=== PATIENT | male | born 1980 | race Two or more races ===

== ENCOUNTER 2023-06-21 12:00 | Outpatient (AMB) | payer OTHER, SELFPAY ==
--- NOTE | 2023-06-21 12:14 | A.OFFVIS_ITS ---
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 He has a past medical history of allergic rhinitis, anxiety, elevated hemoglobin A1c, GERD, nonalcoholic fatty liver disease, obesity, obstructive sleep apnea, and prediabetes. He presents to the office today as a new patient for nephrolithiasis. In discussion with the patient today he reports to be doing and feeling well. He discusses having a longstanding history of nephrolithiasis in the past for approximately 10-15 years. He reports having had previous surgical intervention for kidney stones. He reports following up with Dr. Kaplan in the past. He reports having had recent imaging at [facility] for right-sided flank pain he had been experiencing with lower urinary tract symptoms. Ultrasound report obtained. Bilateral kidneys with no hydro, lesions, and or stones noted. The bladder is normal. No stones, masses, or wall thickening noted on radiology report. Patient reports pain has since subsided and lower urinary tract symptoms as well. In office urinalysis results reviewed with the patient today. 3+ glucose. Discussed at length importance of healthy eating habits and increase daily activity for improvement in diabetes as well as for overall health and well-being. Discussed obtaining most recent imaging from [facility] as records are not provided at today's visit. He otherwise denies urinary urgency, urinary frequency, incontinence, nocturia, hematuria, dysuria, foul smelling urine, changes to urinary stream, flank pain, fever, and or chills. He is happy with his current voiding parameters. Patient otherwise offers no other issues or concerns at this time. [facility] Medical History (Updated 06/21/23 @ 15:32 by OBIE Giraldo) Allergic rhinitis Anxiety Elevated hemoglobin A1c GERD (gastroesophageal reflux disease) Non-alcoholic fatty liver disease Obesity Obstructive sleep apnea Pre-diabetes Review of Systems Const Reports as per HPI Eyes Reports no additional complaints ENT Reports no additional complaints Card Reports no additional complaints Resp Reports as per [facility] GI Reports as per [facility] Reports as per [facility] Musc Reports no additional complaints Neuro Reports no additional complaints Psych Reports as per [facility] Endo Reports as per [facility] Tye/Lymph Reports no additional complaints Aller/Immun Reports as per [facility] Physical Exam Const General: cooperative, healthy appearing, comfortable, no acute distress, well developed, alert and awake Nutritional Appearance: overweight Orientation/consciousness: patient oriented x3 Limitations: no limitations HEENT Head: Yes normal to inspection, Yes normocephalic and Yes atraumatic Ears: hearing grossly normal bilaterally Eyes General: appearance normal, both eyes and all related structures Neck Neck: Yes normal visual inspection and Yes trachea midline Chest Chest palpation & inspection: normal inspection of the chest Resp Effort & Inspection: normal respiratory effort and able to speak in complete sentences Cardio Rate: regular rate GI Inspection: Yes normal to inspection General: Yes no CVA tenderness Back/Spine/Pelvis Back: no CVA tenderness Skin General skin exam: no rashes or lesions noted Neuro General: patient oriented x3 Extrem General: Yes normal to inspection Psych Appearance: grossly normal and well kempt Mental Status: mental status grossly normal Speech and movement: Normal speech and movement present and Clear speech present Affect: normal affect Attitude: cooperative Thought process: Normal thought process present Thought content: Normal thought content present Insight: Fair insight present (Psych) Judgement: Fair judgement present (Psych) Results AMB Urinalysis, Automated UA Leukoctes 0 Dary/uL Last Edit by [employer] on 06/21/23 12:41 UA Nitrite Last Edit by [employer] on 06/21/23 12:41 UA Urobilinogen 0.2 mg/dL Last Edit by [employer] on 06/21/23 12:41 UA Protein 15 mg/dL Last Edit by [employer] on 06/21/23 12:41 UA pH 6.0 Last Edit by [employer] on 06/21/23 12:41 UA Blood 0 Monroe/uL Last Edit by [employer] on 06/21/23 12:41 UA Specific [place] 1.025 Last Edit by [employer] on 06/21/23 12:41 UA Ketone Last Edit by [employer] on 06/21/23 12:41 UA Bilirubin 0 mg/dL Last Edit by Lorena Paulino on 06/21/23 12:41 UA Glucose 1000 mg/dL Last Edit by Lorena Paulino on 06/21/23 12:41 Results Reviewed Results Reviewed: Laboratory Last Values Urine pH (Auto) 6.0 06/21/23 12:20 Specific [place] (Auto) 1.025 06/21/23 12:20 Urine Protein (Auto) 15 mg/dL 06/21/23 12:20 Glucose (UA)(Auto) 1000 mg/dL 06/21/23 12:20 Urine Blood (Auto) 0 Monroe/uL 06/21/23 12:20 Urine Bilirubin (Auto) 0 mg/dL 06/21/23 12:20 Urine Urobilinogen (Auto) 0.2 mg/dL 06/21/23 12:20 Leukocyte Esterase (Auto) 0 Dary/uL 06/21/23 12:20 Assessment & Plan Assessment & Plan (1) Nephrolithiasis: Code(s): N20.0 - Calculus of kidney (2) Lower urinary tract symptoms: Code(s): R39.9 - Unspecified symptoms and signs involving the genitourinary system (3) Flank pain: Code(s): R10.9 - Unspecified abdominal pain Plan In office urinalysis results reviewed with the patient today; as noted above. Retroperitoneal ultrasound results obtained and reviewed with the patient; as noted above. Discussed at length importance of managing diabetes for improvement in overall health and well-being. Discussed at length importance of weight loss with increase in activity and healthy eating habits for improvement in overall health and well-being. Discussed at length importance of drinking plenty of water daily Discussed and educated on potential causes for nephrolithiasis as well as further interventions pending ultrasound results. Patient otherwise denies any urinary issues or concerns at this time. Patient reports lower urinary tract symptoms and flank pain patient had been experiencing has since subsided Renal ultrasound in 1 year. Follow-up in 1 year with imaging to be completed prior; or sooner with any i ssues, concerns, and or questions. Orders: Orders AMB Urinalysis Automated 06/21/23 Z13.9 - Encounter for screening, unspecified US renal BI 364 Days N20.0 - Calculus of kidney Medications: New pyridoxine (vitamin B6) 100 mg PO DAILY 90 tabs 1RF 90 days N13.2 - Hydronephrosis with renal and ureteral calculous obstruction Patient Instructions: The patient had an opportunity to ask questions regarding the treatment plan. All questions were answered. Physical exam, labs, and imaging were discussed and reviewed in detail. As well as risks, benefits, and discussion of treatment choices. No major barriers to understanding were identified. The patient expressed understanding and agreement with the above treatment plan. The patient was made aware they should contact our office by phone for worsening of their current condition, the appearance of new symptoms, or with any questions or concerns. Compliance is encouraged with any medications and follow up testing that is ordered. It is a privilege to be allowed the opportunity to participate in? your urological care.? Again, if you have any questions or concerns If you have any questions or concerns please do not hesitate to contact me. The office is [phone]. This note is constructed using voice recognition software. While every effort has been made to ensure accuracy automotive mechanic errors may have been included. Yours sincerely, OBIE Giraldo Coding Level of Care Code New Pt Level 3 (66334) Diagnoses Nephrolithiasis N20.0 Lower urinary tract symptoms R39.9 Flank pain R10.9
== END 2023-06-21 13:30 | disposition home or self-care (01) ==
PROVIDERS: Visit Provider Nurse Practitioner Family
DX: N20.0 Calculus of kidney (principal); R39.9 Unspecified symptoms and signs involving the genitourinary system; R10.9 Unspecified abdominal pain
CPT/HCPCS: 99203

== ENCOUNTER → 2023-06-21 12:00 | Outpatient (BNVA) | payer OTHER, SELFPAY | PROVIDERS: Visit Provider Nurse Practitioner Family | DX: N20.0 Calculus of kidney (principal); R39.9 Unspecified symptoms and signs involving the genitourinary system | CPT/HCPCS: 81003; 99202 ==

== ENCOUNTER 2024-06-13 14:59 | Outpatient (REF) | payer OTHER, SELFPAY ==
--- NOTE | ~2024-06-13 | US_ITS ---
EXAMINATION: US RETROPERITONEAL COMPLETE (RENAL) CLINICAL INFORMATION: Calculus of kidney. COMPARISON: Renal ultrasound 09/03/2019. TECHNIQUE: Real-time imaging of the kidneys . FINDINGS: RIGHT KIDNEY: 12.0 x 5.2 x 5.7 cm (SAG x AP x TRV). The kidney is normal in size, contour, and echogenicity. Renal cortical thickness is normal. No calculi or focal parenchymal lesions. No hydronephrosis. LEFT KIDNEY: 12.0 x 5.4 x 5.8 cm (SAG x AP x TRV). The kidney is normal in size, contour, and echogenicity. Renal cortical thickness is normal. No calculi or focal parenchymal lesions. No hydronephrosis. US/US renal BI IMPRESSION: Normal exam. There are no renal calculi nor were any renal calculi present on the prior 09/03/2019 study. Electronically signed by: Darrel Carroll MD 06/26/2024 12:36 AM EDT
== END 2024-06-13 15:00 | disposition home or self-care (01) ==
LOC: HO.US 14:59
PROVIDERS: PCP Internal Medicine; Visit Provider Nurse Practitioner Family
DX: N20.0 Calculus of kidney (principal)
CPT/HCPCS: 76775

== ENCOUNTER 2024-06-20 12:00 | Outpatient (AMB) | payer OTHER, SELFPAY ==
--- NOTE | 2024-06-20 11:57 | A.OFFVIS_ITS ---
Intake Visit Reasons: 1y/US(pending 06/11) Intake Note: Patient presents for follow up visit on: kidney stones and ultrasound results Imaging Completed: 06/13/24 Urology Medications: none Blood Thinner: none Environmental Analyst Required: No Accompanied by: Self / Same As Patient Allergies No Known Allergies [No Known Allergies*] Allergy (Unverified 06/20/24 12:12) Medication List - Last Reconciled 06/20/24 by OBIE Giraldo pyridoxine (vitamin B6) 100 mg PO DAILY 90 days HPI Comments Details: Mark is a 43-year-old male patient. He has a past medical history of allergic rhinitis, anxiety, elevated hemoglobin A1c, GERD, nonalcoholic fatty liver disease, obesity, obstructive sleep apnea, and prediabetes. He presents to the office today for follow-up of his nephrolithiasis. In discussion with the patient today he reports noting over the last 4 days to be having ongoing right- sided flank pain that radiates to his lower abdomen area. He discusses feeling the same symptoms previously when passing a kidney stone. Recent renal imaging results reviewed with the patient today. Bilateral kidneys with no calculi, lesions, and or hydronephrosis. In office urinalysis results reviewed with the patient today negative leukocytes, negative nitrates, negative for microscopic hematuria, and 3+ glucose. Discussed, educated and stressed the importance of managing diabetes for overall health and well-being. No CVA tenderness noted bilaterally. Discussed obtaining CT KUB for further assessment evaluation. He otherwise denies urinary urgency, urinary frequency, incontinence, nocturia, hematuria, dysuria, foul smelling urine, changes to urinary stream, fever, and or chills. He is happy with his current voiding parameters. Patient otherwise offers no other issues or concerns at this time. [facility] Medical History Elevated hemoglobin A1c Pre-diabetes Allergic rhinitis Non-alcoholic fatty liver disease Obesity Obstructive sleep apnea Anxiety GERD (gastroesophageal reflux disease) Review of Systems Const Reports as per HPI Eyes Reports no additional complaints ENT Reports no additional complaints Card Reports no additional complaints Resp Reports as per HPI GI Reports as per HPI Reports as per HPI Musc Reports no additional complaints Neuro Reports no additional complaints Psych Reports as per HPI Endo Reports as per HPI Tye/Lymph Reports no additional complaints Aller/Immun Reports as per HPI Physical Exam Const General: cooperative, healthy appearing, comfortable, no acute distress, well developed, alert and awake Nutritional Appearance: overweight Orientation/consciousness: patient oriented x3 Limitations: no limitations HEENT Head: Yes normal to inspection, Yes normocephalic and Yes atraumatic Ears: hearing grossly normal bilaterally Eyes General: appearance normal, both eyes and all related structures Neck Neck: Yes normal visual inspection and Yes trachea midline Chest Chest palpation & inspection: normal inspection of the chest Resp Effort & Inspection: normal respiratory effort and able to speak in complete sentences Cardio Rate: regular rate GI Inspection: Yes normal to inspection General: Yes no CVA tenderness Back/Spine/Pelvis Back: no CVA tenderness Skin General skin exam: no rashes or lesions noted Neuro General: patient oriented x3 Extrem General: Yes normal to inspection Psych Appearance: grossly normal and well kempt Mental Status: mental status grossly normal Speech and movement: Normal speech and movement present and Clear speech present Affect: normal affect Attitude: cooperative Thought process: Normal thought process present Thought content: Normal thought content present Insight: Fair insight present (Psych) Judgement: Fair judgement present (Psych) Results AMB Urinalysis, Automated UA Leukoctes 0 Dary/uL Last Edit by [employer] on 06/20/24 12:14 UA Nitrite Last Edit by [employer] on 06/20/24 12:14 UA Urobilinogen 0.2 mg/dL Last Edit by [employer] on 06/20/24 12:14 UA Protein 0 mg/dL Last Edit by [employer] on 06/20/24 12:14 UA pH 6.0 Last Edit by [employer] on 06/20/24 12:14 UA Blood 0 Monroe/uL Last Edit by [employer] on 06/20/24 12:14 UA Specific [place] 1.015 Last Edit by [employer] on 06/20/24 12:14 UA Ketone Positive Last Edit by [employer] on 06/20/24 12:14 UA Bilirubin 0 mg/dL Last Edit by [employer] on 06/20/24 12:14 UA Glucose 1000 mg/dL Last Edit by [employer] on 06/20/24 12:14 Assessment & Plan Assessment & Plan (1) Nephrolithiasis: Code(s): N20.0 - Calculus of kidney Category: Medical (2) Lower urinary tract symptoms: Code(s): R39.9 - Unspecified symptoms and signs involving the genitourinary system Category: Medical (3) Flank pain: Code(s): R10.9 - Unspecified abdominal pain Category: Medical Plan In office urinalysis results reviewed with the patient today; as noted above. Discussed glucosuria and management of diabetes for improvement in lower urinary tract symptoms as well as overall health and well-being. Start Flomax as discussed and prescribed. Will obtain CT KUB for further assessment evaluation. Continue vitamin B6 as discussed and prescribed. Discussed seeking emergency room care for worsening symptoms. Discussed, educated, and stressed the importance of adequate hydration in relation to nephrolithiasis. Follow-up in 1-2 weeks with imaging to be completed prior; or sooner with any issues, concerns, and or questions. Orders: Orders CT kidney stone Today N20.0 - Calculus of kidney, R10.9 - Unspecified abdominal pain, R39.9 - Unspecified symptoms and signs involving the genitourinary system AMB Urinalysis Automated Today Z13.9 - Encounter for screening, unspecified Medications: New tamsulosin (Flomax) 0.4 mg PO BEDTIME 14 days 14 caps 0RF N13.2 - Hydronephrosis with renal and ureteral calculous obstruction Patient Instructions: The patient had an opportunity to ask questions regarding the treatment plan. All questions were answered. Physical exam, labs, and imaging were discussed and reviewed in detail. As well as risks, benefits, and discussion of treatment choices. No major barriers to understanding were identified. The patient expressed understanding and agreement with the above treatment plan. The patient was made aware they should contact our office by phone for worsening of their current condition, the appearance of new symptoms, or with any qu estions or concerns. Compliance is encouraged with any medications and follow up testing that is ordered. It is a privilege to be allowed the opportunity to participate in? your urological care.? Again, if you have any questions or concerns If you have any questions or concerns please do not hesitate to contact me. The office is [phone]. This note is constructed using voice recognition software. While every effort has been made to ensure accuracy mold presser errors may have been included. Yours sincerely, MICHEAL Giraldo Coding Level of Care Code Est Pt Level 4 (86124) Diagnoses Nephrolithiasis N20.0 Lower urinary tract symptoms R39.9 Flank pain R10.9
== END 2024-06-20 12:24 | disposition home or self-care (01) ==
PROVIDERS: Visit Provider Nurse Practitioner Family
DX: N20.0 Calculus of kidney (principal); R39.9 Unspecified symptoms and signs involving the genitourinary system; R10.9 Unspecified abdominal pain; Z13.9 Encounter for screening, unspecified
CPT/HCPCS: 99214

== ENCOUNTER → 2024-06-20 12:00 | Outpatient (BNVA) | payer OTHER, SELFPAY | PROVIDERS: Visit Provider Nurse Practitioner Family | DX: N13.2 Hydronephrosis with renal and ureteral calculous obstruction (principal); R39.9 Unspecified symptoms and signs involving the genitourinary system; R10.9 Unspecified abdominal pain | CPT/HCPCS: 81003; 99212 ==

== ENCOUNTER 2024-07-04 15:06 | Outpatient (REF) | payer OTHER, SELFPAY ==
--- NOTE | ~2024-07-04 | CT_ITS ---
EXAMINATION: CT ABDOMEN AND PELVIS WITHOUT CONTRAST CLINICAL INFORMATION: abdominal pain and kidney stone COMPARISON: Renal ultrasound 06/13/2024, CT abdomen and pelvis 08/11/2017 TECHNIQUE: Multidetector volumetric imaging was performed from the superior aspect of the liver through the pubic symphysis. Sagittal and coronal reformatted images were obtained on the technologist's workstation. This CT examination was performed using dose optimization techniques as appropriate, variously including the following: *Automated exposure control *Adjustment of mA and/or kV according to patient size (this includes techniques or standardized protocols for targeted exams where dose is matched to indication/reason for exam; i.e. extremities or head) *Use of iterative reconstruction technique DLP: 805 mGy-cm FINDINGS: LUNG BASES: The visualized lung bases are unremarkable. LIVER, GALLBLADDER, AND BILIARY TREE: The liver is enlarged at 19 cm in length with decreased attenuation consistent with hepatic steatosis. No focal hepatic lesion or biliary ductal dilatation is present. The gallbladder is unremarkable with no evidence of radiopaque gallstones, gallbladder wall thickening, or obvious pericholecystic inflammatory changes. PANCREAS: Unremarkable. SPLEEN: Spleen is enlarged at 13.4 cm. ADRENAL GLANDS: Unremarkable. KIDNEYS AND URETERS: The kidneys are normal in size, shape, and attenuation. No hydronephrosis, hydroureter, or calculi seen. No perinephric stranding. BLADDER: Empty but unremarkable GASTROINTESTINAL TRACT: The small and large bowel are unremarkable. The appendix is unremarkable. ABDOMINAL WALL: No significant hernia is appreciated. LYMPH NODES: Normal. VASCULAR: Unremarkable. PELVIC VISCERA: The prostate and seminal vesicles are unremarkable. OSSEOUS STRUCTURES: Unremarkable. CT/CT kidney stone IMPRESSION: 1. Enlarged fatty liver with mild splenomegaly. 2. No renal calculi are seen. 3. A cause for the patient's abdominal pain has not been found. Fleischner guidelines were followed. Electronically signed by: Darrel Carroll MD 07/04/2024 06:47 PM EDT
== END 2024-07-04 15:07 | disposition home or self-care (01) ==
LOC: HO.CT 15:06
PROVIDERS: PCP Internal Medicine; Visit Provider Nurse Practitioner Family
DX: R10.9 Unspecified abdominal pain (principal); R39.9 Unspecified symptoms and signs involving the genitourinary system; N20.0 Calculus of kidney
CPT/HCPCS: 74176

== ENCOUNTER 2024-07-23 13:44 | Outpatient (AMB) | payer OTHER, SELFPAY ==
--- NOTE | 2024-07-23 13:59 | A.OFFVIS_ITS ---
Intake Visit Reasons: 1m/CT KUB(set) Intake Note: Patient presents for follow up visit on: kidney stones and CT Scan Results Imaging Completed: 07/04/24 Urology Medications: none Blood Thinner: none Shrink Pit Supervisor Required: No Accompanied by: Self / Same As Patient Allergies No Known Allergies [No Known Allergies*] Allergy (Unverified 07/23/24 15:30) Medication List - Last Reconciled 07/23/24 by OBIE Giraldo clotrimazole-betamethasone 1-0.05 % 1 appl topical BID 4 weeks HPI Comments Details: Mark is a 43-year-old male patient. He has a past medical history of allergic rhinitis, anxiety, elevated hemoglobin A1c, GERD, nonalcoholic fatty liver disease, obesity, obstructive sleep apnea, and prediabetes. He presents to the office today for follow-up of his nephrolithiasis. Of note, patient was seen a proximally 1 month ago at which time a CT KUB was ordered for further assessment evaluation as patient was reporting flank pain despite recent renal ultrasound imaging noting bilateral kidneys with no calculi, lesions, and or hydronephrosis. These results reviewed with the patient today. The kidneys are normal in size, shape, and attenuation. No hydronephrosis, hydroureter, or calculi seen. No perinephric stranding. The bladder is empty but unremarkable. He reports flank pain he had been experiencing has since subsided. He does however note issues with retracting the penile foreskin. In assessment of the patient today the penis is uncircumcised and phimosis is noted. The meatus is visible however it is difficult to retract the penile foreskin. Otherwise no open areas, lesions, and or drainage noted to the area. We discussed at length further treatment options for phimosis. We discussed obtaining A1c for further assessment evaluation for possible near future circumcision. He denies urinary urgency, urinary frequency, incontinence, nocturia, hematuria, dysuria, foul smelling urine, changes to urinary stream, fever, and or chills. He is happy with his current voiding parameters. Patient otherwise offers no other issues or concerns at this time. [facility] Medical History Elevated hemoglobin A1c Pre-diabetes Allergic rhinitis Non-alcoholic fatty liver disease Obesity Obstructive sleep apnea Anxiety GERD (gastroesophageal reflux disease) Review of Systems Const Reports as per [facility] Eyes Reports no additional complaints ENT Reports no additional complaints Card Reports no additional complaints Resp Reports as per HPI GI Reports as per HPI Reports as per HPI Musc Reports no additional complaints Neuro Reports no additional complaints Psych Reports as per HPI Endo Reports as per HPI Tye/Lymph Reports no additional complaints Aller/Immun Reports as per HPI Physical Exam Const General: cooperative, healthy appearing, comfortable, no acute distress, well developed, alert and awake Nutritional Appearance: overweight Orientation/consciousness: patient oriented x3 Limitations: no limitations HEENT Head: Yes normal to inspection, Yes normocephalic and Yes atraumatic Ears: hearing grossly normal bilaterally Eyes General: appearance normal, both eyes and all related structures Neck Neck: Yes normal visual inspection and Yes trachea midline Chest Chest palpation & inspection: normal inspection of the chest Resp Effort & Inspection: normal respiratory effort and able to speak in complete sentences Cardio Rate: regular rate GI Inspection: Yes normal to inspection General: Yes no CVA tenderness Back/Spine/Pelvis Back: no CVA tenderness Skin General skin exam: no rashes or lesions noted Neuro General: patient oriented x3 Extrem General: Yes normal to inspection Psych Appearance: grossly normal and well kempt Mental Status: mental status grossly normal Speech and movement: Normal speech and movement present and Clear speech present Affect: normal affect Attitude: cooperative Thought process: Normal thought process present Thought content: Normal thought content present Insight: Fair insight present (Psych) Judgement: Fair judgement present (Psych) Results AMB Urinalysis, Automated UA Leukoctes 0 Dary/uL Last Edit by Lorena Paulino on 07/23/24 14:33 UA Nitrite Last Edit by Lorena Paulino on 07/23/24 14:33 UA Urobilinogen 0.2 mg/dL Last Edit by Lorena Paulino on 07/23/24 14:33 UA Protein 0 mg/dL Last Edit by Lorena Paulino on 07/23/24 14:33 UA pH 5.5 Last Edit by Lorena Paulino on 07/23/24 14:33 UA Blood 0 Monroe/uL Last Edit by Lorena Paulino on 07/23/24 14:33 UA Specific [place] 1.010 Last Edit by Lorena Paulino on 07/23/24 14:33 UA Ketone Negative Last Edit by Lorena Paulino on 07/23/24 14:33 UA Bilirubin 0 mg/dL Last Edit by Lorena Paulino on 07/23/24 14:33 UA Glucose 1000 mg/dL Last Edit by Lorena Paulino on 07/23/24 14:33 Results Reviewed Results Reviewed: Laboratory Last Values Urine pH (Auto) 5.5 07/23/24 14:31 Specific [place] (Auto) 1.010 07/23/24 14:31 Urine Protein (Auto) 0 mg/dL 07/23/24 14:31 Glucose (UA)(Auto) 1000 mg/dL 07/23/24 14:31 Urine Ketones (Auto) Negative 07/23/24 14:31 Urine Blood (Auto) 0 [place]/uL 07/23/24 14:31 Urine Bilirubin (Auto) 0 mg/dL 07/23/24 14:31 Urine Urobilinogen (Auto) 0.2 mg/dL 07/23/24 14:31 Leukocyte Esterase (Auto) 0 Dary/uL 07/23/24 14:31 Date of Service: 07/04/24 EXAMINATION: CT ABDOMEN AND PELVIS WITHOUT CONTRAST FINDINGS: LUNG BASES: The visualized lung bases are unremarkable. LIVER, GALLBLADDER, AND BILIARY TREE: The liver is enlarged at 19 cm in length with decreased attenuation consistent with hepatic steatosis. No focal hepatic lesion or biliary ductal dilatation is present. The gallbladder is unremarkable with no evidence of radiopaque gallstones, gallbladder wall thickening, or obvious pericholecystic inflammatory changes. PANCREAS: Unremarkable. SPLEEN: Spleen is enlarged at 13.4 cm. ADRENAL GLANDS: Unremarkable. KIDNEYS AND URETERS: The kidneys are normal in size, shape, and attenuation. No hydronephrosis, hydroureter, or calculi seen. No perinephric stranding. BLADDER: Empty but unremarkable GASTROINTESTINAL TRACT: The small and large bowel are unremarkable. The appendix is unremarkable. ABDOMINAL WALL: No significant hernia is appreciated. LYMPH NODES: Normal. VASCULAR: Unremarkable. PELVIC VISCERA: The prostate and seminal vesicles are unremarkable. OSSEOUS STRUCTURES: Unremarkable. IMPRESSION: 1. Enlarged fatty liver with mild splenomegaly. 2. No renal calculi are seen. 3. A cause for the patient's abdominal pain has not been found. Assessment & Plan Assessment & Plan (1) Phimosis: Code(s): N47.1 - Phimosis Category: Medical (2) Nephrolithiasis: Code(s): N20.0 - Calculus of kidney Category: Medical Plan In office urinalysis results reviewed with the patient today; as noted above. Recent CT results reviewed with the patient today; as noted above. Discussed at length potential causes of phimosis as well as further treatment options. Start clotrimazole-betamethasone 1-0.05 % as discussed and prescribed. Discussed obtaining A1c for potential near future circumcision. Patient currently denies any bothersome urinary issues. He reports be happy with current voiding parameters. Discussed and stressed the importance of managing diabetes for overall health and well-being. Follow-up in 3 months with A1c; or sooner with any issues, concerns, and or questions. Orders: Orders Hemoglobin A1c 3 Months E11.9 - Type 2 diabetes mellitus without complications, N47.1 - Phimosis AMB Urinalysis Automated Today Z13.9 - Encounter for screening, unspecified Medications: New clotrimazole-betamethasone 1-0.05 % Apply thin coat 2 times per day 1 appl topical BID 45 grams 0RF 4 weeks N48.1 - Balanitis Patient Instructions: The patient had an opportunity to ask questions regarding the treatment plan. All questions were answered. Physical exam, labs, and imaging were discussed and reviewed in detail. As well as risks, benefits, and discussion of treatment choices. No major barriers to understanding were identified. The patient expressed understanding and agreement with the above treatment plan. The patient was made aware they should contact our office by phone for worsening of their current condition, the appearance of new symptoms, or with any questions or concerns. Compliance is encouraged with any medications and follow up testing that is ordered. It is a privilege to be allowed the opportunity to participate in? your urological care.? Again, if you have any questions or concerns If you have any questions or concerns please do not hesitate to contact me. The office is [phone]. This note is constructed using voice recognition software. While every effort has been made to ensure accuracy neurosurgery spine physician errors may have been included. Yours sincerely, NATALIA Giraldo-JOSE JUAN Coding Level of Care Code Est Pt Level 4 (29374) Diagnoses Phimosis N47.1 Nephrolithiasis N20.0
== END 2024-07-23 14:18 | disposition home or self-care (01) ==
PROVIDERS: PCP Internal Medicine; Visit Provider Nurse Practitioner Family
DX: N47.1 Phimosis (principal); N20.0 Calculus of kidney; Z13.9 Encounter for screening, unspecified
CPT/HCPCS: 99214

== ENCOUNTER → 2024-07-23 13:44 | Outpatient (BNVA) | payer OTHER, SELFPAY | PROVIDERS: PCP Internal Medicine; Visit Provider Nurse Practitioner Family | DX: N47.1 Phimosis (principal); N20.0 Calculus of kidney | CPT/HCPCS: 81003; 99212 ==

== ENCOUNTER 2024-08-21 21:23 | Emergency (ER) | payer OTHER, SELFPAY ==
--- NOTE | ~2024-08-21 | CT_ITS ---
EXAMINATION: CT ABDOMEN AND PELVIS WITH CONTRAST CLINICAL INFORMATION: Right lower quadrant abdominal pain. COMPARISON: CT abdomen and pelvis from 07/04/2024. TECHNIQUE: Multidetector volumetric imaging was performed through the abdomen and pelvis after the administration of 100 mL of Omnipaque 350 intravenous contrast. Sagittal and coronal reformatted images were obtained on the technologist's workstation. This CT examination was performed using dose optimization techniques as appropriate, variously including the following: *Automated exposure control. *Adjustment of mA and/or kV according to patient size (this includes techniques or standardized protocols for targeted exams where dose is matched to indication/reason for exam; i.e. extremities or head). *Use of iterative reconstruction technique. DLP: 897 mGy-cm. FINDINGS: Lower Chest: No diffuse or focal parenchymal abnormalities in the visualized lung bases. No demonstrated abnormalities of the visualized cardiac structures. Liver, Biliary Ducts, and Gallbladder: The liver is normal in size. Diffuse hepatic hypoattenuation (42 Hounsfield units). No demonstrated focal hepatic lesions or biliary ductal dilatation. The gallbladder is physiologically distended without radiopaque gallstones, pericholecystic fluid, or significant gallbladder wall thickening. Pancreas: The pancreas is normal in appearance. Adrenal Glands: The adrenal glands are normal in appearance. Spleen: The spleen is normal in appearance. Kidneys and Ureters: The kidneys demonstrate symmetric nephrograms without evidence of nephrolithiasis or hydronephrosis. No ureterolithiasis or hydroureter. Urinary Bladder: The urinary bladder is partially distended without focal wall thickening. No bladder calculi are demonstrated. Gastrointestinal System: The stomach is decompressed and therefore not well evaluated on this exam. The small bowel is of normal caliber without regions of abnormal wall enhancement. The colon is normal in appearance without focal wall thickening or pericolonic inflammatory change. Normal appendix. Genitourinary: The prostate gland and seminal vesicles are normal in appearance. Intra-abdominal and Retroperitoneal Spaces: No intra-abdominal free fluid collections or gas. No mesenteric, retroperitoneal, or inguinal lymphadenopathy. Vasculature: The abdominal aorta is of normal contour and caliber. Musculoskeletal: Mild multilevel degenerative changes of the spine. No lytic or sclerotic osseous lesions demonstrated. No soft tissue masses demonstrated. Small fat-containing left-sided inguinal hernia. CT/CT abdomen pelvis w IV con IMPRESSION: 1. No demonstrated acute CT abnormalities to explain the patient's symptoms. 2. Hepatic steatosis. Electronically signed by: Jean Carlos Luong DO 08/22/2024 12:57 AM EDT
--- NOTE | ~2024-08-21 | XR_ITS ---
EXAMINATION: XR CHEST CLINICAL INFORMATION: Chest pain. Shortness of breath. COMPARISON: Chest radiograph 01/09/2020. TECHNIQUE: Frontal view of the chest was obtained. FINDINGS: Normal appearance of the cardiomediastinal structures. No effusions or pneumothoraces. No focal pulmonary consolidation. Normal pattern of pulmonary vasculature. No skeletal abnormalities identified. XR/XR chest 1V IMPRESSION: Normal chest. Lungs clear. Electronically signed by: Neftali Spicer MD 08/22/2024 12:40 AM EDT
--- NOTE | 2024-08-21 21:25 | ECG_ITS ---
Test Reason : CP Blood Pressure : / mmHG Vent. Rate : 087 BPM Atrial Rate : 087 BPM P-R Int : 138 ms QRS Dur : 080 ms QT Int : 346 ms P-R-T Axes : 048 014 015 degrees QTc Int : 416 ms Normal sinus rhythm Cannot rule out Anterior infarct , age undetermined Abnormal ECG No previous ECGs available Referred By: Generic ED Physician Electronically Signed By:JEANNIE COBB
[2024-08-21 21:31] VITALS: BP 144/88; PULSE 92; RESP 18; TEMP 36.4; O2SAT 97; BMI 40.3
[2024-08-21 21:41] LABS: MANUAL DIFF FLAG NO
[2024-08-21 21:54] LABS: Basophils Percent Auto 0.3 % (0-2); Eosinophils Percent Auto 0.4 % (0-4); Hematocrit 44.1 % (42.0-52.0); Hemoglobin 15.6 g/dl (14.0-18.0); Imm Gran Abs Auto 0.02 X10*3/uL (0.00-0.03); Imm Gran Pct Auto 0.3 % (0.0-0.4); Lymphocytes Absolute Auto 3.1 X10*3/uL (1.2-4.9); Lymphocytes Percent Auto 45.8 % (20-40); Mean Corpuscular HGB Conc 35.4 g/dl (31.0-36.0); Mean Corpuscular Hemoglobin 30.2 pg (27.0-33.0); Mean Corpuscular Volume 85.5 fL (80.0-98.0); Mean Platelet Volume 9.7 fL (9.4-12.4); Monocytes Absolute Auto 0.8 X10*3/uL (0.1-1.2); Monocytes Percent Auto 10.9 % (2-11); Neutrophils Absolute Auto 2.9 x10*3/uL (2.0-8.3); Neutrophils Percent Auto 42.3 % (45-73); Platelet Count 205 X10*3/uL (160-400); Red Blood Count 5.16 X10*6/uL (4.60-5.80); Red Cell Distribution Width 12.6 % (11.0-16.0); White Blood Count 6.9 X10*3/uL (4.8-10.8)
[2024-08-21 21:58] VITALS: BP 120/81; PULSE 83; RESP 19; TEMP 36.9; O2SAT 98
[2024-08-21 22:05] LABS: Anion Gap 16 (12-20); Blood Urea Nitrogen 19 mg/dL (9-16); Calcium 9.9 mg/dL (8.4-10.2); Carbon Dioxide 26 mmol/L (22-29); Chloride 96 mmol/L (96-108); Creatinine Clr Calc Pharmacy 99.4; Estimated Glomerular Filt Rate > 60; Glucose Random 482 mg/dL (60-115); Potassium 4.2 mmol/L (3.3-5.1); Sodium 134 mmol/L (135-145)
--- NOTE | 2024-08-21 22:06 | PC.NURSE ---
pt c/o L chest pain, R flank pain, and back of neck pain. all 07/03. pt feels like he can't catch his breath
[2024-08-21 22:10] LABS: Troponin-I High Sensitivity < 2.7 ng/L (<3.5-35.0)
[2024-08-21] MEDS: 0.9 % Sodium Chloride 1,000 ML 999 ML IVCONT (22:52)
[2024-08-21] MEDS: Insulin Regular, Human 100 UNIT/ML 10 ML VIAL IVPUSH (22:55)
--- NOTE | 2024-08-21 22:59 | ED.CHESTPAIN ---
HPI - Chest Pain General Chief Complaint: Chest Pain Stated Complaint: chest pain Time Seen by Provider: 08/21/24 22:31 Source: patient Mode of arrival: ambulatory Limitations: no limitations History of Present Illness ED Provider: Dr. Celine Barcenas HPI narrative: Initially, Patient came to the emergency room complaining of left-sided chest pain radiating towards the back for the last 3 days, continues. Patient complaining of shortness of breath. Also, patient reports he has been having high blood pressure at home. Then, patient complaining of right lower quadrant pain Related Data Previous Rx's ?Medication ?Instructions ?Recorded clotrimazole-betamethasone 1 1 appl topical BID 4 weeks #45 07/23/24 %-0.05 % topical cream grams metformin 500 mg tablet 500 mg PO BID #60 tabs 08/22/24 Allergies Allergy/AdvReac Type Severity Reaction Status Date / Time No Known Allergies Allergy Verified 08/21/24 21:33 [No Known Allergies*] Review of Systems Review of Systems: Constitutional : No Weight loss, No Fever, No Chills, No Night Sweats, No Fatigue, No Malaise ENT/Mouth : No Hearing loss, No Ear Pain, No Nasal Congestion, No Sinus Pain, No Hoarseness, No sore throat, No Rhinorrhea, No Swallowing Difficulty Eyes: No Eye Pain, No Swelling, No Redness, No Foreign Body, No Discharge, No Vision Changes Cardiovascular : Complaining of 3 days of left-sided Chest Pain, No SOB, No Dyspnea on Exertion, No Orthopnea, No Edema, No Palpitations Respiratory : No Cough, No Sputum, No Wheezing, No Smoke Exposure, No Dyspnea Gastrointestinal : No Nausea, No Vomiting, No Diarrhea, No Constipation, complaining of right lower quadrant pain Genitourinary : no irregular bleeding, No Dysuria, No Urinary Frequency, No Hematuria, No Urinary Incontinence, No Urgency, No Flank Pain, No Urinary Flow Changes, No Hesitancy Musculoskeletal : No joint pain, No Myalgias, No Joint Swelling Skin : No Skin Lesions, No rash Neuro : No Weakness, No Numbness, No Paresthesias, No Loss of Consciousness, No Dizziness, No Headache Psych : No Anxiety/Panic, No Depression, No SI/HI/AH/VH, No Social Issues, Heme/Lymph: No Bruising, No Bleeding,No Lymphadenopathy Endocrine : No Polyuria, No Polydipsia, No Temperature Intolerance [facility] Past Medical History Medical History Elevated hemoglobin A1c Pre-diabetes Allergic rhinitis Non-alcoholic fatty liver disease Obesity Obstructive sleep apnea Anxiety GERD (gastroesophageal reflux disease) Social History Social History Smoked in Last 30 Days: No Use of substances other than those prescribed or required for medical reasons: No Advance Directives: No Advance Directives Information Provided: No Do you have a plan to hurt others: No Plan Physical Exam Vital Signs: Vital Signs: Last Vital Signs Temp 97.6 F 08/21/24 23:27 Pulse 85 08/21/24 23:27 Resp 14 08/21/24 23:27 BP 115/73 08/21/24 23:27 Pulse Ox 93 08/21/24 23:27 O2 Del Method Room Air 08/21/24 23:27 BMI result Body Mass Index 40.3 Const: Other: Appearance: Alert. Oriented X3. No acute distress. Eyes: Pupils equal, round and reactive to light. ENT: Pharynx normal. Neck: Normal inspection. Neck supple. No lymph nodes noted. No crepitus CVS: Normal heart rate and rhythm. Pulses normal. Normal S1 and S2 Respiratory: No respiratory distress. Breath sounds normal. No Wheezing. No rales Abdomen: Soft , complaining of right lower quadrant pain, No rigidity. No distention. Skin: Skin warm and dry. Normal skin color. Normal skin turgor. Extremities: No lower extremity edema. No Lacerations. No Rash Neuro: Oriented X 3. No motor deficit. No sensory deficit. Moving all extremities. No slurred speech. CN 2 through 12 grossly intact Psych: calm, cooperative, normal affect Medications Administered Discontinued Medications Generic Name Dose Route Start Last Admin Trade Name Freq PRN Reason Stop Dose Admin Sodium Chloride 1,000 mls @ 999 mls/hr 08/21/24 22:42 08/22/24 00:46 Ns IVCONT 08/21/24 23:42 Infused .Q1H1M ONE Infusion Insulin Human Regular 5 unit 08/21/24 22:42 08/21/24 22:55 Insulin Regular, Human 100 Unit/Ml 10 Ml Vial IVPUSH 08/21/24 22:43 5 unit ONCE ONE Administration Iohexol 100 ml 08/21/24 23:13 08/21/24 23:13 Iohexol 350 Mg/Ml 100 Ml Infus..Btl IV 08/21/24 23:14 100 ml ONCE ONE Administration Medical Decision Making Medical Decision Making [facility] Narrative: My interpretation of labs, normal hematology, normal chemistry, normal LFTs, normal troponin. Patient's glucose 482. Patient states that he has never been told that he has diabetic. However, in his medical history it says that he has been diagnosed with ?elevated A1c -patient received normal saline, 5 units of insulin, patient's glucose improved to 228. -urinalysis negative for UTI -CT scan of the abdomen my interpretation, no obvious abnormality. -cxr shows no acute abnormality. Differential Diagnosis Differential Diagnoses: The differential diagnosis associated with the presentation includes (ACS, costochondritis, pneumonia, musculoskeletal pain, new onset diabetes, UTI) Admission/Observation Consideration of admission/observation: Escalation of care including admission/observation considered (Given patient's multiple complaints, observation was considered) Lab Data [facility] Lab Attestation statement: I reviewed the patient's lab results. 08/21/24 21:36 08/21/24 21:36 Labs: Lab Results 08/21/24 08/21/24 08/22/24 Range/Units 21:36 23:16 00:01 WBC 6.9 (4.8-10.8) X10*3/uL RBC 5.16 (4.60-5.80) X10*6/uL Hgb 15.6 (14.0-18.0) g/dl Hct 44.1 (42.0-52.0) % MCV 85.5 (80.0-98.0) fL MCH 30.2 (27.0-33.0) pg MCHC 35.4 (31.0-36.0) g/dl RDW 12.6 (11.0-16.0) % Plt Count 205 (160-400) X10*3/uL MPV 9.7 (9.4-12.4) fL Immature Gran % (Auto) 0.3 (0.0-0.4) % Neut % (Auto) 42.3 L (45-73) % Lymph % (Auto) 45.8 H (20-40) % [place] % (Auto) 10.9 (2-11) % Eos % (Auto) 0.4 (0-4) % Baso % (Auto) 0.3 (0-2) % Lymph # (Auto) 3.1 (1.2-4.9) X10*3/uL [place] # (Auto) 0.8 (0.1-1.2) X10*3/uL Eos # (Auto) 0.0 (0.0-0.4) X10*3/uL Baso # (Auto) 0.0 (0.0-0.2) X10*3/uL Abs Immat Gran (auto) 0.02 (0.00-0.03) X10*3/uL Absolute Neuts (auto) 2.9 (2.0-8.3) x10*3/uL Absolute Nucleated RBC 0.000 (0.0-0.012) X10*3/uL Nucleated RBC % (auto) 0.0 (0.0-0.2) /100WBC Sodium 134 L (135-145) mmol/L Potassium 4.2 (3.3-5.1) mmol/L Chloride 96 (96-108) mmol/L Carbon Dioxide 26 (22-29) mmol/L Anion Gap 16 (12-20) BUN 19 H (9-16) mg/dL Creatinine 1.22 (0.5-1.4) mg/dL Estim Creat Clear Calc 99.4 Estimated GFR > 60 POC Glucose 228 H (60-115) mg/dL Random Glucose 482 H* (60-115) mg/dL Calcium 9.9 (8.4-10.2) mg/dL Total Bilirubin 0.4 (0.0-1.0) mg/dL Direct Bilirubin 0.1 (0.0-0.5) mg/dL AST 30 (5-37) U/L ALT 73 H (0-40) U/L Alkaline Phosphatase 73 (39-117) U/L Troponin I High Sens < 2.7 (<3.5-35.0) ng/L Total Protein 6.8 (6.5-8.0) g/dL Albumin 4.2 (3.5-5.0) g/dL Urine Color Yellow Urine Appearance Clear Urine pH 5.5 (5.0-9.0) Ur Specific [place] >= 1.030 H (1.005-1.025) Urine Protein Negative (Neg-Trace) mg/dL Urine Glucose (UA) >=1000 H (Negative) mg/dL Urine Ketones Trace (Negative) mg/dL Urine Blood Negative (Negative) Urine Nitrite Negative (Negative) Ur Leukocyte Esterase Negative (Negative) Urine RBC 0-2 (0-2) /HPF Urine WBC 0-5 (0-5) /HPF Ur Squamous Epith Cells 0-2 (0-2) /HPF Urine Bacteria None Seen (None Seen) Hyaline Casts 0-2 (0-2) /LPF Independent Interpretation I performed an independent interpretation of an: Plain X-Ray and CT Scan Radiology Impression Discussion of test interpretation with radiology: I have reviewed the radiologist's reading. Radiologist Impression: FINDINGS: Lower Chest: No diffuse or focal parenchymal abnormalities in the visualized lung bases. No demonstrated abnormalities of the visualized cardiac structures. Liver, Biliary Ducts, and Gallbladder: The liver is normal in size. Diffuse hepatic hypoattenuation (42 Hounsfield units). No demonstrated focal hepatic lesions or biliary ductal dilatation. The gallbladder is physiologically distended without radiopaque gallstones, pericholecystic fluid, or significant gallbladder wall thickening. Pancreas: The pancreas is normal in appearance. Adrenal Glands: The adrenal glands are normal in appearance. Spleen: The spleen is normal in appearance. Kidneys and Ureters: The kidneys demonstrate symmetric nephrograms without evidence of nephrolithiasis or hydronephrosis. No ureterolithiasis or hydroureter. Urinary Bladder: The urinary bladder is partially distended without focal wall thickening. No bladder calculi are demonstrated. Gastrointestinal System: The stomach is decompressed and therefore not well evaluated on this exam. The small bowel is of normal caliber without regions of abnormal wall enhancement. The colon is normal in appearance without focal wall thickening or pericolonic inflammatory change. Normal appendix. Genitourinary: The prostate gland and seminal vesicles are normal in appearance. Intra-abdominal and Retroperitoneal Spaces: No intra-abdominal free fluid collections or gas. No mesenteric, retroperitoneal, or inguinal lymphadenopathy. Vasculature: The abdominal aorta is of normal contour and caliber. Musculoskeletal: Mild multilevel degenerative changes of the spine. No lytic or sclerotic osseous lesions demonstrated. No soft tissue masses demonstrated. Small fat-containing left-sided inguinal hernia. CT/CT abdomen pelvis w IV con IMPRESSION: 1. No demonstrated acute CT abnormalities to explain the patient's symptoms. 2. Hepatic steatosis. Normal appearance of the cardiomediastinal structures. No effusions or pneumothoraces. No focal pulmonary consolidation. Normal pattern of pulmonary vasculature. No skeletal abnormalities identified. XR/XR chest 1V IMPRESSION: Normal chest. Lungs clear. Critical Care Time Critical Care Time Critical Care Time: Yes Total Critical Care Time: 60 Attestation: I have personally provided critical care time. Time includes review of lab data, radiology results, discussion with consultants, and monitoring for potential decompensation. Intervention performed as documented. Discharge Plan Discharge Clinical Impression: Type 2 diabetes mellitus, Atypical chest pain, Abdominal pain Patient Disposition: Still a Patient Instructions: Chest Pain (ED), Type 2 Diabetes in Adults: New Diagnosis (DC), Abdominal Pain (ED) Additional Instructions: Please follow-up with your primary care physician tomorrow. If you have any worsening or new symptoms, please return to the emergency room or call 911 Prescriptions: New metformin 500 mg tablet 500 mg PO BID Qty: 60 0RF No Action clotrimazole-betamethasone 1-0.05 % cream 1 appl topical BID 28 Days Qty: 45 0RF Rx Instructions: Apply thin coat 2 times per day Print Language: Hungarian
--- NOTE | 2024-08-21 22:59 | PC.NURSE ---
pt ambulated to the bathroom with an even and steady gait. provided UA. pt in CT at this time. 20g IV LAC.
[2024-08-21] MEDS: iohexoL 350 MG/ML 100 ML INFUS..BTL IV (23:13)
[2024-08-21 23:23] LABS: Appearance Urine Clear; Color Urine Yellow; Glucose Urine UA >=1000 mg/dL (Negative); Leukocyte Esterase Urine Negative (Negative); Nitrite Urine Negative (Negative); PH 5.5 (5.0-9.0); Specific Gravity - Urine >= 1.030 (1.005-1.025); UMIC TRIGGER UACC YES; Urine Blood Negative (Negative); Urine Ketones Trace mg/dL (Negative); Urine Protein Negative (Neg-Trace)
[2024-08-21 23:25] LABS: Bacteria Urine None Seen (None Seen); Hyaline Casts Urine 0-2 /LPF (0-2); RBC Urine 0-2 /HPF (0-2); Squamous Epithelial Cell Urine 0-2 /HPF (0-2); WBC Urine 0-5 /HPF (0-5)
[2024-08-21 23:25] LABS: Alanine Aminotransferase 73 U/L (0-40); Albumin Level 4.2 g/dL (3.5-5.0); Alkaline Phosphatase 73 U/L (39-117); Aspartate Amino Transferase 30 U/L (5-37); Bilirubin Direct 0.1 mg/dL (0.0-0.5); Bilirubin Total 0.4 mg/dL (0.0-1.0); Total Protein 6.8 g/dL (6.5-8.0)
[2024-08-21 23:27] VITALS: BP 115/73; PULSE 85; RESP 14; TEMP 36.4; O2SAT 93
[2024-08-22 00:08] LABS: Glucose, Whole Blood 228 mg/dL (60-115)
[2024-08-22 01:29] VITALS: BP 130/81; PULSE 80; RESP 18; TEMP 36.4; O2SAT 98
[2024-08-22 01:32] VITALS: BP 130/81; PULSE 80; RESP 18; TEMP 36.4; O2SAT 98
--- NOTE | 2024-08-22 01:33 | PC.NURSE ---
Took over care from Shelly at 23:00, pt a&o, no sob or chest pain, reviewed discharge instruction with pt. pt verbalized understanding, education of new medication and diabetes . Pt discharge with no sign of distress.
== END 2024-08-22 01:32 | disposition home or self-care (01) ==
PROVIDERS: Emergency Provider Emergency Medicine
DX: R07.89 Other chest pain (principal); M54.50 Low back pain, unspecified; E11.9 Type 2 diabetes mellitus without complications; R10.2 Pelvic and perineal pain; Z79.84 Long term (current) use of oral hypoglycemic drugs; Z79.899 Other long term (current) drug therapy
CPT/HCPCS: 36415; 71045; 74177; 80048; 80076; 81001; 82947; 84484; 85025; 93005; 96361; 96374; 99284; 99285; Q9967

== ENCOUNTER → 2024-08-21 21:25 | Outpatient (BNV) | payer OTHER, SELFPAY | PROVIDERS: Emergency Provider Emergency Medicine; Visit Provider Internal Medicine | DX: R94.31 Abnormal electrocardiogram [ECG] [EKG] (principal) | CPT/HCPCS: 93010 ==

== ENCOUNTER 2024-11-13 16:47 | Outpatient (AMB) | payer OTHER, SELFPAY ==
--- NOTE | 2024-11-13 16:47 | A.OFFVIS_ITS ---
Intake Visit Reasons: 3M CT(Needs A1C) Intake Note: Patient presents for follow up visit on: kidney stones, ct scan results, phimosis, and HGB A1C HGB A1C: >15.0 Imaging Completed: 08/21/24 Urology Medications: none Blood Thinner: none Physician Surgeon Required: No Accompanied by: Self / Same As Patient Allergies No Known Allergies [No Known Allergies*] Allergy (Verified 11/13/24 16:53) Medication List - Last Reconciled 11/13/24 by OBIE Giraldo clotrimazole-betamethasone 1-0.05 % 1 appl topical BID 4 weeks metformin 1,000 mg PO BID [facility] Medical History Elevated hemoglobin A1c Pre-diabetes Allergic rhinitis Non-alcoholic fatty liver disease Obesity Obstructive sleep apnea Anxiety GERD (gastroesophageal reflux disease) Telehealth Telehealth Telehealth Platform: [facility] Location of provider rendering services: practice address Location of patient: address on file Patient Identification confirmed using: Name, : Yes Telehealth method: video Patient verbally consented to treatment: Yes Patient verbally consented to billing insurance company: Yes Patient informed of any privacy concerns related to visit: Yes Assessment & Plan Assessment & Plan Orders: Orders Hemoglobin A1c 3 Months E11.9 - Type 2 diabetes mellitus without complications Medications: Refilled clotrimazole-betamethasone 1-0.05 % Apply thin coat 2 times per day 1 appl topical BID 45 grams 1RF 4 weeks N48.1 - Balanitis Coding
--- NOTE | 2024-11-13 16:52 | A.OFFVIS_ITS ---
Intake Visit Reasons: 3M CT(Needs A1C) Allergies No Known Allergies [No Known Allergies*] Allergy (Verified 11/13/24 16:53) Medication List - Last Reconciled 11/13/24 by OBIE Giraldo clotrimazole-betamethasone 1-0.05 % 1 appl topical BID 4 weeks metformin 1,000 mg PO BID HPI Comments Details: Mark is a 44-year-old male patient. He has a past medical history of allergic rhinitis, anxiety, elevated hemoglobin A1c, GERD, nonalcoholic fatty liver disease, obesity, obstructive sleep apnea, and diabetes. He is being followed up on today via telehealth for his phimosis as well as longstanding history of nephrolithiasis. Of note, patient was seen approximately 3 months ago at which time he was given topical steroid and recommendations were made for control of his diabetes for potential surgical intervention of his phimosis. In discussion with the patient today he reports having been hospitalized at [facility] and was recently discharged 11/11 from [facility] for recent surgery to his left shoulder. He discusses during his hospitalization his metformin was increased and he was started on insulin. In review of patient's chart it appears a1c 10/[address] 08/16 noting bilateral kidneys with no calculi, lesions, and or hydronephrosis. These results reviewed with the patient today. The kidneys are normal in size, shape, and attenuation. No hydronephrosis, hydroureter, or calculi seen. No perinephric stranding. The bladder is empty but unremarkable. We discussed at length further treatment options for phimosis. We discussed obtaining A1c for further assessment evaluation for possible near future circumcision. He denies urinary urgency, urinary frequency, incontinence, nocturia, hematuria, dysuria, foul smelling urine, changes to urinary stream, fever, and or chills. He is happy with his current voiding parameters. Patient otherwise offers no other issues or concerns at this time. [facility] Medical History Elevated hemoglobin A1c Pre-diabetes Allergic rhinitis Non-alcoholic fatty liver disease Obesity Obstructive sleep apnea Anxiety GERD (gastroesophageal reflux disease) Review of Systems Const Reports as per HPI Eyes Reports no additional complaints ENT Reports no additional complaints Card Reports no additional complaints Resp Reports as per HPI GI Reports as per HPI Reports as per HPI Musc Reports no additional complaints Neuro Reports no additional complaints Psych Reports as per HPI Endo Reports as per HPI Tye/Lymph Reports no additional complaints Aller/Immun Reports as per HPI Physical Exam Const General: cooperative Resp Effort & Inspection: able to speak in complete sentences Psych Attitude: cooperative Thought process: Normal thought process present Thought content: Normal thought content present Insight: Fair insight present (Psych) Judgement: Fair judgement present (Psych) Assessment & Plan Assessment & Plan (1) Phimosis: Code(s): N47.1 - Phimosis Category: Medical (2) Nephrolithiasis: Code(s): N20.0 - Calculus of kidney Category: Medical Plan Recent A1c results reviewed with the patient today; as noted above Discussed at length potential causes of phimosis as well as further treatment options. Continue clotrimazole-betamethasone 1-0.05 % as discussed and prescribed. Discussed obtaining A1c for potential near future circumcision; will reassess in 3 months Patient currently denies any bothersome urinary issues. He reports be happy with current voiding parameters. Discussed and stressed the importance of managing diabetes for overall health and well-being. Follow-up in 3 months with A1c; or sooner with any issues, concerns, and or questions. Orders: Orders Hemoglobin A1c 3 Months E11.9 - Type 2 diabetes mellitus without complications Medications: Refilled clotrimazole-betamethasone 1-0.05 % Apply thin coat 2 times per day 1 appl topical BID 4 weeks 45 grams 1RF N48.1 - Balanitis Patient Instructions: The patient had an opportunity to ask questions regarding the treatment plan. All questions were answered. Physical exam, labs, and imaging were discussed and reviewed in detail. As well as risks, benefits, and discussion of treatment choices. No major barriers to understanding were identified. The patient expressed understanding and agreement with the above treatment plan. The patient was made aware they should contact our office by phone for worsening of their current condition, the appearance of new symptoms, or with any questions or concerns. Compliance is encouraged with any medications and follow up testing that is ordered. It is a privilege to be allowed the opportunity to participate in? your urological care.? Again, if you have any questions or concerns If you have any questions or concerns please do not hesitate to contact me. The office is [phone]. This note is constructed using voice recognition software. While every effort has been made to ensure accuracy um specialist errors may have been included. Yours sincerely, NATALIA Giraldo-BC Coding Level of Care Code Tele Est Pt Level 3 (09713) Diagnoses Phimosis N47.1 Nephrolithiasis N20.0
--- OUTSIDE RECORDS SUMMARY | 2024-11-13 18:00 | XMS_ITS | Continuity of Care Document ---
Author Organization [place] - [facility], [facility] Address [address] [place] [address] Care Team Providers Care Rigging Up Man Name Role Phone AMIRA DOMINGUEZ Primary Care Provider Assessment Encounter Date Assessment Date Assessment LastModified by Organization Details LastModified Time 11/08/2024 11/08/2024 44-year-old male presents for review of allergy testing. Allergy testing demonstrated mild reactions to mold. Patient would likely not benefit from immunotherapy but could be considered in the future. We discussed referral to neurology for further management of chronic headaches, which patient would like to proceed with. Referral was placed. We discussed that chronic headaches may also be due to untreated sleep apnea. Patient does snore but has no concerns about apnea and is not interested in sleep study at this time. Given that symptoms have worsened in the past three weeks and he is now having discolored nasal drainage, we discussed concern for acute sinusitis. Recommended course of Augmentin for 10 days. If symptoms persist, we may consider CT sinus. We did discuss that his MRI back in June was without sinus disease, but we discussed the limitations of MRIs and visualization of all the sinuses. Patient will call back if no improvement and if he is interested in proceeding with CT sinus. [email or web address] Not available 11/08/2024 14:13:44 Plan of Treatment Reminders Order Date Submit Date Provider Last Modified By Organization Details Last Modified Time Details Appointments None recorded. Lab None recorded. Referral neurologist referral 2024 025 [email or web address] 14 [facility], [address] [place], [address], 15:31:14 Procedures None recorded. Surgeries None recorded. Imaging None recorded. Medication Orders amoxicillin 875 mg-potassiu m clavulanate 125 mg tablet 2024 025 [facility] #[id number], [address] [place], [address], 13:11:43 Patient TargetsNo targets recorded. Patient InstructionsNo instructions recorded. Reason for Referral Neurologist Referral for Amina lee Referring Physician: rBian Motta, Otolaryngology, Encounter Date: 11/08/2024 Problems Name Problem SNOMED Code Status Onset Date Resolution Date Notes Provider Name and Address Organization Details Recorded Time Acute pharyngit is 101668276 Active 2022 Acute pharyngit is, unspecifi ed; Note: Date Diagnosed : 05/26/2023 4:00 PM (J02.9) Not Available [facility] 03:00:15 Headache 17310307 Active 2023 Headache, unspecifi ed; Note: Date Diagnosed : 10/28/2023 10:18 AM (R51.9) Not Available [facility] 4 03:00:14 Sensorine ural hearing loss 40791484 Active 2020 Sensorine ural hearing loss, unilatera l, left ear, with unrestric cruz hearing on the contralat eral side; Note: Date Diagnosed : 05/26/2021 12:06 PM (H90.42) Not Available [facility] 4 03:00:13 Furuncle 033526999 Active 2022 Furuncle, unspecifi ed; Note: Date Diagnosed : 01/13/2023 9:42 AM (L02.92) Not Available [facility] 4 03:00:14 Hemoptysi s 35013830 Active 2022 Hemoptysi s; Note: Date Diagnosed : 05/26/2023 4:00 PM (R04.2) Not Available [facility] 4 03:00:12 Otalgia of left ear 6177167715 Active 2019 Otalgia, left ear; Note: Date Diagnosed : 07/04/2020 2:28 PM (H92.02) Not Available [facility] 4 03:00:12 Cough 76090685 Active 2023 Cough; Note: Date Diagnosed : 07/04/2020 2:33 PM (R05) ; Start Date : 0 Cough, unspecifi ed; Note: Date Diagnosed : 10/28/2023 10:18 AM (R05.9) Not Available [facility] 4 03:00:12 Gastroeso phageal reflux disease without esophagit is 607324872 Active 2019 Gastro-es ophageal reflux disease without esophagit is; Note: Date Diagnosed : 07/04/2020 2:33 PM (K21.9) Not Available [facility] 4 03:00:15 Acute sialoaden itis 414916713 Active 2021 Acute sialoaden itis; Note: Date Diagnosed : 07/16/2022 2:45 PM (K11.21) Not Available [facility] 4 03:00:14 Gastroeso phageal reflux disease 453754246 Active 2014 Laryngeal reflux; Note: Date Diagnosed : 11/29/2014 3:05 PM (530.81) Not Available [facility] 4 03:00:14 Otitis externa of left ear 37731861984 16319 Active 2023 YULIA HARMON MD [address] [place] [address],[place] [address] [place], [address] , [place] - [facility] 4 14:00:19 Otorrhea 48469543 Active 2023 BRIAN MOTTA PA-C [address] [place] [address],[place] [address], [address] , [place] - [facility] 4 14:08:28 Otitis externa 6542190 Active 2023 BRIAN MOTTA PA-C [address] [place] [address],[place] [address], [address] , [place] - [facility] 4 14:13:28 Otitis externa 9660179 Active 2023 PARMINDER FELIZ PA-C [address] [facility],[address], [place], [address] , [place] - [facility] 4 15:58:44 Candidal otitis externa 04544270 Active 2023 PARMINDER FELIZ PA-C [address] [facility] [address], [place], [address] , [place] - [facility] 4 13:30:30 Posterior rhinorrhe a 33705362 Active 2023 BRIAN MOTTA PA-C [address] [facility],[place] [address], [place], [place], [address] , [place] - [facility] 4 14:41:39 Seasonal allergic rhinitis 973653197 Active 2023 BRIAN MOTTA PA-C [address] [facility],[address] [facility], [place], [place], [address] , [place] - [facility] 4 14:41:44 Allergic rhinitis 33489893 Active 2023 RICARDA GRADY, [facility] [address] [facility] [address],[address] [facility], [place], [place], [address] , [facility] - [facility] 4 14:59:31 Allergic rhinitis 80918514 Active 2023 RICARDA GRADY [facility], [facility] [address] [facility] [address],[place] [address], [place], [address] , [facility] - [facility] 4 15:04:35 Acute sinusitis 19128433 Active 2024 BRIAN MOTTA PA-C [address] [facility],[place] [address], [place], [address] , [facility] - [facility] 5 13:08:04 Problem Notes None recorded. Procedures Surgical History Date Name Laterality Status Provider Name and Address Organization Details Recorded Time 5 Telehealth completed BRIAN MOTTA PA-C [address] [facility] [address], [place], [address], [facility] - [facility] 11/08/2024 13:05:12 Allergy Testing-Full completed RICARDA TOMLIN, RMA [address] [facility] [address], [place], [address], [facility] - [facility] 08/16/2024 15:36:59 Imaging Results None recorded. Procedure Notes None recorded. Medical Equipment None Reported. Allergies No known drug allergies Medications Name Sig Start Date Stop Date Status Note LastModified by Organization Details LastModified Time metformin 500 mg tablet TAKE 1 TABLET BY MOUTH TWICE A DAY active Not Available Not Available No t Available neomycin- polymyxin -hydrocor t 3.5 mg/mL-10, 000 unit/mL-1 % ear solution PLACE 2 DROPS IN AFFECTED EAR 3 TIMES PER DAY FOR 10 DAYS 04/23 completed Not Available Not Available Not Available clindamyc in HCl 300 mg capsule TAKE 1 CAPSULE BY MOUTH THREE TIMES A DAY FOR 10 DAYS 04/23 completed Not Available Not Available Not Available azithromy lorena 250 mg tablet TAKE 2 TABLETS BY MOUTH TODAY, THEN TAKE 1 TABLET DAILY FOR 4 DAYS DIRECTED 04/23 completed Not Available Not Available Not Available clarithro mycin 500 mg tablet TAKE 1 TABLET BY MOUTH TWICE A DAY FOR 14 DAYS 08/16 completed Not Available Not Available Not Available sucralfat e 1 gram tablet 07/04 completed Medicati on ID: [id number] Du ration Value: 30 Reason: () Brand Name: sucralfa te Send Method: E-Prescr ibed Sub s Allowed: subs OK Speci al Instruct ion: TAKE 1 TABLET 4 TIMES DAILY, BEFORE MEALS AND AT BEDTIME. Medicat ionGener icName: sucralfa te Not Available Not Available Not Available metronida zole 500 mg tablet TAKE 1 TABLET BY MOUTH TWICE A DAY FOR 14 DAYS 08/16 completed Not Available Not Available Not Available minoxidil 2.5 mg tablet TAKE 2 TABLETS BY MOUTH EVERY DAY AT BEDTIME 04/23 completed Not Available Not Available Not Available tramadol 50 mg tablet 07/04 completed Medicati on ID: [id number] Du ration Value: 14 Reason: () Brand Name: tramadol Send Method: E-Prescr ibed Sub s Allowed: subs OK Speci al Instruct ion: TAKE 1 TABLET BY MOUTH 3 TIMES A DAY Medi cationGe nericNam e: tramadol Not Available Not Available Not Available amoxicill in 500 mg tablet TAKE 2 TABLETS BY MOUTH TWICE DAILY FOR 2 WEEKS. 08/16 completed Not Available Not Available Not Available ofloxacin 0.3 % ear drops INSTILL 5 DROPS INTO AFFECTED EAR(S) BY OTIC ROUTE TWICE DAILY X 7 DAYS active Not Available Not Available No t Available pravastat in 10 mg tablet 07/04 completed Medicati on ID: [id number] Du ration Value: 30 Reason: () Brand Name: pravasta tin Send Method: E-Prescr ibed Sub s Allowed: subs OK Speci al Instruct ion: TAKE 1 TABLET DAILY. M alexus De Guzmaneneric Name: pravasta tin Not Available Not Available Not Available tamsulosi n 0.4 mg capsule TAKE 1 CAPSULE BY MOUTH EVERY DAY AT BEDTIME FOR 14 DAYS 08/16 completed Not Available Not Available Not Available pantopraz ole 40 mg tablet,de layed release 07/04 completed Medicati on ID: [id number] Du ration Value: 30 Reason: () Brand Name: pantopra zole Sen d Method: E-Prescr ibed Sub s Allowed: subs OK Speci al Instruct ion: TAKE 1 TABLET BY MOUTH DAILY Me dication GenericN zach: pantopra zole Not Available Not Available Not Available hyoscyami ne sulfate 0.125 mg tablet 07/04 completed Medicati on ID: [id number] Du ration Value: 30 Reason: () Brand Name: hyoscyam ine sulfate Send Method: E-Prescr ibed Sub s Allowed: subs OK Speci al Instruct ion: TAKE 1 TABLET BY MOUTH TWICE A DAY Medi cationGe nericNam e: hyoscyam ine sulfate Not Available Not Available Not Available metformin 1,000 mg tablet TAKE 1 TABLET BY MOUTH TWICE A DAY active Not Available Not Available No t Available clotrimaz ole-betam ethasone 1 %-0.05 % topical cream APPLY A THIN COAT TWICE A DAY FOR 4 WEEKS 08/16 completed Not Available Not Available Not Available clotrimaz ole 1 % topical solution APPLY 4 DROPS TO AFFECTED EAR TWICE DAILY FOR 14 DAYS 08/16 completed Not Available Not Available Not Available pyridoxin e (vitamin B6) 100 mg tablet 04/23 completed Medicati on ID: [id number] B rand Name: pyridoxi ne (vitamin B6) Send Method: E-Prescr ibed Sub s Allowed: subs OK Speci al Instruct ion: TAKE 1 TABLET BY MOUTH EVERY DAY Medi cationGe nericNam e: pyridoxi ne (vitamin B6) [facility] cation ID: [id number] B rand Name: pyridoxi ne (vitamin B6) Send Method: E-Prescr ibed Sub s Allowed: subs OK Speci al Instruct ion: TAKE 1 TABLET BY MOUTH EVERY DAY Medi cationGe nericNam e: pyridoxi ne (vitamin B6) Not Available Not Available Not Available levofloxa lorena 750 mg tablet TAKE 1 TABLET BY MOUTH EVERY 24 HOURS,X6 DAYS 04/23 completed Not Available Not Available Not Available fluticaso ne propionat e 50 mcg/actua tion nasal spray,marilin pension SPRAY 1 SPRAYS INTO BOTH NOSTRILS 2 TIMES A DAY FOR 30 DAYS NEEDED FOR NASAL CONGESTI ON active Not Available Not Available No t Available amoxicill in 875 mg-potass ium clavulana te 125 mg tablet Take 1 tablet twice a day by oral route for 10 days. 2024 active Not Available Not Available Not Avai lable tobramyci n 0.3 %-dexamet hasone 0.1 % eye drops,marilin pension Apply 4 drops to the left ear BID x 14 days 08/16 completed Not Available Not Available Not Available dutasteri de 0.5 mg capsule TAKE 1 CAPSULE BY MOUTH EVERY DAY AT BEDTIME FOR 90 DAYS 04/23 completed Not Available Not Available Not Available Ciprodex 0.3 %-0.1 % ear drops,marilin pension Instill 4 drops into left ear twice a day x 14 days 08/16 completed Not Available Not Available Not Available Symbicort 160 mcg-4.5 mcg/actua tion HFA aerosol inhaler 10/28 completed Medicati on ID: [id number] B rand Name: Symbicor t Send Method: E-Prescr ibed Sub s Allowed: subs OK Speci al Instruct ion: INHALE 2 PUFFS EVERY 12 HOURS. USE WITH SPACER, RINSE MOUTH AND THROAT AFTER USE Medi cationGe nericNam e: Symbicor t Not Available Not Available Not Available albuterol sulfate 90 mcg/actua tion breath activated powder inhaler 10/28 completed Medicati on ID: [id number] B rand Name: ProAir HFA Send Method: E-Prescr ibed Sub s Allowed: subs OK Speci al Instruct ion: INHALE 2 PUFFS BY MOUTH EVERY 6 HORUS NEEDED FOR WHEEZING OR SHORTNES S OF BREATH M edicatio nGeneric Name: ProAir HFA Medi cation ID: [id number] B rand Name: ProAir HFA Send Method: E-Prescr ibed Sub s Allowed: subs OK Speci al Instruct ion: INHALE 2 PUFFS BY MOUTH EVERY 6 HORUS NEEDED FOR WHEEZING OR SHORTNES S OF BREATH M edicatio nGeneric Name: ProAir HFA Not Available Not Available Not Available albuterol sulf 90 mcg/actua tion breath activated powder inhaler,s ensor 10/28 completed Medicati on ID: [id number] B rand Name: ProAir HFA Send Method: E-Prescr ibed Sub s Allowed: subs OK Speci al Instruct ion: INHALE 2 PUFFS BY MOUTH EVERY 6 HORUS NEEDED FOR WHEEZING OR SHORTNES S OF BREATH M edicatio nGeneric Name: ProAir HFA Not Available Not Available Not Available Vitals None Recorded Social History None recorded. Functional Status None recorded. Mental Status None recorded. Family History Nothing Reported. Medical History Condition Response Allergies/Hayfever Y Anxiety Y Sleep Disorder Y GERD/Reflux Y Stroke Y Hypertension Y Depression Y Asthma Y Past Encounters Encounter ID Performer Location Encounter Start Date Encounter Closed Date Diagnosis/Indication Diagnosis SNOMED-CT Code Diagnosis ICD10 Code Diagnosis Note [id number] LOUIS IZQUIERDO MD [facility] [address] [address] 11/08/2024 13:10:00 11/08/2024 15:31:14 Headache [id number] R51.9 Acute sinusitis 91112776 J01.80 Health Concerns Section Related Observation LastModified by Organization Detai ls LastModified Time None Recorded Concern Status LastModified by Organization Details LastModified Time None Recorded Payers Encounter Date Sequence Insurance Name Policy Number Policy Limon Covered Member ID Limon Member ID Guarantor Name 11/08/2024 1 [facility]MEDICA[facility] H[facility]) [id number] Mark Yen [id number] Mark Yen Notes Date Note Type Note Provider Name and Address Organization Details Recorded Time 11/08/2024 text/html 44-year-old male presents for review of allergy testing. He continues to have chronic headaches, nasal congestion, and postnasal drip which has worsened in the past 3 weeks. Reports bloody mucus and thick yellow nasal drainage. Tried nasal steroid sprays without improvement. Previously MRI brain in June was without evidence of infarct, mass effect, or abnormal enhancement. Sinuses were clear on MRI. He reports headaches are improved with ibuprofen or Tylenol. He recently had back and shoulder surgery earlier this week. LOUIS CLAYTON MD [address] [place] [address], [place], [address], [facility] - [facility] 11/08/2024 15:30:48
--- OUTSIDE RECORDS SUMMARY | 2024-11-13 18:00 | XMS_ITS | Data Portability ---
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 Left EAC with edema and mild purulent debris. Left TM is generally thickened. Culture of the left ear was obtained today and medical therapy will be adjusted pending the results. Recommended Ciprodex BID to the left ear and dry ear precautions. Follow up in 3-4 months for reevaluation, or sooner with worsening symptoms. [email or web address] Not available 05/11/2024 14:13:01 05/28/2024 05/28/2024 Due to persistent otorrhea, the ear canal was swabbed again and sample will be submitted for fungal and bacterial cultures. Patient to be called with results and medication. Patient requests brain imaging for his headaches, which I find reasonable. Suspect they may be related to sleep apnea or migraine, however. Will re-address on receipt of imaging results. [email or web address] Not available 05/29/2024 10:42:45 08/03/2024 08/03/2024 43-year-old male presents for follow-up of otitis externa. The infection has resolved. Bilateral tympanic membranes are intact with well aerated middle ear spaces. Follow-up if symptoms persist or worsen. Patient with chronic headaches, nasal congestion, and postnasal drip. MRI brain with and without contrast 06/30/2024 was without evidence of acute/subacute infarction, mass effect, or abnormal enhancement. Sinuses are clear. We discussed referral to neurology for further management of headaches. Patient declined referral to neurology and would rather follow-up with his primary care provider at this time for further discussion of chronic headaches. He is not interested in PSG at this time. We discussed allergy testing for further evaluation, which he would like to proceed with. Also discussed trial of sinus irrigations such as Netipot or NeilMed. He will follow-up to discuss allergy test results. May consider CT sinus and FOL for persistent or worsening symptoms. If workup is negative, may consider trial of Atrovent nasal spray. [email or web address] Not available 08/03/2024 14:42:45 11/08/2024 11/08/2024 44-year-old male presents for review [...] is interested in proceeding with CT sinus. [email or web address] Not available 11/08/2024 14:13:44 Plan of Treatment Reminders Order Date Submit Date Provider Last Modified By Organization Details Last Modified Time Details Appointments None recorded. Lab fungus, culture, unspecified specimen 2023 024 [email or web address] [facility], [address], [address], [place], [address], 14:46:18 culture, bacterial 2023 024 [email or web address] [facility], [address], [address], [place], [address], 4 14:46:18 Referral neurologist referral 2024 025 [email or web address] 14 [facility], [address] [place], [address], 5 15:31:14 Procedures allergy testing, skin prick (PROC) 2023 [email or web address] Not available 14:50:45 intradermal allergy skin testing (PROC) 2023 024 [email or web address] Not available 14:50:53 pulmonary function test procedure (PROC) 2023 [email or web address] Not available 14:51:00 pulse oximetry (PROC) 2023 [email or web address] Not available 14:51:07 Surgeries None recorded. Imaging MRI, brain, w/wo contrast 2023 024 [facility] ([facility]), [address] [place], [address], 4 11:11:10 Medication Orders Ciprodex 0.3 %-0.1 % ear drops,suspe nsion 2023 024 [facility], [address] [place], [address], 4 14:56:01 amoxicillin 875 mg-potassiu m clavulanate 125 mg tablet 2024 025 [facility], [address] [place], [address], 5 13:11:43 Patient TargetsNo targets recorded. Patient Instructions Encounter Date Encounter Id Patient Instructions Last Modified By Organization Details Last Modified Time 08/16/2024 [id number] Nursing Documentation for Allergy Testing: Ordering Provider {{Dr. Murali Ochoa* Dr. Anthony Clayton}} Weight:lbs:265??kg : ?? PFT {{Yes* no}} With Bronchodilator {{Yes no*}} approval needed to proceed with allergy testing? {{Yes No*}} {{Dr. Murali Clayton}} ok'd testing {{Yes No Pulmonary Clearance PCP Clearance RAST}}Hi story of Asthma:{{Yes No*}} Asthma Meds: ??Last used:?? Asthma exacerbated by: ?? Chance that : {{Yes No Not Sure N/A*}} Fear of needles: {{Yes No*}} Regular medications reviewed in Computer: {{Yes* No}} Medication allergies: {{Reviewed NKDA*}} Antihistamine use: {{Yes* No}} Medications used:claritin ?? Food Allergies:no ?? Any foods make your mouth feeling itchy: {{Yes No*}} If yes: ?? History of severe reaction where had to go to ER? {{Yes No*}} If yes details: ?? Type of heat in home: {{Baseboard Forced Air* Radiator othe r}} Pets: {{Yes No*}} If yes: ?? Smoker: {{Yes Current Never* For prudencio}} If former smoker-how much ?? / day for how long ?? When quit ?? years ago Smoking now-how much ?? /day for how long ?? Occupation/Social History: ?? Symptoms having: {{Congestion* Post Nasal Drip Headache Runn y Nose Cough Other}} If other: ?? Frequency {{Seasonally Year Round*}} Spirometry Contraindications: Heart attack in the last 3 months: {{Yes No*}} Major surgery in last 3 months: {{Yes No*}} Detached retina(serious eye issues) in last 2 months: {{Yes No*}} Hospitilization in last month: {{Yes No*}} Proceed with PFT {{Yes* No}} approval needed: {{Yes No*}} Nursing Notes: Pt tolerated test well {{Yes* No}} Benadryl cream to test sites {{Yes No*}} Patient became syncopal-placed in supine position {{Yes No*}} Large reactions to MQT, reschedule IDT for a different date {{Yes No*}} Other: ?? Written by: {{JERRI Mireles, RMA* Junie Wrigth}} [email or web address] Not available 08/16/2024 15:37:07 Reason for Referral Neurologist Referral for Amina lee Referring Physician: Brian Woodard, Otolaryngology, Encounter Date: 11/08/2024 Results Created Date Observation Date Name Description Value Unit Range Abnormal Flag Note LastModifiedBy Organization Detail LastModifiedTime 05/11/2005/14/2024 ANAER OBIC AND AEROB IC CULTU RE aerobic culture Final report Not Available [facility] ([facility]) [address] [place], [address], 06/11/2024 14:10:37 05/11/20 24 05/14/2024 ANAER OBIC AND AEROB IC CULTU RE result 1 COMMEN T No growt h in 36 - 48 hours . Not Available [facility] ([facility]) [address] [place], [address], 06/11/2024 14:10:37 05/11/20 24 05/15/2024 ANAER OBIC AND AEROB IC CULTU RE anaerobic culture Final report Not Available [facility] ([facility]) [address] [place], [address], 06/11/2024 14:10:37 05/11/20 24 05/15/2024 ANAER OBIC AND AEROB IC CULTU RE result 1 COMMEN T No anaer obic growt h in 72 hours . Not Available [facility] ([facility]) [address] [place], [address], 06/11/2024 14:10:37 05/11/20 24 05/14/2024 FUNGU S CULTU RE WITH STAIN fungus stain Final report Not Available [facility] ([facility]) [address] [place], [address], 06/11/2024 14:10:37 05/11/20 24 05/14/2024 FUNGU S CULTU RE WITH STAIN result 1 COMMEN T HARVEY/C alcof luor prepa ratio n: no fungu s obser zaria. Not Available [facility] ([facility]) [address] [facility], [place], [address], 06/11/2024 14:10:37 05/11/20 24 06/11/2024 FUNGU S CULTU RE WITH STAIN fungus (mycology) culture Final report Not Available [facility] ([facility]) [address] [facility], [place], [address], 06/11/2024 14:10:37 05/11/20 24 06/11/2024 FUNGU S CULTU RE WITH STAIN result 1 COMMEN T No yeast or mold isola cruz after 4 weeks . Not Available [facility] ([facility]) [address] [facility], [place], [address], 06/11/2024 14:10:37 05/28/20 24 05/31/2024 AEROB IC BACTE RIAL CULTU RE aerobic bacterial culture Final report abnormal Not Available [facility] ([facility]) [address] [facility], [place], [address], 06/19/2024 11:21:30 05/28/20 24 05/31/2024 AEROB IC BACTE RIAL CULTU RE result 1 Candid a albica ns abnormal Heavy growt h Not Available [facility] ([facility]) [address] [place], [address], 06/19/2024 11:21:30 05/28/20 24 06/19/2024 FUNGU S (MYCO LOGY) CULTU RE fungus (mycology) culture Final report abnormal Not Available [facility] ([facility]) [address] [place], [address], 06/19/2024 11:21:31 05/28/20 24 06/19/2024 FUNGU S (MYCO LOGY) CULTU RE result 1 Candid a albica ns abnormal Heavy growt h Not Available [facility] ([facility]) [address] [facility], [place], [address], 06/19/2024 11:21:31 06/13/20 24 05/26/2021 imagi ng/di agnos tic resul t No observ ation record ed. [email or web address] Not Available 02:30:20 06/13/20 24 07/04/2020 imagi ng/di agnos tic resul t No observ ation record ed. [email or web address] Not Available 02:30:40 06/13/20 24 07/16/2021 imagi ng/di agnos tic resul t No observ ation record ed. [email or web address] Not Available 02:30:52 06/13/20 24 08/12/2021 imagi ng/di agnos tic resul t No observ ation record ed. [email or web address] Not Available 02:30:54 06/13/2008/12/2021 imagi ng/di agnos tic resul t No observ ation record ed. [email or web address] Not Available 02:30:56 06/13/2005/26/2021 audio gram No observ ation record ed. [email or web address] Not Available 02:31:40 07/03/20 24 06/30/2024 MRI, brain , w/wo contr ast No observ ation record ed. [address] [place], [address], 07/05/2024 12:45:58 08/16/20 dale metry testi ng* No observ ation record ed. [email or web address] Not Available 07/25 11:21:55 Result Notes None recorded. Problems Name Problem SNOMED Code Status Onset Date Resolution Date Notes Provider Name and Address Organization Details Recorded Time Acute pharyngit is 324568291 Active 2022 Acute pharyngit is, unspecifi ed; Note: Date Diagnosed : 05/26/2023 4:00 PM (J02.9) Not Available [facility] 4 03:00:15 Headache 27298461 Active 2023 Headache, unspecifi ed; Note: Date Diagnosed : 10/28/2023 10:18 AM (R51.9) Not Available [facility] 4 03:00:14 Sensorine ural hearing loss 94811562 Active 2020 Sensorine ural hearing loss, unilatera l, left ear, with unrestric cruz hearing on the contralat eral side; Note: Date Diagnosed : 05/26/2021 12:06 PM (H90.42) Not Available [facility] 03:00:13 Furuncle 830766370 Active 2022 Furuncle, unspecifi ed; Note: Date Diagnosed : 01/13/2023 9:42 AM (L02.92) Not Available [facility] 4 03:00:14 Hemoptysi s 75977781 Active 2022 Hemoptysi s; Note: Date Diagnosed : 05/26/2023 4:00 PM (R04.2) Not Available [facility] 4 03:00:12 Otalgia of left ear 2392287261 Active 2019 Otalgia, left ear; Note: Date Diagnosed : 07/04/2020 2:28 PM (H92.02) Not Available [facility] 4 03:00:12 Cough 70770549 Active 2023 Cough; Note: Date Diagnosed : 07/04/2020 2:33 PM (R05) ; Start Date : 0 Cough, unspecifi ed; Note: Date Diagnosed : 10/28/2023 10:18 AM (R05.9) Not Available [facility] 4 03:00:12 Gastroeso phageal reflux disease without esophagit is 268810044 Active 2019 Gastro-es ophageal reflux disease without esophagit is; Note: Date Diagnosed : 07/04/2020 2:33 PM (K21.9) Not Available [facility] 4 03:00:15 Acute sialoaden itis 919726992 Active 2021 Acute sialoaden itis; Note: Date Diagnosed : 07/16/2022 2:45 PM (K11.21) Not Available [facility] 4 03:00:14 Gastroeso phageal reflux disease 967032242 Active 2014 Laryngeal reflux; Note: Date Diagnosed : 11/29/2014 3:05 PM (530.81) Not Available [facility] 4 03:00:14 Otitis externa of left ear 81612092654 55516 Active 2023 YULIA HARMON MD [address], [place], [address] , [place] - [facility] 4 14:00:19 Otorrhea 36850085 Active 2023 BRIAN WOODARD PA-C 100 [facility] [address], [place], [address] , [place] - [facility] 4 14:08:28 Otitis externa 4869071 Active 2023 BRIAN WOODARD PA-C 100 [facility],[address], [place], [address] , [place] [facility] 4 14:13:28 Otitis externa 2077426 Active 2023 PARMINDER FELIZ PA-C 100 [facility],[address], [place], [address] , [place] - [facility] 4 15:58:44 Candidal otitis externa 29895914 Active 2023 PARMINDER FELIZ PA-C [address], [place], [address] , [place] - [facility] 4 13:30:30 Posterior rhinorrhe a 95816009 Active 2023 BRIAN WOODARD PA-C [address], [place], [address] , [place] - [facility] 4 14:41:39 Seasonal allergic rhinitis 911875177 Active 2023 BRIAN WOODARD PA-C [address], [place], [address] , [place] - [facility] 4 14:41:44 Allergic rhinitis 78391484 Active 2023 RICARDA YSABEL, A [address], [place], [address] , [place] - [facility] 4 14:59:31 Allergic rhinitis 59168425 Active 2023 RICARDA YSABEL, A [address], [place], [address] , [place] - [facility] 4 15:04:35 Acute sinusitis 41471815 Active 2024 BRIAN WOODARD PA-C [address], [place], [address] , [place] - [facility] 5 13:08:04 Problem Notes None recorded. Procedures Surgical History Date Name Laterality Status Provider Name and Address Organization Details Recorded Time 5 Telehealth completed BRIAN WOODARD PA-C [address], [place], [address], [facility] - [facility] 11/08/2024 13:05:12 4 Allergy Testing-Full completed RICARDA YSABEL, A [address], [place], [address], [place] - [facility] 08/16/2024 15:36:59 Imaging Results Imaging Date Name Status [facility]Modified by [facility] Details LastModified Time 05/26/2021 imaging/diagnos tic result completed Information not available 06/13/2024 02:30:20 07/04/2020 imaging/diagnos tic result completed Information not available 06/13/2024 02:30:40 07/16/2021 imaging/diagnos tic result completed [facility] Information not available 06/13/2024 02:30:52 08/12/2021 imaging/diagnos tic result completed [facility] Information not available 06/13/2024 02:30:54 08/12/2021 imaging/diagnos tic result completed [facility] Information not available 06/13/2024 02:30:56 05/26/2021 audiogram completed [email or web address] Information not available 06/13/2024 02:31:40 06/30/2024 MRI, brain, w/wo contrast completed [address] [place], [address], 07/05/2024 12:45:58 08/16/2024 spirometry testing* completed [email or web address] Information not available 08/20/2024 11:21:55 Procedure Notes None recorded. Medical Equipment None [...] gram tablet 07/04 [place] ID: [id number] Du ration Value: 30 Reason: () Brand [...] mg tablet 07/04 [place]ati on ID: [id number] Du ration Value: 14 Reason: () Brand [...] mg tablet 07/04 [place] ID: [id number] Du ration Value: 30 Reason: () Brand Name: pravasta tin Send Method: E-Prescr ibed Sub s Allowed: subs OK Speci al Instruct ion: TAKE 1 TABLET DAILY. M edicatijoey nGeneric Name: pravasta tin Not Available Not Available Not Available tamsulosi n 0.4 mg capsule TAKE 1 CAPSULE BY MOUTH EVERY DAY AT BEDTIME FOR 14 DAYS 08/16 completed Not Available Not Available Not Available pantopraz ole 40 mg tablet,de layed release 07/04 [place] Medicati on ID: [id number] Du ration Value: 30 Reason: () Brand Name: pantopra zole Sen d Method: E-Prescr ibed Sub s Allowed: subs OK Speci al Instruct ion: TAKE 1 TABLET BY MOUTH DAILY Me dication GenericN zach: pantopra zole Not Available Not Available Not Available hyoscyami ne sulfate 0.125 mg tablet 07/04 [place] Medicati on ID: [id number] Du ration Value: 30 Reason: () Brand [...] mg tablet 04/23 completed Medicati on ID: [id number] B rand Name: pyridoxi ne (vitamin B6) Send Method: E-Prescr ibed Sub s Allowed: subs OK Speci al Instruct ion: TAKE 1 TABLET BY MOUTH EVERY DAY Medi cationGe nericNam e: pyridoxi ne (vitamin B6) [facility] cation ID: [id number] B rand Name: pyridoxi ne (vitamin B6) [...] aerosol inhaler 10/28 completed Medicati on ID: [id number] B rand Name: Symbicor t Send Method: E-Prescr ibed Sub s Allowed: subs OK Speci al Instruct ion: INHALE 2 PUFFS EVERY 12 HOURS. USE WITH SPACER, RINSE MOUTH AND THROAT AFTER USE Medi cationGe nericNam e: Symbicor t Not Available Not Available Not Available albuterol sulfate 90 mcg/actua tion breath activated powder inhaler 10/28 completed Medicati on ID: [id number] B rand Name: ProAir HFA Send Method: E-Prescr ibed Sub s Allowed: subs OK Speci al Instruct ion: INHALE 2 PUFFS BY MOUTH EVERY 6 HORUS NEEDED FOR WHEEZING OR SHORTNES S OF BREATH M edicatio nGeneric Name: ProAir HFA Medi cation ID: [id number] B rand Name: ProAir HFA Send Method: E-Prescr ibed Sub s Allowed: subs OK Speci al Instruct ion: INHALE 2 PUFFS BY MOUTH EVERY 6 HORUS NEEDED FOR WHEEZING OR SHORTNES S OF BREATH M edicatio nGeneric Name: ProAir HFA Not Available Not Available Not Available albuterol sulf 90 mcg/actua tion breath activated powder inhaler,s ensor 10/28 completed Medicati on ID: [id number] B rand Name: ProAir HFA Send Method: E-Prescr ibed Sub s Allowed: subs OK Speci al Instruct ion: INHALE 2 PUFFS BY MOUTH EVERY 6 HORUS NEEDED FOR WHEEZING OR SHORTNES S OF BREATH M edicatio nGeneric Name: ProAir HFA Not Available Not Available Not Available Vitals Date Recorded Body height Body mass index (BMI) Body weight Provider Name and Address Organization Details Last Updated DateTime 05/11/2024 172.72 cm 41.1 kg/m2 718594.94 g Mary Cortés [place] - [facility] 05/11/2024 13:52:58 Date Recorded Body height Body mass index (BMI) Body weight Provider Name and Address Organization Details Last Updated DateTime 05/28/2024 172.72 cm 41.1 kg/m2 856359.94 g Edgardo Charlee [facility] 05/28/2024 15:50:39 Date Recorded Body height Body mass index (BMI) Body weight Provider Name and Address Organization Details Last Updated DateTime 08/03/2024 172.72 cm 41.1 kg/m2 511265.94 g Gillian Gan [facility] 08/03/2024 13:47:09 Date Recorded Body height Body mass index (BMI) Body weight Heart rate Oxygen saturation Oxygen saturation in Arterial blood by Pulse oximetry Systolic blood pressure Diastolic blood pressure Provider Name and Address Organization Details Last Updated DateTime 172.72 cm 40.3 kg/m2 211024. 98 g 88 /min 97 % 97 % 123 mm[Hg] 72 mm[Hg] [address], [address] 14:55:36 Social History None recorded. Functional Status None recorded. Mental Status None recorded. Family History Nothing Reported. Medical History Condition Response Allergies/Hayfever Y Anxiety Y Sleep Disorder Y GERD/Reflux Y Stroke Y Hypertension Y Depression Y Asthma Y Past Encounters Encounter ID Performer Location Encounter Start Date Encounter Closed Date Diagnosis/Indication Diagnosis SNOMED-CT Code Diagnosis ICD10 Code Diagnosis Note [id number] YULIA HARMON MD [facility] [address] [address] 04/23/2024 13:42:14 04/23/2024 14:04:06 Otitis externa of left ear 1653112349 556157 H60.92 [id number] KALEB SAINZ MD [facility] [address] [address] 05/11/2024 13:51:30 05/11/2024 14:13:12 Otalgia of left ear 5808599024 H92.02 Otitis externa 0318501 H 60.312 [id number] YULIA HARMON MD [facility] [address] [place] [address] 05/28/2024 15:47:01 05/28/2024 16:42:46 Otitis externa 4700558 H60.92 Headache 06835168 R51.9 [id number] LOUIS IZQUIERDO MD [facility] [address] [address] 08/03/2024 13:38:37 08/03/2024 14:13:30 Headache 55565963 R51.9 Otitis externa 2465741 H 60.312 Posterior rhinorrhea 758 46833 R09.82 Seasonal a llergic rhinitis 024077820 J30.2 [id number] [facility] [address] [address] 08/16/2024 14:41:47 08/16/2024 15:42:58 Allergic rhinitis 80985605 J30.9 [id number] LOUIS IZQUIERDO MD [facility] [address] [address] 11/08/2024 13:10:00 11/08/2024 15:31:14 Headache 44461423 R51.9 Acute sinusitis 16959512 J01.80 Health Concerns Section Related Observation LastModified by Organization Detai ls LastModified Time None Recorded Concern Status LastModified by Organization Details LastModified Time None Recorded Advance Directives Directive None Recorded Payers Encounter Date Sequence Insurance Name Policy Number Policy Limon Covered Member ID Limon Member ID Guarantor Name 05/11/2024 1 [facility] (MEDICAID REPLACEMENT - HMO) [id number] Mark Yen [id number] Mark Yen 05/28/2024 1 [facility] (MEDICAID REPLACEMENT - HMO) [id number] Mark Yen [id number] Mark Yen 08/03/2024 1 [facility] (MEDICAID REPLACEMENT - HMO) [id number] Mark Petersonnko [id number] Mark Kumarkhubenko 08/16/2024 1 [facility] [id number] Mark Petersonnko [id number] Mark Petersonnko 11/08/2024 1 [facility] [id number] Mark Petersonnko [id number] Mark Petersonnko Notes Date Note Type Note Provider Name and Address Organization Details Recorded Time 05/11/2024 text/html 43 year old male presents for follow up of left otitis externa. Started on ofloxacin at the last visit. Continues to have left sided otalgia and otorrhea. Hearing feels decreased. 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 He is following up with PCP. KALEB SAINZ MD [address] [place] [address], [address], [facility] - [facility] 05/11/2024 20:20:47 05/28/2024 text/html 43 year old male presents for follow up on left otorrhea. 2-3 weeks ago was prescribed Ciprodex BID to the left ear and dry ear precautions. He reports that the ear is still leaking and yesterday it started to hurt again. States he has finished two bottles of Ciprodex and does not feel there has been an improvement. He does abide by dry ear precautions. Has headaches 3-4 times per week. Located in the back and top of the head. Persist for 30-60 minutes and he takes OTC analgesic. He endorses photosensitivity and nausea. Sometimes awakens with headache. He snores. YULIA HARMON MD [address] [place] [address],[address], [address], [facility] - [facility] 05/29/2024 17:32:32 08/03/2024 text/html 43-year-old male presents for follow-up of otitis externa. Culture positive for Shaylee. He was started on clotrimazole. Otologic symptoms have resolved. Denies otalgia, otorrhea, and concerns about his hearing. Patient has been having 3 headaches per week. MRI was ordered at the last visit for further evaluation. He reports headaches are improved with ibuprofen or Tylenol. Denies visual changes or light/sound sensitivity. Occasionally feels dizzy with his headaches which is not described as room spinning. He reports that he sleeps well and wakes up feeling rested. He reports snoring but no concerns about apnea. Denies history of chronic sinusitis. History of seasonal allergies and takes antihistamines. Has tried Flonase without improvement. Does note intermittent nasal congestion and postnasal drip. LOUIS CLAYTON MD 100 [facility],[address], [address], [place] - [facility] 08/03/2024 15:29:21 11/08/2024 text/html 44-year-old male presents for review [...] surgery earlier this week. LOUIS CLAYTON MD 100 [facility],[address], [address], [facility] - [facility] 11/08/2024 15:30:48
--- OUTSIDE RECORDS SUMMARY | 2024-11-13 18:00 | XMS_ITS | Clinical Summary ---
Author Organization [facility] Address [address] [place] [address] Care Team Providers Care Poke In Name Role Phone Unavailable Primary Care Provider Unavailabl e Social History Tobacco Use Types Packs/Day Years Used Date Smoking Tobacco: Never Assessed Sex and Gender Information Value Date Recorded Sex Assigned at Not on file Gender Identity Not on file Sexual Orientation Not on file Plan of Treatment Not on file
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
--- OUTSIDE RECORDS SUMMARY | 2024-11-13 18:01 | XMS_ITS | Encounter Summary ---
Author Organization [facility] Address [address] [place] [address] Care Team Providers Care Classroom Technology Technician Name Role Phone Brandie Lopez MD Primary Care Provider [phone]- [phone] Reason for Visit * Auth/Cert (Routine) Specialty Diagnoses / Procedures Referred By Contac t Referred To Contact Diagnoses Hyperglycemia Abscess of back Cellulitis of back except buttock Procedures [facility] IP/OBS CARE INITIAL MODERATE LEVEL PER DAY . Ramón Arroyo MD [address] [place] [address] [address] Referral ID Status Reason Start Date Expiration Date Visits Re quested Visits Authorized [id number] 1 1 Encounter Details Date Type Department Care Team (Late st Contact Info) Description 11/09/2024 10:47 AM EST Anesthesia Event [address] [phone] Hamlet Dunaway MD [address] [place] [address] Corazon Perea CRNA [address] [place] [id number] Anesthesia Record Procedure Summary Procedure Name Responsible Anesthesiologist Anesthesia Start Time Anesthesia Stop Time DEBRIDEMENT EXPLORATION BACK WOUND (Left) Hamlet Dunaway MD 11/09/24 1047 11/09/24 1130 Events Date Time Event Comment 11/09/2024 1029 1030 AN Equip Check 1047 An Start 1049 An Start Data The patient wa s reevaluated immediately before moderate or deep sedation use and before anesthesia induction. 1049 In Room 1058 Anesthesia Ready 1108 Proc Start 1119 Proc Fin 1124 an stop data 1127 Out of Room 1127 Transport to PACU/ICU Patien t reassessed and ready for transfer, airway stable. Patient transport to designated recovery area. {Transport to PACU/ICU:[id number]} 1130 Handoff to RN I completed my handoff to the receiving nurse during which we: 1. Identified the patient 2. Identified the responsible provider 3. Reviewed the pertinent medical history 4. Discussed the surgical course 5. Reviewed intra-op anesthesia management and issues during anesthesia 6. Set expectations for post-procedure period 7. Allowed opportunity for questions and acknowledgement of understanding. 1130 An Stop Meds Name Total fentaNYL 0.05 mg/mL 100 mcg midazolam 1 mg/mL 2 mg ondansetron 2 mg/mL 4 mg propofol (DIPRIVAN) injection 10 mg/mL 7 0 mg propofol (DIPRIVAN) infusion 10 mg/mL 14 7 mg lidocaine PF (XYLOCAINE-MPF) local injec tion 2% 100 mg dexmedeTOMIDine (PRECEDEX) 200 mcg/50 mL infusion 16 mcg lactated Ringer's infusion 500 mL * Agents No agents on file. * Blood No blood administrations on file. Lines, Drains, and Airways Type Details Placement Removal Wound Incision; N; Back; L eft, Upper 11/06/24 0954 by Peripheral IV Placement Date: 10/24 04/17; Placement Time: 2016; Catheter Size: 20 G (1.75 ); Orientation: Anterior, Right; Location: Forearm; Site Prep: Chlorhexidine; Local Anesth: None; Inserted by: JANINE Blackmon RN; Insertion Attempts: 1; Patient Tolerance: Tolerated well; Removal Date: 11/10/24; Removal Time: 0650; Removal Reason: Infiltrated/Extravasated 11/08/242016 by Consuelo Ogden RN 11/10/24 0650 by Gaetano Zuniga RN documented in this encounter Social History Tobacco Use Types Packs/Day Years [...] on file documented as of this encounter Progress Notes * Corazon Perea CRNA - 11/09/2024 11:34 AM EST Patient: Mark Yen Procedure Summary Date: 11/09/24 Room / Location: [facility] OR / [facility] OR Anesthesia Start: 1047 Anesthesia Stop: 1130 Procedure: DEBRIDEMENT EXPLORATION BACK WOUND (Left) Diagnosis: Abscess of back Surgeons: Dilshad Isaacs DO Responsible Provider: Hamlte Dunaway MD Anesthesia Type: MAC ASA Status: 3 Anesthesia Plan: MAC Last Vitals: Vitals Value Taken Time BP 129/59 11/09/24 1134 Temp 97.9 11/09/24 1134 Pulse 85 11/09/24 1134 Resp 16 11/09/24 1134 SpO2 95 11/09/24 1134 Pain Score: 6 Anesthesia Post Evaluation Patient location during evaluation: PACU Patient participation: complete - patient participated Level of consciousness: awake Pain score: 0 Pain management: adequate Airway patency: patent Anesthetic complications: no Cardiovascular status: acceptable Respiratory status: acceptable Hydration status: acceptable Nausea: No Vomiting: No There were no known notable events for this encounter. * Hamlet Dunaway MD - 11/09/2024 10:12 AM EST 44 y.o. male scheduled for I&D of back abscess with excisional debridement [] Ht Readings from Last 1 Encounters: 11/06/24 1.727 m (67.99 ) Wt Readings from Last 1 Encounters: 11/06/24 122 kg (270 lb) Body mass index is 41.06 kg/m??. Past Medical History: Diagnosis Date Allergic rhinitis 01/05/2016 DX:Allergic rhinitis Anxiety 08/09/2016 DX:Anxiety Asthma 01/05/2016 DX:Asthma Chronic hepatitis B (CMS/HCC) 08/18/2018 DX:Chronic hepatitis B (HCC) Diabetes mellitus (CMS/HCC) Fatty liver 12/06/2016 DX:Fatty liver GERD (gastroesophageal reflux disease) 12/06/2016 DX:GERD (gastroesophageal reflux disease) Helicobacter pylori infection 07/11/2018 DX:Helicobacter pylori infection Hyperlipidemia 12/06/2016 DX:Hyperlipidemia Morbid obesity with BMI of 40.0-44.9, adult (CMS/HCC) 12/06/2016 DX:Morbid obesity with BMI of 40.0-44.9, adult (HCC) Obstructive sleep apnea 12/06/2016 DX:Obstructive sleep apnea Past Surgical History: Procedure Laterality Date CHOLECYSTECTOMY Denies anesthesia complications No Known Allergies No current facility-administered medications on file prior to encounter. Current Outpatient Medications on File Prior to Encounter Medication Sig Dispense Refill metFORMIN (GLUCOPHAGE) 1,000 mg tablet Take 1 tablet (1,000 mg total) by mouth 2 (two) times a day with meals. [DISCONTINUED] amoxicillin (AMOXIL) 500 mg tablet Please take 2 tabs by mouth twice daily for 2 wks. [DISCONTINUED] esomeprazole (NexIUM) [address] capsule 20 mg 4 times daily. TAKE 2 CAPS IN AM BEFOREBREAKFAST AND 2 CAPS BEFORE DINNER [DISCONTINUED] fluticasone propionate (FLONASE) 50 mcg/actuation nasal spray INSTILL 2 SQUIRT TWICEDAILY Social History Tobacco Use Smoking status: Never Smokeless tobacco: Never Substance Use Topics Alcohol use: No Drug use: No Visit Vitals BP (!) 149/78 (BP Location: Right arm, Patient Position: Lying) Pulse 77 Temp 36.2 ??C (97.1 ??F) (Temporal) Resp 16 Ht 1.727 m (67.99 ) Wt 122 kg (270 lb) SpO2 98% BMI 41.06 kg/m?? Smoking Status Never BSA 2.32 m?? Available cardiac studies reviewed: CT Chest w Contrast Result Date: 11/08/2024 Narrative: Exam: Contrast-enhanced CT chest with multiplanar reformats. Comparison: 11/05/2024 Findings: Lungs are free of focal consolidation. Airways are patent. No pneumothorax. No emphysematous disease. No pulmonary parenchymal nodules or lesions. No mediastinal or hilar masses or adenopathy. No pleural or pericardial effusions. Images below the diaphragms reveal no acute abnormalities. Chestwall reveals soft tissue fat stranding and emphysema involving subcutaneous soft tissues of the left upper back overlying the scapula. An elongated soft tissue defect is seen series 3, image 30. There is no abnormal fluid collection in this area. Osseous structures reveal no destructive osseous lesions. Impression: Impression: Soft tissue fat stranding and emphysema of the left upper back concerning for infection. No evidence of drainable abscess at this time. This document has been electronically signed by: Irving Cooper MD on 11/08/2024 18:13:33 CT Neck Soft Tissue w Contrast Result Date: 11/08/2024 Narrative: CT soft tissue neck with contrast Comparison: None Findings: The visualized intracranialcontents are unremarkable. Pharyngeal mucosal space, parapharyngeal fat, prevertebral tissues, and epiglottis are within normal limits. Salivary glands are unremarkable. No sialoliths. No suspicious thyroid nodules. There is mucosal thickening of the bilateral maxillary sinus. Visualized lung apices are clear. No acute fracture or dislocation. Impression: No acute findings. No evidence of soft tissue abscess of the posterior neck. This document has been electronically signed by: Irving Cooper MD on 11/08/2024 18:02:45 CT Chest w Contrast Result Date: 11/05/2024 Narrative: Exam: Contrast-enhanced CT chest with multiplanar reformats. Comparison: None. Findings:Lungs are free of focal consolidation. Airways are patent. No pneumothorax. No emphysematous disease. No pulmonary parenchymal nodules or lesions. No mediastinal or hilar masses or adenopathy. No pleural or pericardial effusions. Images below the diaphragms reveal no acute abnormalities. Chest wallreveals soft tissue emphysema involving subcutaneous soft tissues of the left upper back overlying the scapula (4; 20-96). A questionable partially circumscribed collection with air-fluid level measuring up to 3.6 x 3.9 cm AP and transverse dimension (4; 57) raises concern for infected collection or abscess. This measures 2.5 cm craniocaudad dimension (602; 122). Soft tissue emphysema could be related to cutaneous breech although other considerations such as necrotizing infection not excluded. No other chest wall collections or soft tissue emphysema. Osseous structures reveal no destructive osseous lesions. Impression: Impression: 1. Soft tissue emphysema overlying the left upper back, with likely poorly circumscribed collection containing gas and fluid density, likely subcutaneous abscess. Soft tissue emphysema may be related to abscess perforation, cutaneous defect, although differential consideration could include necrotizing infection.. This document has been electronically signed by: Oswaldo Isaacs MD on 11/05/2024 23:56:32 LABS: Lab Results Component Value Date WBC 7.9 11/07/2024 HGB 12.6 (L) 11/07/2024 HCT 38.8 (L) 11/07/2024 MCV 91.5 11/07/2024 PLT 165 11/07/2024 Lab Results Component Value Date GLUCOSE 210 (H) 11/09/2024 CALCIUM 8.3 (L) 11/07/2024 NA 135 11/07/2024 K 3.7 11/07/2024 CO2 26 11/07/2024 CL 103 11/07/2024 BUN 17 11/07/2024 CREATININE 0.57 (L) 11/07/2024 No results found for: INR , PROTIME No results found for: PTT Relevant Problems Pulmonary (+) Asthma (+) Obstructive sleep apnea GI (+) Chronic hepatitis B (CMS/HCC) (+) Fatty liver (+) GERD (gastroesophageal reflux disease) Clinical information reviewed: Tobacco Allergies Meds Problems Med Hx Surg Hx Fam Hx Soc Hx Anesthesia Plan ASA 3 Anesthesia Plan: MAC Anesthesia Considerations MAC Plan Factors Patient is not a current smoker Smoking cessation education has not been provided Induction method: intravenous Postoperative administration of opioids is intended. Anesthetic plan and risks discussed with patient. Use of blood products discussed with patient who consented to blood products. Anesthesia Plan discussed with attending. Anesthesia Evaluation No history of anesthetic complications Airway Mallampati: III Thyromental distance: > 3 finger breadths Neck ROM: limitedincreased risk of difficult airway Dental - normal exam Pulmonary (+) asthma, sleep apnea, decreased breath sounds PE comment: Cough Cardiovascular - normal exam (-) past [place], dysrhythmias Neuro/Psych - negative ROS GI/Hepatic/Renal (+) GERD, hepatitis, liver disease Comments: Hep B Fatty Liver Endo/Other (+) diabetes mellitus type 2 poorly controlled Abdominal PONV RISK SCORE: 2 Vitals: 11/08/24 1745 11/08/24203611/09/24 0334 11/09/24 0755 BP: 124/69 131/83 (!) 149/78 BP Location: Right arm Right arm Right arm Patient Position: Lying Lying Lying Pulse: 87 87 81 77 Resp: Temp: 37.2 ??C (99 ??F) 36.2 ??C (97.2 ??F) 36.2 ??C (97.1 ??F) TempSrc: Oral Temporal Temporal SpO2: 100% 100% 99% 98% Weight: Height: SpO2 Readings from Last 1 Encounters: 11/09/24 98% WBC Date Value Ref Range Status 11/07/2024 7.9 4.8 - 10.8 K/mcL Final RBC Date Value Ref Range Status 11/07/2024 4.20 (L) 4.50 - 5.50 M/mcL Final Hemoglobin Date Value Ref Range Status 11/07/2024 12.6 (L) 13.5 - 17.5 g/dL Final Hematocrit Date Value Ref Range Status 11/07/2024 38.8 (L) 42.0 - 54.0 % Final Platelets Date Value Ref Range Status 11/07/2024 165 130 - 400 K/mcL Final MCV Date Value Ref Range Status 11/07/2024 91.5 79.0 - 98.0 FL Final No Known Allergies STOP BANG: No data recorded NPO Status: No data recorded documented in this encounter Plan of Treatment Upcoming Encounters Date Type Department Care Team (Late st Contact Info) Description 11/27/2024 3:45 PM EST Office Visit General Surgery - [place] 175 [facility] [address] [place] [phone] Dilshad Isaacs, 175 [facility] [address] [place] [address] 12/05/2024 10:00 AM EST Hospital Encounter [facility] [address] [place] [phone] Aurelio Riggins MD 175 [facility] [address] [place] [address] 12/25/2024 9:15 AM EST Office Visit Gastroenterology - [place] [address] [facility] [address] [place] [address] Aurelio Riggins MD [address] [facility] [address] [place] [address] documented as of this encounter Visit Diagnoses Not on filedocumented in this encounter Administered Medications Inactive Administered Medications - up to 3 most recent administrations Medication Order MAR Action Action Date Dose Rate Site dexmedeTOMIDine (PRECEDEX) infusion 200 mcg in 0.9 % sodium chloride 50 mL (4 mcg/mL) - CNR intravenous, As needed, Starting on Tue11/09/24 at 1055, Anesthesia Intraprocedure Given 11/09/2024 11:10 AM EST 4 mcg Given 11/09/2024 11:05 AM EST 2 mcg Given 11/09/2024 11:00 AM EST 4 mcg fentaNYL (PF) (SUBLIMAZE) injection intravenous, As needed, Starting on Tue11/09/24 at 1052, Anesthesia Intraprocedure Given 11/09/2024 11:[address] 50 mcg Given 11/09/2024 10:52 AM EST 50 mcg lactated Ringer's infusion intravenous, Continuous PRN, Starting on Tue11/09/24 at 1047, Anesthesia Intraprocedure New Bag 11/09/2024 10:47 AM EST 75 mL/hr lidocaine (PF) (XYLOCAINE-MPF) 2 % injection injection, As needed, Starting on Tue11/09/24 at 1053, Anesthesia Intraprocedure Given 11/09/2024 10:53 AM EST 100 mg midazolam (VERSED) injection intravenous, As needed, Starting on Tue11/09/24 at 1044, Anesthesia Intraprocedure Given 11/09/2024 10:44 AM EST 2 mg ondansetron (PF) (ZOFRAN) injection intravenous, As needed, Starting on Tue11/09/24 at 1107, Anesthesia Intraprocedure Given 11/09/2024 11:07 AM EST 4 mg propofoL (DIPRIVAN) infusion 10 mg/mL intravenous, Continuous PRN, Starting on Tue11/09/24 at 1056, Anesthesia Intraprocedure Rate/Dose Change 11/09/2024 11:02 AM EST 75 mcg/kg/min 55.125 mL/hr New Bag 11/09/2024 10:56 AM EST 50 mcg/kg/min 36.75 mL/ hr propofoL (DIPRIVAN) injection intravenous, As needed, Starting on Tue11/09/24 at 1055, Anesthesia Intraprocedure Given 11/09/2024 10:55 AM EST 70 mg documented in this encounter Care Teams Classroom Technology Technician Relationship Specialty Start Date End Date Brandie Lopez MD [address] [place] [address] PCP - General Internal Medicine 10/13/18 documented as of this encounter
--- OUTSIDE RECORDS SUMMARY | 2024-11-13 18:01 | XMS_ITS | Encounter Summary ---
Author Organization [facility] Address [address] [place] [address] Care Team Providers Care Bisque Placer Name Role Phone Brandie Lopez MD Primary Care Provider [phone] Reason for Visit * Reason Comments Abscess Abscess on back of l eft shoulder for past 2 weeks, fevers x 2 days * Auth/Cert (Routine) Specialty Diagnoses / Procedures Referred By Sonu garcia Referred To Contact Diagnoses Hyperglycemia Abscess of back Cellulitis of back except buttock Procedures [facility] IP/OBS CARE INITIAL MODERATE LEVEL PER DAY . Ramón Arroyo MD [address] [place] [address] [address] [address] Referral ID Status Reason Start Date Expiration Date Visits Re quested Visits Authorized [id number] 1 1 Encounter Details Date Type Department Care Team (Latest Contact Info) Description 11/05/2024 7:30 PM EST - 11/11/2024 12:23 PM [facility] Hospital Encounter [facility] [address] [place] [id number] Ramón Arroyo MD [address] [place] [id number] Jai Fuller MD [address] [place] [phone] Cellulitis of back except buttock (Primary Dx); Hyperglycemia; Abscess of back Discharge Disposition: Home-Health Care Svc Social History Tobacco Use Types Packs/Day Years [...] on file documented as of this encounter Last Filed Vital Signs Vital Sign Reading Time Taken Comments Blood Pressure 145/77 11/11/2024 8:12 AM EST Pulse 71 11/11/2024 8:12 AM EST Temperature 36.3 ??C (97.4 ??F) 11/11/2024 8:12 AM ES T Respiratory Rate 17 11/11/2024 8:12 AM EST Oxygen Saturation 99% 11/11/2024 8:12 AM EST Inhaled Oxygen Concentration - - Weight 122 kg (270 lb) 11/06/2024 12:38 PM EST Height 172.7 cm (5' 7.99 ) 11/06/2024 12:[address] Body Mass Index 41.06 11/06/2024 12:38 PM EST documented in this encounter Discharge Instructions * Discharge Instructions* DENY Ricardo - 11/09/2024 12:05 PM EST Wound Care Instructions: - wound vac to left back wound - place 1 piece of black foam in wound bed; bridge to left upper shoulder - vac set to 125mmHg - change every //; next vac change due for Sunday 11/[address] Isaacs as previously scheduled; call the office with any questions or concerns including temp > 101.5, chills, chest pain, shortness of breath, nausea, vomiting, severe pain, worsening redness or other signs of wound infection documented in this encounter Medications at Time of Discharge Medication Sig Dispensed Refills Start Date End Date HYDROmorphone (DILAUDID) 2 mg tablet Take 1 tablet (2 mg total) by mouth every 4 (four) hours if needed for severe pain for up to 5 days. Max Daily Amount: 12 mg 10 tablet 11/11/2024 11/16/2024 levoFLOXacin (LEVAQUIN) 750 mg tablet Take 1 tablet (750 mg total) by mouth 1 (one) time each day for 7 doses. 7 each 11/12/2024 11/19/2024 lidocaine 4 % patch Apply 1 patch topically 1 (one) time each day for 7 days. 7 each 11/12/2024 11/19/2024 metFORMIN (GLUCOPHAGE) 1,000 mg tablet Take 1 tablet (1,000 mg total) by mouth 2 (two) times a day with meals. 10/02/2024 nystatin (MYCOSTATIN) 100,000 unit/mL suspension Swish and swallow 5 mL (500,000 Units total) 4 (four) times a day for 26 doses. 130 mL 11/11/2024 11/18/2024 doxycycline (VIBRAMYCIN) 100 mg capsule Take 1 capsule (100 mg total) by mouth 2 (two) times a day for 7 days. Take with at least 8 ounces (large glass) of water, do not lie down for 30 minutes after 14 each 11/11/2024 11/18/2024 insulin glargine (LANTUS SoloStar) 100 unit/mL (3 mL) injection pen Inject 40 Units under the skin at bedtime. 15 mL 11/11/2024 12/11/2024 documented as of this encounter Ordered Prescriptions Prescription Sig Dispensed Refills Start Date End Da te levoFLOXacin (LEVAQUIN) 750 mg tablet Take 1 tablet (750 mg total) by mouth 1 (one) time each day for 7 doses. 7 each 11/12/2024 11/19/2024 HYDROmorphone (DILAUDID) 2 mg tablet Take 1 tablet (2 mg total) by mouth every 4 (four) hours if needed for severe pain for up to 5 days. Max Daily Amount: 12 mg 10 tablet 11/11/2024 11/16/2024 insulin glargine (LANTUS SoloStar) 100 unit/mL (3 mL) injection pen Inject 40 Units under the skin at bedtime. 15 mL 11/11/2024 12/11/2024 doxycycline (VIBRAMYCIN) 100 mg capsule Take 1 capsule (100 mg total) by mouth 2 (two) times a day for 7 days. Take with at least 8 ounces (large glass) of water, do not lie down for 30 minutes after 14 each 11/11/2024 11/18/2024 nystatin (MYCOSTATIN) 100,000 unit/mL suspension Swish and swallow 5 mL (500,000 Units total) 4 (four) times a day for 26 doses. 130 mL 11/11/2024 11/18/2024 lidocaine 4 % patch Apply 1 patch topically 1 (one) time each day for 7 days. 7 each 11/12/2024 11/19/2024 documented in this encounter Discharge Disposition Disposition Code Departure Means Destination Home-Health Care [facility] documented in this encounter Progress Notes * Chrissy Marie RN - 11/11/2024 11:57 AM EST Patient states understanding to discharge instructions. IV line removed. Patient connected to portable vac. Patient to take full course of antibiotics. Brother driving patient home and will stop at the pharmacy. Patient states he does not have any questions. Patient to follow up with Dr. Isaacs and his PCP. Patient states understanding. * Rajesh Montoya RN - 11/11/2024 11:30 AM EST Goals: Identify possible barriers to meeting goals/advancing plan of care: none Stability of the patient: Moderately Stable - Low risk of patient condition declining or worsening End of Shift Summary: Patients pain adequately controlled. Wound vac in place without issue. Patient able to demonstrate self administration of insulin using teach-back for AM and noon doses. Confirms he is able to check blood sugars at home. Discussed symptoms of low blood sugar. * Effie Suárez RN - 11/11/2024 11:11 AM EST 11/11/24 1110 Transportation Transportation at discharge Family What day is the transport expected? 11/11/24 Final Discharge Disposition Home Health Care Services Patient discharged home with VNA services through [facility] and wound vac with supplies providedby [facility] * Yvette Collins RN - 11/11/2024 3:08 AM EST Problem: Sensory:Periop Procedure - Major Goal: Demonstrates/reports adequate pain control Outcome: Progressing Problem: Coping:Periop Procedure - Major Goal: Verbalizations of alleviation of anxiety will increase Outcome: Progressing Problem: Cognitive:Periop Procedure - Major Goal: Knowledge of disease or condition will improve Outcome: Progressing Problem: Physical Regulation: Periop Procedure - Major Goal: Postoperative complications will be avoided or minimized Outcome: Progressing Goal: Ability to maintain clinical measurements within normal limits will improve Outcome: Progressing Problem: Skin Integrity: Periop Procedure - Major Goal: Patient will remain free of injury and skin integrity maintained Outcome: Progressing Problem: Respiratory: Periop Procedure - Major Goal: Knowledge of JACOB (Obstructive Sleep Apnea) risk and follow-up will improve Outcome: Progressing Problem: Patient Specific Problem:Periop Procedure - Major Goal: Patient Specific Outcome Outcome: Progressing Problem: Sensory: Acute Pain Goal: Pain level will improve or be tolerable Outcome: Progressing Goal: Ability to develop a pain control plan will improve Outcome: Progressing Problem: Cognitive: Acute Pain Goal: Expressions of feelings of enhanced comfort will increase Outcome: Progressing Problem: Patient Specific Problem: Acute Pain Goal: Patient Specific Outcome Outcome: Progressing Identify possible barriers to meeting goals/advancing plan of care: Pain control, elevated blood sugar, and wound care & vac. Stability of the patient: Moderately Stable - Low risk of patient condition declining or worsening End of Shift Summary: Patient resting. * Rajesh Montoya RN - 11/10/2024 6:46 PM EST Goals: Identify possible barriers to meeting goals/advancing plan of care: elevated blood sugars Stability of the patient: Moderately Stable - Low risk of patient condition declining or worsening End of Shift Summary: Patient tolerating IV abx and wound vac. Agreeable to allow staff to teac administration of insulin. * Jai Fuller MD - 11/10/2024 3:49 PM EST Images from the original note were not included. [place] PROGRESS NOTE Date: 11/10/2024 Author: Jai Fuller MD Patient ID: Mark Yen is a 44 y.o. male : 1980 MR#: [id number] SUBJECTIVE Follow-up: Cellulitis/abscess involving left upper back requiring I&D in OR Events noted. Consult with general surgery prior to my encounter. Patient complained of dizziness/nausea with associated left chest wall pain. ECG negative. Oxycodone changed to hydromorphone given concern oxycodone may be causing the above symptoms. At the time of my encounter nausea/vomiting resolved. Allergies Patient has no known allergies. Current Medications: acetaminophen, 1,000 mg, oral, q8h PERI cefepime, 2 g, intravenous, q12h enoxaparin, 40 mg, subcutaneous, q12h PERI insulin glargine, 40 Units, subcutaneous, Nightly insulin lispro, 2-12 Units, subcutaneous, TID AC lidocaine, 1 patch, Topical, Daily magnesium sulfate, 2 g, intravenous, Once vancomycin, 2,000 mg, intravenous, q8h PRN medications: dextrose 50%, dextrose 50%, dextrose, dextrose, glucagon injection, HYDROmorphone,HYDROmorphone, HYDROmorphone, ondansetron (ZOFRAN-ODT) disintegrating tablet OR ondansetron OBJECTIVE Vitals: 11/09/24 1545 11/09/24 2019 11/10/24 0131 11/10/24 0900 BP: (!) 158/74 (!) 165/83 (!) 147/73 BP Location: Right arm Right arm Left arm Patient Position: Sitting Sitting Lying Pulse: 100 102 82 84 Resp: Temp: 36.4 ??C (97.5 ??F) 36.7 ??C (98 ??F) 36.6 ??C (97.9 ??F) 36.4 ??C (97.6 ??F) TempSrc: Temporal Temporal Oral Temporal SpO2: 98% 98% 96% 98% Weight: Height: Vital Signs: as documented above General: No acute distress HEENT/Neck: Moist mucosa, no icterus, supple Thorax: No accessory muscles use. Clear Cardiac: Regular. Abdomen: Not distended,+ bowel sounds, soft, nontender Extremities: No edema, no cyanosis, no calf tenderness Mental Status: Awake, alert, and oriented x3 Neurological: No localizing weakness. Gait not tested : Deferred Skin: Left upper back: Dressing with VAC. Did not take down. LABS HEMATOLOGY Lab Results Component Value Date WBC 6.8 11/10/2024 HGB 12.1 (L) 11/10/2024 HCT 36.0 (L) 11/10/2024 MCV 88.9 11/10/2024 PLT 192 11/10/2024 CHEMISTRY Lab Results Component Value Date GLUCOSE 370 (H) 11/10/2024 NA 135 11/10/2024 K 4.0 11/10/2024 CO2 22 11/10/2024 CL 103 11/10/2024 BUN 13 11/10/2024 CREATININE 0.69 (L) 11/10/2024 EGFR 118 11/10/2024 CALCIUM 8.4 (L) 11/10/2024 MG 1.8 (L) 11/10/2024 PHOS 3.0 11/07/2024 ANIONGAP 10 11/10/2024 Imaging: CT Chest w Contrast Narrative: Exam: Contrast-enhanced CT chest with multiplanar reformats. Comparison: 11/05/2024 Findings: Lungs are free of focal consolidation. Airways are patent. No pneumothorax. No emphysematous disease. No pulmonary parenchymal nodules or lesions. No mediastinal or hilar masses or adenopathy. No pleural or pericardial effusions. Images below the diaphragms reveal no acute abnormalities. Chest wall reveals soft tissue fat stranding and emphysema [...] 18:13:33 CT Neck Soft Tissue w Contrast Narrative: CT soft tissue neck with contrast Comparison: None Findings: The visualized intracranial contents are unremarkable. Pharyngeal mucosal space, parapharyngeal fat, [...] by: Irving Cooper MD on 11/08/2024 18:02:45 ASSESSMENT & PLAN Cellulitis with abscess, left upper back S/p I&D CT imaging as above. s/p I&D by Gen Surgery. Operative cultures growing gram- positive cocci in pairs/clusters along with gram-positive bacilli. Presently on vancomycin and cefepime. VAC in place -continue abx, f/u operative cx, prn analgesics -Postoperative wound VAC/dressings per general surgery team Uncontrolled diabetes mellitus with hyperglycemia Glycated hemoglobin 14. Recent diagnosis and had been on metformin once daily prior to admission. Patient admits to dietary indiscretion and not regularly checking his blood glucose levels. Blood glucose levels in the 400s. -continue insulin SQ and will adjust as needed -Discussed the possibility of requiring subcutaneous insulin but patient was not receptive to this. Dizziness Nausea Covering CHAN notified earlier in AM. Probably medication related(oxycodone?) or possibly d/t uncontrolled DM. -trial changing oxycodone to hydromorphone. -Tight blood glucose control as above Hyponatremia Probably pseudohyponatremia in the setting of hyperglycemia. Sodium levels improved -BMP JACOB Morbid obesity Probably with obesity hypoventilation. 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 VNA and wound VAC secured for home Elevated BG in 400s with nausea/dizziness. Not willing to take SQ insulin at home Increased metformin to 1000 mg twice a day and plan to add glipizide. Home in the next 24 hours if blood glucose levels under better control. * Yvette Collins RN - 11/10/2024 3:16 AM EST Problem: Sensory:Periop Procedure - Major Goal: Demonstrates/reports adequate pain control Outcome: Progressing Problem: Coping:Periop Procedure - Major Goal: Verbalizations of alleviation of anxiety will increase Outcome: Progressing Problem: Cognitive:Periop Procedure - Major Goal: Knowledge of disease or condition will improve Outcome: Progressing Problem: Physical Regulation: Periop Procedure - Major Goal: Postoperative complications will be avoided or minimized Outcome: Progressing Goal: Ability to maintain clinical measurements within normal limits will improve Outcome: Progressing Problem: Skin Integrity: Periop Procedure - Major Goal: Patient will remain free of injury and skin integrity maintained Outcome: Progressing Problem: Respiratory: Periop Procedure - Major Goal: Knowledge of JACOB (Obstructive Sleep Apnea) risk and follow-up will improve Outcome: Progressing Problem: Patient Specific Problem:Periop Procedure - Major Goal: Patient Specific Outcome Outcome: Progressing Problem: Sensory: Acute Pain Goal: Pain level will improve or be tolerable Outcome: Progressing Goal: Ability to develop a pain control plan will improve Outcome: Progressing Problem: Cognitive: Acute Pain Goal: Expressions of feelings of enhanced comfort will increase Outcome: Progressing Problem: Patient Specific Problem: Acute Pain Goal: Patient Specific Outcome Outcome: Progressing Identify possible barriers to meeting goals/advancing plan of care: Pain control, medical compliance, and wound care with wound vac. Stability of the patient: Moderately Stable - Low risk of patient condition declining or worsening End of Shift Summary: Patient left floor to retrieve home meds brought in from family, provider contacted and allowed home meds for patient. Patient complained of chest pain and had normal labs with exception of mag being a little low & was replaced. Patient had pain concerns and is currently resting comfortably. * DENY Marshall - 11/10/2024 1:52 AM EST Nurse notified that the patient had reported dizziness chest pain and nausea and was requesting to see a provider. I saw the patient at bedside who states that he was having left-sided chest pain that was sharp in nature rated as 10 out of 10. He states that his nausea was somewhat improved as he received a nausea medication prior to my arrival. He still has dizziness. He feels like he cannot take a deep breath. He did not appear in any acute distress when I saw him at bedside. Vitals are as follows: Temperature of 36.6, pulse of 82, respirate of 18, blood pressure 147/73 andpulse ox of 96% on room air. Exam General: Younger gentleman sitting upright in the stretcher no acute distress, calm Skin: Appropriate tone for ethnicity, warm, dry, no rashes or wounds HEENT: normocephalic, atraumatic, sclera nonicteric, SHAKIRA Chest: non-tender to palpation over the left side of his chest Pulmonary: Lungs clear to auscultation in all lung bender bilaterally. No wheezes railes or rhonchiappreciated, no respiratory distress, no accessory muscle use. Cardiac: S1 and S2 appreciated, no murmurs, rubs or gallops, 1+ peripheral edema, unable to assess JVD MSK: Full range of motion in upper and lower extremities Neuro: Alert and oriented x4. No focal neurologic deficits. No facial droop Assessment Chest pain dizziness and nausea Plan -He was just recently given nausea medication I instructed him to let us know if it does not improve his symptoms and we could trial a different medication -I ordered morphine one-time dose for his chest pain -Will obtain CBC, BNP, magnesium, troponin and CMP -EKG ordered * Estella Montes RN - 11/09/2024 12:45 PM EST DD: 11/10 Barriers: OR debridement 11/09, cellulitis/abscess on back, wound vac Dispo: [facility], [employer] wound vac * Ashlee Ram RN - 11/09/2024 6:40 AM EST Problem: Sensory: Acute Pain Goal: Pain level will improve or be tolerable Outcome: Progressing Goals: Identify possible barriers to meeting goals/advancing plan of care: n/a Stability of the patient: Moderately Stable - Low risk of patient condition declining or worsening End of Shift Summary: Pt is AxOx3, VSS, moderate to severe DAVID back pain managed with prn analgesics. NPO for OR debridement 11/09, patient made aware. No events. * Court Lara RN - 11/08/2024 6:18 PM EST Goals: Identify possible barriers to meeting goals/advancing plan of care: Debridement, IV abx Stability of the patient: Moderately Unstable - Medium risk of patient condition declining or worsening End of Shift Summary: AxOx3, VSS, moderate to severe DAVID back pain managed with prn analgesics, dressing change completed by surgical team. NPO at midnight for OR debridement 11/09, patient made aware.No events. * DENY Ricardo - 11/08/2024 6:09 PM EST GENERAL SURGERY PROGRESS NOTE Patient: Mark Yen : 1980 (44 y.o. male) Admit Date: 11/05/2024 Location: [id number] Dictating Physician: DENY Ricardo Attending: Jai Fuller MD Primary Care Provider: Brandie Lopez MD Subjective: Encounter Date & Time: 11/08/2024 Supervising Physician: Dr. Isaacs Subjective: Follow up: back abscess More pain to left shoulder/upper back and neck; no n/v, konstantin diet; denies f/c/cp/sob Objective: Temp: 35.7 ??C (96.2 ??F) (11/08 1520) Heart Rate: 87 (11/08 174) Resp: 15 (11/08 152) BP: 145/80 (11/08 152) Wt Readings from Last 1 Encounters: 11/06/24 122 kg (270 lb) BMI: Body mass index is 41.06 kg/m??. Physical Exam Constitutional: General: He is not in acute distress. HENT: Mouth/Throat: Mouth: Mucous membranes are moist. Pulmonary: Effort: Pulmonary effort is normal. Skin: Comments: Left back abscess: packing removed, wound base w/ some necrotic tissue and drainage left lateral aspect; no significant erythema or odor noted; repacked w/ saline soaked kerlix and covered w/ CDC; some swelling noted more medially towards posterior neck, no significant erythema or fluctuance noted Neurological: Mental Status: He is alert. Results: Laboratories: Lab Results Component Value Date WBC 7.9 11/07/2024 HGB 12.6 (L) 11/07/2024 HCT 38.8 (L) 11/07/2024 MCV 91.5 11/07/2024 PLT 165 11/07/2024 Lab Results Component Value Date GLUCOSE 335 (H) 11/08/2024 CALCIUM 8.3 (L) 11/07/2024 NA 135 11/07/2024 K 3.7 11/07/2024 CO2 26 11/07/2024 CL 103 11/07/2024 BUN 17 11/07/2024 CREATININE 0.57 (L) 11/07/2024 Lab Results Component Value Date ALBUMIN 2.8 (L) 11/06/2024 ALKPHOS 82 11/06/2024 ALT 36 11/06/2024 AST 6 (L) 11/06/2024 BILITOT 0.4 11/06/2024 No results found for: PT , INR , APTT Lab Results Component Value Date MG 1.9 11/07/2024 PHOS 3.0 11/07/2024 Lab Results Component Value Date LACTATE 1.4 11/05/2024 Imaging: CT Neck Soft Tissue w Contrast Narrative: CT soft tissue neck with contrast Comparison: None Findings: The visualized intracranial contents are unremarkable. Pharyngeal mucosal space, parapharyngeal fat, [...] by: Irving Cooper MD on 11/08/2024 18:02:45 Assessment & Plan: Problem List: 1. Cellulitis of back except buttock 2. Hyperglycemia 3. Abscess of back Patient Active Problem List Diagnosis Allergic rhinitis Anxiety Asthma Bacterial infection due to H. pylori Bloating Chronic hepatitis B (CMS/HCC) Epigastric pain Fatty liver GERD (gastroesophageal reflux disease) Hyperlipidemia Obstructive sleep apnea Morbid obesity with BMI of 40.0-44.9, adult ([facility]/HCC) Hyperglycemia Abscess of back Assessment: 44 y.o. male POD # 2 s/p I+D left upper back abscess; more pain to left shoulder and some swelling noted to posterior neck Plan: - cont DM diet - glucose control per CHAN - NPO after MN; RTOR tomorrow for ? Debridement and vac placement - will repeat CT tonight to eval for any undrained collections - seen and examined w/ Dr. 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 Yes Transportation Transportation at discharge Family (Pt reported family can transport home once ready) ICC met with pt at bedside. Demographics confirmed. Pt reported he has support from family if needed for dressing changes and was not open to VNA referrals at this time. Pt reports pharmacy is [facility]. * Jai Fuller MD - 11/08/2024 2:21 PM EST Images from the original note were not included. [facility] PROGRESS NOTE Date: 11/08/2024 Author: Jai Fuller MD Patient ID: Mark Yen is a 44 y.o. male : 1980 MR#: [id number] SUBJECTIVE Reason for follow-up: Cellulitis/abscess involving left upper back requiring I&D in the operating room. C/o pain operative site L upper back and L trap No fever/chills No nausea/vomiting. Allergies Patient has no known allergies. Current Medications: acetaminophen, 1,000 mg, oral, q8h PERI cefepime, 2 g, intravenous, q12h enoxaparin, 40 mg, subcutaneous, q12h PERI insulin glargine, 40 Units, subcutaneous, Nightly insulin lispro, 2-12 Units, subcutaneous, TID AC lidocaine, 1 patch, Topical, Daily vancomycin, 2,000 mg, intravenous, q8h PRN medications: dextrose 50%, dextrose 50%, dextrose, dextrose, glucagon injection, HYDROmorphone,ondansetron (ZOFRAN-ODT) disintegrating tablet OR ondansetron, oxyCODONE, oxyCODONE OBJECTIVE Vitals: 11/07/24 1540 11/07/24 2037 11/08/24 0340 11/08/24 0757 BP: (!) 150/86 (!) 148/81 (!) 155/89 125/76 BP Location: Right arm Right arm Right arm Right arm;Upper Patient Position: Lying Lying Lying Lying Pulse: 106 91 80 70 Resp: 16 19 18 19 Temp: 35.9 ??C (96.7 ??F) 36.8 ??C (98.2 ??F) 36 ??C (96.8 ??F) 36.1 ??C (96.9 ??F) TempSrc: Temporal Temporal Temporal Temporal SpO2: 96% 96% 100% 99% Weight: Height: Vital Signs: as documented above General: No acute distress HEENT/Neck: Moist mucosa, no icterus, supple Thorax: No accessory muscles use. Clear Cardiac: Regular. Abdomen: Not distended,+ bowel sounds, soft, nontender Extremities: No edema, no cyanosis, no calf tenderness Mental Status: Awake, alert, and oriented x3 Neurological: No localizing weakness. Gait not tested : Deferred Skin: Left upper back: Bulky dressing in place: Mild staining and intact. Did not take down. LABS HEMATOLOGY Lab Results Component Value Date WBC 7.9 11/07/2024 HGB 12.6 (L) 11/07/2024 HCT 38.8 (L) 11/07/2024 MCV 91.5 11/07/2024 PLT 165 11/07/2024 CHEMISTRY Lab Results Component Value Date GLUCOSE 288 (H) 11/08/2024 NA 135 11/07/2024 K 3.7 11/07/2024 CO2 26 11/07/2024 CL 103 11/07/2024 BUN 17 11/07/2024 CREATININE 0.57 (L) 11/07/2024 EGFR 125 11/07/2024 CALCIUM 8.3 (L) 11/07/2024 MG 1.9 11/07/2024 PHOS 3.0 11/07/2024 ANIONGAP 6 11/07/2024 Imaging: CT Chest w Contrast Narrative: Exam: Contrast-enhanced CT chest with multiplanar reformats. Comparison: None. Findings: Lungs are free of focal consolidation. Airways are patent. No pneumothorax. No emphysematous disease. No pulmonary parenchymal nodules or lesions. No mediastinal or hilar masses or adenopathy. No pleural or pericardial effusions. Images below the diaphragms reveal no acute abnormalities. Chest wall reveals soft tissue emphysema involving subcutaneous soft tissues [...] by: Oswaldo Isaacs MD on 11/05/2024 23:56:32 ASSESSMENT & PLAN Cellulitis with abscess, left upper back S/p I&D CT imaging as above. Now postop day #2 s/p I&D by Gen Surgery. Operative cultures growing gram-positive cocci in pairs/clusters along with gram-positive bacilli. Presently on vancomycin and cefepime. -continue abx, f/u operative cx, prn analgesics -Postoperative wound/dressings per general surgery team, may need wound VAC Uncontrolled diabetes mellitus with hyperglycemia Glycated hemoglobin 14. Recent diagnosis and had been on metformin prior to admission. -continue insulin SQ and will adjust as needed Hyponatremia Probably pseudohyponatremia in the setting of hyperglycemia. Sodium levels improved -follow lytes in AM JACOB Morbid obesity Probably with obesity hypoventilation. 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 male is on vancomycin for Necrotizing soft tissue infection. Goal trough: 15 - 20 mg/L. Current regimen is 1500 mg every 8 hrs. Relevant data Vancomycin Trough Date Value Ref Range Status 11/08/2024 11.7 10.0 - 20.0 mcg/mL Final No results found for: VANCORANDOM Recent Results (from the past 168 hour(s)) Blood Culture, Peripheral Draw #2 Collection Time: 11/05/24 6:28 PM Specimen: Blood, Venous Result Value Ref Range Culture, Blood No growth at 2 days Blood Culture, Peripheral Draw #1 Collection Time: 11/05/24 6:38 PM Specimen: Blood, Venous Result Value Ref Range Culture, Blood No growth at 2 days Culture wound deep Collection Time: 11/06/24 10:03 AM Specimen: Back, Upper; Swab Result Value Ref Range Culture, Wound No growth at 1 day Gram Stain Result Many Polymorphonuclear leukocytes (A) Gram Stain Result Many Gram positive cocci in pairs and clusters (A) Gram Stain Result Few Gram positive bacilli (A) Gram Stain Result Rare Epithelial cells (A) Temp Readings from Last 3 Encounters: 11/08/24 36.1 ??C (96.9 ??F) (Temporal) WBC Date Value Ref Range Status 11/07/2024 7.9 4.8 - 10.8 K/mcL Final 11/06/2024 11.7 (H) 4.8 - 10.8 K/mcL Final 11/05/2024 13.8 (H) 4.8 - 10.8 K/mcL Final Creatinine Date Value Ref Range Status 11/07/2024 0.57 (L) 0.70 - 1.30 mg/dL Final 11/06/2024 0.69 (L) 0.70 - 1.30 mg/dL Final 11/05/2024 1.09 0.70 - 1.30 mg/dL Final BUN Date Value Ref Range Status 11/07/2024 17 5 - 25 mg/dL Final 11/06/2024 20 5 - 25 mg/dL Final 11/05/2024 30 (H) 5 - 25 mg/dL Final Estimated Creatinine Clearance: 125 mL/min (A) (by C-G formula based on SCr of 0.57 mg/dL (L)). mL/min Cockcroft-Gault Plan Patient's trough is not at goal. Therefore, the dose will Be increased to 2000 mg every 8 hrs. A trough has been ordered for 11/09 at 16:00 prior to 5th dose. Will continue to monitor and recommend changes as necessary. Casi Vilalrreal PharmD 11/08/24 9:52 AM EST * Ashlee Ram RN - 11/08/2024 6:24 AM EST Problem: Sensory: Acute Pain Goal: Pain level will improve or be tolerable Outcome: Progressing Goal: Ability to develop a pain control plan will improve Outcome: Progressing Problem: Cognitive: Acute Pain Goal: Expressions of feelings of enhanced comfort will increase Outcome: Progressing Problem: Patient Specific Problem: Acute Pain Goal: Patient Specific Outcome Outcome: Progressing Goals: Identify possible barriers to meeting goals/advancing plan of care: N/A Stability of the patient: Moderately Stable - Low risk of patient condition declining or worsening End of Shift Summary: Pt is A & O, prn pain meds given. Dressing reinforce by night surgical PA. Resting comfortable in bed at this time . * Jai Fuller MD - 11/07/2024 9:38 AM EST Images from the original note were not included. [facility] PROGRESS NOTE Date: 11/07/2024 Author: Jai Fuller MD Patient ID: Mark Yen is a 44 y.o. male : 1980 MR#: [id number] SUBJECTIVE Reason for follow-up: Cellulitis/abscess involving left upper back requiring I&D in the operating room. Events noted. Had been complaining of moderate-severe pain over operative site. Oxycodone helping control postoperative pain but had episodes of nausea. No constipation/diarrhea. No fever/chills. Allergies Patient has no known allergies. Current Medications: acetaminophen, 1,000 mg, oral, q8h PERI cefepime, 2 g, intravenous, q12h enoxaparin, 40 mg, subcutaneous, q12h PERI insulin glargine, 30 Units, subcutaneous, Nightly insulin lispro, 2-12 Units, subcutaneous, TID AC vancomycin, 1,500 mg, intravenous, q8h PRN medications: dextrose 50%, dextrose 50%, dextrose, dextrose, glucagon injection, HYDROmorphone,oxyCODONE, oxyCODONE OBJECTIVE Vitals: 11/06/24 2003 11/07/24 0015 11/07/24 0354 11/07/24 0807 BP: (!) 154/74 (!) 147/81 138/72 (!) 159/83 BP Location: Right arm Right arm Right arm Right arm Patient Position: Lying Lying Lying Lying Pulse: 85 79 73 83 Resp: 19 19 18 18 Temp: 35.9 ??C (96.7 ??F) 36.7 ??C (98.1 ??F) 36.1 ??C (96.9 ??F) 35.7 ??C (96.3 ??F) TempSrc: Temporal Oral Temporal Temporal SpO2: 96% 95% 97% 100% Weight: Height: Vital Signs: as documented above General: No acute distress HEENT/Neck: Moist mucosa, no icterus, supple Thorax: No accessory muscles use. Clear Cardiac: Regular. Abdomen: Not distended,+ bowel sounds, soft, nontender Extremities: No edema, no cyanosis, no calf tenderness Mental Status: Awake, alert, and oriented x3 Neurological: No localizing weakness. Gait not tested : Deferred Skin: Left upper back: Bulky dressing in place: Mild staining and intact. Did not take down. LABS HEMATOLOGY Lab Results Component Value Date WBC 7.9 11/07/2024 HGB 12.6 (L) 11/07/2024 HCT 38.8 (L) 11/07/2024 MCV 91.5 11/07/2024 PLT 165 11/07/2024 CHEMISTRY Lab Results Component Value Date GLUCOSE 267 (H) 11/07/2024 NA 135 11/07/2024 K 3.7 11/07/2024 CO2 26 11/07/2024 CL 103 11/07/2024 BUN 17 11/07/2024 CREATININE 0.57 (L) 11/07/2024 EGFR 125 11/07/2024 CALCIUM 8.3 (L) 11/07/2024 MG 1.9 11/07/2024 PHOS 3.0 11/07/2024 ANIONGAP 6 11/07/2024 Imaging: CT Chest w Contrast Narrative: Exam: Contrast-enhanced CT chest with multiplanar reformats. Comparison: None. Findings: Lungs are free of focal consolidation. Airways are patent. No pneumothorax. No emphysematous disease. No pulmonary parenchymal nodules or lesions. No mediastinal or hilar masses or adenopathy. No pleural or pericardial effusions. Images below the diaphragms reveal no acute abnormalities. Chest wall reveals soft tissue emphysema involving subcutaneous soft tissues [...] by: Oswaldo Isaacs MD on 11/05/2024 23:56:32 ASSESSMENT & PLAN Cellulitis with abscess, left upper back S/p I&D CT imaging as above. Now postop day #1 s/p I&D by Gen Surgery -continue abx, f/u operative cx, prn analgesics -Postoperative wound/dressings per general surgery team. Uncontrolled diabetes mellitus with hyperglycemia Glycated hemoglobin 14. Recent diagnosis and had been on metformin prior to admission. -continue insulin SQ and will adjust as needed Hyponatremia Probably pseudohyponatremia in the setting of hyperglycemia. Sodium levels improved and stable at 135 past 48 hours. -follow lytes JACOB Morbid obesity Probably with obesity hypoventilation. 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 Anticipating at least another 24-48 hours inhouse * Geri Cummins RN - 11/07/2024 6:00 AM EST Problem: Sensory:Periop Procedure - Major Goal: Demonstrates/reports adequate pain control Outcome: Progressing Problem: Coping:Periop Procedure - Major Goal: Verbalizations of alleviation of anxiety will increase Outcome: Progressing Problem: Cognitive:Periop Procedure - Major Goal: Knowledge of disease or condition will improve Outcome: Progressing Problem: Physical Regulation: Periop Procedure - Major Goal: Postoperative complications will be avoided or minimized Outcome: Progressing Goal: Ability to maintain clinical measurements within normal limits will improve Outcome: Progressing Problem: Skin Integrity: Periop Procedure - Major Goal: Patient will remain free of injury and skin integrity maintained Outcome: Progressing Problem: Respiratory: Periop Procedure - Major Goal: Knowledge of JACOB (Obstructive Sleep Apnea) risk and follow-up will improve Outcome: Progressing Problem: Patient Specific Problem:Periop Procedure - Major Goal: Patient Specific Outcome Outcome: Progressing Goals: Identify possible barriers to meeting goals/advancing plan of care: ABX Stability of the patient: Moderately Stable - Low risk of patient condition declining or worsening End of Shift Summary: Dressing to left upper back is c/d/I. Oxy 10 was given for pain. Plan to continue abx and waiting for cx * Jai Fuller MD - 11/06/2024 7:13 PM EST Images from the original note were not included. [place] PROGRESS NOTE Date: 11/06/2024 Author: Jai Fuller MD Patient ID: Mark Yen is a 44 y.o. male : 1980 MR#: [id number] SUBJECTIVE Events noted Taken to the OR earlier for I&D(see discussion below) Mild-moderate discomfort L upper back No fever/chills Allergies Patient has no known allergies. Current Medications: acetaminophen, 1,000 mg, oral, q8h PERI cefepime, 2 g, intravenous, q12h enoxaparin, 40 mg, subcutaneous, q12h PERI insulin glargine, 30 Units, subcutaneous, Nightly insulin lispro, 2-12 Units, subcutaneous, TID AC vancomycin, 1,500 mg, intravenous, q8h sodium chloride, 125 mL/hr, Last Rate: 125 mL/hr (11/06/24 1329) PRN medications: dextrose 50%, dextrose 50%, dextrose, dextrose, glucagon injection, HYDROmorphone,oxyCODONE, oxyCODONE OBJECTIVE Vitals: 11/06/24 1240 11/06/24 1246 11/06/24 1333 11/06/24 1540 BP: (!) 145/82 (!) 145/82 (!) 143/79 (!) 152/75 BP Location: Right arm Right arm Patient Position: Lying Lying Pulse: 81 81 84 93 Resp: 12 12 20 Temp: 36.4 ??C (97.5 ??F) 36.4 ??C (97.5 ??F) 36.9 ??C (98.5 ??F) 36.2 ??C (97.2 ??F) TempSrc: Temporal Temporal SpO2: 96% 98% 96% Weight: Height: Vital Signs: as documented above General: No acute distress HEENT/Neck: Moist mucosa, no icterus, supple Thorax: No accessory muscles use. Clear Cardiac: Regular. Abdomen: Not distended,+ bowel sounds, soft, nontender Extremities: No edema, no cyanosis, no calf tenderness Mental Status: Awake, alert, and oriented x3 Neurological: No localizing weakness. Gait not tested : Deferred Skin: Left upper back: Bulky dressing in place: Clean/dry and did not take down. LABS HEMATOLOGY Lab Results Component Value Date WBC 11.7 (H) 11/06/2024 HGB 13.3 (L) 11/06/2024 HCT 39.8 (L) 11/06/2024 MCV 88.8 11/06/2024 PLT 184 11/06/2024 CHEMISTRY Lab Results Component Value Date GLUCOSE 445 (HH) 11/06/2024 NA 135 11/06/2024 K 4.4 11/06/2024 CO2 27 11/06/2024 CL 100 11/06/2024 BUN 20 11/06/2024 CREATININE 0.69 (L) 11/06/2024 EGFR 118 11/06/2024 CALCIUM 8.5 11/06/2024 ANIONGAP 8 11/06/2024 Imaging: CT Chest w Contrast Narrative: Exam: Contrast-enhanced CT chest with multiplanar reformats. Comparison: None. Findings: Lungs are free of focal consolidation. Airways are patent. No pneumothorax. No emphysematous disease. No pulmonary parenchymal nodules or lesions. No mediastinal or hilar masses or adenopathy. No pleural or pericardial effusions. Images below the diaphragms reveal no acute abnormalities. Chest wall reveals soft tissue emphysema involving subcutaneous soft tissues [...] by: Oswaldo Isaacs MD on 11/05/2024 23:56:32 ASSESSMENT & PLAN Cellulitis with abscess, left upper back S/p I&D CT imaging as above. S/p I&D by Gen Surgery earlier -continue abx, f/u operative cx, prn analgesics -gen surgery to change dressing/packing POD#1 Uncontrolled diabetes mellitus with hyperglycemia Glycated hemoglobin 14 Recent dx. -continue insulin SQ and will adjust as needed Hyponatremia Probably pseudohyponatremia d/t hyperglycemia. -follow lytes JACOB Morbid obesity Probably with obesity hypoventilation. 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 male is being started on vancomycin for Cellulitis for 7 days with a goal trough per Protocol of 10 - 20 mg/L. Relevant data Height: 1.727 m (67.99 ) Weight: 122 kg (270 lb) Temp Readings from Last 3 Encounters: 11/06/24 36.9 ??C (98.5 ??F) WBC Date Value Ref Range Status 11/06/2024 11.7 (H) 4.8 - 10.8 K/mcL Final 11/05/2024 13.8 (H) 4.8 - 10.8 K/mcL Final Creatinine Date Value Ref Range Status 11/06/2024 0.69 (L) 0.70 - 1.30 mg/dL Final 11/05/2024 1.09 0.70 - 1.30 mg/dL Final Estimated Creatinine Clearance: 125 mL/min (A) (by C-G formula based on SCr of 0.69 mg/dL (L)). mL/min Cockcroft-Gault Recent Results (from the past 168 hour(s)) Blood Culture, Peripheral Draw #2 Collection Time: 11/05/24 6:28 PM Specimen: Blood, Venous Result Value Ref Range Culture, Blood Culture in progress Blood Culture, Peripheral Draw #1 Collection Time: 11/05/24 6:38 PM Specimen: Blood, Venous Result Value Ref Range Culture, Blood Culture in progress Patient is also receiving the following antibiotic(s): Clinda Plan Patient has not received a Initial vancomycin dose. Pharmacy will initiate a maintenance dose of 1500 mg every 8 hours starting on 11/06 at 16:00. Per protocol, therapy is expected to last more than 5 days and therefore a trough indicated. A trough has been ordered for 11/08 at 16:00 prior to 5th dose. Will continue to monitor and recommend changes as necessary. Casi Villarreal PharmD 11/06/24 2:21 PM EST * Zuleika Devries RN - 11/06/2024 12:59 PM EST Goals: Pain management Identify possible barriers to meeting goals/advancing plan of care: none Stability of the patient: Moderately Stable - Low risk of patient condition declining or worsening End of Shift Summary: VSS, dressing intact. Will continue to monitor * Ramón Arroyo MD - 11/06/2024 6:[address] findings reviewed. Surgery contacted for evaluation. Ramón Arroyo MD [facility] Hospitalist, 7am-7pm Available thru tiger text After 7pm, please tiger text cross coverage 11/06/2024 6:33 AM EST * Darrel Viera RN - 11/05/2024 8:50 PM EST This RN assumed care of this patient at this time. Patient is alert and oriented to person place and time. Patient is resting in bed with equal and unlabored respirations. The bed is locked and in the lowest position. The call light is within reach. Will continue to monitor. * Jai Ordonez RN - 11/05/2024 5:54 PM EST Pt has large abscess on left shoulder starting after the new year started small getting bigger and more painful. Fevers at night taking otc pain meds throughout the day with no relief pt does have h/x diabetes * Lorenzo Arriaga, DO - 11/05/2024 5:33 PM EST Emergency Medicine Note Patient Name: Mark Yen Initial Evaluation: 11/05/2024 : 1980 Patient's PCP: Brandie Lopez MD Emergency Physician: DENY Barrios History of Present Illness Chief Complaint: Chief Complaint Patient presents with Abscess Abscess on back of left shoulder for past 2 weeks, fevers x 2 days HPI: This is a 44-year-old male with past medical history significant for T2DM on metformin, asthma, anxiety, GERD, hyperlipidemia, JACOB, among others presenting with an area of redness, swelling and pain over the left upper back that is been worsening over the past couple weeks, it did drain some purulent material last week. He reports that the pain is worsening and swelling has increased. He notes he has not been taking his metformin recently. He is not on insulin. Reports fevers at home over the past few days, denies any dizziness, lightheadedness, weakness, nausea, vomiting, chest pain, shortness of breath, abdominal pain, bowel or bladder abnormalities. ROS: I have performed a ROS with the pertinent positives and negatives documented in the history ofpresent illness. Previous History Past Medical History: Diagnosis Date Allergic rhinitis 01/05/2016 DX:Allergic rhinitis Anxiety 08/09/2016 DX:Anxiety Asthma 01/05/2016 DX:Asthma Chronic hepatitis B (CMS/HCC) 08/18/2018 DX:Chronic hepatitis B (HCC) Fatty liver 12/06/2016 DX:Fatty liver GERD (gastroesophageal reflux disease) 12/06/2016 DX:GERD (gastroesophageal reflux disease) Helicobacter pylori infection 07/11/2018 DX:Helicobacter pylori infection Hyperlipidemia 12/06/2016 DX:Hyperlipidemia Morbid obesity with BMI of 40.0-44.9, adult (CMS/HCC) 12/06/2016 DX:Morbid obesity with BMI of 40.0-44.9, adult ([facility]) Obstructive sleep apnea 12/06/2016 DX:Obstructive sleep apnea No past surgical history on file. Social History Tobacco Use Smoking status: Never Smokeless tobacco: Never Substance Use Topics Alcohol use: No Drug use: No No family history on file. has No Known Allergies. No current facility-administered medications on file prior to encounter. Current Outpatient Medications on File Prior to Encounter Medication Sig Dispense Refill amoxicillin (AMOXIL) 500 mg tablet Please take 2 tabs by mouth twice daily for 2 wks. esomeprazole (NexIUM) [address] capsule 20 mg 4 times daily. TAKE 2 CAPS IN AM BEFORE BREAKFAST AND 2 CAPS BEFORE DINNER fluticasone propionate (FLONASE) 50 mcg/actuation nasal spray INSTILL 2 SQUIRT TWICE DAILY Physical Exam ED Triage Vitals [11/05/24 5529] Temp Heart Rate Resp BP 36.5 ??C (97.7 ??F) 89 18 137/82 SpO2 Temp src Heart Rate Source Patient Position 97 % -- -- -- BP Location FiO2 (%) -- -- GENERAL: Nontoxic, no acute distress. SKIN: Appropriate color for ethnicity, warm, dry. Large area approximately 5 x 5 cm area of erythema and induration to the left upper back without any fluctuance. On bedside ultrasound no focal fluidcollection is identified. HEENT: No stridor NECK: Soft, supple, full ROM, Midline structures, nontender, no step-off, no deformity. CHEST: Heart regular rate and rhythm, no rubs, no gallops or murmurs. PULMONARY: Clear to auscultation bilaterally without any adventitious lung sounds. ABDOMINAL: Soft, nondistended nontender with positive bowel sounds. MUSCULOSKELETAL: Normal tone full range of motion, 5 x 5 motor. NEURO: Alert and oriented x3, Cranial nerves II through XII are intact PSYCHIATRIC: Normal affect, fluid speech, good eye contact and appropriate demeanor. Results Labs Reviewed BASIC METABOLIC PANEL - Abnormal Result Value Sodium 123 (*) Potassium 5.0 Chloride 91 (*) CO2 24 Anion Gap 8 Glucose 780 (*) BUN 30 (*) Creatinine 1.09 eGFR 86 BUN/Creatinine Ratio 27.5 Calcium 9.3 CBC WITH AUTO DIFFERENTIAL - Abnormal WBC 13.8 (*) RBC 5.00 Hemoglobin 14.8 Hematocrit 43.0 MCV 86.5 MCH 29.8 MCHC 34.4 RDW 12.3 Platelets 231 MPV 9.5 NRBC 0.0 NRBC Absolute 0.00 Neutrophils Relative 90.5 Lymphocytes Relative 4.5 Monocytes Relative 4.4 Eosinophils Relative 0.0 Basophils Relative 0.1 Immature Granulocytes Relative 0.5 Neutrophils Absolute 12.48 (*) Lymphocytes Absolute 0.62 (*) Monocytes Absolute 0.60 Eosinophils Absolute 0.00 Basophils Absolute 0.01 Immature Granulocytes Absolute 0.07 (*) LACTATE - Normal Lactate 1.4 CULTURE BLOOD Culture, Blood Culture in progress CULTURE BLOOD Culture, Blood Culture in progress CBC AND DIFFERENTIAL Narrative: The following orders were created for panel order CBC and differential. Procedure Abnormality Status --------- ------ CBC auto differential[[id number]] Abnormal Final result Please view results for these tests on the individual orders. BETA HYDROXYBUTYRATE Abnormal Labs Reviewed BASIC METABOLIC PANEL - Abnormal; Notable for the following components: Result Value Sodium 123 (*) Chloride 91 (*) Glucose 780 (*) BUN 30 (*) All other components within normal limits CBC WITH AUTO DIFFERENTIAL - Abnormal; Notable for the following components: WBC 13.8 (*) Neutrophils Absolute 12.48 (*) Lymphocytes Absolute 0.62 (*) Immature Granulocytes Absolute 0.07 (*) All other components within normal limits No orders to display I have discussed the incidental/abnormal imaging and/or lab abnormalities with the patient and haveinstructed them the need for further evaluation and workup with their primary care doctor. I have provided the patient with a paper copy of the abnormality. The laboratory results, imaging results and other diagnostic exam results were reviewed in the EMR. EKG Interpretation Critical Care Time None Differential Diagnosis Cellulitis Abscess Sepsis/SIRS Hyperglycemia DKA HHS Dehydration ? Medical Decision Making Medications sodium chloride 0.9 % bolus 1,000 mL (has no administration in time range) insulin regular (HumuLIN R) injection 5 Units (has no administration in time range) cefTRIAXone (ROCEPHIN) 2 g in sterile water 20 mL IV syringe (has no administration in time range) ibuprofen (ADVIL,MOTRIN) tablet 600 mg (600 mg oral Given 11/05/241821) ED Course as of 11/05/242053Nov 05, 20242013 Seen and evaluated, patient is stable, afebrile, nontachycardic, presenting with area of swelling, redness to the left upper back worsening over the past 2 states he did drain some purulence last week no focal fluid collection Is identified on bedside ultrasound, no significant fluctuance, areas erythematous and raised, blanchable. BGL is 780, leukocytosis 13.8. Will give insulin, IV fluids,ceftriaxone, Dr. Arriaga advises CT chest with contrast to further evaluate for potential deeper abscess. Admission to medical service for cellulitis, hyperglycemia. This was not [YB] ED Course User Index [YB] DENY Barrios Clinical Impressions as of 11/05/242053 Cellulitis of back except buttock Hyperglycemia Procedures Procedures Diagnosis No diagnosis found. Disposition Data Unavailable ED Prescriptions None Physician Attestation This is a split/shared visit with DENY Barrios. I personally performed the medical decision making (MDM) for the care of this patient the ED PA on 11/05/24 as documented below This 44-year-old male with history of diabetes, presents to the emergency department with an infection on his left upper back. The patient's workup and acute care will be started in the ED, includingappropriate diagnostic studies, IV antibiotics, symptomatic treatment, and the patient's care will be transferred to the inpatient service for further evaluation and management. Lorenzo Arriaga DO 11/05/24 8:54 PM EST DO Herb Beebe PA 11/05/241949 DENY Barrios 11/05/242018 Lorenzo Arriaga DO 11/05/242055 documented in this encounter H&P Notes * DENY Cortez - 11/05/2024 10:26 PM EST Images from the original note were not included. CHAN HISTORY AND PHYSICAL Please contact author [DENY Cortez] via [employer]. Patient: Mark Yen Admission Date/Time: 11/05/2024 7:30 PM : 1980 [44 y.o.] Patient's PCP: Brandie Lopez MD Attending Provider: Ramón Arroyo MD CHIEF COMPLAINT Skin infection HISTORY OF PRESENT ILLNESS This is a 44-year-old male past medical history significant for [id number] diabetes mellitus, GERD, amongst others, who presents emergency room with concern for skin infection. Patient states that early into the new year he developed small area of erythema to the left upper back/posterior aspect of the left shoulder. He states since that time went on he did not think erythema spread with associated increased edema, tenderness palpation and pain. Over the past week he has had serosanguineous discharge from the area. Describes pain as: Constant, burning/stabbing discomfort, waxing and waning in intensity. Also notes fever ranging from 102-105 over the past few days. He states that he has not taken his metformin, recently due to his symptoms. Presents emergency room for further evaluation and treatment. Denies focal weakness, chills, paresthesias, headache, lightheadedness, dizziness, shortness of breath, cough, chest pain, abdominal pain, nausea, vomiting, diarrhea, constipation, dysuria or hematuria. Denies recent travel, surgeries or sick contacts. Denies history of current symptoms. Upon H&P patient is afebrile, heart rate 89, respiratory rate 18, blood pressure 137/82, oxygensaturation 97% on room air. Labs reveal WBC 13.8 with neutrophils 12.48, sodium 123 with chloride 91, glucose 780 with beta-hydroxybutyrate 12. Chest CT imaging ordered, awaiting results. Patient wasadministered IV fluids, ceftriaxone, 5 units of regular insulin, and care subsequent transferred tot medicine service for further evaluation and treatment. Review of Systems Review of Systems Constitutional: Positive for fever. Skin: Positive for color change, rash and wound. All other systems reviewed and are negative. MEDICAL HISTORY Past Medical History Past Medical History: Diagnosis Date ??? Allergic rhinitis 01/05/2016 DX:Allergic rhinitis ??? Anxiety 08/09/2016 DX:Anxiety ??? Asthma 01/05/2016 DX:Asthma ??? Chronic hepatitis B (CMS/HCC) 08/18/2018 DX:Chronic hepatitis B (HCC) ??? Diabetes mellitus (CMS/HCC) ??? Fatty liver 12/06/2016 DX:Fatty liver ??? GERD (gastroesophageal reflux disease) 12/06/2016 DX:GERD (gastroesophageal reflux disease) ??? Helicobacter pylori infection 07/11/2018 DX:Helicobacter pylori infection ??? Hyperlipidemia 12/06/2016 DX:Hyperlipidemia ??? Morbid obesity with BMI of 40.0-44.9, adult ([facility]/HCC) 12/06/2016 DX:Morbid obesity with BMI of 40.0-44.9, adult ([facility]) ??? Obstructive sleep apnea 12/06/2016 DX:Obstructive sleep apnea Past Surgical History Past Surgical History: Procedure Laterality Date ??? CHOLECYSTECTOMY Social History reports that he has never smoked. He has never used smokeless tobacco. He reports that he does not drink alcohol and does not use drugs. Lives at home with family. Independent with ADLs. Denies using assistive device with ambulation. Family History family history includes No Known Problems in his father and mother. Allergies has No Known Allergies. Home Medications No current facility-administered medications on file prior to encounter. Current Outpatient Medications on File Prior to Encounter Medication Sig Dispense Refill ??? metFORMIN (GLUCOPHAGE) 1,000 mg tablet Take 1 tablet (1,000 mg total) by mouth 2 (two) times a day with meals. ??? [DISCONTINUED] amoxicillin (AMOXIL) 500 mg tablet Please take 2 tabs by mouth twice daily for 2wks. ??? [DISCONTINUED] esomeprazole (NexIUM) [address] capsule 20 mg 4 times daily. TAKE 2 CAPS IN AM BEFORE BREAKFAST AND 2 CAPS BEFORE DINNER ??? [DISCONTINUED] fluticasone propionate (FLONASE) 50 mcg/actuation nasal spray INSTILL 2 SQUIRT TWICE DAILY OBJECTIVE Vitals Visit Vitals BP 137/82 Pulse 89 Temp 36.5 ??C (97.7 ??F) Resp 18 Temp (24hrs), Av.5 ??C (97.7 ??F), Min:36.5 ??C (97.7 ??F), Max:36.5 ??C (97.7 ??F) Body mass index is 41.05 kg/m??. No results found for: PTWT , PTHT Physical Examination General Exam: Age appropriate, awake, calm, cooperative, no apparent distress. Skin Exam: Warm, dry, intact, no diaphoresis. Capillary refill < 3 seconds. Over left scapula large, 6 cm circular area of erythema, edema, increased warmth with induration and tenderness palpation. No active discharge. Eye Exam: No scleral icterus HEENT exam: Head is normocephalic. Oral mucosa moist. No trismus, drooling, or difficulty handling secretions. Neck Exam: Soft/supple, full range of motion, no nuchal rigidity Respiratory Exam: Clear to auscultation bilaterally, no wheezes, rales or rhonchi. No tripoding, retractions or increased work of breathing. Speaking in full sentences without difficulties. Cardiovascular Exam: Regular rate and rhythm. Radial pulses 2+ intact bilaterally. Gastrointestinal Exam: No pulsations or visible masses, nondistended. Normoactive bowel sounds. Abdomen is soft, nontender, without rebound/guarding. No peritoneal signs appreciated. Musculoskeletal Exam: No calf tenderness or asymmetry, no lower extremity pitting edema. Moving allextremities at the major joint spaces without difficulty. Neurological Exam: Alert and oriented X3. No focal deficit. Smile symmetric. No dysarthria/dysphagia. Tongue midline when protruded. Hearing appropriate. Following commands without difficulties. Psychiatric exam: stable mood and affect LAB RESULTS (most recent) HEMATOLOGY Lab Results Component Value Date WBC 13.8 (H) 11/05/2024 HGB 14.8 11/05/2024 HCT 43.0 11/05/2024 MCV 86.5 11/05/2024 PLT 231 11/05/2024 CHEMISTRY Lab Results Component Value Date GLUCOSE 780 (HH) 11/05/2024 NA 123 (L) 11/05/2024 K 5.0 11/05/2024 CO2 24 11/05/2024 CL 91 (L) 11/05/2024 BUN 30 (H) 11/05/2024 CREATININE 1.09 11/05/2024 EGFR 86 11/05/2024 CALCIUM 9.3 11/05/2024 ANIONGAP 8 11/05/[address] Chest w Contrast (Results Pending) ASSESSMENT & PLAN Cellulitis ? Abscess -Bring patient into the hospital, monitor vital signs, ins and outs peripheral protocol -Left upper back/shoulder with erythema, edema, increased warmth, tenderness palpation and induration concerning for cellulitis with potential abscess -Initially treated with IV ceftriaxone. Will broaden to IV cefepime -Chest CT imaging pending at this time, consider surgical consult -As needed analgesia/antiemetics -Morning labs: CBC, BMP, A1c Uncontrolled diabetes mellitus with hyperglycemia -Blood sugar initially 780 with beta hydroxybutyrate 12 -Serum Osmolality calculated to 300, hyperosmolar -Initially administered 1 L IV fluid bolus and 5 units regular insulin while in ED. Continue aggressive IV fluid hydration -Reports recent diagnosis of diabetes mellitus in the past 3 to 4 months -Hold metformin at this time -Obtain hemoglobin A1c with morning labs Hyponatremia -Sodium noted to 123, 1 hyperglycemia of 780s taken into consideration sodium is corrected to 134 -Continue IV fluids as stated above GERD -Not on PPI JACOB -Denies use of CPAP Admission checklist [x] Code status: Full Code - Default [x] VTE Prophylaxis:Sequentials [x] Diet order on admission: Dietary Orders (From admission, onward) Start Ordered 11/05/242223 Adult diet [facility]; General, Diabetic; Regular; 75 gm carb/Meal Diet effective now Question Answer Comment Location [facility] Diet Type (req) General Diet Type (req) Diabetic General Diet Regular Diabetic 75 gm carb/Meal 11/05/244 [x] Medication reconciliation Health Care proxy with Phone number: Brother Alfredo [phone] Case discussed with Associated attestation - Ramón Arroyo MD - 11/05/2024 11:33 PM EST I have personally seen and examined the patient with the resident/PA/DOUBLE CUT SAWYER and gregory elements of all parts of the encounter were performed by me. Patient was reassessed on more than one occasion when required. I reviewed the interval history, interpreted all available radiographic, laboratory and physiological data at the time of service. I agree with the assessment and plan as documented by the resident/PA/DOUBLE CUT SAWYER with additions. 44-year-old male being admitted to the hospital for severely elevated glucose levels causing pseudohyponatremia as well as cellulitis of the back. Patient has manage erythema in the left upper back. Heart lung auscultation is unremarkable. Patient is morbidly obese appearance. Will start the patient on broad-spectrum cefepime. Agree with IV fluids. Lantus 10 units with medium dose sliding scale. Check glucose 4 times lipid hypoglycemia protocol. Check labs tomorrow. Additional records from previous providers were reviewed in detail. Case was discussed with ED as well. I spent greater than 80 minutes caring for this patient today with greater than 50% of the timespent in direct [id number] care/counseling/coordination with direct support staff member, consultants, and reviewingpatient chart. Ramón Arroyo MD [facility] Hospitalist, 7am-7pm Available thru tiger text After 7pm, please tiger text cross coverage 11/05/2024 11:33 PM EST documented in this encounter Procedure Notes * DENY Franco - 11/10/2024 6:34 AM EST GENERAL SURGERY POST-OPERATIVE PROGRESS NOTE Patient: Mark Yen : 1980 (44 y.o. male) Admit Date: 11/05/2024 Location: [address] [place] [address] Dictating Physician: DENY Franco Attending: Jai Fuller MD Primary Care Provider: Brandie Lopez MD Subjective: Encounter Date & Time: 11/10/2024 Supervising Physician: Hamlet Garvey MD 12-Hour Events: Post Operative day # 1 status post debridement, exploration of back wound; wound vac placement: Patient was having issues with pain control o/n which has improved this morning with analgesia, had complaint for chest pain, labs normal, nausea improved with medication, tolerating diet, voiding freely. Wound VAC appears to be holding suction but nothing in the canister. Denies any fevers or chills, chest pain or shortness of breath. Objective: Temp: 36.6 ??C (97.9 ??F) (11/10 130) Heart Rate: 82 (11/10 130) Resp: 18 (11/10 130) BP: 147/73 (11/10 130) Weight (kg): BMI: Body mass index is 41.06 kg/m??. PHYSICAL EXAM GENERAL: Pleasant, no acute distress HEAD : Normocephalic, symmetric, atraumatic THROAT: Mucus membrane pink and moist EYES: Extra-ocular movements grossly intact, sclera anicteric CARDIOVASCULAR: Regular rate and rhythm without any significant murmur. RESPIRATORY: Normal appearance and effort. GASTROINTESTINAL: Positive bowel sounds. Obese, abdomen soft, mildly distended, nontender throughout. BACKSIDE: Left upper back wound VAC in place appears to be holding suction MUSCULOSKELETAL: No gross deformities noted.No edema noted SKIN: No obvious rash or lesions on visible skin. No jaundice NEUROLOGIC: Awake, alert, and oriented x 3 PSYCHIATRIC: Normal mood and affect Results: Laboratories: Lab Results Component Value Date WBC 6.8 11/10/2024 HGB 12.1 (L) 11/10/2024 HCT 36.0 (L) 11/10/2024 MCV 88.9 11/10/2024 PLT 192 11/10/2024 Lab Results Component Value Date GLUCOSE 222 (H) 11/10/2024 CALCIUM 8.3 (L) 11/07/2024 NA 135 11/07/2024 K 3.7 11/07/2024 CO2 26 11/07/2024 CL 103 11/07/2024 BUN 17 11/07/2024 CREATININE 0.57 (L) 11/07/2024 Lab Results Component Value Date ALBUMIN 2.8 (L) 11/06/2024 ALKPHOS 82 11/06/2024 ALT 36 11/06/2024 AST 6 (L) 11/06/2024 BILITOT 0.4 11/06/2024 No results found for: PT , INR , APTT Lab Results Component Value Date MG 1.8 (L) 11/10/2024 PHOS 3.0 11/07/2024 Lab Results Component Value Date LACTATE 1.4 11/05/2024 Imaging: CT Chest w Contrast Narrative: Exam: Contrast-enhanced CT chest with multiplanar reformats. Comparison: 11/05/2024 Findings: Lungs are free of focal consolidation. Airways are patent. No pneumothorax. No emphysematous disease. No pulmonary parenchymal nodules or lesions. No mediastinal or hilar masses or adenopathy. No pleural or pericardial effusions. Images below the diaphragms reveal no acute abnormalities. Chest wall reveals soft tissue fat stranding and emphysema [...] 18:13:33 CT Neck Soft Tissue w Contrast Narrative: CT soft tissue neck with contrast Comparison: None Findings: The visualized intracranial contents are unremarkable. Pharyngeal mucosal space, parapharyngeal fat, [...] by: Irving Cooper MD on 11/08/2024 18:02:45 Assessment & Plan: Problem List: 1. Cellulitis of back except buttock 2. Hyperglycemia 3. Abscess of back Patient Active Problem List Diagnosis Allergic rhinitis Anxiety Asthma Bacterial infection due to H. pylori Bloating Chronic hepatitis B (CMS/HCC) Epigastric pain Fatty liver GERD (gastroesophageal reflux disease) Hyperlipidemia Obstructive sleep apnea Morbid obesity with BMI of 40.0-44.9, adult (CMS/HCC) Hyperglycemia Abscess of back Assessment: 44 yo M with poorly controlled DM, came in with worsening left upper back pain found to have back wound with questioned necrotizing fasciitis, he was taken to OR on11/06 for I&D of the left upper back abscess and RTOR yesterday for debridement, exploration of back wound; wound vac placement. He is being evaluated on POD 1 today. Hypertensive to 147/73, otherwise vital signs stable. Overnight, had issues with pain control which has since improved with Plan: - Continue with DM diet - OK to dc from Chan standpoint - VNA set up for discharge - Fu chest pain - Continue with abx - ISS - Monitor POC - Analgesics and antiemetics as needed - Encourage use of Incentive spirometry - Monitor Inputs and Outputs - DVT prophylaxis: intermittent pneumatic compression boots and Lovenox Will discuss with Dr. CASTAÑEDA * Dilshad Isaacs DO - 11/09/2024 11:08 AM EST DEBRIDEMENT EXPLORATION BACK WOUND (L) OPERATIVE NOTE Date: 11/09/2024 Location: [facility] OR Name: Mark Yen, : 1980, Diagnosis Pre-op Diagnosis Necrotizing soft tissue infection left upper back Post-op Diagnosis same Procedures * DEBRIDEMENT EXPLORATION BACK WOUND 82645 Wound vac placement Additional Procedures Indications: Mark Yen is an 44 y.o. male who is having surgery for a take back for wound debridement and wound back placement for NSTI of left upper back. Surgeon(s) & Scenic Designer(s) * Dilshad Isaacs DO - Primary Anesthesia: Monitor Anesthesia Care ASA: III Estimated Blood Loss: Minimal Drains: Negative pressure Wound Vac Specimen: none Procedure Details: Patient was preoperatively consented on the [facility] surgical floor. He was then brought to the operating room and placed in right lateral decubitus position. He was then placed under monitored anesthesiacare. The area was prepped and draped in normal sterile fashion. He did receive preoperative antibiotics schedule. A formal timeout was included. A wide block was placed with 1% lidocaine and epinephrine. Utilizing a curette I scraped some fibrinous tissue as well as small amount of necrotic tissueof the medial lateral apex of the muscle as well as the subcutaneous fat. The wound measured 10 cm in transverse direction 4 cm in the axial direction and 3 cm deep. A black sponge wound VAC was fashioned for the wound and bridged just to the upper back/shoulder region. Patient tolerated the procedure well. All instrument counts needle count sponge counts correct x 2. I was present and scrubbed for entire procedure. Patient was awoken on the operating table transferred to. Hospital bed and brought to the PACU in stable condition. Findings: Small amount of fibrinous tissue and small amount of necrotic tissue just lateral and inferior as well as in the apex medially which was removed otherwise clean granulation tissue wound VAC. Complications: None; patient tolerated the procedure well. Disposition: PACU - hemodynamically stable. Condition: stable * DENY Tellez - 11/07/2024 5:50 AM EST Subjective: Overnight events: POD 1 status post I&D left upper back abscess. Patient has appropriate tenderness in the surgical site. Dressing changed last night by nursing. No other complaints. Objective: Visit Vitals BP 138/72 (BP Location: Right arm, Patient Position: Lying) Pulse 73 Temp 36.1 ??C (96.9 ??F) (Temporal) Resp 18 Intake/Output Summary (Last 24 hours) at 11/07/2024 0550 Last data filed at 11/07/2024 0300 Gross per 24 hour Intake 2990 ml Output -- Net 2990 ml Admission on 11/05/2024 Component Date Value Sodium 11/05/2024 123 (L) Potassium 11/05/2024 5.0 Chloride 11/05/2024 91 (L) CO2 11/05/2024 24 Anion Gap 11/05/2024 8 Glucose 11/05/2024 780 (HH) BUN 11/05/2024 30 (H) Creatinine 11/05/2024 1.09 eGFR 11/05/2024 86 BUN/Creatinine Ratio 11/05/2024 27.5 Calcium 11/05/2024 9.3 Lactate 11/05/2024 1.4 Culture, Blood 11/05/2024 No growth at 24 hours Culture, Blood 11/05/2024 No growth at 24 hours WBC 11/05/2024 13.8 (H) RBC 11/05/2024 5.00 Hemoglobin 11/05/2024 14.8 Hematocrit 11/05/2024 43.0 MCV 11/05/2024 86.5 MCH 11/05/2024 29.8 MCHC 11/05/2024 34.4 RDW 11/05/2024 12.3 Platelets 11/05/2024 231 MPV 11/05/2024 9.5 NRBC 11/05/2024 0.0 NRBC Absolute 11/05/2024 0.00 Neutrophils Relative 11/05/2024 90.5 Lymphocytes Relative 11/05/2024 4.5 Monocytes Relative 11/05/2024 4.4 Eosinophils Relative 11/05/2024 0.0 Basophils Relative 11/05/2024 0.1 Immature Granulocytes Re* 11/05/2024 0.5 Neutrophils Absolute 11/05/2024 12.48 (H) Lymphocytes Absolute 11/05/2024 0.62 (L) Monocytes Absolute 11/05/2024 0.60 Eosinophils Absolute 11/05/2024 0.00 Basophils Absolute 11/05/2024 0.01 Immature Granulocytes Ab* 11/05/2024 0.07 (H) Beta-Hydroxybutyrate 11/05/2024 12.0 (H) Glucose POCT 11/05/2024 421 (HH) Sodium 11/06/2024 135 Potassium 11/06/2024 4.4 Chloride 11/06/2024 100 CO2 11/06/2024 27 Anion Gap 11/06/2024 8 Glucose 11/06/2024 252 (H) BUN 11/06/2024 20 Creatinine 11/06/2024 0.69 (L) eGFR 11/06/2024 118 BUN/Creatinine Ratio 11/06/2024 29.0 Calcium 11/06/2024 8.5 AST (SGOT) 11/06/2024 6 (L) ALT (SGPT) 11/06/2024 36 Alkaline Phosphatase 11/06/2024 82 Total Protein 11/06/2024 5.7 (L) Albumin 11/06/2024 2.8 (L) Total Bilirubin 11/06/2024 0.4 Hemoglobin A1C 11/06/2024 >14.8 (H) Mean Bld Glu Estim. 11/06/2024 WBC 11/06/2024 11.7 (H) RBC 11/06/2024 4.50 Hemoglobin 11/06/2024 13.3 (L) Hematocrit 11/06/2024 39.8 (L) MCV 11/06/2024 88.8 MCH 11/06/2024 29.7 MCHC 11/06/2024 33.4 RDW 11/06/2024 12.4 Platelets 11/06/2024 184 MPV 11/06/2024 9.1 NRBC 11/06/2024 0.0 NRBC Absolute 11/06/2024 0.00 Neutrophils Relative 11/06/2024 74.8 Lymphocytes Relative 11/06/2024 17.1 Monocytes Relative 11/06/2024 7.2 Eosinophils Relative 11/06/2024 0.1 Basophils Relative 11/06/2024 0.1 Immature Granulocytes Re* 11/06/2024 0.7 Neutrophils Absolute 11/06/2024 8.79 (H) Lymphocytes Absolute 11/06/2024 2.01 Monocytes Absolute 11/06/2024 0.84 Eosinophils Absolute 11/06/2024 0.01 Basophils Absolute 11/06/2024 0.01 Immature Granulocytes Ab* 11/06/2024 0.08 (H) Glucose POCT 11/06/2024 222 (H) Gram Stain Result 11/06/2024 Many Polymorphonuclear leukocytes (A) Gram Stain Result 11/06/2024 Many Gram positive cocci in pairs and clusters (A) Gram Stain Result 11/06/2024 Few Gram positive bacilli (A) Gram Stain Result 11/06/2024 Rare Epithelial cells (A) Glucose POCT 11/06/2024 267 (H) Glucose POCT 11/06/2024 445 (HH) POCT Comment 11/06/2024 RN Notified Glucose POCT 11/06/2024 558 (HH) POCT Comment 11/06/2024 RN Notified Glucose POCT 11/07/2024 398 (H) CT Chest w Contrast Narrative: Exam: Contrast-enhanced CT chest with multiplanar reformats. Comparison: None. Findings: Lungs are free of focal consolidation. Airways are patent. No pneumothorax. No emphysematous disease. No pulmonary parenchymal nodules or lesions. No mediastinal or hilar masses or adenopathy. No pleural or pericardial effusions. Images below the diaphragms reveal no acute abnormalities. Chest wall reveals soft tissue emphysema involving subcutaneous soft tissues [...] by: Oswaldo Isaacs MD on 11/05/2024 23:56:32 General: no apparent distress HNT: moist mucous membranes Eyes: sclera anicteric Thorax: Large left upper back dressing with packing covering abscess I&D sites. No induration or erythema extending beyond the dressing. Dressing was left in place with some staining of the Kerlix. Mildly tender to palpation surrounding incision. Cardiovascular: no murmurs, pulse regular rate and rhythm Abdomen: soft, non-tender, non-distended, bowel sounds noted Extremities: no cyanosis or edema Neurologic: alert/awake/oriented Assessment: 44 y.o male Post op day #: 1 s/p left upper back I&D of abscess performed by Dr. Dilshad Isaacs on 11/07/24. Patient with poorly controlled diabetes and left upper back abscess requiringsurgical I&D stable overnight. Dressing changed by nursing last night. Has some staining over fluffs without erythema or induration extending beyond the dressing. Plan: Continue dressing changes, may require further I&D and wound VAC placement. Continue tight control of blood sugars for wound healing. Continue with cefepime and vancomycin. Continue DVT prophylaxis, Lovenox. Encourage out of bed ambulating hallways up at bedside. * Renata Bonds RN - 11/06/2024 10:[address] josue aware of poc 267.no new orders * Dilshad Isaacs DO - 11/06/2024 9:51 AM EST INCISION DRAINAGE ABSCESS, excisional debridment, skin and subcutaneous fat OPERATIVE NOTE Date: 11/06/2024 Location: [facility] OR Name: Mark Yen, : 1980, Diagnosis Pre-op Diagnosis * Abscess of back [L02.212] Post-op Diagnosis * Abscess of back [L02.212] Procedures * INCISION DRAINAGE ABSCESS, excisional debridment, skin and subcutaneous fat, <20cm2 Additional Procedures Indications: Mark Yen is an 44 y.o. male who is having surgery for * No pre-op diagnosis entered *. Surgeon(s) & Scenic Designer(s) * Dilshad Isaacs DO - Primary Anesthesia: Monitor Anesthesia Care ASA: III Estimated Blood Loss: Minimal Drains: none Specimen: deep wound culture left upper back Specimens ID Source Type Tests Collected By Collected At Frozen? Priority Lab ID A Back, Upper Swab CULTURE WOUND DEEP Dilshad Isaacs DO 11/06/24 1003 [id number] Description: upper left back abscess Procedure Details: Patient was preoperatively consented in the preop holding area. He was brought to the operating room placed supine position on the operating table. He was then placed in right lateral decubitus position. He was put under monitored anesthesia care. The area was prepped and draped in normal sterile fashion. A formal timeout was included. Surrounding the area was performed a large wide block with 1%lidocaine and epinephrine. I made a 9 cm incision with 15 blade scalpel which was extended through the dermis utilizing Bovie electrocautery. Immediately there was foul-smelling purulent material which was cultured. I continued down and drained the whole complex abscess overlying the left scapular region. Next I utilized Metzenbaum scissors to debride subcutaneous fat overlying the fascial plane. The fascia was intact and there was no necrotic fascia or muscle. The whole area where the abscess cavity debridement included 9 cm x 5 cm x 4 cm deep. the region was irrigated profusely. Hemostasis was achieved. I packed the wound with Kerlix and placed 4x4s as well as an ABD pad and Mediporetape over the region. Patient may require further trips to the operating room and possibility of wound VAC placement. Patient tolerated this procedure well was transferred back to the [facility] and brought back in stable condition. All instrument counts needle count sponge counts correct x 2. I was present for the entire procedure. Findings: Abscess left upper back, Necrotizing soft tissue infection, subcutaneous fat and skin Complications: None; patient tolerated the procedure well. Disposition: PACU - hemodynamically stable. Condition: stable documented in this encounter Consult Notes * DENY Gee - 11/06/2024 9:11 AM ESTAssociated Order(s): IP CONSULT TO GENERAL SURGERY GENERAL SURGERY CONSULTATION Patient: Mark Yen : 1980 (44 y.o. male) Admit Date: 11/05/2024 Location: [facility] MAIN OR [place] Room/M* Dictating Physician: DENY Gee Attending: Jai Fuller MD Primary Care Provider: Brandie Lopez MD [facility] Encounter Date & Time: 11/06/24 Service: General Surgery Chief Complaint: back abscess Source: Patient History of Present Illness: Mr. Mark Yen is a very pleasant 44 y.o. male with past medical history including NIDDM, GERD, anxious, asthma, obesity, amongst others who presents to [facility] Emergency Department with complaints of left upper back pain/infection. He reports he first noticed it just after NewYear's. It started small and has gotten progressively bigger and more painful. The pain radiates over his shoulder to his chest. Reports last week it was draining bloody, yellow fluid. No drainage recently. Reports fevers the past few days up to 105F. Denies previous abscesses. Denies N/V, difficulty urinating, CP, SOB. Upon arrival to the ED, patient is afebrile and vitals are stable. Laboratory workup indicates sodium 123, up to 135. Glucose 780, down to 222. WBC 13.8, down to 11.7. Lactic acid 1.4. CT shows softtissue emphysema overlying the left upper back, with likely poorly circumscribed collection containing gas and fluid density, likely subcutaneous abscess. Soft tissue emphysema may be related to abscess perforation, cutaneous defect, although differential consideration could include necrotizing infection. General surgery consulted for further evaluation and management. Past Medical History: Allergies: No Known Allergies Medications: No current facility-administered medications on file prior [...] mcg/actuation nasal spray INSTILL 2 SQUIRT TWICEDAILY Medical History: Past Medical History: Diagnosis Date Allergic rhinitis [...] Obstructive sleep apnea 12/06/2016 DX:Obstructive sleep apnea Surgical History: Past Surgical History: Procedure Laterality Date CHOLECYSTECTOMY Social History: Social History Socioeconomic History Marital status: Single Spouse name: Not on file Number of children: Not on file Years of education: Not on file Highest education level: Not on file Occupational History Not on file Tobacco Use Smoking status: Never Smokeless tobacco: Never Substance and Sexual Activity Alcohol use: No Drug use: No Sexual activity: Defer Other Topics Concern Not on file Social History Narrative Not on file Family History: Family History Problem Relation Name Age of Onset No Known Problems Mother No Known Problems Father Review of Systems: CONSTITUTIONAL: Reports fever HEENT: Denies changes in vision and hearing RESPIRATORY: Denies SOB, cough CV: Denies chest pain, dyspnea on exertion GI: Denies abdominal pain, nausea, vomiting, diarrhea, constipation : Denies dysuria, urinary frequency, dark urine MSK: Denies joint pain or swelling SKIN: As noted in HPI NEUROLOGICAL: Denies headache, syncope, weakness Physical Exam: Temp: 36.5 ??C (97.7 ??F) (11/05 9859) Heart Rate: 82 (11/06 143) Resp: 17 (11/06 143) BP: 104/77 (11/06 143) Weight (kg): 122 BMI: Body mass index is 41.05 kg/m??. GENERAL: Pleasant, no acute distress HEAD EXAM: Normocephalic, symmetric, atraumatic EYES: Extra-ocular movements grossly intact, sclera anicteric ENT: Moist, pink mucous membranes CARDIOVASCULAR: Regular rate and rhythm without significant murmur. RESPIRATORY: Normal appearance and effort. Clear to auscultation bilaterally MUSCULOSKELETAL: No gross deformities noted in the major joints of the upper and lower extremities bilaterally SKIN: Left posterior shoulder with mild erythema, central fluctuance with surrounding induration, no crepitus appreciated. Tender to palpation. No active drainage NEUROLOGIC: Awake, alert, and oriented x 3 PSYCHIATRIC: Normal mood and affect Results: Laboratories: Lab Results Component Value Date WBC 11.7 (H) 11/06/2024 HGB 13.3 (L) 11/06/2024 HCT 39.8 (L) 11/06/2024 MCV 88.8 11/06/2024 PLT 184 11/06/2024 Lab Results Component Value Date GLUCOSE 222 (H) 11/06/2024 CALCIUM 8.5 11/06/2024 NA 135 11/06/2024 K 4.4 11/06/2024 CO2 27 11/06/2024 CL 100 11/06/2024 BUN 20 11/06/2024 CREATININE 0.69 (L) 11/06/2024 Lab Results Component Value Date ALBUMIN 2.8 (L) 11/06/2024 ALKPHOS 82 11/06/2024 ALT 36 11/06/2024 AST 6 (L) 11/06/2024 BILITOT 0.4 11/06/2024 Lab Results Component Value Date LACTATE 1.4 11/05/2024 Imaging Studies: CT Chest w Contrast Narrative: Exam: Contrast-enhanced CT chest with multiplanar reformats. Comparison: None. Findings: Lungs are free of focal consolidation. Airways are patent. No pneumothorax. No emphysematous disease. No pulmonary parenchymal nodules or lesions. No mediastinal or hilar masses or adenopathy. No pleural or pericardial effusions. Images below the diaphragms reveal no acute abnormalities. Chest wall reveals soft tissue emphysema involving subcutaneous soft tissues [...] by: Oswaldo Isaacs MD on 11/05/2024 23:56:32 Impression & Plan: Problem List: 1. Cellulitis of back except buttock 2. Hyperglycemia 3. Abscess of back Patient Active Problem List Diagnosis Allergic rhinitis Anxiety Asthma Bacterial infection due to H. pylori Bloating Chronic hepatitis B (CMS/HCC) Epigastric pain Fatty liver GERD (gastroesophageal reflux disease) Hyperlipidemia Obstructive sleep apnea Morbid obesity with BMI of 40.0-44.9, adult (CMS/HCC) Hyperglycemia Abscess of back Assessment: 44 y.o. male with PMH including NIDDM, obesity who presents to [facility] ED with complaints of left back abscess x 2 weeks, reported fevers up to 105F at home. Currently afebrile, vitals stable. WBC 13.8 initially, down to 11.7. Lactic acid normal. Glucose 780 initially, down to 252. CT concerning for possible necrotizing fasciitis. Plan: OR for I&D and excisional debridement, consent obtained Abx- received cefepime. Added clinda and vanco NPO IVF DVTp- boots Medical management per [place] The patient was seen both independently and/or concurrently with the surgeon of record. I spent a total of 30 minutes independently performing a chart review, independent history and exam, providing care, ordering medication, reviewing tests and procedure reports, coordinating care with [place] provider. I spent [address] Isaacs. documented in this encounter Plan of Treatment Upcoming Encounters Date Type Department Care Team (Late st Contact Info) Description 11/27/2024 3:45 PM EST Office Visit General Surgery - [address] [place] [id number] Dilshad Isaacs, [address] [facility] [address] [place] [address] 12/05/2024 10:00 AM EST Hospital Encounter [facility] Endoscopy [address] [place] [phone] Aurelio Riggins MD [address] [facility] [address] [place] [address] 12/25/2024 9:15 AM EST Office Visit Gastroenterology - [place] [address] [facility] [address] [place] [address] Aurelio Riggins MD [address] [facility] [address] [place] [address] Pending Results Name Type Priority Associated Diagnoses Date /Time Culture wound deep Microbiology Routine Abscess of back 11/06/2024 10:03 AM EST documented as of this encounter Procedures Procedure Name Priority Date/Time Associated Diagnosis Comments POCT GLUCOSE BLOOD Routine 11/11/2024 10 :59 AM EST POCT GLUCOSE BLOOD Routine 11/11/2024 8: 08 AM EST COMPREHENSIVE METABOLIC PANEL Routine 11/11/2024 6:49 AM EST EXTRA TUBES Routine 11/11/2024 6:45 AM EST LAVENDER - EDTA Routine 11/11/2024 6:45 AM EST POCT GLUCOSE BLOOD Routine 11/11/2024 5: 08 AM EST POCT GLUCOSE BLOOD Routine 11/11/2024 12 :12 AM EST POCT GLUCOSE BLOOD Routine 11/10/2024 10 :26 PM EST POCT GLUCOSE BLOOD Routine 11/10/2024 8: 03 PM EST POCT GLUCOSE BLOOD Routine 11/10/2024 4: 01 PM EST POCT GLUCOSE BLOOD Routine 11/10/2024 11 :12 AM EST POCT GLUCOSE BLOOD Routine 11/10/2024 9: 15 AM EST OXYGEN THERAPY, ADULT Routine 11/10/2024 8:01 AM EST POCT GLUCOSE BLOOD Routine 11/10/2024 2: 38 AM EST ECG 12-LEAD Routine 11/10/2024 1:59 AM EST TROPONIN I HIGH SENSITIVITY Routine 11/10/2024 1:46 AM EST B-TYPE NATRIURETIC PEPTIDE Routine 11/10/2024 1:46 AM EST MAGNESIUM Routine 11/10/2024 1:46 AM EST BASIC METABOLIC PANEL Add-On 11/10/2024 1:46 AM EST CBC WITH AUTO DIFFERENTIAL Routine 11/10/2024 1:45 AM EST CBC AND DIFFERENTIAL Routine 11/10/2024 1:45 AM EST VANCOMYCIN, TROUGH Timed 11/09/2024 9: 06 PM EST POCT GLUCOSE BLOOD Routine 11/09/2024 8: 20 PM EST OXYGEN THERAPY, ADULT Routine 11/09/2024 8:01 PM EST POCT GLUCOSE BLOOD Routine 11/09/2024 4: 29 PM EST POCT GLUCOSE BLOOD Routine 11/09/2024 12 :55 PM EST OXYGEN THERAPY, ADULT Routine 11/09/2024 12:03 PM EST OXYGEN THERAPY, ADULT Routine 11/09/2024 12:03 PM EST POCT GLUCOSE BLOOD Routine 11/09/2024 11 :33 AM EST DEBRIDEMENT WOUND 11/09/2024 10: 49 AM EST Abscess of back POCT GLUCOSE BLOOD Routine 11/09/2024 7: 56 AM EST POCT GLUCOSE BLOOD Routine 11/08/2024 8: [address] CHEST W CONTRAST STAT 11/08/2024 5 :[address] NECK SOFT TISSUE W CONTRAST STAT 11/08/2024 5:34 PM EST POCT GLUCOSE BLOOD Routine 11/08/2024 4: 30 PM EST POCT GLUCOSE BLOOD Routine 11/08/2024 11 :18 AM EST POCT GLUCOSE BLOOD Routine 11/08/2024 7: 55 AM EST VANCOMYCIN, TROUGH Timed 11/08/2024 7: 04 AM EST POCT GLUCOSE BLOOD Routine 11/07/2024 8: 34 PM EST POCT GLUCOSE BLOOD Routine 11/07/2024 3: 42 PM EST POCT GLUCOSE BLOOD Routine 11/07/2024 11 :11 AM EST POCT GLUCOSE BLOOD Routine 11/07/2024 8: 09 AM EST CBC WITH AUTO DIFFERENTIAL Routine 11/07/2024 5:20 AM EST CBC AND DIFFERENTIAL Routine 11/07/2024 5:20 AM EST PHOSPHORUS Routine 11/07/2024 5:20 AM EST MAGNESIUM Routine 11/07/2024 5:20 AM EST BASIC METABOLIC PANEL Routine 11/07/2024 5:20 AM EST POCT GLUCOSE BLOOD Routine 11/07/2024 12 :16 AM EST POCT GLUCOSE BLOOD Routine 11/06/2024 8: 26 PM EST POCT GLUCOSE BLOOD Routine 11/06/2024 3: 54 PM EST POCT GLUCOSE BLOOD Routine 11/06/2024 10 :32 AM EST CULTURE WOUND DEEP Routine 11/06/2024 10 :03 AM EST Abscess of back INCISION DRAINAGE ABSCESS 11/06/2024 9:36 AM EST Abscess of back POCT GLUCOSE BLOOD Routine 11/06/2024 7: 46 AM EST CBC WITH AUTO DIFFERENTIAL Routine 11/06/2024 5:55 AM EST CBC AND DIFFERENTIAL Routine 11/06/2024 5:55 AM EST HEMOGLOBIN A1C Routine 11/06/2024 5:55 AM EST COMPREHENSIVE METABOLIC PANEL Routine 11/06/2024 5:[address] CHEST W CONTRAST STAT 11/05/2024 1 1:25 PM EST POCT GLUCOSE BLOOD Routine 11/05/2024 11 :17 PM EST CULTURE BLOOD STAT 11/05/2024 6:38 PM EST BETA HYDROXYBUTYRATE Add-On 11/05/2024 6:28 PM EST CBC WITH AUTO DIFFERENTIAL STAT 11/05/2024 6:28 PM EST CULTURE BLOOD STAT 11/05/2024 6:28 PM EST CBC AND DIFFERENTIAL STAT 11/05/2024 6:28 PM EST LACTATE STAT 11/05/2024 6:28 PM EST BASIC METABOLIC PANEL STAT 11/05/2024 6:28 PM EST documented in this encounter Results * (ABNORMAL) POCT Glucose, blood (11/11/2024 10:59 AM EST) Glucose POCT 253(H) 70 - 100 mg/dL 11/11/2024 11:03 AM EST [facility] Blood Capillary blood specimen / Unknown 11/11/2024 10:59 AM EST 11/11/2024 11:04 AM EST Jai Fuller MD LAB POINT OF CARE TE ST DOCKED DEVICE UNSOLICITED RESULTS Performing Organization Address City/[facility]/ZIP Co de Phone Number [facility] [address] [place] [address], [place] [phone] * (ABNORMAL) POCT Glucose, blood (11/11/2024 8:08 AM EST) Glucose POCT 259(H) 70 - 100 mg/dL 11/11/2024 8:08 AM EST [facility] Blood Capillary blood specimen / Unknown 11/11/2024 8:08 AM EST 11/11/2024 8:09 AM EST Jai Fuller MD LAB POINT OF CARE TE ST DOCKED DEVICE UNSOLICITED RESULTS [facility] [address] [place] [address], [place] [phone] * (ABNORMAL) Comprehensive metabolic panel (11/11/2024 6:49 AM EST) Sodium 134 133 - 145 mmol/L LAB CHEMISTRY METHOD 11/11/2024 8:09 AM EST [facility] Potassium 4.1 3.5 - 5.5 mmol/L LAB CHEMISTRY METHOD 11/11/2024 8:09 AM [facility] Chloride 101 96 - 110 mmol/L LAB CHEMISTRY METHOD 11/11/2024 8:09 AM [facility] CO2 27 21 - 32 mmol/L LAB CHEMISTRY METHOD 11/11/2024 8:09 AM [facility] Anion Gap 6 3 - 11 LAB CHEMISTRY METHOD 11/11/2024 8:09 AM [facility] Glucose 244(H) 70 - 100 mg/dL LAB CHEMISTRY METHOD 11/11/2024 8:09 AM [facility] BUN 10 5 - 25 mg/dL LAB CHEMISTRY METHOD 11/11/2024 8:09 AM [facility] Creatinine 0.62(L) 0.70 - 1.30 mg/dL LAB CHEMISTRY METHOD 11/11/2024 8:09 AM [facility] eGFR 122 >=60 mL/min/1. 73m2 LAB CHEMISTRY METHOD 11/11/2024 8:09 AM [facility] Comment:Calculation based on the??Chronic Kidney Disease Epidemiology Collaboration (CKD-EPI) equation refit??without adjustment for race. BUN/Creatinine Ratio 16.1 LAB CHEMISTRY METHOD 11/11/2024 8:09 AM [facility] Calcium 8.5 8.5 - 10.5 mg/dL LAB CHEMISTRY METHOD 11/11/2024 8:09 AM [facility] AST (SGOT) 18 10 - 42 unit/L LAB CHEMISTRY METHOD 11/11/2024 8:09 AM [facility] ALT (SGPT) 60 10 - 60 unit/L LAB CHEMISTRY METHOD 11/11/2024 8:09 AM [facility] Alkaline Phosphatase 103 42 - 121 unit/L LAB CHEMISTRY METHOD 11/11/2024 8:09 AM [facility] Total Protein 6.0 6.0 - 8.0 g/dL LAB CHEMISTRY METHOD 11/11/2024 8:09 AM [facility] Albumin 2.7(L) 3.2 - 5.0 g/dL LAB CHEMISTRY METHOD 11/11/2024 8:09 AM EST [facility] Total Bilirubin 0.3 0.0 - 1.4 mg/dL LAB CHEMISTRY METHOD 11/11/2024 8:09 AM EST [facility] Blood Venous blood specimen / Unknown Venipuncture / Unknown 11/11/2024 6:49 AM EST 11/11/2024 7:12 AM EST Chrissy BARCLAY LAB BLOOD ORDERABLES [facility] [address] [place] [address], [place] [phone] * Lavender tube (11/11/2024 6:45 AM EST) Extra Tube Hold for add-ons. 11/11/2024 9:01 AM EST [facility] Comment:Auto resulted. Blood Venous blood specimen / Unknown Venipuncture / Unknown 11/11/2024 6:45 AM EST 11/11/2024 7:13 AM EST Jai Fuller MD LAB BLOOD ORDERABLES Performing Organization Address City/[facility]/ZIP Co de Phone Number [facility] [address] [place] [address], [place] [phone] * (ABNORMAL) POCT Glucose, blood (11/11/2024 5:08 AM EST) Glucose POCT 250(H) 70 - 100 mg/dL 11/11/2024 5:09 AM [facility] Blood Capillary blood specimen / Unknown 11/11/2024 5:08 AM EST 11/11/2024 5:10 AM EST Jai Fuller MD LAB POINT OF CARE TE ST DOCKED DEVICE UNSOLICITED RESULTS Performing Organization Address [facility]/ZIP Co de Phone Number [facility] [address] [place] [address], [place] [phone] * (ABNORMAL) POCT Glucose, blood (11/11/2024 12:12 AM EST) Glucose POCT 305(H) 70 - 100 mg/dL 11/11/2024 12:13 AM EST [facility] Blood Capillary blood specimen / Unknown 11/11/2024 12:12 AM EST 11/11/2024 12:14 AM EST Jai Fuller MD LAB POINT OF CARE TE ST DOCKED DEVICE UNSOLICITED RESULTS Performing Organization Address [facility]/ZIP Co de Phone Number [facility] [address] [place] [address], [place] [phone] * (ABNORMAL) POCT Glucose, blood (11/10/2024 10:26 PM EST) Glucose POCT 324(H) 70 - 100 mg/dL 11/10/2024 10:27 PM EST [facility] Blood Capillary blood specimen / Unknown 11/10/2024 10:26 PM EST 11/10/2024 10:28 PM EST Jai Fuller MD LAB POINT OF CARE TE ST DOCKED DEVICE UNSOLICITED RESULTS Performing Organization Address City/[facility]/ZIP Co de Phone Number [facility] [address] [place] [address], [place] [phone] * (ABNORMAL) POCT Glucose, blood (11/10/2024 8:03 PM EST) Glucose POCT 252(H) 70 - 100 mg/dL 11/10/2024 8:04 PM EST [facility] Blood Capillary blood specimen / Unknown 11/10/2024 8:03 PM EST 11/10/2024 8:05 PM EST Jai Fuller MD LAB POINT OF CARE TE ST DOCKED DEVICE UNSOLICITED RESULTS Performing Organization Address [facility]/ZIP Co de Phone Number [facility] [address] [place] [address], [place] [phone] * (ABNORMAL) POCT Glucose, blood (11/10/2024 4:01 PM EST) Glucose POCT 317(H) 70 - 100 mg/dL 11/10/2024 4:02 PM EST [facility] Blood Capillary blood specimen / Unknown 11/10/2024 4:01 PM EST 11/10/2024 4:03 PM EST Jai Fuller MD LAB POINT OF CARE TE ST DOCKED DEVICE UNSOLICITED RESULTS Performing Organization Address [facility]/ZIP Co de Phone Number [facility] [address] [place] [address], [place] [phone] * (ABNORMAL) POCT Glucose, blood (11/10/2024 11:12 AM EST) Glucose POCT 370(H) 70 - 100 mg/dL 11/10/2024 11:13 AM EST [facility] Blood Capillary blood specimen / Unknown 11/10/2024 11:12 AM EST 11/10/2024 11:14 AM EST Jai Fuller MD LAB POINT OF CARE TE ST DOCKED DEVICE UNSOLICITED RESULTS Performing Organization Address City/[facility]/ZIP Co de Phone Number [facility] [address] [place] [address], [place] [phone] * (ABNORMAL) POCT Glucose, blood (11/10/2024 9:15 AM EST) Glucose POCT 299(H) 70 - 100 mg/dL 11/10/2024 9:16 AM EST [facility] Blood Capillary blood specimen / Unknown 11/10/2024 9:15 AM EST 11/10/2024 9:17 AM EST Jai Fuller MD LAB POINT OF CARE TE ST DOCKED DEVICE UNSOLICITED RESULTS Performing Organization Address City/[facility]/ZIP Co de Phone Number [facility] [address] [place] [address], [place] [phone] * (ABNORMAL) POCT Glucose, blood (11/10/2024 2:38 AM EST) Glucose POCT 222(H) 70 - 100 mg/dL 11/10/2024 2:39 AM EST [facility] Blood Capillary blood specimen / Unknown 11/10/2024 2:38 AM EST 11/10/2024 2:40 AM EST Jai Fuller MD LAB POINT OF CARE TE ST DOCKED DEVICE UNSOLICITED RESULTS Performing Organization Address City/[facility]/ZIP Co de Phone Number [facility] [address] [place] [address], [place] [phone] * ECG 12 lead (11/10/2024 1:59 AM EST) Ventricular Rate ECG 83 BPM GEMUSE Atrial Rate 83 BPM GEMUSE P-R Interval 138 ms GEMUSE QRS Duration 82 ms GEMUSE Q-T Interval 358 ms GEMUSE QTc 420 ms GEMUSE P Wave [place] 35 degrees GEMUSE R [place] 16 degrees GEMUSE T [place] 6 degrees GEMUSE ECG Interpretation Normal sinus rhythm When compared with ECG of 08-AUG-2015 21:25, Vent. rate has increased BY ??37 BPM Confirmed by ANDREI BARBOSA ([id number]) on 11/11/2024 12:20:28 AM GEMUSE 11/10/2024 1:59 AM EST 11/11/2024 12:20 AM EST Chrissy R Thibaud PA ECG ORDERABLES GEMUSE * (ABNORMAL) Basic metabolic panel (11/10/2024 1:46 AM EST) Sodium 135 133 - 145 mmol/L LAB CHEMISTRY METHOD 11/10/2024 3:35 PM [facility] Potassium 4.0 3.5 - 5.5 mmol/L LAB CHEMISTRY METHOD 11/10/2024 3:35 PM [facility] Chloride 103 96 - 110 mmol/L LAB CHEMISTRY METHOD 11/10/2024 3:35 PM [facility] CO2 22 21 - 32 mmol/L LAB CHEMISTRY METHOD 11/10/2024 3:35 PM [facility] Anion Gap 10 3 - 11 LAB CHEMISTRY METHOD 11/10/2024 3:35 PM [facility] Glucose 251(H) 70 - 100 mg/dL LAB CHEMISTRY METHOD 11/10/2024 3:35 PM [facility] BUN 13 5 - 25 mg/dL LAB CHEMISTRY METHOD 11/10/2024 3:35 PM [facility] Creatinine 0.69(L) 0.70 - 1.30 mg/dL LAB CHEMISTRY METHOD 11/10/2024 3:35 PM [facility] eGFR 118 >=60 mL/min/1. 73m2 LAB CHEMISTRY METHOD 11/10/2024 3:35 PM [facility] Comment:Calculation based on the??Chronic Kidney Disease Epidemiology Collaboration (CKD-EPI) equation refit??without adjustment for race. BUN/Creatinine Ratio 18.8 LAB CHEMISTRY METHOD 11/10/2024 3:35 PM [facility] Calcium 8.4(L) 8.5 - 10.5 mg/dL LAB CHEMISTRY METHOD 11/10/2024 3:35 PM [facility] Blood Venous blood specimen / Unknown Venipuncture / Unknown 11/10/2024 1:46 AM EST 11/10/2024 1:59 AM EST Jai Fuller MD LAB BLOOD ORDERABLES Performing Organization Address [facility] de Phone Number [facility] [address] [place] [address], [place] [phone] * B-type natriuretic peptide (11/10/2024 1:46 AM EST) [facility] BNP 6 <=100 pcg/mL LAB CHEMISTRY METHOD 11/10/2024 2:50 AM EST [facility] Blood Venous blood specimen / Unknown Venipuncture / Unknown 11/10/2024 1:46 AM EST 11/10/2024 1:59 AM EST Chrissy BARCLAY LAB BLOOD ORDERABLES Performing Organization Address [facility] de Phone Number [facility] [address] [place] [address], [place] [phone] * (ABNORMAL) Magnesium (11/10/2024 1:46 AM EST) [facility] Magnesium 1.8(L) 1.9 - 2.6 mg/dL LAB CHEMISTRY METHOD 11/10/2024 2:21 AM EST [facility] Blood Venous blood specimen / Unknown Venipuncture / Unknown 11/10/2024 1:46 AM EST 11/10/2024 1:59 AM EST Chrissy BARCLAY LAB BLOOD ORDERABLES Performing Organization Address [facility] de Phone Number [facility] [address] [place] [address], [place] [phone] * Troponin I high sensitivity (11/10/2024 1:46 AM EST) [facility] High Sensitivity Troponin I 6 <=79 ng/L LAB CHEMISTRY METHOD 11/10/2024 2:28 AM [facility] Blood Venous blood specimen / Unknown Venipuncture / Unknown 11/10/2024 1:46 AM EST 11/10/2024 1:59 AM EST [facility] - 11/10/2024 2:28 AM EST High levels of biotin in samples may falsely decrease hsTroponin values. ??Use caution when interpreting hsTroponin results in patients taking biotin who exhibit renal impairment (eGFR <60) or in patients taking more than 20 mg/day of biotin. Chrissy BARCLAY LAB BLOOD ORDERABLES [facility] [address] [place] [address], * (ABNORMAL) CBC auto differential (11/10/2024 1:45 AM EST) WBC 6.8 4.8 - 10.8 K/mcL LAB HEMETOLOGY METHOD 11/10/2024 2:12 AM [facility] RBC 4.10(L) 4.50 - 5.50 M/mcL LAB HEMETOLOGY METHOD 11/10/2024 2:12 AM [facility] Hemoglobin 12.1(L) 13.5 - 17.5 g/dL LAB HEMETOLOGY METHOD 11/10/2024 2:12 AM [facility] Hematocrit 36.0(L) 42.0 - 54.0 % LAB HEMETOLOGY METHOD 11/10/2024 2:12 AM [facility] MCV 88.9 79.0 - 98.0 FL LAB HEMETOLOGY METHOD 11/10/2024 2:12 AM [facility] MCH 29.9 27.0 - 32.0 pcg LAB HEMETOLOGY METHOD 11/10/2024 2:12 AM [facility] MCHC 33.6 32.0 - 37.0 g/dL LAB HEMETOLOGY METHOD 11/10/2024 2:12 AM [facility] RDW 12.1 11.0 - 15.0 % LAB HEMETOLOGY METHOD 11/10/2024 2:12 AM [facility] Platelets 192 130 - 400 K/mcL LAB HEMETOLOGY METHOD 11/10/2024 2:12 AM [facility] MPV 9.3 7.0 - 11.0 FL LAB HEMETOLOGY METHOD 11/10/2024 2:12 AM [facility] NRBC 0.0 <1.0 % LAB HEMETOLOGY METHOD 11/10/2024 2:12 AM [facility] NRBC Absolute 0.00 <0.10 K/mcL LAB HEMETOLOGY METHOD 11/10/2024 2:12 AM [facility] Neutrophils Relative 60.6 % LAB HEMETOLOGY METHOD 11/10/2024 2:12 AM [facility] Lymphocytes Relative 28.3 % LAB HEMETOLOGY METHOD 11/10/2024 2:12 AM [facility] Monocytes Relative 9.4 % LAB HEMETOLOGY METHOD 11/10/2024 2:12 AM [facility] Eosinophils Relative 0.9 % LAB HEMETOLOGY METHOD 11/10/2024 2:12 AM [facility] Basophils Relative 0.1 % LAB HEMETOLOGY METHOD 11/10/2024 2:12 AM [facility] Immature Granulocytes Relative 0.7 % LAB HEMETOLOGY METHOD 11/10/2024 2:12 AM [facility] Neutrophils Absolute 4.14 1.50 - 7.00 K/mcL LAB HEMETOLOGY METHOD 11/10/2024 2:12 AM [facility] Lymphocytes Absolute 1.93 1.00 - 5.00 K/mcL LAB HEMETOLOGY METHOD 11/10/2024 2:12 AM EST [facility] Monocytes Absolute 0.64 0.20 - 1.00 K/mcL LAB HEMETOLOGY METHOD 11/10/2024 2:12 AM EST [facility] Eosinophils Absolute 0.06 0.00 - 0.50 K/mcL LAB HEMETOLOGY METHOD 11/10/2024 2:12 AM EST [facility] Basophils Absolute 0.01 0.00 - 0.20 K/mcL LAB HEMETOLOGY METHOD 11/10/2024 2:12 AM EST [facility] Immature Granulocytes Absolute 0.05(H) 0.00 - 0.03 K/mcL LAB HEMETOLOGY METHOD 11/10/2024 2:12 AM EST [facility] Blood Venous blood specimen / Unknown Venipuncture / Unknown 11/10/2024 1:45 AM EST 11/10/2024 1:59 AM EST Chrissy BARCLAY LAB BLOOD ORDERABLES [facility] [address] [place] [address], [place] [phone] * Vancomycin, trough Please draw after 1600 but before the 10pm dose is hung (11/09/2024 9:06 PM EST) [facility] Vancomycin Trough 16.3 10.0 - 20.0 mcg/mL LAB CHEMISTRY METHOD 11/09/2024 10:04 PM EST [facility] Blood Venous blood specimen / Unknown Venipuncture / Unknown 11/09/2024 9:06 PM EST 11/09/2024 9:28 PM EST Jai Fuller MD LAB BLOOD ORDERABLES Performing Organization Address City/[facility]/ZIP Co de Phone Number [facility] [address] [place] [address], [place] [phone] * (ABNORMAL) POCT Glucose, blood (11/09/2024 8:20 PM EST) Glucose POCT 407(HH) 70 - 100 mg/dL 11/09/2024 8:23 PM EST [facility] POCT Comment RN Notified 11/09/2024 8:23 PM EST [facility] Blood Capillary blood specimen / Unknown 11/09/2024 8:20 PM EST 11/09/2024 8:24 PM EST Jai Fuller MD LAB POINT OF CARE TE ST DOCKED DEVICE UNSOLICITED RESULTS [facility] [address] [place] [address], [place] [phone] * (ABNORMAL) POCT Glucose, blood (11/09/2024 4:29 PM EST) Glucose POCT 413(HH) 70 - 100 mg/dL 11/09/2024 4:29 PM EST [facility] POCT Comment RN Notified 11/09/2024 4:29 PM EST [facility] Blood Capillary blood specimen / Unknown 11/09/2024 4:29 PM EST 11/09/2024 4:30 PM EST Jai Fuller MD LAB POINT OF CARE TE ST DOCKED DEVICE UNSOLICITED RESULTS [facility] [address] [place] [address], [place] [phone] * (ABNORMAL) POCT Glucose, blood (11/09/2024 12:55 PM EST) Glucose POCT 198(H) 70 - 100 mg/dL 11/09/2024 12:55 PM EST [facility] Blood Capillary blood specimen / Unknown 11/09/2024 12:55 PM EST 11/09/2024 12:57 PM EST Jai Fuller MD LAB POINT OF CARE TE ST DOCKED DEVICE UNSOLICITED RESULTS Performing Organization Address [facility]/ZIP Co de Phone Number [facility] [address] [place] [address], [place] [phone] * (ABNORMAL) POCT Glucose, blood (11/09/2024 11:33 AM EST) Glucose POCT 200(H) 70 - 100 mg/dL 11/09/2024 11:34 AM EST [facility] Blood Capillary blood specimen / Unknown 11/09/2024 11:33 AM EST 11/09/2024 11:35 AM EST Jai Fuller MD LAB POINT OF CARE TE ST DOCKED DEVICE UNSOLICITED RESULTS Performing Organization Address [facility]/ZIP Co de Phone Number [facility] [address] [place] [address], [place] [phone] * (ABNORMAL) POCT Glucose, blood (11/09/2024 7:56 AM EST) Glucose POCT 210(H) 70 - 100 mg/dL 11/09/2024 7:57 AM EST [facility] Blood Capillary blood specimen / Unknown 11/09/2024 7:56 AM EST 11/09/2024 7:58 AM EST Jai Fuller MD LAB POINT OF CARE TE ST DOCKED DEVICE UNSOLICITED RESULTS Performing Organization Address [facility]/ZIP Co de Phone Number [facility] [address] [place] [address], [place] [phone] * (ABNORMAL) POCT Glucose, blood (11/08/2024 8:39 PM EST) Glucose POCT 308(H) 70 - 100 mg/dL 11/08/2024 8:39 PM EST [facility] Blood Capillary blood specimen / Unknown 11/08/2024 8:39 PM EST 11/08/2024 8:41 PM EST Jai Fuller MD LAB POINT OF CARE TE ST DOCKED DEVICE UNSOLICITED RESULTS [facility] [address] [place] [address], * CT Neck Soft Tissue w Contrast (11/08/2024 5:34 PM EST) Anatomical Region Laterality Modality Head and Neck Computed Tomogra phy 11/08/2024 6:02 PM EST Impressions 11/08/2024 6:02 PM EST No acute findings. No evidence of soft tissue abscess of the posterior neck. This document has been electronically signed by: Irving Cooper MD on 11/08/2024 18:02:45 Narrative 11/08/2024 6:[address] soft tissue neck with contrast Comparison: None Findings: The visualized intracranial contents are unremarkable. Pharyngeal mucosal space, parapharyngeal fat, prevertebral tissues, and epiglottis are within normal limits. Salivary glands are unremarkable. No sialoliths. No suspicious thyroid nodules. There is mucosal thickening of the bilateral maxillary sinus. Visualized lung apices are clear. No acute fracture or dislocation. Procedure Note Irving Cooper MD - 11/08/2024 CT soft tissue neck with contrast Comparison: None Findings: The visualized intracranial contents are unremarkable. Pharyngeal mucosal space, parapharyngeal fat, prevertebral tissues, and epiglottis are within normal limits. Salivary glands are unremarkable. No sialoliths. No suspicious thyroid nodules. There is mucosal thickening of the bilateral maxillary sinus. Visualized lung apices are clear. No acute fracture or dislocation. IMPRESSION: No acute findings. No evidence of soft tissue abscess of the posterior neck. This document has been electronically signed by: Irving Cooper MD on 11/08/2024 18:02:[address] PROCEDURES * CT Chest w Contrast (11/08/2024 5:34 PM EST) Anatomical Region Laterality Modality Body Computed Tomogra phy 11/08/2024 6:13 PM EST Impressions 11/08/2024 6:13 PM EST Impression: Soft tissue fat stranding and emphysema of the left upper back concerning for infection. No evidence of drainable abscess at this time. This document has been electronically signed by: Irving Cooper MD on 11/08/2024 18:13:33 Narrative 11/08/2024 6:13 PM EST Exam: Contrast-enhanced CT chest with multiplanar reformats. Comparison: 11/05/2024 Findings: Lungs are free of focal consolidation. Airways are patent. No pneumothorax. No emphysematous disease. No pulmonary parenchymal nodules or lesions. No mediastinal or hilar masses or adenopathy. No pleural or pericardial effusions. Images below the diaphragms reveal no acute abnormalities. Chest wall reveals soft tissue fat stranding and emphysema involving subcutaneous soft tissues of the left upper back overlying the scapula. An elongated soft tissue defect is seen series 3, image 30. There is no abnormal fluid collection in this area. Osseous structures reveal no destructive osseous lesions. Procedure Note Irving Cooper MD - 11/08/2024 Exam: Contrast-enhanced CT chest with multiplanar reformats. Comparison: 11/05/2024 Findings: Lungs are free of focal consolidation. Airways are patent. No pneumothorax. No emphysematous disease. No pulmonary parenchymal nodules or lesions. No mediastinal or hilar masses or adenopathy. No pleural or pericardial effusions. Images below the diaphragms reveal no acute abnormalities. Chest wall reveals soft tissue fat stranding and emphysema involving subcutaneous soft tissues of the left upper back overlying the scapula.An elongated soft tissue defect is seen series 3, image 30. There is no abnormal fluid collection in this area. Osseous structures reveal no destructive osseous lesions. IMPRESSION: Impression: Soft tissue fat stranding and emphysema of the left upper backconcerning for infection. No evidence of drainable abscess at this time. This document has been electronically signed by: Irving Cooper MD on 11/08/2024 18:13:[address] PROCEDURES * (ABNORMAL) POCT Glucose, blood (11/08/2024 4:30 PM EST) Glucose POCT 335(H) 70 - 100 mg/dL 11/08/2024 4:31 PM EST [facility] Blood Capillary blood specimen / Unknown 11/08/2024 4:30 PM EST 11/08/2024 4:32 PM EST Jai Fuller MD LAB POINT OF CARE TE ST DOCKED DEVICE UNSOLICITED RESULTS [facility] [address] [place] [address], [place] [phone] * (ABNORMAL) POCT Glucose, blood (11/08/2024 11:18 AM EST) Glucose POCT 288(H) 70 - 100 mg/dL 11/08/2024 11:18 AM EST [facility] Blood Capillary blood specimen / Unknown 11/08/2024 11:18 AM EST 11/08/2024 11:19 AM EST Jai Fuller MD LAB POINT OF CARE TE ST DOCKED DEVICE UNSOLICITED RESULTS [facility] [address] [place] [address], [place] [phone] * (ABNORMAL) POCT Glucose, blood (11/08/2024 7:55 AM EST) Glucose POCT 219(H) 70 - 100 mg/dL 11/08/2024 7:56 AM EST [facility] Blood Capillary blood specimen / Unknown 11/08/2024 7:55 AM EST 11/08/2024 7:57 AM EST Jai Fuller MD LAB POINT OF CARE TE ST DOCKED DEVICE UNSOLICITED RESULTS Performing Organization Address [facility]/ZIP Co de Phone Number [facility] [address] [place] [address], [place] [phone] * Vancomycin, trough Please draw after 0700 but before the 0800 dose is hung (11/08/2024 7:04 AM EST) Vancomycin Trough 11.7 10.0 - 20.0 mcg/mL LAB CHEMISTRY METHOD 11/08/2024 7:49 AM EST [facility] Blood Venous blood specimen / Unknown Venipuncture / Unknown 11/08/2024 7:04 AM EST 11/08/2024 7:14 AM EST Marcia BARCLAY LAB BLOOD ORDERABLES Performing Organization Address [facility]/ZIP Co de Phone Number [facility] [address] [place] [address], * (ABNORMAL) POCT Glucose, blood (11/07/2024 8:34 PM EST) Glucose POCT 284(H) 70 - 100 mg/dL 11/07/2024 8:35 PM EST [facility] Blood Capillary blood specimen / Unknown 11/07/2024 8:34 PM EST 11/07/2024 8:36 PM EST Jai Fuller MD LAB POINT OF CARE TE ST DOCKED DEVICE UNSOLICITED RESULTS Performing Organization Address [facility]/ZIP Co de Phone Number [facility] [address] [place] [address], [place] [phone] * (ABNORMAL) POCT Glucose, blood (11/07/2024 3:42 PM EST) Glucose POCT 303(H) 70 - 100 mg/dL 11/07/2024 3:50 PM EST [facility] Blood Capillary blood specimen / Unknown 11/07/2024 3:42 PM EST 11/07/2024 3:51 PM EST Jai Fuller MD LAB POINT OF CARE TE ST DOCKED DEVICE UNSOLICITED RESULTS Performing Organization Address [facility]/ZIP Co de Phone Number [facility] [address] [place] [address], [place] [phone] * (ABNORMAL) POCT Glucose, blood (11/07/2024 11:11 AM EST) Glucose POCT 336(H) 70 - 100 mg/dL 11/07/2024 11:21 AM EST [facility] Blood Capillary blood specimen / Unknown 11/07/2024 11:11 AM EST 11/07/2024 11:22 AM EST Jai Fuller MD LAB POINT OF CARE TE ST DOCKED DEVICE UNSOLICITED RESULTS Performing Organization Address [facility]/ZIP Co de Phone Number [facility] [address] [place] [address], [place] [phone] * (ABNORMAL) POCT Glucose, blood (11/07/2024 8:09 AM EST) Glucose POCT 267(H) 70 - 100 mg/dL 11/07/2024 8:18 AM EST [facility] Blood Capillary blood specimen / Unknown 11/07/2024 8:09 AM EST 11/07/2024 8:20 AM EST Jai Fuller MD LAB POINT OF CARE TE ST DOCKED DEVICE UNSOLICITED RESULTS Performing Organization Address [facility]/ZIP Co de Phone Number [facility] [address] [place] [address], [place] [phone] * (ABNORMAL) CBC auto differential (11/07/2024 5:20 AM EST) WBC 7.9 4.8 - 10.8 K/mcL LAB HEMETOLOGY METHOD 11/07/2024 7:19 AM [facility] RBC 4.20(L) 4.50 - 5.50 M/mcL LAB HEMETOLOGY METHOD 11/07/2024 7:19 AM [facility] Hemoglobin 12.6(L) 13.5 - 17.5 g/dL LAB HEMETOLOGY METHOD 11/07/2024 7:19 AM [facility] Hematocrit 38.8(L) 42.0 - 54.0 % LAB HEMETOLOGY METHOD 11/07/2024 7:19 AM [facility] MCV 91.5 79.0 - 98.0 FL LAB HEMETOLOGY METHOD 11/07/2024 7:19 AM [facility] MCH 29.7 27.0 - 32.0 pcg LAB HEMETOLOGY METHOD 11/07/2024 7:19 AM [facility] MCHC 32.5 32.0 - 37.0 g/dL LAB HEMETOLOGY METHOD 11/07/2024 7:19 AM [facility] RDW 12.5 11.0 - 15.0 % LAB HEMETOLOGY METHOD 11/07/2024 7:19 AM [facility] Platelets 165 130 - 400 K/mcL LAB HEMETOLOGY METHOD 11/07/2024 7:19 AM [facility] MPV 9.4 7.0 - 11.0 FL LAB HEMETOLOGY METHOD 11/07/2024 7:19 AM [facility] NRBC 0.0 <1.0 % LAB HEMETOLOGY METHOD 11/07/2024 7:19 AM [facility] NRBC Absolute 0.00 <0.10 K/mcL LAB HEMETOLOGY METHOD 11/07/2024 7:19 AM [facility] Neutrophils Relative 69.7 % LAB HEMETOLOGY METHOD 11/07/2024 7:19 AM [facility] Lymphocytes Relative 22.8 % LAB HEMETOLOGY METHOD 11/07/2024 7:19 AM [facility] Monocytes Relative 6.6 % LAB HEMETOLOGY METHOD 11/07/2024 7:19 AM [facility] Eosinophils Relative 0.4 % LAB HEMETOLOGY METHOD 11/07/2024 7:19 AM [facility] Basophils Relative 0.0 % LAB HEMETOLOGY METHOD 11/07/2024 7:19 AM [facility] Immature Granulocytes Relative 0.5 % LAB HEMETOLOGY METHOD 11/07/2024 7:19 AM [facility] Neutrophils Absolute 5.52 1.50 - 7.00 K/mcL LAB HEMETOLOGY METHOD 11/07/2024 7:19 AM [facility] Lymphocytes Absolute 1.80 1.00 - 5.00 K/mcL LAB HEMETOLOGY METHOD 11/07/2024 7:19 AM [facility] Monocytes Absolute 0.52 0.20 - 1.00 K/mcL LAB HEMETOLOGY METHOD 11/07/2024 7:19 AM [facility] Eosinophils Absolute 0.03 0.00 - 0.50 K/mcL LAB HEMETOLOGY METHOD 11/07/2024 7:19 AM [facility] Basophils Absolute 0.00 0.00 - 0.20 K/mcL LAB HEMETOLOGY METHOD 11/07/2024 7:19 AM [facility] Immature Granulocytes Absolute 0.04(H) 0.00 - 0.03 K/mcL LAB HEMETOLOGY METHOD 11/07/2024 7:19 AM [facility] Blood Venous blood specimen / Unknown Venipuncture / Unknown 11/07/2024 5:20 AM EST 11/07/2024 6:47 AM EST Elvia BARCLAY LAB BLOOD ORDERABLES Performing Organization Address [facility]/ZIP Co de Phone Number [facility] [address] [place] [address], * Phosphorus (11/07/2024 5:20 AM EST) Phosphorus 3.0 2.5 - 4.5 mg/dL LAB CHEMISTRY METHOD 11/07/2024 7:50 AM EST [facility] Blood Venous blood specimen / Unknown Venipuncture / Unknown 11/07/2024 5:20 AM EST 11/07/2024 6:47 AM EST Elvia BARCLAY LAB BLOOD ORDERABLES Performing Organization Address [facility] de Phone Number [facility] [address] [place] [address], * Magnesium (11/07/2024 5:20 AM EST) Magnesium 1.9 1.9 - 2.6 mg/dL LAB CHEMISTRY METHOD 11/07/2024 7:50 AM EST [facility] Blood Venous blood specimen / Unknown Venipuncture / Unknown 11/07/2024 5:20 AM EST 11/07/2024 6:47 AM EST Elvia BARCLAY LAB BLOOD ORDERABLES Performing Organization Address [facility]/ZIP Co de Phone Number [facility] [address] [place] [address], [place] [phone] * (ABNORMAL) Basic metabolic panel (11/07/2024 5:20 AM EST) Sodium 135 133 - 145 mmol/L LAB CHEMISTRY METHOD 11/07/2024 7:50 AM EST [facility] Potassium 3.7 3.5 - 5.5 mmol/L LAB CHEMISTRY METHOD 11/07/2024 7:50 AM [facility] Chloride 103 96 - 110 mmol/L LAB CHEMISTRY METHOD 11/07/2024 7:50 AM [facility] CO2 26 21 - 32 mmol/L LAB CHEMISTRY METHOD 11/07/2024 7:50 AM [facility] Anion Gap 6 3 - 11 LAB CHEMISTRY METHOD 11/07/2024 7:50 AM [facility] Glucose 225(H) 70 - 100 mg/dL LAB CHEMISTRY METHOD 11/07/2024 7:50 AM [facility] BUN 17 5 - 25 mg/dL LAB CHEMISTRY METHOD 11/07/2024 7:50 AM [facility] Creatinine 0.57(L) 0.70 - 1.30 mg/dL LAB CHEMISTRY METHOD 11/07/2024 7:50 AM [facility] eGFR 125 >=60 mL/min/1. 73m2 LAB CHEMISTRY METHOD 11/07/2024 7:50 AM [facility] Comment:Calculation based on the??Chronic Kidney Disease Epidemiology Collaboration (CKD-EPI) equation refit??without adjustment for race. BUN/Creatinine Ratio 29.8 LAB CHEMISTRY METHOD 11/07/2024 7:50 AM [facility] Calcium 8.3(L) 8.5 - 10.5 mg/dL LAB CHEMISTRY METHOD 11/07/2024 7:50 AM [facility] Blood Venous blood specimen / Unknown Venipuncture / Unknown 11/07/2024 5:20 AM EST 11/07/2024 6:47 AM EST Elvia BARCLAY LAB BLOOD ORDERABLES [facility] [address] [place] [address], * (ABNORMAL) POCT Glucose, blood (11/07/2024 12:16 AM EST) Glucose POCT 398(H) 70 - 100 mg/dL 11/07/2024 12:17 AM EST [facility] Blood Capillary blood specimen / Unknown 11/07/2024 12:16 AM EST 11/07/2024 12:18 AM EST Jai Fuller MD LAB POINT OF CARE TE ST DOCKED DEVICE UNSOLICITED RESULTS [facility] [address] [place] [address], [place] [phone] * (ABNORMAL) POCT Glucose, blood (11/06/2024 8:26 PM EST) Glucose POCT 558(HH) 70 - 100 mg/dL 11/06/2024 8:27 PM EST [facility] POCT Comment RN Notified 11/06/2024 8:27 PM EST [facility] Blood Capillary blood specimen / Unknown 11/06/2024 8:26 PM EST 11/06/2024 8:28 PM EST Jai Fuller MD LAB POINT OF CARE TE ST DOCKED DEVICE UNSOLICITED RESULTS Performing Organization Address [facility]/ZIP Co de Phone Number [facility] [address] [place] [address], [place] [phone] * (ABNORMAL) POCT Glucose, blood (11/06/2024 3:54 PM EST) Glucose POCT 445(HH) 70 - 100 mg/dL 11/06/2024 3:55 PM EST [facility] POCT Comment RN Notified 11/06/2024 3:55 PM EST [facility] Blood Capillary blood specimen / Unknown 11/06/2024 3:54 PM EST 11/06/2024 3:55 PM EST Jai Fuller MD LAB POINT OF CARE TE ST DOCKED DEVICE UNSOLICITED RESULTS Performing Organization Address [facility]/ZIP Co de Phone Number [facility] [address] [place] [address], [place] [phone] * (ABNORMAL) POCT Glucose, blood (11/06/2024 10:32 AM EST) Glucose POCT 267(H) 70 - 100 mg/dL 11/06/2024 10:32 AM EST [facility] Blood Capillary blood specimen / Unknown 11/06/2024 10:32 AM EST 11/06/2024 10:33 AM EST Jai Fuller MD LAB POINT OF CARE TE ST DOCKED DEVICE UNSOLICITED RESULTS Performing Organization Address [facility]/ZIP Co de Phone Number [facility] [address] [place] [address], [place] [phone] * (ABNORMAL) POCT Glucose, blood (11/06/2024 7:46 AM EST) Glucose POCT 222(H) 70 - 100 mg/dL 11/06/2024 7:47 AM EST [facility] Blood Capillary blood specimen / Unknown 11/06/2024 7:46 AM EST 11/06/2024 7:48 AM EST Jai Fuller MD LAB POINT OF CARE TE ST DOCKED DEVICE UNSOLICITED RESULTS Performing Organization Address [facility]/ZIP Co de Phone Number [facility] [address] [place] [address], [place] [phone] * (ABNORMAL) CBC auto differential (11/06/2024 5:55 AM EST) WBC 11.7(H) 4.8 - 10.8 K/[facility] LAB HEMETOLOGY METHOD 11/06/2024 6:40 AM EST [facility] RBC 4.50 4.50 - 5.50 M/mcL LAB HEMETOLOGY METHOD 11/06/2024 6:40 AM [facility] Hemoglobin 13.3(L) 13.5 - 17.5 g/dL LAB HEMETOLOGY METHOD 11/06/2024 6:40 AM [facility] Hematocrit 39.8(L) 42.0 - 54.0 % LAB HEMETOLOGY METHOD 11/06/2024 6:40 AM [facility] MCV 88.8 79.0 - 98.0 FL LAB HEMETOLOGY METHOD 11/06/2024 6:40 AM [facility] MCH 29.7 27.0 - 32.0 pcg LAB HEMETOLOGY METHOD 11/06/2024 6:40 AM [facility] MCHC 33.4 32.0 - 37.0 g/dL LAB HEMETOLOGY METHOD 11/06/2024 6:40 AM [facility] RDW 12.4 11.0 - 15.0 % LAB HEMETOLOGY METHOD 11/06/2024 6:40 AM [facility] Platelets 184 130 - 400 K/mcL LAB HEMETOLOGY METHOD 11/06/2024 6:40 AM [facility] MPV 9.1 7.0 - 11.0 FL LAB HEMETOLOGY METHOD 11/06/2024 6:40 AM [facility] NRBC 0.0 <1.0 % LAB HEMETOLOGY METHOD 11/06/2024 6:40 AM [facility] NRBC Absolute 0.00 <0.10 K/mcL LAB HEMETOLOGY METHOD 11/06/2024 6:40 AM [facility] Neutrophils Relative 74.8 % LAB HEMETOLOGY METHOD 11/06/2024 6:40 AM [facility] Lymphocytes Relative 17.1 % LAB HEMETOLOGY METHOD 11/06/2024 6:40 AM EST [facility] Monocytes Relative 7.2 % LAB HEMETOLOGY METHOD 11/06/2024 6:40 AM [facility] Eosinophils Relative 0.1 % LAB HEMETOLOGY METHOD 11/06/2024 6:40 AM [facility] Basophils Relative 0.1 % LAB HEMETOLOGY METHOD 11/06/2024 6:40 AM EST [facility] Immature Granulocytes Relative 0.7 % LAB HEMETOLOGY METHOD 11/06/2024 6:40 AM [facility] Neutrophils Absolute 8.79(H) 1.50 - 7.00 K/mcL LAB HEMETOLOGY METHOD 11/06/2024 6:40 AM [facility] Lymphocytes Absolute 2.01 1.00 - 5.00 K/mcL LAB HEMETOLOGY METHOD 11/06/2024 6:40 AM [facility] Monocytes Absolute 0.84 0.20 - 1.00 K/mcL LAB HEMETOLOGY METHOD 11/06/2024 6:40 AM [facility] Eosinophils Absolute 0.01 0.00 - 0.50 K/mcL LAB HEMETOLOGY METHOD 11/06/2024 6:40 AM [facility] Basophils Absolute 0.01 0.00 - 0.20 K/mcL LAB HEMETOLOGY METHOD 11/06/2024 6:40 AM [facility] Immature Granulocytes Absolute 0.08(H) 0.00 - 0.03 K/mcL LAB HEMETOLOGY METHOD 11/06/2024 6:40 AM [facility] Blood Venous blood specimen / Unknown Venipuncture / Unknown 11/06/2024 5:55 AM EST 11/06/2024 6:02 AM EST Christi BARCLAY LAB BLOOD ORDERABLES [facility] [address] [place] [address], [place] [phone] * (ABNORMAL) Hemoglobin A1c (11/06/2024 5:55 AM EST) Pathologist [facility] Hemoglobin A1C >14.8(H) <6.5 % LAB CHEMISTRY METHOD 11/06/2024 2:51 PM EST [facility] Mean Bld Glu Estim. LAB CHEMISTRY METHOD 11/06/2024 2:51 PM EST [facility] Comment:Unable to calculate due to HgB A1C being outside of the reportable range Blood Venous blood specimen / Unknown Venipuncture / Unknown 11/06/2024 5:55 AM EST 11/06/2024 6:02 AM EST Christi BARCLAY LAB BLOOD ORDERABLES [facility] [address] [place] [address], * (ABNORMAL) Comprehensive metabolic panel (11/06/2024 5:55 AM EST) [facility] Sodium 135 133 - 145 mmol/L LAB CHEMISTRY METHOD 11/06/2024 6:26 AM [facility] Potassium 4.4 3.5 - 5.5 mmol/L LAB CHEMISTRY METHOD 11/06/2024 6:26 AM [facility] Chloride 100 96 - 110 mmol/L LAB CHEMISTRY METHOD 11/06/2024 6:26 AM [facility] CO2 27 21 - 32 mmol/L LAB CHEMISTRY METHOD 11/06/2024 6:26 AM [facility] Anion Gap 8 3 - 11 LAB CHEMISTRY METHOD 11/06/2024 6:26 AM [facility] Glucose 252(H) 70 - 100 mg/dL LAB CHEMISTRY METHOD 11/06/2024 6:26 AM [facility] BUN 20 5 - 25 mg/dL LAB CHEMISTRY METHOD 11/06/2024 6:26 AM [facility] Creatinine 0.69(L) 0.70 - 1.30 mg/dL LAB CHEMISTRY METHOD 11/06/2024 6:26 AM [facility] eGFR 118 >=60 mL/min/1. 73m2 LAB CHEMISTRY METHOD 11/06/2024 6:26 AM [facility] Comment:Calculation based on the??Chronic Kidney Disease Epidemiology Collaboration (CKD-EPI) equation refit??without adjustment for race. BUN/Creatinine Ratio 29.0 LAB CHEMISTRY METHOD 11/06/2024 6:26 AM [facility] Calcium 8.5 8.5 - 10.5 mg/dL LAB CHEMISTRY METHOD 11/06/2024 6:26 AM [facility] AST (SGOT) 6(L) 10 - 42 unit/L LAB CHEMISTRY METHOD 11/06/2024 6:26 AM [facility] ALT (SGPT) 36 10 - 60 unit/L LAB CHEMISTRY METHOD 11/06/2024 6:26 AM [facility] Alkaline Phosphatase 82 42 - 121 unit/L LAB CHEMISTRY METHOD 11/06/2024 6:26 AM [facility] Total Protein 5.7(L) 6.0 - 8.0 g/dL LAB CHEMISTRY METHOD 11/06/2024 6:26 AM [facility] Albumin 2.8(L) 3.2 - 5.0 g/dL LAB CHEMISTRY METHOD 11/06/2024 6:26 AM [facility] Total Bilirubin 0.4 0.0 - 1.4 mg/dL LAB CHEMISTRY METHOD 11/06/2024 6:26 AM [facility] Blood Venous blood specimen / Unknown Venipuncture / Unknown 11/06/2024 5:55 AM EST 11/06/2024 6:01 AM EST [facility] BLOOD ORDERABLES [facility] [address] [place] [address], * CT Chest w Contrast (11/05/2024 11:25 PM EST) Anatomical Region Laterality Modality Body Computed Tomogra phy 11/05/2024 11:5 6 PM EST Impressions 11/05/2024 11:56 PM EST Impression: 1. Soft tissue emphysema overlying the left upper back, with likely poorly circumscribed collection containing gas and fluid density, likely subcutaneous abscess. Soft tissue emphysema may be related to abscess perforation, cutaneous defect, although differential consideration could include necrotizing infection.. This document has been electronically signed by: Oswaldo Isaacs MD on 11/05/2024 23:56:32 Narrative 11/05/2024 11:56 PM EST Exam: Contrast-enhanced CT chest with multiplanar reformats. Comparison: None. Findings: Lungs are free of focal consolidation. Airways are patent. No pneumothorax. No emphysematous disease. No pulmonary parenchymal nodules or lesions. No mediastinal or hilar masses or adenopathy. No pleural or pericardial effusions. Images below the diaphragms reveal no acute abnormalities. Chest wall reveals soft tissue emphysema involving subcutaneous soft tissues [...] Osseous structures reveal no destructive osseous lesions. Procedure Note Oswaldo Isaacs MD - 11/05/2024 Exam: Contrast-enhanced CT chest with multiplanar reformats. Comparison: None. Findings: Lungs are free of focal consolidation. Airways are patent. No pneumothorax. No emphysematous disease. No pulmonary parenchymal nodules or lesions. No mediastinal or hilar masses or adenopathy. No pleural or pericardial effusions. Images below the diaphragms reveal no acute abnormalities. Chest wall reveals soft tissue emphysema involving subcutaneous soft tissues of the left upper back overlying the scapula (4; 20-96). A questionable partially circumscribed collection with air-fluid level measuring up to 3.6 x 3.9 cm AP and transverse dimension (4; 57) raises concern for infected collection or abscess. This measures 2.5 cm craniocaudad dimension (602; 122). Soft tissue emphysema could berelated to cutaneous breech although other considerations such as necrotizing infection not excluded. No other chest wall collections or soft tissue emphysema. Osseous structures reveal no destructive osseous lesions. IMPRESSION: Impression: 1. Soft tissue emphysema overlying the left upper back, with likelypoorly circumscribed collection containing gas and fluid density, likely subcutaneous abscess. Soft tissue emphysema may be related to abscess perforation, cutaneous defect, although differential consideration could include necrotizing infection.. This document has been electronically signed by: Oswaldo Isaacs MD on 11/05/2024 23:56:[address] PROCEDURES * (ABNORMAL) POCT Glucose, blood (11/05/2024 11:17 PM EST) Glucose POCT 421(HH) 70 - 100 mg/dL 11/05/2024 11:20 PM EST [facility] Blood Capillary blood specimen / Unknown 11/05/2024 11:17 PM EST 11/05/2024 11:22 PM EST Ramón Arroyo MD LAB POINT OF CARE TE ST DOCKED DEVICE UNSOLICITED RESULTS [facility] [address] [place] [address], * Blood Culture, Peripheral Draw #1 (11/05/2024 6:38 PM EST) Culture, Blood No growth at 5 days LAB MICROBIOLOGY METHOD 11/10/2024 7:01 PM EST [facility] Blood Venous blood specimen / Unknown Venipuncture / Unknown 11/05/2024 6:38 PM EST 11/05/2024 6:46 PM EST Ramón Arroyo MD LAB MICROBIOLOGY - G ENERAL ORDERABLES [facility] [address] [place] [address], [place] [phone] * (ABNORMAL) Beta hydroxybutyrate (11/05/2024 6:28 PM EST) [facility] Beta-Hydroxyb utyrate 12.0(H) 0.2 - 2.8 mg/dL LAB CHEMISTRY METHOD 11/05/2024 8:41 PM EST [facility] Blood Venous blood specimen / Unknown Venipuncture / Unknown 11/05/2024 6:28 PM EST 11/05/2024 6:40 PM EST Herb BARCLAY LAB BLOOD ORDERABLES Performing Organization Address City/[facility]/ZIP Co de Phone Number [facility] [address] [place] [address], [place] [phone] * (ABNORMAL) CBC auto differential (11/05/2024 6:28 PM EST) [facility] WBC 13.8(H) 4.8 - 10.8 K/mcL LAB HEMETOLOGY METHOD 11/05/2024 6:49 PM EST [facility] RBC 5.00 4.50 - 5.50 M/mcL LAB HEMETOLOGY METHOD 11/05/2024 6:49 PM EST [facility] Hemoglobin 14.8 13.5 - 17.5 g/dL LAB HEMETOLOGY METHOD 11/05/2024 6:49 PM EST [facility] Hematocrit 43.0 42.0 - 54.0 % LAB HEMETOLOGY METHOD 11/05/2024 6:49 PM EST [facility] MCV 86.5 79.0 - 98.0 FL LAB HEMETOLOGY METHOD 11/05/2024 6:49 PM [facility] MCH 29.8 27.0 - 32.0 pcg LAB HEMETOLOGY METHOD 11/05/2024 6:49 PM [facility] MCHC 34.4 32.0 - 37.0 g/dL LAB HEMETOLOGY METHOD 11/05/2024 6:49 PM [facility] RDW 12.3 11.0 - 15.0 % LAB HEMETOLOGY METHOD 11/05/2024 6:49 PM [facility] Platelets 231 130 - 400 K/mcL LAB HEMETOLOGY METHOD 11/05/2024 6:49 PM [facility] MPV 9.5 7.0 - 11.0 FL LAB HEMETOLOGY METHOD 11/05/2024 6:49 PM [facility] NRBC 0.0 <1.0 % LAB HEMETOLOGY METHOD 11/05/2024 6:49 PM [facility] NRBC Absolute 0.00 <0.10 K/mcL LAB HEMETOLOGY METHOD 11/05/2024 6:49 PM [facility] Neutrophils Relative 90.5 % LAB HEMETOLOGY METHOD 11/05/2024 6:49 PM [facility] Lymphocytes Relative 4.5 % LAB HEMETOLOGY METHOD 11/05/2024 6:49 PM [facility] Monocytes Relative 4.4 % LAB HEMETOLOGY METHOD 11/05/2024 6:49 PM [facility] Eosinophils Relative 0.0 % LAB HEMETOLOGY METHOD 11/05/2024 6:49 PM [facility] Basophils Relative 0.1 % LAB HEMETOLOGY METHOD 11/05/2024 6:49 PM [facility] Immature Granulocytes Relative 0.5 % LAB HEMETOLOGY METHOD 11/05/2024 6:49 PM [facility] Neutrophils Absolute 12.48(H) 1.50 - 7.00 K/mcL LAB HEMETOLOGY METHOD 11/05/2024 6:49 PM EST [facility] Lymphocytes Absolute 0.62(L) 1.00 - 5.00 K/mcL LAB HEMETOLOGY METHOD 11/05/2024 6:49 PM EST [facility] Monocytes Absolute 0.60 0.20 - 1.00 K/mcL LAB HEMETOLOGY METHOD 11/05/2024 6:49 PM EST [facility] Eosinophils Absolute 0.00 0.00 - 0.50 K/mcL LAB HEMETOLOGY METHOD 11/05/2024 6:49 PM EST [facility] Basophils Absolute 0.01 0.00 - 0.20 K/mcL LAB HEMETOLOGY METHOD 11/05/2024 6:49 PM EST [facility] Immature Granulocytes Absolute 0.07(H) 0.00 - 0.03 K/mcL LAB HEMETOLOGY METHOD 11/05/2024 6:49 PM EST [facility] Blood Venous blood specimen / Unknown Venipuncture / Unknown 11/05/2024 6:28 PM EST 11/05/2024 6:40 PM EST Ramón Arroyo MD LAB BLOOD ORDERABLES [facility] [address] [place] [address], * Blood Culture, Peripheral Draw #2 (11/05/2024 6:28 PM EST) Culture, Blood No growth at 5 days LAB MICROBIOLOGY METHOD 11/10/2024 7:01 PM EST [facility] Blood Venous blood specimen / Unknown Venipuncture / Unknown 11/05/2024 6:28 PM EST 11/05/2024 6:38 PM EST Ramón Arroyo MD LAB MICROBIOLOGY - G ENERAL ORDERABLES Performing Organization Address [facility]/ZIP Co de Phone Number [facility] [address] [place] [address], * Lactate (11/05/2024 6:28 PM EST) [facility] Lactate 1.4 0.4 - 2.0 mmol/L LAB CHEMISTRY METHOD 11/05/2024 7:11 PM [facility] Blood Venous blood specimen / Unknown Venipuncture / Unknown 11/05/2024 6:28 PM EST 11/05/2024 6:38 PM EST Ramón Arroyo MD LAB BLOOD ORDERABLES Performing Organization Address [facility]/ZIP Co de Phone Number [facility] [address] [place] [address], * (ABNORMAL) Basic metabolic panel (11/05/2024 6:28 PM EST) [facility] Sodium 123(L) 133 - 145 mmol/L LAB CHEMISTRY METHOD 11/05/2024 7:17 PM [facility] Potassium 5.0 3.5 - 5.5 mmol/L LAB CHEMISTRY METHOD 11/05/2024 7:17 PM [facility] Chloride 91(L) 96 - 110 mmol/L LAB CHEMISTRY METHOD 11/05/2024 7:17 PM [facility] CO2 24 21 - 32 mmol/L LAB CHEMISTRY METHOD 11/05/2024 7:17 PM [facility] Anion Gap 8 3 - 11 LAB CHEMISTRY METHOD 11/05/2024 7:17 PM [facility] Glucose 780(HH) 70 - 100 mg/dL LAB CHEMISTRY METHOD 11/05/2024 7:17 PM [facility] BUN 30(H) 5 - 25 mg/dL LAB CHEMISTRY METHOD 11/05/2024 7:17 PM EST [facility] Creatinine 1.09 0.70 - 1.30 mg/dL LAB CHEMISTRY METHOD 11/05/2024 7:17 PM EST [facility] eGFR 86 >=60 mL/min/1. 73m2 LAB CHEMISTRY METHOD 11/05/2024 7:17 PM EST [facility] Comment:Calculation based on the??Chronic Kidney Disease Epidemiology Collaboration (CKD-EPI) equation refit??without adjustment for race. BUN/Creatinine Ratio 27.5 LAB CHEMISTRY METHOD 11/05/2024 7:17 PM [facility] Calcium 9.3 8.5 - 10.5 mg/dL LAB CHEMISTRY METHOD 11/05/2024 7:17 PM [facility] Blood Venous blood specimen / Unknown Venipuncture / Unknown 11/05/2024 6:28 PM EST 11/05/2024 6:40 PM EST Ramón Arroyo MD LAB BLOOD ORDERABLES [facility] [address] [place] [address], documented in this encounter Visit Diagnoses Diagnosis Hyperglycemia- Primary Other abnormal glucose Cellulitis of back except buttock Hyperglycemia Other abnormal glucose Abscess of back Cellulitis and abscess of trunk Abscess of back Cellulitis and abscess of trunk documented in this encounter Admitting Diagnoses Diagnosis Hyperglycemia Other abnormal glucose Abscess of back Cellulitis and abscess of trunk documented in this encounter Administered Medications Inactive Administered Medications - up to 3 most recent administrations Medication Order MAR Action Action Date Dose Rate Site acetaminophen (TYLENOL) tablet 1,000 mg 1,000 mg, oral, Every 8 hours scheduled, First dose on Tue11/06/24 at 1400, Phase II/On Unit Given 11/11/2024 5:20 AM EST 1,000 mg Given 11/10/2024 9:34 PM EST 1,000 mg Given 11/10/2024 2:54 PM EST 1,000 mg cefepime (MAXIPIME) 2 g in sterile water 20 mL IV syringe 2 g, intravenous, at 240 mL/hr, Administer over 5 Minutes, Every 12 hours, First dose on Tue11/06/24 at 0000, For 7 days, Indication: Pneumonia, Community Acquired, Skin/Soft Tissue Given 11/11/2024 12:20 AM EST 2 g 240 mL/hr Given 11/10/2024 12:43 PM EST 2 g 240 mL/hr Given 11/10/2024 1:25 AM EST 2 g 240 mL/hr cefTRIAXone (ROCEPHIN) 2 g in sterile water 20 mL IV syringe 2 g, intravenous, at 400 mL/hr, Administer over 3 Minutes, Once, On Tue11/05/24 at 2015, For 1 dose, Do not administer simultaneously with any calcium containing solutions via a Y-site in any patient., Indication: Skin/Soft Tissue Given 11/05/2024 8:22 PM EST 2 g 400 mL/hr clindamycin (CLEOCIN) 900 mg/50 mL IVPB 900 mg 900 mg, intravenous, at 50 mL/hr, Administer over 60 Minutes, Every 8 hours, First dose on Tue11/06/24 at 0800, For 7 days, premix bag, Indication: Skin/Soft Tissue New Bag 11/06/2024 8:13 AM EST 900 mg 50 mL/hr dextromethorphan-guaiFENesi n (ROBITUSSIN-DM) 10-100 mg/5 mL syrup 10 mL 10 mL, oral, Once, On Tue11/06/24 at 0417, For 1 dose Given 11/06/2024 4:40 AM EST 10 mL dextrose (D50W) 50% injection 12.5 g 12.5 g, intravenous, Every 15 min PRN, low blood sugar, moderate hypoglycemia *Patient is Unconscious, NPO, unable to swallow: BG 54 - 69 mg/dl*, Starting on Tue11/05/24 at 2224 dextrose (D50W) 50% injection 25 g 25 g, intravenous, Every 15 min PRN, low blood sugar, severe hypoglycemia *Patient is Unconscious, NPO, unable to swallow: BG LESS than 54 mg/dL*, Starting on Tue11/05/24 at 2224 dextrose 15 gram/60 mL oral solution 15 g 15 g, oral, Every 15 min PRN, low blood sugar, hypoglycemia *Patient conscious AND able to drink and swallow safely*, Starting on Tue11/05/24 at 2224 dextrose 15 gram/60 mL oral solution 30 g 30 g, oral, Every 15 min PRN, low blood sugar, hypoglycemia *Patient conscious AND able to drink and swallow safely*, Starting on Tue11/05/24 at 2224 doxycycline (MONODOX) capsule 100 mg 100 mg, oral, Once, On Tue11/11/24 at 1115, For 1 dose, Take with at least 8 ounces (large glass) of water, do not lie down for 30 minutes after, Indication: Skin/Soft Tissue Given 11/11/2024 11:19 AM EST 100 mg enoxaparin (LOVENOX) injection 40 mg 40 mg, subcutaneous, Every 12 hours scheduled, First dose (after last modification) on Tue11/06/24 at 2100, Phase II/On Unit, Thera sub for daily dosing in OBESITY, Indication: VTE/PE Prophylaxis Given 11/11/2024 8:21 AM EST 40 mg Left Upper Arm (Back) Given 11/10/2024 9:39 PM EST 40 mg Ri ght Upper Arm (Back) Given 11/10/2024 10:23 AM EST 40 mg L eft Upper Arm (Back) fentaNYL (PF) (SUBLIMAZE) 50 mcg/mL injection - ADS Override Pull Starting on Tue11/06/24 at 1041, For 1 dose, Created by cabinet override fentaNYL (PF) (SUBLIMAZE) injection 50 mcg 50 mcg, intravenous, Every 5 min PRN, severe pain, Starting on Tue11/06/24 at 1039, For 5 doses, Recovery (only) Given 11/06/2024 11:01 AM EST 50 mcg Given 11/06/2024 10:43 AM EST 50 mcg Glucagon HCl (rDNA) injection 1 mg 1 mg, intramuscular, Once as needed, low blood sugar, severe hypoglycemia, Starting on Tue11/05/24 at 2224, For 1 dose HYDROmorphone (DILAUDID) tablet 2 mg 2 mg, oral, Every 4 hours PRN, severe pain, moderate pain, Starting on 11/10/24 at 1015 HYDROmorphone (DILAUDID) tablet 4 mg 4 mg, oral, Every 4 hours PRN, severe pain, Starting on Tue11/10/24 at 1015 Given 11/11/2024 5:20 AM EST 4 mg Given 11/10/2024 9:35 PM EST 4 mg Given 11/10/2024 3:00 PM EST 4 mg HYDROmorphone (PF) injection 0.5 mg 0.5 mg, intravenous, Every 10 min PRN, moderate pain, Starting on Tue11/06/24 at 1043, For 4 doses Given 11/08/2024 9:31 PM EST 0.5 mg Given 11/08/2024 2:37 PM EST 0.5 mg Given 11/08/2024 5:17 AM EST 0.5 mg HYDROmorphone (PF) injection 0.5 mg 0.5 mg, intravenous, Every 5 min PRN, severe pain or when therapies for moderate pain were not effective, Starting on Tue11/09/24 at 1203, For 5 doses, Recovery (only) Given 11/09/2024 12:13 PM EST 0.5 mg HYDROmorphone (PF) injection 0.5 mg 0.5 mg, intravenous, Every 4 hours PRN, severe pain, Starting on Tue11/09/24 at 2237, Second line for severe pain if unable to tolerate PO Given 11/11/2024 12:19 AM EST 0.5 mg ibuprofen (ADVIL,MOTRIN) tablet 600 mg 600 mg, oral, Once, On Tue11/05/24 at 1814, For 1 dose, Administer with food or milk to decrease GI upset Given 11/05/2024 6:22 PM EST 600 mg insulin glargine (LANTUS) injection 10 Units 10 Units, subcutaneous, Nightly, First dose on Tue11/06/24 at 0042, Notify provider: -If patient is currently or will become NPO -If TPN was or will be interrupted or discontinued -For approval to hold long acting insulin Given 11/06/2024 12:58 AM EST 10 Units Left Upper Abdomen insulin glargine (LANTUS) injection 30 Units 30 Units, subcutaneous, Nightly, First dose (after last modification) on Tue11/06/24 at 2100, Notify provider: -If patient is currently or will become NPO -If TPN was or will be interrupted or discontinued -For approval to hold long acting insulin Given 11/07/2024 9:11 PM EST 30 Units Right Upper Arm (Lizy k) Given 11/06/2024 9:28 PM EST 30 Units Le ft Upper Arm (Back) insulin glargine (LANTUS) injection 40 Units 40 Units, subcutaneous, Nightly, First dose (after last modification) on Tue11/08/24 at 2100, Notify provider: -If patient is currently or will become NPO -If TPN was or will be interrupted or discontinued -For approval to hold long acting insulin Given 11/09/2024 9:57 PM EST 40 Units Left Upper Arm (Back ) Given 11/08/2024 9:30 PM EST 40 Units Ri ght Upper Arm (Back) insulin glargine (LANTUS) injection 50 Units 50 Units, subcutaneous, Nightly, First dose on Tue11/10/24 at 2100, Notify provider: -If patient is currently or will become NPO -If TPN was or will be interrupted or discontinued -For approval to hold long acting insulin Given 11/10/2024 9:44 PM EST 50 Units Left Upper Arm (Back ) insulin lispro injection 10 Units 10 Units, subcutaneous, Once, On Tue11/06/24 at 2100, For 1 dose Given 11/06/2024 9:29 PM EST 10 Units Left Upper Arm (Back ) insulin lispro injection 2-12 Units 2-12 Units, subcutaneous, 3 times daily before meals, First dose on Tue11/06/24 at 0730, Indication: Total Daily Dose (TDD) 40 - 80 units. Correction Scale: Moderate Dose Administer with meal and/or mealtime dose of insulin to correct high blood glucose If mealtime insulin dose not given (e.g. patient NPO or not eating), still administer correction factor for high blood glucose Given 11/11/2024 11:23 AM EST 6 Units Right Outer Thigh Given 11/11/2024 8:18 AM EST 6 Units Ri ght Outer Thigh Given 11/10/2024 5:16 PM EST 8 Units Le ft Upper Arm (Back) insulin lispro injection 4 Units 4 Units, subcutaneous, Once, On Tue11/10/24 at 0300, For 1 dose Given 11/10/2024 2:47 AM EST 4 Units Right Upper Arm (Back) insulin lispro injection 8 Units 8 Units, subcutaneous, Once, On Tue11/06/24 at 0047, For 1 dose, Indication: Total Daily Dose (TDD) 40 - 80 units. Correction Scale: Moderate Dose Administer with meal and/or mealtime dose of insulin to correct high blood glucose If mealtime insulin dose not given (e.g. patient NPO or not eating), still administer correction factor for high blood glucose DO NOT ADMINISTER other insulin sliding scale at this time, just ADMINISTER this order Given 11/06/2024 1:15 AM EST 8 Units Left Upper Abdomen insulin regular (HumuLIN R) injection 5 Units 5 Units, intravenous, Once, On Tue11/05/24 at 2015, For 1 dose, ONLY use an IV INSULIN SYRINGE with graduations in UNITS to draw up and administer each dose. Given 11/05/2024 8:22 PM EST 5 Units Right Upper Arm iopamidoL (ISOVUE-370) 370 mg iodine /mL (76 %) injection 100 mL 100 mL, intravenous, Once in imaging, Starting on Tue11/05/24 at 2148, For 1 dose Given 11/05/2024 11:23 PM EST 90 mL iopamidoL (ISOVUE-370) 370 mg iodine /mL (76 %) injection 120 mL 120 mL, intravenous, Once in imaging, Starting on Tue11/08/24 at 1729, For 1 dose Given 11/08/2024 5:29 PM EST 120 mL lactated Ringer's infusion 100 mL/hr, intravenous, Continuous, Starting on Tue11/09/24 at 1230, Recovery (only) Continued from OR 11/09/2024 12:00 PM EST 100 mL/hr 100 mL/hr levoFLOXacin (LEVAQUIN) tablet 750 mg 750 mg, oral, Once, On Tue11/11/24 at 1115, For 1 dose, Administer 2 hours before or after multivitamins, antacids, or other products containinig polyvalent cations (i.e., calcium, iron, magnesium, selenium, zinc). IF RECEIVING ENTERAL NUTRITION: Hold tube feeds 2 hours before and 2 hours after administration., Indication: Skin/Soft Tissue Given 11/11/2024 11:19 AM EST 750 mg lidocaine 4 % patch 1 patch 1 patch, Topical, Administer over 12 Hours, Daily, First dose on Tue11/08/24 at 1015, Apply to LEFT trapezius. Patch Applied 11/11/2024 8:22 AM EST 1 patch Other Patch Applied 11/10/2024 10:25 AM EST 1 patch Other Patch Applied 11/09/2024 9:56 AM EST 1 patch Other magnesium sulfate 2 gram/50 mL (4 %) IVPB 2 g 2 g, intravenous, at 25 mL/hr, Administer over 2 Hours, Once, On 11/10/24 at 0245, For 1 dose New Bag 11/10/2024 2:49 AM EST 2 g 25 mL/hr metFORMIN (GLUCOPHAGE) tablet 1,000 mg 1,000 mg, oral, 2 times daily with meals, First dose on 11/10/24 at 1715 Given 11/11/2024 8:21 AM EST 1,000 mg Given 11/10/2024 5:16 PM EST 1,000 mg morphine 2 mg/mL injection 2 mg 2 mg, intravenous, Once, On 11/10/24 at 0215, For 1 dose Given 11/10/2024 2:03 AM EST 2 mg nystatin (MYCOSTATIN) 100,000 unit/mL suspension 500,000 Units 500,000 Units, Swish & Swallow, 4 times daily, First dose on 11/10/24 at 2100, For 7 days Given 11/11/2024 8:21 AM EST 500,000 Units Given 11/10/2024 9:33 PM EST 500,000 Units ondansetron (PF) (ZOFRAN) injection 4 mg 4 mg, intravenous, Every 8 hours PRN, vomiting, nausea, Starting on Tue11/07/24 at 0942, -ONLY give IV if patient is unable to take orally. -If inadequate response within 30 minutes, proceed to next-line agent or contact provider if no further options ordered. ondansetron ODT (ZOFRAN-ODT) disintegrating tablet 4 mg 4 mg, oral, Every 8 hours PRN, vomiting, nausea, Starting on Tue11/07/24 at 0942, -Give IV if patient is unable to take orally. -If inadequate response within 30 minutes, proceed to next-line agent or contact provider if no further options ordered. For ODT tablets: -Do not remove from blister pack until just before administering. -Patient should allow tablet to dissolve on tongue. Given 11/10/2024 1:24 AM EST 4 mg oxyCODONE (ROXICODONE) immediate release tablet 10 mg 10 mg, oral, Every 4 hours PRN, severe pain, Starting on Tue11/06/24 at 1025, Phase II/On Unit, First line for severe pain (7-10) Given 11/10/2024 5:38 AM EST 10 m g Given 11/09/2024 8:33 PM EST 10 mg Given 11/09/2024 2:28 PM EST 10 mg oxyCODONE (ROXICODONE) immediate release tablet 5 mg 5 mg, oral, Once, On Tue11/06/24 at 0409, For 1 dose Given 11/06/2024 4:40 AM EST 5 mg oxyCODONE (ROXICODONE) immediate release tablet 5 mg 5 mg, oral, Every 4 hours PRN, moderate pain, Starting on Tue11/06/24 at 1024, Phase II/On Unit, 1st line for moderate pain (4-6) Given 11/07/2024 6:33 PM EST 5 mg Given 11/06/2024 8:22 PM EST 5 mg oxyCODONE (ROXICODONE) immediate release tablet 5 mg 5 mg, oral, Every 2 hours PRN, moderate pain, Starting on Tue11/06/24 at 1039, For 2 doses, Recovery (only) Given 11/06/2024 10:46 AM EST 5 mg sodium chloride 0.9 % bolus 1,000 mL 1,000 mL, intravenous, at 2,000 mL/hr, Administer over 30 Minutes, Once, On Tue11/05/24 at 2015, For 1 dose New Bag 11/05/2024 8:39 PM EST 1,000 mL 2000 mL/hr sodium chloride 0.9 % bolus 1,000 mL 1,000 mL, intravenous, at 1,000 mL/hr, Administer over 1 Hours, Once, On Tue11/05/24 at 2222, For 1 dose New Bag 11/06/2024 12:00 AM EST 1,000 mL 1000 mL/hr sodium chloride 0.9 % flush 10 mL 10 mL, intravenous, Once, On Tue11/05/24 at 2149, For 1 dose Given 11/05/2024 11:23 PM EST 10 mL sodium chloride 0.9 % flush 10 mL 10 mL, intravenous, Once, On Sabi 11/08/24 at 1745, For 1 dose Given 11/08/2024 5:29 PM EST 10 mL sodium chloride 0.9 % infusion 125 mL/hr, intravenous, Continuous, Starting on Tue11/05/24 at 2331, For 18 hours 11/06/2024 1:29 PM EST 125 mL/hr 125 mL/hr 11/06/2024 1:15 AM EST 125 mL/hr 125 mL/hr vancomycin (VANCOCIN) IVPB 1,500 mg in 0.9 % sodium chloride 500 mL - CNR 1,500 mg, intravenous, at 333.3 mL/hr, Administer over 90 Minutes, Every 8 hours, First dose on Tue11/06/24 at 1600, For 7 days, Indication: Skin/Soft Tissue 11/08/2024 12:55 AM EST 1,500 mg 333.3 mL/hr 11/07/2024 4:25 PM EST 1,500 mg 333.3 mL/hr 11/07/2024 8:17 AM EST 1,500 mg 333.3 mL/hr vancomycin (VANCOCIN) IVPB 2,000 mg in 0.9 % sodium chloride 500 mL - CNR 2,000 mg, intravenous, at 250 mL/hr, Administer over 120 Minutes, Every 8 hours, First dose (after last modification) on Tue11/08/24 at 0900, For 16 doses, Indication: Skin/Soft Tissue 11/11/2024 5:21 AM EST 2,000 mg 250 mL/hr 11/10/2024 9:36 PM EST 2,000 mg 250 mL/hr 11/10/2024 2:55 PM EST 2,000 mg 250 mL/hr documented in this encounter Discontinued Medications Medication Sig Discontinue Reason Start Date End Da te amoxicillin (AMOXIL) 500 mg tablet Please take 2 tabs by mouth twice daily for 2 wks. Therapy completed 07/17/2024 11/05/2024 esomeprazole (NexIUM) [address] capsule 20 mg 4 times daily. TAKE 2 CAPS IN AM BEFORE BREAKFAST AND 2 CAPS BEFORE DINNER Therapy completed 08/21/2015 11/05/2024 fluticasone propionate (FLONASE) 50 mcg/actuation nasal spray INSTILL 2 SQUIRT TWICE DAILY Therapy completed 12/06/2016 11/05/2024 documented as of this encounter Historical Medications * This list may reflect changes made after this encounter. Medication Sig Dispensed Refills Start Date End Date metFORMIN (GLUCOPHAGE) 1,000 mg tablet Take 1 tablet (1,000 mg total) by mouth 2 (two) times a day with meals. 10/02/2024 added in this encounter Active and Recently Administered Medications Times are shown in EST. Scheduled Medication Order 11/09/2024 11/10/2024 11/11/2024 acetaminophen (TYLENOL) tablet 1,000 mg 1,000 mg, oral, Every 8 hours scheduled, First dose on Tue11/06/24 at 1400, Phase II/On Unit 0546 (Given - Provider: Ashlee Ram RN)1032 (DEC Hold - Provider: Automatic Transfer Provider - Reason: Patient not available)1039 (DEC Unhold - Provider: Automatic Transfer Provider)1429 (Given - Provider: Court Lara RN)2156 (Given - Provider: Yvette Collins RN) 0538 (Given - Provider: Yvette Collins RN)1454 (Given - Provider: Rajesh Montoya RN)2134 (Given - Provider: Yvette Collins RN) 0520 (Given - Provider: Yvette Collins RN)1400 (Canceled Entry - Provider: Automatic Discharge Provider - Comment: Automatically canceled at discontinue of medication order) cefepime (MAXIPIME) 2 g in sterile water 20 mL IV syringe (CANCELED) 2 g, intravenous, at 240 mL/hr, Administer over 5 Minutes, Every 12 hours, First dose on Tue11/06/24 at 0000, For 7 days, Indication: Pneumonia, Community Acquired, Skin/Soft Tissue 0048 (Given - Provider: Ashlee Ram RN)1032 (DEC Hold - Provider: Automatic Transfer Provider - Reason: Patient not available)1039 (DEC Unhold - Provider: Automatic Transfer Provider)1318 (Given - Provider: Court Lara RN) 0125 (Given - Provider: Yvette Collins RN - Comment: slowed vanco)1243 (Given - Provider: Rajesh Montoya RN) 0020 (Given - Provider: Yvette Collins RN) doxycycline (MONODOX) capsule 100 mg (COMPLETED) 100 mg, oral, Once, On 1/19/25 at 1115, For 1 dose, Take with at least 8 ounces (large glass) of water, do not lie down for 30 minutes after, Indication: Skin/Soft Tissue 1119 (Given - Provid er: Rajesh Montoya RN) enoxaparin (LOVENOX) injection 40 mg 40 mg, subcutaneous, Every 12 hours scheduled, First dose (after last modification) on Tue11/06/24 at 2100, Phase II/On Unit, Thera sub for daily dosing in OBESITY, Indication: VTE/PE Prophylaxis 0959 (Not Given - Provider: Court Lara RN - Reason: Other - Comment: OR today)103 (DEC Hold - Provider: Automatic Transfer Provider - Reason: Patient not available)103 (DEC Unhold - Provider: Automatic Transfer Provider)2034 (Given - Provider: Yvette Collins, JERRI) 102 (Given - Provider: Rajesh Montoya RN - Comment: advised that abd is prefered admin site. patient refused and insisted on arms only)2138 (Given - Provider: Yvette Collins RN) 08 (Given - Provider: Rajesh Montoya RN - Comment: ADVISED PATIENT THAT REX IS PERFERED SITE) insulin glargine (LANTUS) injection 40 Units (CANCELED) 40 Units, subcutaneous, Nightly, First dose (after last modification) on Tue11/08/24 at 2100, Notify provider: -If patient is currently or will become NPO -If TPN was or will be interrupted or discontinued -For approval to hold long acting insulin 1032 (DEC Hold - Provider: Automatic Transfer Provider - Reason: Patient not available)103 (MAR Unhold - Provider: Automatic Transfer Provider)2156 (Given - Provider: Yvette Collins, JERRI) insulin glargine (LANTUS) injection 50 Units 50 Units, subcutaneous, Nightly, First dose on Tue11/10/24 at 2100, Notify provider: -If patient is currently or will become NPO -If TPN was or will be interrupted or discontinued -For approval to hold long acting insulin 2143 (Given - Provider: Yvette Collins, RN) insulin lispro injection 2-12 Units 2-12 Units, subcutaneous, 3 times daily before meals, First dose on Tue11/06/24 at 0730, Indication: Total Daily Dose (TDD) 40 - 80 units. Correction Scale: Moderate Dose Administer with meal and/or mealtime dose of insulin to correct high blood glucose If mealtime insulin dose not given (e.g. patient NPO or not eating), still administer correction factor for high blood glucose 0956 (Given - Provider: Court Lara RN)1032 (DEC Hold - Provider: Automatic Transfer Provider - Reason: Patient not available)1039 (DEC Unhold - Provider: Automatic Transfer Provider)1318 (Given - Provider: Court Lara RN)1709 (Given - Provider: Court Lara RN) 1022 (Given - Provider: Rajesh Montoya RN)1245 (Given - Provider: Rajesh Montoya RN)1716 (Given - Provider: Rajesh Montoya RN) 0818 (Given - Provider: Rajesh Montoya RN)1123 (Given - Provider: Rajesh Montoya RN - Comment: self administered) insulin lispro injection 4 Units (COMPLETED) 4 Units, subcutaneous, Once, On 11/10/24 at 0300, For 1 dose 0247 (Given - Provider: vYette Collins RN) levoFLOXacin (LEVAQUIN) tablet 750 mg (COMPLETED) 750 mg, oral, Once, On 11/11/24 at 1115, For 1 dose, Administer 2 hours before or after multivitamins, antacids, or other products containinig polyvalent cations (i.e., calcium, iron, magnesium, selenium, zinc). IF RECEIVING ENTERAL NUTRITION: Hold tube feeds 2 hours before and 2 hours after administration., Indication: Skin/Soft Tissue 1119 (Given - Provid er: Rajesh Montoya RN) levoFLOXacin (LEVAQUIN) tablet 750 mg 750 mg, oral, Daily, First dose on 11/12/24 at 0900, For 7 days, Administer 2 hours before or after multivitamins, antacids, or other products containinig polyvalent cations (i.e., calcium, iron, magnesium, selenium, zinc). IF RECEIVING ENTERAL NUTRITION: Hold tube feeds 2 hours before and 2 hours after administration., Indication: Skin/Soft Tissue lidocaine 4 % patch 1 patch 1 patch, Topical, Administer over 12 Hours, Daily, First dose on Sabi 11/08/24 at 1015, Apply to LEFT trapezius. 0956 (Patch Applied - Provider: Court Lara RN - Comment: L upper back)1032 (DEC Hold - Provider: Automatic Transfer Provider - Reason: Patient not available)1039 (MAR Unhold - Provider: Automatic Transfer Provider)2158 (Patch Removed - Provider: Yvette Collins RN - Comment: removed earlier) 1025 (Patch Applied - Provider: Rajesh Montoya RN - Comment: left rear shoulder)2140 (Patch Removed - Provider: Yvette Collins RN) 0822 (Patch Applied - Provider: Rajesh Montoya RN - Comment: LEFT UPPER REAR SHOULDER)1223 (Due: Patch Removed - Provider: Automatic Discharge Provider - Comment: Time automatically adjusted from order being discontinued) magnesium sulfate 2 gram/50 mL (4 %) IVPB 2 g (COMPLETED) 2 g, intravenous, at 25 mL/hr, Administer over 2 Hours, Once, On 11/10/24 at 0245, For 1 dose 0249 (New Bag - Provider: Yvette Collins RN)0451 (Stopped - Provider: Yvette Collins RN) metFORMIN (GLUCOPHAGE) tablet 1,000 mg 1,000 mg, oral, 2 times daily with meals, First dose on 11/10/24 at 1715 1716 (Given - Provider: Rajesh Montoya RN) 0821 (Given - Provider: Rajesh Montoya RN) morphine 2 mg/mL injection 2 mg (COMPLETED) 2 mg, intravenous, Once, On 11/10/24 at 0215, For 1 dose 0203 (Given - Provider: Yvette Collins RN) nystatin (MYCOSTATIN) 100,000 unit/mL suspension 500,000 Units 500,000 Units, Swish & Swallow, 4 times daily, First dose on 11/10/24 at 2100, For 7 days 2133 (Given - Provider: Yvette Collins RN) 0821 (Given - Provider: Rajesh Montoya RN)1300 (Canceled Entry - Provider: Automatic Discharge Provider - Comment: Automatically canceled at discontinue of medication order) vancomycin (VANCOCIN) IVPB 2,000 mg in 0.9 % sodium chloride 500 mL - CNR (CANCELED) 2,000 mg, intravenous, at 250 mL/hr, Administer over 120 Minutes, Every 8 hours, First dose (after last modification) on Sabi 11/08/24 at 0900, For 16 doses, Indication: Skin/Soft Tissue 0045 (Stopped - Provider: Ashlee Ram, JERRI)0546 (New Bag - Provider: Ashlee Ram, JERRI)0746 (Stopped - Provider: Court Lara RN)1032 (DEC Hold - Provider: Automatic Transfer Provider - Reason: Patient not available)1039 (DEC Unhold - Provider: Automatic Transfer Provider)1429 (New Bag - Provider: Court Lara RN)1702 (Stopped - Provider: Court Lara RN)2234 (New Bag - Provider: Yvette Collins RN) 0114 (Stopped - Provider: Yvette Collins RN)0653 (New Bag - Provider: Yvette Collins RN)1155 (Stopped - Provider: Rajesh Montoya RN)1455 (New Bag - Provider: Rajesh Montoya RN)1718 (Stopped - Provider: Rajesh Montoya RN)2136 (New Bag - Provider: Yvette Collins RN)2338 (Stopped - Provider: Yvette Collins RN) 0521 (New Bag - Provider: Yvette Collins, JERRI)0908 (Stopped - Provider: Rajesh Montoya RN) Continuous Medication Order 11/09/2024 11/10/2024 11/11/2024 lactated Ringer's infusion (CANCELED) 100 mL/hr, intravenous, Continuous, Starting on Tue11/09/24 at 1230, Recovery (only) 1200 (Continued from OR - Provider: Renata Lyons RN)1245 (Stopped - Provider: Renata Lyons RN) PRN Medication Order 11/09/2024 11/10/2024 11/11/2024 dextrose (D50W) 50% injection 12.5 g 12.5 g, intravenous, Every 15 min PRN, low blood sugar, moderate hypoglycemia *Patient is Unconscious, NPO, unable to swallow: BG 54 - 69 mg/dl*, Starting on Tue11/05/24 at 2224 1032 (DEC Hold - Provider: Automatic Transfer Provider - Reason: Patient not available)1039 (DEC Unhold - Provider: Automatic Transfer Provider) dextrose (D50W) 50% injection 25 g 25 g, intravenous, Every 15 min PRN, low blood sugar, severe hypoglycemia *Patient is Unconscious, NPO, unable to swallow: BG LESS than 54 mg/dL*, Starting on Tue11/05/24 at 2224 1032 ([facility] Hold - Provider: Automatic Transfer Provider - Reason: Patient not available)1039 ([facility] Unhold - Provider: Automatic Transfer Provider) dextrose 15 gram/60 mL oral solution 15 g 15 g, oral, Every 15 min PRN, low blood sugar, hypoglycemia *Patient conscious AND able to drink and swallow safely*, Starting on Tue11/05/24 at 2224 1032 ([facility] Hold - Provider: Automatic Transfer Provider - Reason: Patient not available)1039 ([facility] Unhold - Provider: Automatic Transfer Provider) dextrose 15 gram/60 mL oral solution 30 g 30 g, oral, Every 15 min PRN, low blood sugar, hypoglycemia *Patient conscious AND able to drink and swallow safely*, Starting on Tue11/05/24 at 2224 1032 ([facility] Hold - Provider: Automatic Transfer Provider - Reason: Patient not available)1039 ([facility] Unhold - Provider: Automatic Transfer Provider) Glucagon HCl (rDNA) injection 1 mg 1 mg, intramuscular, Once as needed, low blood sugar, severe hypoglycemia, Starting on Tue11/05/24 at 2224, For 1 dose 1032 ([facility] Hold - Provider: Automatic Transfer Provider - Reason: Patient not available)1039 ([facility] Unhold - Provider: Automatic Transfer Provider) HYDROmorphone (DILAUDID) tablet 2 mg 2 mg, oral, Every 4 hours PRN, severe pain, moderate pain, Starting on 11/10/24 at 1015 HYDROmorphone (DILAUDID) tablet 2 mg 2 mg, oral, Every 4 hours PRN, severe pain, Starting on 11/11/24 at 1055 HYDROmorphone (DILAUDID) tablet 4 mg 4 mg, oral, Every 4 hours PRN, severe pain, Starting on 11/10/24 at 1015 1500 (Given - Provider: Rajesh Montoya RN)2135 (Given - Provider: Yvette Collins, JERRI) 0520 (Given - Provider: Yvette Collins RN) HYDROmorphone (PF) injection 0.5 mg (CANCELED) 0.5 mg, intravenous, Every 5 min PRN, severe pain or when therapies for moderate pain were not effective, Starting on Tue11/09/24 at 1203, For 5 doses, Recovery (only) 1213 (Given - Provider: Renata Lyons RN) HYDROmorphone (PF) injection 0.5 mg 0.5 mg, intravenous, Every 4 hours PRN, severe pain, Starting on Tue11/09/24 at 2237, Second line for severe pain if unable to tolerate PO 0019 (Given - Provider: Yvette Collins RN) lidocaine-EPINEPHrine (XYLOCAINE W/EPI) 1 %-1:100,000 injection (CANCELED) As needed, Starting on Tue11/09/24 at 1116, Intraprocedure 1116 (Given - Provider: Dilshad Isaacs DO) ondansetron (PF) (ZOFRAN) injection 4 mg(Linked Group 1) 4 mg, intravenous, Every 8 hours PRN, vomiting, nausea, Starting on Tue11/07/24 at 0942, -ONLY give IV if patient is unable to take orally. -If inadequate response within 30 minutes, proceed to next-line agent or contact provider if no further options ordered. 1032 (DEC Hold - Provider: Automatic Transfer Provider - Reason: Patient not available)1039 (DEC Unhold - Provider: Automatic Transfer Provider) 0124 (See Alternative - Provider: Yvette Collins RN) ondansetron ODT (ZOFRAN-ODT) disintegrating tablet 4 mg(Linked Group 1) 4 mg, oral, Every 8 hours PRN, vomiting, nausea, Starting on Tue11/07/24 at 0942, -Give IV if patient is unable to take orally. -If inadequate response within 30 minutes, proceed to next-line agent or contact provider if no further options ordered. For ODT tablets: -Do not remove from blister pack until just before administering. -Patient should allow tablet to dissolve on tongue. 1032 (DEC Hold - Provider: Automatic Transfer Provider - Reason: Patient not available)1039 (MAR Unhold - Provider: Automatic Transfer Provider) 0124 (Given - Provider: Yvette Collins RN) oxyCODONE (ROXICODONE) immediate release tablet 10 mg (CANCELED) 10 mg, oral, Every 4 hours PRN, severe pain, Starting on Tue11/06/24 at 1025, Phase II/On Unit, First line for severe pain (7-10) 0443 (Given - Provider: Ashlee Ram RN)1032 (DEC Hold - Provider: Automatic Transfer Provider - Reason: Patient not available)1039 (DEC Unhold - Provider: Automatic Transfer Provider)1428 (Given - Provider: Court Lara RN)2033 (Given - Provider: Yvette Collins, JERRI) 0538 (Given - Provider: Yvette Collins RN) Linked Groups Order Group 1: ondansetron ODT (ZOFRAN-ODT) disintegrating tablet 4 mgJump to med 4 mg, oral, Every 8 hours PRN, vomiting, nausea, Starting on Tue11/07/24 at 0942, -Give IV if patient is unable to take orally. -If inadequate response within 30 minutes, proceed to next-line agent or contact provider if no further options ordered. For ODT tablets: -Do not remove from blister pack until just before administering. -Patient should allow tablet to dissolve on tongue. Or ondansetron (PF) (ZOFRAN) injection 4 mgJump to med 4 mg, intravenous, Every 8 hours PRN, vomiting, nausea, Starting on Tue11/07/24 at 0942, -ONLY give IV if patient is unable to take orally. -If inadequate response within 30 minutes, proceed to next-line agent or contact provider if no further options ordered. documented in this encounter Orders Medications Ordered That [place] ht Not Have Been Administered Count Last Ordered Date First Ordered Date HYDROmorphone (DILAUDID) tablet 2 mg 2 10/2411/10/2024 levoFLOXacin (LEVAQUIN) tablet 750 mg 1 glipiZIDE (GLUCOTROL XL) 24 hr tablet 5 mg 1 11/10/2024 magnesium sulfate 2 gram/50 mL (4 %) IVPB 2 g 1 11/10/2024 acetaminophen (TYLENOL) tablet 650 mg 2 11/06/2024 lidocaine-EPINEPHrine (XYLOC TUSHAR W/EPI) 1 %-1:100,000 injection 1 11/09/2024 ondansetron (PF) (ZOFRAN) injection 4 mg 3 11/09/2024 11/06/2024 ondansetron ODT (ZOFRAN-ODT) disintegrating tablet 4 mg 1 11/09/2024 oxyCODONE (ROXICODONE) immed iate release tablet 5 mg 1 11/09/2024 acetaminophen (TYLENOL) tablet 1,000 mg 1 0 11/06/2024 haloperidol lactate (HALDOL) injection 1 mg 1 11/06/2024 HYDROmorphone (DILAUDID) injection 0.5 mg 1 11/06/2024 lidocaine (XYLOCAINE) 1 % injection 1 11/06 vancomycin (VANCOCIN) IVPB 2 ,000 mg in 0.9 % sodium chloride 500 mL - CNR 1 11/06/2024 dextrose (D50W) 50% injection 12.5 g 1 10/24 dextrose (D50W) 50% injection 25 g 1 2024 dextrose 15 gram/60 mL oral solution 15 g 1 11/05/2024 dextrose 15 gram/60 mL oral solution 30 g 1 11/05/2024 enoxaparin (LOVENOX) injection 40 mg 1 10/24 Glucagon HCl (rDNA) injection 1 mg 1 2024 insulin lispro injection 2-12 Units 1 11/05 Lab Orders Without Results Count Last Ordered D ate First Ordered Date POCT GLUCOSE, BLOOD 54 11/11/2024 11/06/19 25 Consult Count Last Ordered Date First Orde red Date POST ACUTE HOME HEALTH CARE REQUEST 1 11/11 IP CONSULT TO GENERAL SURGERY 1 11/06/2024 Respiratory Care Count Last Ordered Date First Ordered Date OXYGEN THERAPY, ADULT 4 11/10/20242024 Admission Count Last Ordered Date First Orde red Date ADMIT TO INPATIENT ADMITTING REQ 1 11/05/19 25 Transfer Count Last Ordered Date First Orde red Date TRANSFER PATIENT TO NEW UNIT 1 11/08/2024 ED TO FLOOR BED REQUEST 1 11/05/2024 Discharge Count Last Ordered Date First Orde red Date DISCHARGE PATIENT 1 11/11/2024 Case Request Count Last Ordered Date First Orde red Date CASE REQUEST OPERATING ROOM 2 11/08/2024 11/06/2024 documented in this encounter Care Teams Bisque Placer Relationship Specialty Start Date End Date Brandie Lopez MD [address] [place] [id number] PCP - General Internal Medicine 10/13/18 documented as of this encounter
--- OUTSIDE RECORDS SUMMARY | 2024-11-13 18:01 | XMS_ITS | Encounter Summary ---
Author Organization [facility] Address [address] [place] [address] Care Team Providers Care Sports Management Intern Name Role Phone Brandie Lopez MD Primary Care Provider [phone] Reason for Visit * Reason Comments Abscess Abscess on back of l eft shoulder for past 2 weeks, fevers x 2 days * Auth/Cert (Routine) Specialty Diagnoses / Procedures Referred By Sonu t Referred To Contact Diagnoses Hyperglycemia Abscess of back Cellulitis of back except buttock Procedures [facility] IP/OBS CARE INITIAL MODERATE LEVEL PER DAY . Ramón Arroyo MD [address] [place] [address] [address] Referral ID Status Reason Start Date Expiration Date Visits Re quested Visits Authorized [id number] 1 1 Encounter Details Date Type Department Care Team (Late st Contact Info) Description 11/09/2024 10:35 AM EST - 11/09/2024 12:05 PM EST Surgery [facility] OR [address] [place] [address] Dilshad Isaacs, DO [address] [address] DEBRIDEMENT EXPLORATION BACK WOUND Surgery Details Date/Time Status Location OR Service Patient Class Case Cl ass Case Type Trauma Case? 11/09/2024 10:35 AM Posted [facility] OR OR 02 General Inpatient E - Schedule in 24 hours Panel 1 Procedure LRB Anes Op Region Wound Class Comments DEBRIDEMENT EXPLORATION BACK WOUND Left Class II/ Clean Contaminated left back/posterior neck wound re-exploration, debridement and possible wound vac placement Surgeon Surgeon Role Service Panel Dilshad Isaacs, Primary General 1 documented in this encounter Social History Tobacco [...] Sign Reading Time Taken Comments Blood Pressure 119/68 11/09/2024 12:00 PM EST Pulse 77 11/09/2024 12:00 PM EST Temperature 36.6 ??C (97.9 ??F) 11/09/2024 11:[address] Respiratory Rate 15 11/09/2024 12:00 PM EST Oxygen Saturation 98% 11/09/2024 12:00 PM EST Inhaled Oxygen Concentration - - Weight [...] Disposition Code Departure Means Destination Home-Health Care [facility] documented in this encounter [...] were not included. CHAN PROGRESS NOTE Date: 11/10/2024 Author: Jai Fuller MD Patient ID: Mark Yen is a 44 y.o. male : 1980 MR#: [id number] SUBJECTIVE Follow-up: Cellulitis/abscess involving left upper back [...] Surgery. Operative cultures growing gram- positive cocci inpairs/clusters along with gram-positive bacilli. Presently on vancomycin [...] Probably with obesity hypoventilation. 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 VNA and wound [...] (44 y.o. male) Admit Date: 11/05/2024 Location: [facility]/533-1 Dictating Physician: DENY Ricardo Attending: Jai Fuller MD Primary Care Provider: Brandie Lopez MD Subjective: Encounter Date & Time: 11/08/2024 Supervising Physician: Dr. Isaacs Subjective: Follow up: back abscess More pain to left shoulder/upper back and neck; no n/v, konstantin diet; denies f/c/cp/sob Objective: Temp: 35.7 ??C (96.2 ??F) (11/08 1520) Heart Rate: 87 (11/08 174) Resp: 15 (11/08 1520) BP: 145/80 (11/08 1520) Wt Readings from Last 1 Encounters: 11/06/24 [...] Health RN Discipline following for SNF placement [facility] Informed Choice Informed Choice Given? Yes Transportation Transportation at discharge Family (Pt reported family can transport home once ready) ICC met with pt at bedside. Demographics confirmed. Pt reported he has support from family if needed for dressing changes and was not open to VNA referrals at this time. Pt reports pharmacy is [facility] in [place] * Jai Fuller MD - 11/08/2024 2:21 PM EST Images from the original note were not included. CHAN PROGRESS NOTE Date: 11/08/2024 Author: Jai Fuller MD Patient ID: Mark Yen is a 44 y.o. male : 1980 MR#: [id number] SUBJECTIVE Reason for follow-up: Cellulitis/abscess involving left [...] Probably with obesity hypoventilation. 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 Casi Villarreal PharmD 11/08/24 9:52 AM EST * Ashlee [...] from the original note were not included. PHARR PROGRESS NOTE Date: 11/07/2024 Author: Jai Fuller MD Patient ID: Mark Yen is a 44 y.o. male : 1980 MR#: [id number] SUBJECTIVE Reason for follow-up: Cellulitis/abscess involving left [...] dextrose, glucagon injection, HYDROmorphone,oxyCODONE, oxyCODONE OBJECTIVE Vitals: 11/06/24200211/07/24 0015 11/07/24 0354 11/07/24 0807 BP: (!) [...] Probably with obesity hypoventilation. 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 PHARR PROGRESS NOTE Date: 11/06/2024 Author: Jai Fuller MD Patient ID: Mark Yen is a 44 y.o. male : 1980 MR#: [id number] SUBJECTIVE Events noted Taken to the OR [...] Probably with obesity hypoventilation. 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 Ramón Arroyo MD [facility] Hospitalist, 7am-7pm Available thru tiger text After [...] Morbid obesity with BMI of 40.0-44.9, adult ([facility]) 12/06/2016 DX:Morbid obesity with BMI of 40.0-44.9, adult ([facility]) Obstructive sleep apnea 12/06/2016 DX:Obstructive sleep apnea [...] DAILY Physical Exam ED Triage Vitals [11/05/24 1759] Temp Heart Rate Resp BP 36.5 ??C [...] Procedure Abnormality Status --------- ------ CBC auto differential[[id number]] Abnormal Final result Please view results for [...] tablet 600 mg (600 mg oral Given 11/05/24 182) ED Course as of 11/05/242053Nov 05, 20242013 [...] PHYSICAL Please contact author [DENY Cortez] via [employer]. Patient: Ruvim B Rakhubenko Admission Date/Time: 11/05/2024 7:30 PM : 1980 [44 y.o.] Patient's PCP: Brandie Lopez MD Attending Provider: Ramón Arroyo MD CHIEF COMPLAINT Skin infection HISTORY OF PRESENT ILLNESS This is a 44-year-old male past medical history significant for eid-jalnaqu-auarwdvxx diabetes mellitus, GERD, amongst others, who presents [...] obesity with BMI of 40.0-44.9, adult (HCC) ??? Obstructive sleep apnea 12/06/2016 DX:Obstructive sleep [...] admission, onward) Start Ordered 11/05/242223 Adult diet [facility]; General, Diabetic; Regular; 75 gm carb/Meal Diet effective now Question Answer Comment Location [facility] Diet Type (req) General Diet Type (req) Diabetic General Diet Regular Diabetic 75 gm carb/Meal 11/05/24 2224 [x] Medication reconciliation Health Care proxy with Phone number: Brother Alfredo [phone] Case discussed with Associated attestation - Ramón Arroyo MD - 11/05/2024 11:33 PM EST I have personally seen and examined the patient with the resident/PA/GATE CUTTER and gregory elements of all parts of the encounter were performed by me. Patient was reassessed on more than one occasion when required. I reviewed the interval history, interpreted all available radiographic, laboratory and physiological data at the time of service. I agree with the assessment and plan as documented by the resident/PA/GATE CUTTER with additions. 44-year-old male being admitted to [...] than 50% of the timespent in direct sjyc-zr-eijl care/counseling/coordination with nurse staff industrial, consultants, and reviewingpatient chart. Ramón Arroyo MD [facility] Hospitalist, 7am-7pm Available thru tiger text After 7pm, please tiger text cross coverage 11/05/2024 11:33 PM EST documented in this encounter Procedure Notes * DENY Franco - 11/10/2024 6:34 AM EST GENERAL SURGERY POST-OPERATIVE PROGRESS NOTE Patient: Mark Yen : 1980 (44 y.o. male) Admit Date: 11/05/2024 Location: [address] [place] [address] Dictating Physician: DENY Franco Attending: Jai Fuller [...] DM diet - OK to dc from [place] standpoint - VNA set up for discharge [...] WOUND (L) OPERATIVE NOTE Date: 11/09/2024 Location: [facility] OR Name: Mark Yen, : 1980, Diagnosis Pre-op Diagnosis Necrotizing soft tissue infection left upper back Post-op Diagnosis same Procedures * DEBRIDEMENT EXPLORATION BACK WOUND 565[address] Wound vac placement Additional Procedures Indications: Mark Yen is an 44 y.o. male who is having surgery for a take back for wound debridement and wound back placement for NSTI of left upper back. Surgeon(s) & Sociology Research Assistant(s) * Dilshad Isaacs DO - Primary Anesthesia: Monitor Anesthesia Care ASA: III Estimated Blood Loss: Minimal Drains: Negative pressure Wound Vac Specimen: none Procedure Details: Patient was preoperatively consented on the [facility] surgical floor. He was then brought to [...] [facility] [...] subcutaneous fat OPERATIVE NOTE Date: 11/06/2024 Location: [facility] OR Name: Mark Yen, : 1980, Diagnosis Pre-op Diagnosis * Abscess of back [L02.212] Post-op Diagnosis * Abscess of back [L02.212] Procedures * INCISION DRAINAGE ABSCESS, excisional debridment, skin and subcutaneous fat, <20cm2 Additional Procedures Indications: Mark Yen is an 44 y.o. male who is having surgery for * No pre-op diagnosis entered *. Surgeon(s) & Sociology Research Assistant(s) * Dilshad Isaacs DO - Primary Anesthesia: Monitor Anesthesia Care ASA: III Estimated Blood Loss: Minimal Drains: none Specimen: deep wound culture left upper back Specimens ID Source Type Tests Collected By Collected At Frozen? Priority Lab ID A Back, Upper Swab CULTURE WOUND DEEP Dilshad Isaacs DO 11/06/24 1003 25[facility]-[id number] Description: upper left back abscess Procedure Details: [...] procedure well was transferred back to the stretcher and brought back in stable condition. All [...] (44 y.o. male) Admit Date: 11/05/2024 Location: [facility] MAIN OR [place] Room/M* Dictating Physician: DENY Gee Attending: Jai Fuller MD Primary Care Provider: Brandie Lopez MD [facility] Encounter Date & Time: 11/06/24 Service: General Surgery Chief Complaint: back abscess Source: Patient History of Present Illness: Mr. Mark Yen is a very pleasant 44 y.o. male with past medical history including NIDDM, GERD, anxious, asthma, obesity, amongst others who presents to [facility] Emergency Department with complaints of left upper [...] DX:Morbid obesity with BMI of 40.0-44.9, adult ([facility]) Obstructive sleep apnea 12/06/2016 DX:Obstructive sleep apnea [...] Exam: Temp: 36.5 ??C (97.7 ??F) (11/05 4399) Heart Rate: 82 (11/06 143) Resp: 17 [...] PMH including NIDDM, obesity who presents to [facility] ED with complaints of left back [...] NPO IVF DVTp- boots Medical management per PHARR The patient was seen both independently and/or concurrently with the surgeon of record. I spent a total of 30 minutes independently performing a chart review, independent history and exam, providing care, ordering medication, reviewing tests and procedure reports, coordinating care with Chan provider. I spent [address] Isaacs. documented in this encounter Plan of Treatment Upcoming Encounters Date Type Department Care Team (Late st Contact Info) Description 11/27/2024 3:45 PM EST Office Visit General Surgery - [place] 175 [facility] [address] [place] [phone] Dilshad Isaacs DO 175 [facility] [address] [place] [address] 12/05/2024 10:00 AM EST Hospital Encounter [facility] Endoscopy [address] [place] [phone] Aurelio Riggins MD 175 [facility] [address] [place] [address] 12/25/2024 9:15 AM EST Office Visit Gastroenterology - [place] 175 [facility] 175 [facility] [address] [place] [phone] Aurelio Riggins MD 175 [facility] [address] [place] [address] Pending Results Name Type Priority Associated Diagnoses [...] 10 :03 AM EST Abscess of back POCT GLUCOSE [...] - 100 mg/dL 11/11/2024 11:03 AM EST [facility] Blood Capillary blood specimen / Unknown 11/11/2024 10:59 AM EST 11/11/2024 11:04 AM EST Jai Fuller MD LAB POINT OF CARE TE ST DOCKED DEVICE UNSOLICITED RESULTS Performing Organization Address City/[facility]/ZIP Co de Phone Number [facility] [address] [place] [address], [place] [phone] * (ABNORMAL) POCT Glucose, blood (11/11/2024 8:08 AM EST) Glucose POCT 259(H) 70 - 100 mg/dL 11/11/2024 8:08 AM EST [facility] Blood Capillary blood specimen / Unknown 11/11/2024 8:08 AM EST 11/11/2024 8:09 AM EST Jai Fuller MD LAB POINT OF CARE TE ST DOCKED DEVICE UNSOLICITED RESULTS Performing Organization Address City/[facility]/ZIP Co de Phone Number [facility] [address] [place] [address], [place] [phone] * (ABNORMAL) Comprehensive metabolic panel (11/11/2024 6:49 AM EST) Sodium 134 133 - 145 mmol/L LAB CHEMISTRY METHOD 11/11/2024 8:09 AM EST [facility] Potassium 4.1 3.5 - 5.5 mmol/L LAB CHEMISTRY METHOD 11/11/2024 8:09 AM [facility] Chloride 101 96 - 110 mmol/L LAB CHEMISTRY METHOD 11/11/2024 8:09 AM [facility] CO2 27 21 - 32 mmol/L LAB CHEMISTRY METHOD 11/11/2024 8:09 AM [facility] Anion Gap 6 3 - 11 LAB CHEMISTRY METHOD 11/11/2024 8:09 AM [facility] Glucose 244(H) 70 - 100 mg/dL LAB CHEMISTRY METHOD 11/11/2024 8:09 AM [facility] BUN 10 5 - 25 mg/dL LAB CHEMISTRY METHOD 11/11/2024 8:09 AM [facility] Creatinine 0.62(L) 0.70 - 1.30 mg/dL LAB CHEMISTRY METHOD 11/11/2024 8:09 AM [facility] eGFR 122 >=60 mL/min/1. 73m2 LAB CHEMISTRY METHOD 11/11/2024 8:09 AM [facility] Comment:Calculation based on the??Chronic Kidney Disease Epidemiology Collaboration (CKD-EPI) equation refit??without adjustment for race. BUN/Creatinine Ratio 16.1 LAB CHEMISTRY METHOD 11/11/2024 8:09 AM [facility] Calcium 8.5 8.5 - 10.5 mg/dL LAB CHEMISTRY METHOD 11/11/2024 8:09 AM [facility] AST (SGOT) 18 10 - 42 unit/L LAB CHEMISTRY METHOD 11/11/2024 8:09 AM [facility] ALT (SGPT) 60 10 - 60 unit/L LAB CHEMISTRY METHOD 11/11/2024 8:09 AM [facility] Alkaline Phosphatase 103 42 - 121 unit/L LAB CHEMISTRY METHOD 11/11/2024 8:09 AM [facility] Total Protein 6.0 6.0 - 8.0 g/dL LAB CHEMISTRY METHOD 11/11/2024 8:09 AM EST [facility] Albumin 2.7(L) 3.2 - 5.0 g/dL LAB CHEMISTRY METHOD 11/11/2024 8:09 AM EST [facility] Total Bilirubin 0.3 0.0 - 1.4 mg/dL LAB CHEMISTRY METHOD 11/11/2024 8:09 AM EST [facility] Blood Venous blood specimen / Unknown Venipuncture / Unknown 11/11/2024 6:49 AM EST 11/11/2024 7:12 AM EST Chrissy BARCLAY LAB BLOOD ORDERABLES [facility] [address] [place] [address], [place] [phone] * Lavender tube (11/11/2024 6:45 AM EST) Extra Tube Hold for add-ons. 11/11/2024 9:01 AM EST [facility] Comment:Auto resulted. Blood Venous blood specimen / Unknown Venipuncture / Unknown 11/11/2024 6:45 AM EST 11/11/2024 7:13 AM EST Jai Fuller MD LAB BLOOD ORDERABLES [facility] [address] [place] [address], [place] [phone] * (ABNORMAL) POCT Glucose, blood (11/11/2024 5:08 AM EST) Glucose POCT 250(H) 70 - 100 mg/dL 11/11/2024 5:09 AM [facility] Blood Capillary blood specimen / Unknown 11/11/2024 5:08 AM EST 11/11/2024 5:10 AM EST Jai Fuller MD LAB POINT OF CARE TE ST DOCKED DEVICE UNSOLICITED RESULTS Performing Organization Address City/[facility]/ZIP Co de Phone Number [facility] [address] [place] [address], [place] [phone] * (ABNORMAL) POCT Glucose, blood (11/11/2024 12:12 AM EST) Glucose POCT 305(H) 70 - 100 mg/dL 11/11/2024 12:13 AM EST [facility] Blood Capillary blood specimen / Unknown 11/11/2024 12:12 AM EST 11/11/2024 12:14 AM EST Jai Fuller MD LAB POINT OF CARE TE ST DOCKED DEVICE UNSOLICITED RESULTS Performing Organization Address [facility]/ZIP Co de Phone Number [facility] [address] [place] [address], [place] [phone] * (ABNORMAL) POCT Glucose, blood (11/10/2024 10:26 PM EST) Glucose POCT 324(H) 70 - 100 mg/dL 11/10/2024 10:27 PM EST [facility] Blood Capillary blood specimen / Unknown 11/10/2024 10:26 PM EST 11/10/2024 10:28 PM EST Jai Fuller MD LAB POINT OF CARE TE ST DOCKED DEVICE UNSOLICITED RESULTS Performing Organization Address City/[facility]/ZIP Co de Phone Number [facility] [address] [place] [address], [place] [phone] * (ABNORMAL) POCT Glucose, blood (11/10/2024 8:03 PM EST) Glucose POCT 252(H) 70 - 100 mg/dL 11/10/2024 8:04 PM EST [facility] Blood Capillary blood specimen / Unknown 11/10/2024 8:03 PM EST 11/10/2024 8:05 PM EST Jai Fuller MD LAB POINT OF CARE TE ST DOCKED DEVICE UNSOLICITED RESULTS Performing Organization Address [facility]/ZIP Co de Phone Number [facility] [address] [place] [address], [place] [phone] * (ABNORMAL) POCT Glucose, blood (11/10/2024 4:01 PM EST) Glucose POCT 317(H) 70 - 100 mg/dL 11/10/2024 4:02 PM EST [facility] Blood Capillary blood specimen / Unknown 11/10/2024 4:01 PM EST 11/10/2024 4:03 PM EST Jai Fuller MD LAB POINT OF CARE TE ST DOCKED DEVICE UNSOLICITED RESULTS Performing Organization Address [facility]/ZIP Co de Phone Number [facility] [address] [place] [address], [place] [phone] * (ABNORMAL) POCT Glucose, blood (11/10/2024 11:12 AM EST) Glucose POCT 370(H) 70 - 100 mg/dL 11/10/2024 11:13 AM EST [facility] Blood Capillary blood specimen / Unknown 11/10/2024 11:12 AM EST 11/10/2024 11:14 AM EST Jai Fuller MD LAB POINT OF CARE TE ST DOCKED DEVICE UNSOLICITED RESULTS Performing Organization Address City/[facility]/ZIP Co de Phone Number [facility] [address] [place] [address], [place] [phone] * (ABNORMAL) POCT Glucose, blood (11/10/2024 9:15 AM EST) Glucose POCT 299(H) 70 - 100 mg/dL 11/10/2024 9:16 AM EST [facility] Blood Capillary blood specimen / Unknown 11/10/2024 9:15 AM EST 11/10/2024 9:17 AM EST Jai Fuller MD LAB POINT OF CARE TE ST DOCKED DEVICE UNSOLICITED RESULTS Performing Organization Address City/[facility]/ZIP Co de Phone Number [facility] [address] [place] [address], [place] [phone] * (ABNORMAL) POCT Glucose, blood (11/10/2024 2:38 AM EST) Glucose POCT 222(H) 70 - 100 mg/dL 11/10/2024 2:39 AM EST [facility] Blood Capillary blood specimen / Unknown 11/10/2024 2:38 AM EST 11/10/2024 2:40 AM EST Jai Fuller MD LAB POINT OF CARE TE ST DOCKED DEVICE UNSOLICITED RESULTS Performing Organization Address City/[facility]/ZIP Co de Phone Number [facility] [address] [place] [address], [place] [phone] * ECG 12 lead (11/10/2024 1:59 AM EST) Ventricular Rate ECG 83 BPM GEMUSE Atrial Rate 83 BPM GEMUSE P-R Interval 138 ms GEMUSE QRS Duration 82 ms GEMUSE Q-T Interval 358 ms GEMUSE QTc 420 ms GEMUSE P Wave [place] 35 degrees GEMUSE R [place] 16 degrees GEMUSE T [place] 6 degrees GEMUSE ECG Interpretation Normal sinus rhythm When compared with ECG of 08-AUG-2015 21:25, Vent. rate has increased BY ??37 BPM Confirmed by ANDREI BARBOSA ([id number]) on 11/11/2024 12:20:28 AM GEMUSE 11/10/2024 1:59 AM EST 11/11/2024 12:20 AM EST Chrissy BARCLAY ECG ORDERABLES GEMUSE * (ABNORMAL) Basic metabolic panel (11/10/2024 1:46 AM EST) Sodium 135 133 - 145 mmol/L LAB CHEMISTRY METHOD 11/10/2024 3:35 PM [facility] Potassium 4.0 3.5 - 5.5 mmol/L LAB CHEMISTRY METHOD 11/10/2024 3:35 PM [facility] Chloride 103 96 - 110 mmol/L LAB CHEMISTRY METHOD 11/10/2024 3:35 PM [facility] CO2 22 21 - 32 mmol/L LAB CHEMISTRY METHOD 11/10/2024 3:35 PM [facility] Anion Gap 10 3 - 11 LAB CHEMISTRY METHOD 11/10/2024 3:35 PM [facility] Glucose 251(H) 70 - 100 mg/dL LAB CHEMISTRY METHOD 11/10/2024 3:35 PM [facility] BUN 13 5 - 25 mg/dL LAB CHEMISTRY METHOD 11/10/2024 3:35 PM [facility] Creatinine 0.69(L) 0.70 - 1.30 mg/dL LAB CHEMISTRY METHOD 11/10/2024 3:35 PM [facility] eGFR 118 >=60 mL/min/1. 73m2 LAB CHEMISTRY METHOD 11/10/2024 3:35 PM [facility] Comment:Calculation based on the??Chronic Kidney Disease Epidemiology Collaboration (CKD-EPI) equation refit??without adjustment for race. BUN/Creatinine Ratio 18.8 LAB CHEMISTRY METHOD 11/10/2024 3:35 PM [facility] Calcium 8.4(L) 8.5 - 10.5 mg/dL LAB CHEMISTRY METHOD 11/10/2024 3:35 PM [facility] Blood Venous blood specimen / Unknown Venipuncture / Unknown 11/10/2024 1:46 AM EST 11/10/2024 1:59 AM EST Jai Fuller MD LAB BLOOD ORDERABLES Performing Organization Address [facility]/ZIP Co de Phone Number [facility] [address] [place] [address], [place] [phone] * B-type natriuretic peptide (11/10/2024 1:46 AM EST) [facility] BNP 6 <=100 pcg/mL LAB CHEMISTRY METHOD 11/10/2024 2:50 AM EST [facility] Blood Venous blood specimen / Unknown Venipuncture / Unknown 11/10/2024 1:46 AM EST 11/10/2024 1:59 AM EST Chrissy BARCLAY LAB BLOOD ORDERABLES Performing Organization Address [facility] de Phone Number [facility] [address] [place] [address], [place] [phone] * (ABNORMAL) Magnesium (11/10/2024 1:46 AM EST) [facility] Magnesium 1.8(L) 1.9 - 2.6 mg/dL LAB CHEMISTRY METHOD 11/10/2024 2:21 AM EST [facility] Blood Venous blood specimen / Unknown Venipuncture / Unknown 11/10/2024 1:46 AM EST 11/10/2024 1:59 AM EST Chrissy BARCLAY LAB BLOOD ORDERABLES Performing Organization Address [facility] Co de Phone Number [facility] [address] [place] [address], [place] [phone] * Troponin I high sensitivity (11/10/2024 1:46 AM EST) [facility] High Sensitivity Troponin I 6 <=79 ng/L LAB CHEMISTRY METHOD 11/10/2024 2:28 AM EST [facility] Blood Venous blood specimen / Unknown Venipuncture / Unknown 11/10/2024 1:46 AM EST 11/10/2024 1:59 AM EST [facility] - 11/10/2024 2:28 AM EST High levels of biotin in samples may falsely decrease hsTroponin values. ??Use caution when interpreting hsTroponin results in patients taking biotin who exhibit renal impairment (eGFR <60) or in patients taking more than 20 mg/day of biotin. Chrissy BARCLAY LAB BLOOD ORDERABLES [facility] [address] [place] [address], * (ABNORMAL) CBC auto differential (11/10/2024 1:45 AM EST) WBC 6.8 4.8 - 10.8 K/mcL LAB HEMETOLOGY METHOD 11/10/2024 2:12 AM [facility] RBC 4.10(L) 4.50 - 5.50 M/mcL LAB HEMETOLOGY METHOD 11/10/2024 2:12 AM [facility] Hemoglobin 12.1(L) 13.5 - 17.5 g/dL LAB HEMETOLOGY METHOD 11/10/2024 2:12 AM [facility] Hematocrit 36.0(L) 42.0 - 54.0 % LAB HEMETOLOGY METHOD 11/10/2024 2:12 AM [facility] LAB MCV 88.9 79.0 - 98.0 FL LAB HEMETOLOGY METHOD 11/10/2024 2:12 AM [facility] LAB MCH 29.9 27.0 - 32.0 pcg LAB HEMETOLOGY METHOD 11/10/2024 2:12 AM [facility] LAB MCHC 33.6 32.0 - 37.0 g/dL LAB HEMETOLOGY METHOD 11/10/2024 2:12 AM [facility] LAB RDW 12.1 11.0 - 15.0 % LAB HEMETOLOGY METHOD 11/10/2024 2:12 AM [facility] LAB Platelets 192 130 - 400 K/mcL LAB HEMETOLOGY METHOD 11/10/2024 2:12 AM [facility] LAB MPV 9.3 7.0 - 11.0 FL LAB HEMETOLOGY METHOD 11/10/2024 2:12 AM [facility] LAB NRBC 0.0 <1.0 % LAB HEMETOLOGY METHOD 11/10/2024 2:12 AM [facility] LAB NRBC Absolute 0.00 <0.10 K/mcL LAB HEMETOLOGY METHOD 11/10/2024 2:12 AM [facility] LAB Neutrophils Relative 60.6 % LAB HEMETOLOGY METHOD 11/10/2024 2:12 AM [facility] LAB Lymphocytes Relative 28.3 % LAB HEMETOLOGY METHOD 11/10/2024 2:12 AM [facility] LAB Monocytes Relative 9.4 % LAB HEMETOLOGY METHOD 11/10/2024 2:12 AM [facility] LAB Eosinophils Relative 0.9 % LAB HEMETOLOGY METHOD 11/10/2024 2:12 AM [facility] LAB Basophils Relative 0.1 % LAB HEMETOLOGY METHOD 11/10/2024 2:12 AM [facility] LAB Immature Granulocytes Relative 0.7 % LAB HEMETOLOGY METHOD 11/10/2024 2:12 AM [facility] LAB Neutrophils Absolute 4.14 1.50 - 7.00 K/mcL LAB HEMETOLOGY METHOD 11/10/2024 2:12 AM [facility] LAB Lymphocytes Absolute 1.93 1.00 - 5.00 K/mcL LAB HEMETOLOGY METHOD 11/10/2024 2:12 AM EST [facility] LAB Monocytes Absolute 0.64 0.20 - 1.00 K/mcL LAB HEMETOLOGY METHOD 11/10/2024 2:12 AM EST [facility] LAB Eosinophils Absolute 0.06 0.00 - 0.50 K/mcL LAB HEMETOLOGY METHOD 11/10/2024 2:12 AM EST [facility] LAB Basophils Absolute 0.01 0.00 - 0.20 K/[facility] LAB HEMETOLOGY METHOD 11/10/2024 2:12 AM EST [facility] LAB Immature Granulocytes Absolute 0.05(H) 0.00 - 0.03 K/[facility] LAB HEMETOLOGY METHOD 11/10/2024 2:12 AM EST [facility] LAB Blood Venous blood specimen / Unknown Venipuncture / Unknown 11/10/2024 1:45 AM EST 11/10/2024 1:59 AM EST Chrissy BARCLAY LAB BLOOD ORDERABLES [facility] [address] [place] [address], * Vancomycin, trough Please draw after 1600 but before the 10pm dose is hung (11/09/2024 9:06 PM EST) Vancomycin Trough 16.3 10.0 - 20.0 mcg/mL LAB CHEMISTRY METHOD 11/09/2024 10:04 PM EST [facility] LAB Blood Venous blood specimen / Unknown Venipuncture / Unknown 11/09/2024 9:06 PM EST 11/09/2024 9:28 PM EST Jai Fuller MD LAB BLOOD ORDERABLES Performing Organization Address City/[facility]/ZIP Co de Phone Number [facility] [address] [place] [address], [place] [phone] * (ABNORMAL) POCT Glucose, blood (11/09/2024 8:20 PM EST) Glucose POCT 407(HH) 70 - 100 mg/dL 11/09/2024 8:23 PM EST [facility] POCT Comment RN Notified 11/09/2024 8:23 PM EST [facility] Blood Capillary blood specimen / Unknown 11/09/2024 8:20 PM EST 11/09/2024 8:24 PM EST Jai Fuller MD LAB POINT OF CARE TE ST DOCKED DEVICE UNSOLICITED RESULTS [facility] [address] [place] [address], [place] [phone] * (ABNORMAL) POCT Glucose, blood (11/09/2024 4:29 PM EST) Glucose POCT 413(HH) 70 - 100 mg/dL 11/09/2024 4:29 PM EST [facility] POCT Comment RN Notified 11/09/2024 4:29 PM EST [facility] Blood Capillary blood specimen / Unknown 11/09/2024 4:29 PM EST 11/09/2024 4:30 PM EST Jai Fuller MD LAB POINT OF CARE TE ST DOCKED DEVICE UNSOLICITED RESULTS [facility] [address] [place] [address], [place] [phone] * (ABNORMAL) POCT Glucose, blood (11/09/2024 12:55 PM EST) Glucose POCT 198(H) 70 - 100 mg/dL 11/09/2024 12:55 PM EST [facility] Blood Capillary blood specimen / Unknown 11/09/2024 12:55 PM EST 11/09/2024 12:57 PM EST Jai Fuller MD LAB POINT OF CARE TE ST DOCKED DEVICE UNSOLICITED RESULTS Performing Organization Address [facility]/ZIP Co de Phone Number [facility] [address] [place] [address], [place] [phone] * (ABNORMAL) POCT Glucose, blood (11/09/2024 11:33 AM EST) Glucose POCT 200(H) 70 - 100 mg/dL 11/09/2024 11:34 AM EST [facility] Blood Capillary blood specimen / Unknown 11/09/2024 11:33 AM EST 11/09/2024 11:35 AM EST Jai Fuller MD LAB POINT OF CARE TE ST DOCKED DEVICE UNSOLICITED RESULTS Performing Organization Address [facility]/ZIP Co de Phone Number [facility] [address] [place] [address], [place] [phone] * (ABNORMAL) POCT Glucose, blood (11/09/2024 7:56 AM EST) Glucose POCT 210(H) 70 - 100 mg/dL 11/09/2024 7:57 AM EST [facility] Blood Capillary blood specimen / Unknown 11/09/2024 7:56 AM EST 11/09/2024 7:58 AM EST Jai Fuller MD LAB POINT OF CARE TE ST DOCKED DEVICE UNSOLICITED RESULTS Performing Organization Address City/[facility]/ZIP Co de Phone Number [facility] [address] [place] [address], [place] [phone] * (ABNORMAL) POCT Glucose, blood (11/08/2024 8:39 PM EST) Glucose POCT 308(H) 70 - 100 mg/dL 11/08/2024 8:39 PM EST [facility] Blood Capillary blood specimen / Unknown 11/08/2024 8:39 PM EST 11/08/2024 8:41 PM EST Jai Fuller MD LAB POINT OF CARE TE ST DOCKED DEVICE UNSOLICITED RESULTS [facility] [address] [place] [address], * CT Neck Soft Tissue w Contrast [...] Irving Cooper MD on 11/08/2024 18:02:45 Lili Lenoremark BARCLAY IMG CT PROCEDURES * CT Chest [...] - 100 mg/dL 11/08/2024 4:31 PM EST [facility] Blood Capillary blood specimen / Unknown 11/08/2024 4:30 PM EST 11/08/2024 4:32 PM EST Jai Fuller MD LAB POINT OF CARE TE ST DOCKED DEVICE UNSOLICITED RESULTS Performing Organization Address City/[facility]/ZIP Co de Phone Number [facility] [address] [place] [address], [place] [phone] * (ABNORMAL) POCT Glucose, blood (11/08/2024 11:18 AM EST) Glucose POCT 288(H) 70 - 100 mg/dL 11/08/2024 11:18 AM EST [facility] Blood Capillary blood specimen / Unknown 11/08/2024 11:18 AM EST 11/08/2024 11:19 AM EST Jai Fuller MD LAB POINT OF CARE TE ST DOCKED DEVICE UNSOLICITED RESULTS [facility] [address] [place] [address], [place] [phone] * (ABNORMAL) POCT Glucose, blood (11/08/2024 7:55 AM EST) Glucose POCT 219(H) 70 - 100 mg/dL 11/08/2024 7:56 AM EST [facility] Blood Capillary blood specimen / Unknown 11/08/2024 7:55 AM EST 11/08/2024 7:57 AM EST Jai Fuller MD LAB POINT OF CARE TE ST DOCKED DEVICE UNSOLICITED RESULTS Performing Organization Address [facility]/ZIP Co de Phone Number [facility] [address] [place] [address], [place] [phone] * Vancomycin, trough Please draw after 0700 but before the 0800 dose is hung (11/08/2024 7:04 AM EST) [facility] Vancomycin Trough 11.7 10.0 - 20.0 mcg/mL LAB CHEMISTRY METHOD 11/08/2024 7:49 AM EST [facility] Blood Venous blood specimen / Unknown Venipuncture / Unknown 11/08/2024 7:04 AM EST 11/08/2024 7:14 AM EST Marcia BARCLAY LAB BLOOD ORDERABLES Performing Organization Address [facility]/ZIP Co de Phone Number [facility] [address] [place] [address], [place] [phone] * (ABNORMAL) POCT Glucose, blood (11/07/2024 8:34 PM EST) [facility] Signature Glucose POCT 284(H) 70 - 100 mg/dL 11/07/2024 8:35 PM EST [facility] Blood Capillary blood specimen / Unknown 11/07/2024 8:34 PM EST 11/07/2024 8:36 PM EST Jai Fuller MD LAB POINT OF CARE TE ST DOCKED DEVICE UNSOLICITED RESULTS Performing Organization Address [facility]/ZIP Co de Phone Number [facility] [address] [place] [address], [place] [phone] * (ABNORMAL) POCT Glucose, blood (11/07/2024 3:42 PM EST) Glucose POCT 303(H) 70 - 100 mg/dL 11/07/2024 3:50 PM EST [facility] Blood Capillary blood specimen / Unknown 11/07/2024 3:42 PM EST 11/07/2024 3:51 PM EST Jai Fuller MD LAB POINT OF CARE TE ST DOCKED DEVICE UNSOLICITED RESULTS Performing Organization Address [facility]/ZIP Co de Phone Number [facility] [address] [place] [address], [place] [phone] * (ABNORMAL) POCT Glucose, blood (11/07/2024 11:11 AM EST) Glucose POCT 336(H) 70 - 100 mg/dL 11/07/2024 11:21 AM EST [facility] Blood Capillary blood specimen / Unknown 11/07/2024 11:11 AM EST 11/07/2024 11:22 AM EST Jai Fuller MD LAB POINT OF CARE TE ST DOCKED DEVICE UNSOLICITED RESULTS Performing Organization Address City/[facility]/ZIP Co de Phone Number [facility] [address] [place] [address], [place] [phone] * (ABNORMAL) POCT Glucose, blood (11/07/2024 8:09 AM EST) Glucose POCT 267(H) 70 - 100 mg/dL 11/07/2024 8:18 AM EST [facility] Blood Capillary blood specimen / Unknown 11/07/2024 8:09 AM EST 11/07/2024 8:20 AM EST Jai Fuller MD LAB POINT OF CARE TE ST DOCKED DEVICE UNSOLICITED RESULTS Performing Organization Address City/[facility]/ZIP Co de Phone Number [facility] [address] [place] [address], [place] [phone] * (ABNORMAL) CBC auto differential (11/07/2024 5:20 AM EST) [facility] WBC 7.9 4.8 - 10.8 K/mcL LAB HEMETOLOGY METHOD 11/07/2024 7:19 AM [facility] RBC 4.20(L) 4.50 - 5.50 M/mcL LAB HEMETOLOGY METHOD 11/07/2024 7:19 AM [facility] Hemoglobin 12.6(L) 13.5 - 17.5 g/dL LAB HEMETOLOGY METHOD 11/07/2024 7:19 AM [facility] Hematocrit 38.8(L) 42.0 - 54.0 % LAB HEMETOLOGY METHOD 11/07/2024 7:19 AM [facility] MCV 91.5 79.0 - 98.0 FL LAB HEMETOLOGY METHOD 11/07/2024 7:19 AM [facility] MCH 29.7 27.0 - 32.0 pcg LAB HEMETOLOGY METHOD 11/07/2024 7:19 AM [facility] MCHC 32.5 32.0 - 37.0 g/dL LAB HEMETOLOGY METHOD 11/07/2024 7:19 AM [facility] RDW 12.5 11.0 - 15.0 % LAB HEMETOLOGY METHOD 11/07/2024 7:19 AM [facility] Platelets 165 130 - 400 K/mcL LAB HEMETOLOGY METHOD 11/07/2024 7:19 AM [facility] MPV 9.4 7.0 - 11.0 FL LAB HEMETOLOGY METHOD 11/07/2024 7:19 AM [facility] NRBC 0.0 <1.0 % LAB HEMETOLOGY METHOD 11/07/2024 7:19 AM [facility] NRBC Absolute 0.00 <0.10 K/mcL LAB HEMETOLOGY METHOD 11/07/2024 7:19 AM [facility] Neutrophils Relative 69.7 % LAB HEMETOLOGY METHOD 11/07/2024 7:19 AM [facility] Lymphocytes Relative 22.8 % LAB HEMETOLOGY METHOD 11/07/2024 7:19 AM [facility] Monocytes Relative 6.6 % LAB HEMETOLOGY METHOD 11/07/2024 7:19 AM [facility] Eosinophils Relative 0.4 % LAB HEMETOLOGY METHOD 11/07/2024 7:19 AM [facility] Basophils Relative 0.0 % LAB HEMETOLOGY METHOD 11/07/2024 7:19 AM [facility] Immature Granulocytes Relative 0.5 % LAB HEMETOLOGY METHOD 11/07/2024 7:19 AM [facility] Neutrophils Absolute 5.52 1.50 - 7.00 K/mcL LAB HEMETOLOGY METHOD 11/07/2024 7:19 AM [facility] Lymphocytes Absolute 1.80 1.00 - 5.00 K/mcL LAB HEMETOLOGY METHOD 11/07/2024 7:19 AM [facility] Monocytes Absolute 0.52 0.20 - 1.00 K/mcL LAB HEMETOLOGY METHOD 11/07/2024 7:19 AM [facility] Eosinophils Absolute 0.03 0.00 - 0.50 K/mcL LAB HEMETOLOGY METHOD 11/07/2024 7:19 AM [facility] Basophils Absolute 0.00 0.00 - 0.20 K/mcL LAB HEMETOLOGY METHOD 11/07/2024 7:19 AM [facility] Immature Granulocytes Absolute 0.04(H) 0.00 - 0.03 K/mcL LAB HEMETOLOGY METHOD 11/07/2024 7:19 AM [facility] Blood Venous blood specimen / Unknown Venipuncture / Unknown 11/07/2024 5:20 AM EST 11/07/2024 6:47 AM EST Elvia BARCLAY LAB BLOOD ORDERABLES Performing Organization Address City/[facility]/ZIP Co de Phone Number [facility] [address] [place] [address], [place] [phone] * Phosphorus (11/07/2024 5:20 AM EST) Phosphorus 3.0 2.5 - 4.5 mg/dL LAB CHEMISTRY METHOD 11/07/2024 7:50 AM EST [facility] Blood Venous blood specimen / Unknown Venipuncture / Unknown 11/07/2024 5:20 AM EST 11/07/2024 6:47 AM EST Elvia BARCLAY LAB BLOOD ORDERABLES Performing Organization Address [facility] Co de Phone Number [facility] [address] [place] [address], [place] [phone] * Magnesium (11/07/2024 5:20 AM EST) Magnesium 1.9 1.9 - 2.6 mg/dL LAB CHEMISTRY METHOD 11/07/2024 7:50 AM EST [facility] Blood Venous blood specimen / Unknown Venipuncture / Unknown 11/07/2024 5:20 AM EST 11/07/2024 6:47 AM EST Elvia BARCLAY LAB BLOOD ORDERABLES Performing Organization Address City/[facility]/ZIP Co de Phone Number [facility] [address] [place] [address], [place] [phone] * (ABNORMAL) Basic metabolic panel (11/07/2024 5:20 AM EST) Sodium 135 133 - 145 mmol/L LAB CHEMISTRY METHOD 11/07/2024 7:50 AM EST [facility] Potassium 3.7 3.5 - 5.5 mmol/L LAB CHEMISTRY METHOD 11/07/2024 7:50 AM [facility] Chloride 103 96 - 110 mmol/L LAB CHEMISTRY METHOD 11/07/2024 7:50 AM [facility] CO2 26 21 - 32 mmol/L LAB CHEMISTRY METHOD 11/07/2024 7:50 AM [facility] Anion Gap 6 3 - 11 LAB CHEMISTRY METHOD 11/07/2024 7:50 AM [facility] Glucose 225(H) 70 - 100 mg/dL LAB CHEMISTRY METHOD 11/07/2024 7:50 AM [facility] BUN 17 5 - 25 mg/dL LAB CHEMISTRY METHOD 11/07/2024 7:50 AM [facility] Creatinine 0.57(L) 0.70 - 1.30 mg/dL LAB CHEMISTRY METHOD 11/07/2024 7:50 AM [facility] eGFR 125 >=60 mL/min/1. 73m2 LAB CHEMISTRY METHOD 11/07/2024 7:50 AM [facility] Comment:Calculation based on the??Chronic Kidney Disease Epidemiology Collaboration (CKD-EPI) equation refit??without adjustment for race. BUN/Creatinine Ratio 29.8 LAB CHEMISTRY METHOD 11/07/2024 7:50 AM [facility] Calcium 8.3(L) 8.5 - 10.5 mg/dL LAB CHEMISTRY METHOD 11/07/2024 7:50 AM [facility] Blood Venous blood specimen / Unknown Venipuncture / Unknown 11/07/2024 5:20 AM EST 11/07/2024 6:47 AM EST Elvia BARCLAY LAB BLOOD ORDERABLES [facility] [address] [place] [address], * (ABNORMAL) POCT Glucose, blood (11/07/2024 12:16 AM EST) Glucose POCT 398(H) 70 - 100 mg/dL 11/07/2024 12:17 AM EST [facility] Blood Capillary blood specimen / Unknown 11/07/2024 12:16 AM EST 11/07/2024 12:18 AM EST Jai Fuller MD LAB POINT OF CARE TE ST DOCKED DEVICE UNSOLICITED RESULTS [facility] [address] [place] [address], [place] [phone] * (ABNORMAL) POCT Glucose, blood (11/06/2024 8:26 PM EST) Glucose POCT 558(HH) 70 - 100 mg/dL 11/06/2024 8:27 PM EST [facility] POCT Comment RN Notified 11/06/2024 8:27 PM EST [facility] Blood Capillary blood specimen / Unknown 11/06/2024 8:26 PM EST 11/06/2024 8:28 PM EST Jai Fuller MD LAB POINT OF CARE TE ST DOCKED DEVICE UNSOLICITED RESULTS [facility] [address] [place] [address], [place] [phone] * (ABNORMAL) POCT Glucose, blood (11/06/2024 3:54 PM EST) Glucose POCT 445(HH) 70 - 100 mg/dL 11/06/2024 3:55 PM EST [facility] POCT Comment RN Notified 11/06/2024 3:55 PM EST [facility] Blood Capillary blood specimen / Unknown 11/06/2024 3:54 PM EST 11/06/2024 3:55 PM EST Jai Fuller MD LAB POINT OF CARE TE ST DOCKED DEVICE UNSOLICITED RESULTS Performing Organization Address [facility]/ZIP Co de Phone Number [facility] [address] [place] [address], [place] [phone] * (ABNORMAL) POCT Glucose, blood (11/06/2024 10:32 AM EST) Glucose POCT 267(H) 70 - 100 mg/dL 11/06/2024 10:32 AM EST [facility] Blood Capillary blood specimen / Unknown 11/06/2024 10:32 AM EST 11/06/2024 10:33 AM EST Jai Fuller MD LAB POINT OF CARE TE ST DOCKED DEVICE UNSOLICITED RESULTS Performing Organization Address [facility]/ZIP Co de Phone Number [facility] [address] [place] [address], [place] [phone] * (ABNORMAL) POCT Glucose, blood (11/06/2024 7:46 AM EST) Glucose POCT 222(H) 70 - 100 mg/dL 11/06/2024 7:47 AM EST [facility] Blood Capillary blood specimen / Unknown 11/06/2024 7:46 AM EST 11/06/2024 7:48 AM EST Jai Fuller MD LAB POINT OF CARE TE ST DOCKED DEVICE UNSOLICITED RESULTS Performing Organization Address City/[facility]/ZIP Co de Phone Number [facility] [address] [place] [address], [place] [phone] * (ABNORMAL) CBC auto differential (11/06/2024 5:55 AM EST) WBC 11.7(H) 4.8 - 10.8 K/[facility] LAB HEMETOLOGY METHOD 11/06/2024 6:40 AM [facility] RBC 4.50 4.50 - 5.50 M/mcL LAB HEMETOLOGY METHOD 11/06/2024 6:40 AM [facility] Hemoglobin 13.3(L) 13.5 - 17.5 g/dL LAB HEMETOLOGY METHOD 11/06/2024 6:40 AM [facility] Hematocrit 39.8(L) 42.0 - 54.0 % LAB HEMETOLOGY METHOD 11/06/2024 6:40 AM [facility] MCV 88.8 79.0 - 98.0 FL LAB HEMETOLOGY METHOD 11/06/2024 6:40 AM [facility] MCH 29.7 27.0 - 32.0 pcg LAB HEMETOLOGY METHOD 11/06/2024 6:40 AM [facility] MCHC 33.4 32.0 - 37.0 g/dL LAB HEMETOLOGY METHOD 11/06/2024 6:40 AM [facility] RDW 12.4 11.0 - 15.0 % LAB HEMETOLOGY METHOD 11/06/2024 6:40 AM [facility] Platelets 184 130 - 400 K/mcL LAB HEMETOLOGY METHOD 11/06/2024 6:40 AM [facility] MPV 9.1 7.0 - 11.0 FL LAB HEMETOLOGY METHOD 11/06/2024 6:40 AM [facility] NRBC 0.0 <1.0 % LAB HEMETOLOGY METHOD 11/06/2024 6:40 AM [facility] NRBC Absolute 0.00 <0.10 K/mcL LAB HEMETOLOGY METHOD 11/06/2024 6:40 AM [facility] Neutrophils Relative 74.8 % LAB HEMETOLOGY METHOD 11/06/2024 6:40 AM [facility] Lymphocytes Relative 17.1 % LAB HEMETOLOGY METHOD 11/06/2024 6:40 AM [facility] Monocytes Relative 7.2 % LAB HEMETOLOGY METHOD 11/06/2024 6:40 AM [facility] Eosinophils Relative 0.1 % LAB HEMETOLOGY METHOD 11/06/2024 6:40 AM [facility] Basophils Relative 0.1 % LAB HEMETOLOGY METHOD 11/06/2024 6:40 AM [facility] Immature Granulocytes Relative 0.7 % LAB HEMETOLOGY METHOD 11/06/2024 6:40 AM [facility] Neutrophils Absolute 8.79(H) 1.50 - 7.00 K/mcL LAB HEMETOLOGY METHOD 11/06/2024 6:40 AM [facility] Lymphocytes Absolute 2.01 1.00 - 5.00 K/mcL LAB HEMETOLOGY METHOD 11/06/2024 6:40 AM [facility] Monocytes Absolute 0.84 0.20 - 1.00 K/mcL LAB HEMETOLOGY METHOD 11/06/2024 6:40 AM [facility] Eosinophils Absolute 0.01 0.00 - 0.50 K/mcL LAB HEMETOLOGY METHOD 11/06/2024 6:40 AM [facility] Basophils Absolute 0.01 0.00 - 0.20 K/mcL LAB HEMETOLOGY METHOD 11/06/2024 6:40 AM [facility] Immature Granulocytes Absolute 0.08(H) 0.00 - 0.03 K/mcL LAB HEMETOLOGY METHOD 11/06/2024 6:40 AM [facility] Blood Venous blood specimen / Unknown Venipuncture / Unknown 11/06/2024 5:55 AM EST 11/06/2024 6:02 AM EST Christi BARCLAY LAB BLOOD ORDERABLES [facility] [address] [place] [address], * (ABNORMAL) Hemoglobin A1c (11/06/2024 5:55 AM EST) Pathologist [facility] [place] Hemoglobin A1C >14.8(H) <6.5 % LAB CHEMISTRY METHOD 11/06/2024 2:51 PM EST [facility] Mean Bld Glu Estim. LAB CHEMISTRY METHOD 11/06/2024 2:51 PM EST [facility] Comment:Unable to calculate due to HgB A1C being outside of the reportable range Blood Venous blood specimen / Unknown Venipuncture / Unknown 11/06/2024 5:55 AM EST 11/06/2024 6:02 AM EST Christi BARCLAY LAB BLOOD ORDERABLES Performing Organization Address City/[facility]/ZIP Co de Phone Number [facility] [address] [place] [address], * (ABNORMAL) Comprehensive metabolic panel (11/06/2024 5:55 AM EST) [facility] Sodium 135 133 - 145 mmol/L LAB CHEMISTRY METHOD 11/06/2024 6:26 AM EST [facility] Potassium 4.4 3.5 - 5.5 mmol/L LAB CHEMISTRY METHOD 11/06/2024 6:26 AM EST [facility] Chloride 100 96 - 110 mmol/L LAB CHEMISTRY METHOD 11/06/2024 6:26 AM EST [facility] CO2 27 21 - 32 mmol/L LAB CHEMISTRY METHOD 11/06/2024 6:26 AM [facility] Anion Gap 8 3 - 11 LAB CHEMISTRY METHOD 11/06/2024 6:26 AM [facility] Glucose 252(H) 70 - 100 mg/dL LAB CHEMISTRY METHOD 11/06/2024 6:26 AM [facility] BUN 20 5 - 25 mg/dL LAB CHEMISTRY METHOD 11/06/2024 6:26 AM [facility] Creatinine 0.69(L) 0.70 - 1.30 mg/dL LAB CHEMISTRY METHOD 11/06/2024 6:26 AM [facility] eGFR 118 >=60 mL/min/1. 73m2 LAB CHEMISTRY METHOD 11/06/2024 6:26 AM [facility] Comment:Calculation based on the??Chronic Kidney Disease Epidemiology Collaboration (CKD-EPI) equation refit??without adjustment for race. BUN/Creatinine Ratio 29.0 LAB CHEMISTRY METHOD 11/06/2024 6:26 AM [facility] Calcium 8.5 8.5 - 10.5 mg/dL LAB CHEMISTRY METHOD 11/06/2024 6:26 AM [facility] AST (SGOT) 6(L) 10 - 42 unit/L LAB CHEMISTRY METHOD 11/06/2024 6:26 AM [facility] ALT (SGPT) 36 10 - 60 unit/L LAB CHEMISTRY METHOD 11/06/2024 6:26 AM [facility] Alkaline Phosphatase 82 42 - 121 unit/L LAB CHEMISTRY METHOD 11/06/2024 6:26 AM [facility] Total Protein 5.7(L) 6.0 - 8.0 g/dL LAB CHEMISTRY METHOD 11/06/2024 6:26 AM [facility] Albumin 2.8(L) 3.2 - 5.0 g/dL LAB CHEMISTRY METHOD 11/06/2024 6:26 AM [facility] Total Bilirubin 0.4 0.0 - 1.4 mg/dL LAB CHEMISTRY METHOD 11/06/2024 6:26 AM [facility] Blood Venous blood specimen / Unknown Venipuncture / Unknown 11/06/2024 5:55 AM EST 11/06/2024 6:01 AM EST Christi BARCLAY LAB BLOOD ORDERABLES [facility] [address] [place] [address], * CT Chest w Contrast (11/05/2024 11:25 [...] - 100 mg/dL 11/05/2024 11:20 PM EST [facility] Blood Capillary blood specimen / Unknown 11/05/2024 11:17 PM EST 11/05/2024 11:22 PM EST Ramón Arroyo MD LAB POINT OF CARE TE ST DOCKED DEVICE UNSOLICITED RESULTS [facility] [address] [place] [address], * Blood Culture, Peripheral Draw #1 (11/05/2024 6:38 PM EST) Culture, Blood No growth at 5 days LAB MICROBIOLOGY METHOD 11/10/2024 7:01 PM EST [facility] Blood Venous blood specimen / Unknown Venipuncture / Unknown 11/05/2024 6:38 PM EST 11/05/2024 6:46 PM EST Ramón Arroyo MD LAB MICROBIOLOGY - G ENERAL ORDERABLES [facility] [address] [place] [address], * (ABNORMAL) Beta hydroxybutyrate (11/05/2024 6:28 PM EST) Beta-Hydroxyb utyrate 12.0(H) 0.2 - 2.8 mg/dL LAB CHEMISTRY METHOD 11/05/2024 8:41 PM EST [facility] Blood Venous blood specimen / Unknown Venipuncture / Unknown 11/05/2024 6:28 PM EST 11/05/2024 6:40 PM EST Herb BARCLAY LAB BLOOD ORDERABLES Performing Organization Address [facility]/ZIP Co de Phone Number [facility] [address] [place] [address], * (ABNORMAL) CBC auto differential (11/05/2024 6:28 PM EST) Pathologist [facility] [place] WBC 13.8(H) 4.8 - 10.8 K/[facility] LAB HEMETOLOGY METHOD 11/05/2024 6:49 PM EST [facility] RBC 5.00 4.50 - 5.50 M/[facility] LAB HEMETOLOGY METHOD 11/05/2024 6:49 PM EST [facility] Hemoglobin 14.8 13.5 - 17.5 g/dL LAB HEMETOLOGY METHOD 11/05/2024 6:49 PM EST [facility] Hematocrit 43.0 42.0 - 54.0 % LAB HEMETOLOGY METHOD 11/05/2024 6:49 PM EST [facility] MCV 86.5 79.0 - 98.0 FL LAB HEMETOLOGY METHOD 11/05/2024 6:49 PM [facility] MCH 29.8 27.0 - 32.0 pcg LAB HEMETOLOGY METHOD 11/05/2024 6:49 PM [facility] MCHC 34.4 32.0 - 37.0 g/dL LAB HEMETOLOGY METHOD 11/05/2024 6:49 PM [facility] RDW 12.3 11.0 - 15.0 % LAB HEMETOLOGY METHOD 11/05/2024 6:49 PM [facility] Platelets 231 130 - 400 K/mcL LAB HEMETOLOGY METHOD 11/05/2024 6:49 PM [facility] MPV 9.5 7.0 - 11.0 FL LAB HEMETOLOGY METHOD 11/05/2024 6:49 PM [facility] NRBC 0.0 <1.0 % LAB HEMETOLOGY METHOD 11/05/2024 6:49 PM [facility] NRBC Absolute 0.00 <0.10 K/mcL LAB HEMETOLOGY METHOD 11/05/2024 6:49 PM [facility] Neutrophils Relative 90.5 % LAB HEMETOLOGY METHOD 11/05/2024 6:49 PM [facility] Lymphocytes Relative 4.5 % LAB HEMETOLOGY METHOD 11/05/2024 6:49 PM [facility] Monocytes Relative 4.4 % LAB HEMETOLOGY METHOD 11/05/2024 6:49 PM [facility] Eosinophils Relative 0.0 % LAB HEMETOLOGY METHOD 11/05/2024 6:49 PM [facility] Basophils Relative 0.1 % LAB HEMETOLOGY METHOD 11/05/2024 6:49 PM [facility] Immature Granulocytes Relative 0.5 % LAB HEMETOLOGY METHOD 11/05/2024 6:49 PM EST [facility] Neutrophils Absolute 12.48(H) 1.50 - 7.00 K/[facility] HEMETOLOGY METHOD 11/05/2024 6:49 PM EST [facility] Lymphocytes Absolute 0.62(L) 1.00 - 5.00 K/mcL LAB HEMETOLOGY METHOD 11/05/2024 6:49 PM EST [facility] Monocytes Absolute 0.60 0.20 - 1.00 K/[facility] HEMETOLOGY METHOD 11/05/2024 6:49 PM EST [facility] Eosinophils Absolute 0.00 0.00 - 0.50 K/[facility] HEMETOLOGY METHOD 11/05/2024 6:49 PM EST [facility] Basophils Absolute 0.01 0.00 - 0.20 K/mcL LAB HEMETOLOGY METHOD 11/05/2024 6:49 PM EST [facility] Immature Granulocytes Absolute 0.07(H) 0.00 - 0.03 K/[facility] HEMETOLOGY METHOD 11/05/2024 6:49 PM EST [facility] Blood Venous blood specimen / Unknown Venipuncture / Unknown 11/05/2024 6:28 PM EST 11/05/2024 6:40 PM EST Ramón Arroyo MD LAB BLOOD ORDERABLES [facility] [address] [place] [address], * Blood Culture, Peripheral Draw #2 (11/05/2024 6:28 PM EST) Culture, Blood No growth at 5 days LAB MICROBIOLOGY METHOD 11/10/2024 7:01 PM EST [facility] Blood Venous blood specimen / Unknown Venipuncture / Unknown 11/05/2024 6:28 PM EST 11/05/2024 6:38 PM EST Ramón Arroyo MD LAB MICROBIOLOGY - G ENERAL ORDERABLES [facility] [address] [place] [address], [place] [phone] * Lactate (11/05/2024 6:28 PM EST) [facility] Lactate 1.4 0.4 - 2.0 mmol/L LAB CHEMISTRY METHOD 11/05/2024 7:11 PM EST [facility] Blood Venous blood specimen / Unknown Venipuncture / Unknown 11/05/2024 6:28 PM EST 11/05/2024 6:38 PM EST Ramón Arroyo MD LAB BLOOD ORDERABLES Performing Organization Address [facility]/ZIP Co de Phone Number [facility] [address] [place] [address], [place] [phone] * (ABNORMAL) Basic metabolic panel (11/05/2024 6:28 PM EST) [facility] Sodium 123(L) 133 - 145 mmol/L LAB CHEMISTRY METHOD 11/05/2024 7:17 PM [facility] Potassium 5.0 3.5 - 5.5 mmol/L LAB CHEMISTRY METHOD 11/05/2024 7:17 PM [facility] Chloride 91(L) 96 - 110 mmol/L LAB CHEMISTRY METHOD 11/05/2024 7:17 PM [facility] CO2 24 21 - 32 mmol/L LAB CHEMISTRY METHOD 11/05/2024 7:17 PM [facility] Anion Gap 8 3 - 11 LAB CHEMISTRY METHOD 11/05/2024 7:17 PM [facility] Glucose 780(HH) 70 - 100 mg/dL LAB CHEMISTRY METHOD 11/05/2024 7:17 PM [facility] BUN 30(H) 5 - 25 mg/dL LAB CHEMISTRY METHOD 11/05/2024 7:17 PM EST [facility] Creatinine 1.09 0.70 - 1.30 mg/dL LAB CHEMISTRY METHOD 11/05/2024 7:17 PM EST [facility] eGFR 86 >=60 mL/min/1. 73m2 LAB CHEMISTRY METHOD 11/05/2024 7:17 PM EST [facility] Comment:Calculation based on the??Chronic Kidney Disease Epidemiology Collaboration (CKD-EPI) equation refit??without adjustment for race. BUN/Creatinine Ratio 27.5 LAB CHEMISTRY METHOD 11/05/2024 7:17 PM EST [facility] Calcium 9.3 8.5 - 10.5 mg/dL LAB CHEMISTRY METHOD 11/05/2024 7:17 PM EST [facility] Blood Venous blood specimen / Unknown Venipuncture / Unknown 11/05/2024 6:28 PM EST 11/05/2024 6:40 PM EST Ramón Arroyo MD LAB BLOOD ORDERABLES [facility] [address] [place] [address], documented in this encounter Visit Diagnoses Diagnosis [...] Given 11/10/2024 2:54 PM EST 1,000 mg dextrose (D50W) 50% injection 12.5 g 12.5 [...] swallow safely*, Starting on Tue11/05/24 at 2224 enoxaparin (LOVENOX) injection 40 mg 40 mg, subcutaneous, Every 12 hours scheduled, First dose (after last modification) on Tue11/06/24 at 2100, Phase II/On Unit, Thera sub for daily dosing in OBESITY, Indication: VTE/PE Prophylaxis Given 11/11/2024 8:21 AM EST 40 mg Left Upper Arm (Back ) Given 11/10/2024 9:39 PM EST 40 mg Ri ght Upper Arm (Back) Given 11/10/2024 10:23 AM EST 40 mg L eft Upper Arm (Back) Glucagon HCl (rDNA) injection 1 mg 1 [...] severe pain, Starting on 11/10/24 at 1015 Given 11/11/2024 5:20 AM EST 4 mg Given 11/10/2024 9:35 PM EST 4 mg Given 11/10/2024 3:00 PM EST 4 mg HYDROmorphone (PF) injection 0.5 mg 0.5 mg, intravenous, Every 4 hours PRN, severe pain, Starting on Tue11/09/24 at 2237, Second line for severe pain if unable to tolerate PO Given 11/11/2024 12:19 AM EST 0.5 mg insulin glargine (LANTUS) injection 50 Units 50 [...] 8 Units Le ft Upper Arm (Back) lidocaine 4 % patch 1 patch 1 patch, Topical, Administer over 12 Hours, Daily, First dose on Tue11/08/24 at 1015, Apply to LEFT trapezius. Patch Applied 11/11/2024 8:22 AM EST 1 patch O ther Patch Applied 11/10/2024 10:25 AM EST 1 patch Other Patch Applied 11/09/2024 9:56 AM EST 1 patch Other lidocaine-EPINEPHrine (XYLOCAINE W/EPI) 1 %-1:100,000 injection As needed, Starting on Tue11/09/24 at 1116, Intraprocedure Given 11/09/2024 11:16 AM EST 40 mL metFORMIN (GLUCOPHAGE) tablet 1,000 mg 1,000 mg, oral, 2 times daily with meals, First dose on Tue11/10/24 at 1715 Given 11/11/2024 8:21 AM EST 1,000 mg Given 11/10/2024 5:16 PM EST 1,000 mg nystatin (MYCOSTATIN) 100,000 unit/mL suspension 500,000 [...] Given 11/10/2024 1:24 AM EST 4 mg documented in this encounter Discontinued Medications Medication [...] II/On Unit 0546 (Given - Provider: Ashlee Ram, JERRI)1032 (DEC Hold - Provider: Automatic Transfer Provider - Reason: Patient not available)1039 (MAR Unhold - Provider: Automatic Transfer Provider)1429 (Given [...] - Provider: Yvette Collins RN - Comment: lyssa vancjoey)1243 (Given - Provider: Rajesh Montoya, JERRI) 0020 (Given - Provider: Yvette Collins RN) doxycycline (MONODOX) capsule 100 mg (COMPLETED) 100 mg, oral, Once, On Tue11/11/24 at [...] Automatic Transfer Provider)2034 (Given - Provider: Yvette Collins RN) 102 (Given - Provider: Rajesh Montoya RN - Comment: advised that abd is prefered admin site. patient refused and insisted on arms only)2138 (Given - Provider: Yvette Collins RN) 820 (Given - Provider: Rajesh Montoya RN - [...] available)103 (DEC Unhold - Provider: Automatic Transfer Provider)2156 (Given - Provider: Yvette Collins, JERRI) insulin glargine (LANTUS) injection 50 Units 50 Units, subcutaneous, Nightly, First dose on Tue11/10/24 at 2100, Notify provider: -If patient is currently or will become NPO -If TPN was or will be interrupted or discontinued -For approval to hold long acting insulin 2143 (Given - Provider: Yvette Collins, JERRI) insulin lispro injection 2-12 Units 2-12 Units, [...] For 1 dose 0247 (Given - Provider: Yvette Collins RN) levoFLOXacin (LEVAQUIN) tablet 750 mg [...] available)1039 (DEC Unhold - Provider: Automatic Transfer Provider)2158 (Patch [...] Skin/Soft Tissue 0045 (Stopped - Provider: Ashlee Ram RN)0546 (New Bag - Provider: Ashlee Ram RN)0746 (Stopped - Provider: Court Lara RN)1032 (DEC [...] RN) 0521 (New Bag - Provider: Yvette Collins RN)0908 (Stopped - Provider: Rajesh Montoya RN) Continuous Medication Order 11/09/2024 11/10/2024 11/11/2024 lactated Ringer's infusion (CANCELED) 100 mL/hr, intravenous, Continuous, Starting on Tue11/09/24 at 1230, Recovery (only) 1200 (Continued from OR - Provider: Renata Lyons, JERRI)1245 (Stopped - Provider: Renata Lyons, JERRI) PRN Medication Order 11/09/2024 11/10/2024 11/11/2024 dextrose [...] Starting on Tue11/05/24 at 2224 1032 ([facility] Hold - Provider: Automatic Transfer Provider - Reason: Patient not available)1039 ([facility] Unhold - Provider: Automatic Transfer Provider) dextrose 15 gram/60 mL oral solution 15 g 15 g, oral, Every 15 min PRN, low blood sugar, hypoglycemia *Patient conscious AND able to drink and swallow safely*, Starting on Tue11/05/24 at 2224 1032 ([facility] Hold - Provider: Automatic Transfer Provider - Reason: Patient not available)1039 ([facility] Unhold - Provider: Automatic Transfer Provider) dextrose 15 gram/60 mL oral solution 30 g 30 g, oral, Every 15 min PRN, low blood sugar, hypoglycemia *Patient conscious AND able to drink and swallow safely*, Starting on Tue11/05/24 at 2224 1032 ([facility] Hold - Provider: Automatic Transfer Provider - Reason: Patient not available)1039 ([facility] Unhold - Provider: Automatic Transfer Provider) Glucagon HCl (rDNA) injection 1 mg 1 mg, intramuscular, Once as needed, low blood sugar, severe hypoglycemia, Starting on Tue11/05/24 at 2224, For 1 dose 1032 ([facility] Hold - Provider: Automatic Transfer Provider - Reason: Patient not available)1039 ([facility] Unhold - Provider: Automatic Transfer Provider) [...] Rajesh Montoya RN)2135 (Given - Provider: Yvette Collins RN) 0520 (Given - Provider: vYette Collins RN) HYDROmorphone (PF) injection 0.5 mg [...] provider if no further options ordered. 1032 (MAR Hold - Provider: Automatic Transfer Provider - Reason: Patient not available)1039 ([facility] Unhold - Provider: Automatic Transfer Provider) 0124 [...] allow tablet to dissolve on tongue. 1032 (MAR Hold - Provider: Automatic Transfer Provider - Reason: Patient not available)1039 (MAR Unhold - Provider: Automatic Transfer Provider) 0124 (Given - Provider: Yvette Collins RN) oxyCODONE (ROXICODONE) immediate release tablet 10 mg (CANCELED) 10 mg, oral, Every 4 hours PRN, severe pain, Starting on Tue11/06/24 at 1025, Phase II/On Unit, First line for severe pain (7-10) 0443 (Given - Provider: Ashlee Ram RN)1032 (MAR Hold - Provider: Automatic Transfer Provider - Reason: Patient not available)1039 (MAR Unhold - Provider: Automatic Transfer Provider)1428 (Given - Provider: Court Lara, RN)2032 (Given - Provider: Yvette Collins, RN) 0538 (Given - Provider: Yvette Collins, RN) Linked Groups Order Group 1: ondansetron [...] Count Last Ordered Date First Ordered Date doxycycline (MONODOX) capsule 100 mg 1 10/24 HYDROmorphone (DILAUDID) tablet 2 mg 2 10/2411/10/2024 levoFLOXacin (LEVAQUIN) tablet 750 mg 2 glipiZIDE (GLUCOTROL XL) 24 hr tablet 5 mg 11/10/2024 HYDROmorphone (DILAUDID) tablet 4 mg 1 10/24 insulin glargine (LANTUS) in jection 50 Units 11/10/2024 insulin lispro injection 4 Units 11/10/19 magnesium sulfate 2 gram/50 mL (4 %) IVPB 2 g 2 11/10/2024 metFORMIN (GLUCOPHAGE) tablet 1,000 mg 1 morphine 2 mg/mL injection 2 mg 1 nystatin (MYCOSTATIN) 100,00 0 unit/mL suspension 500,000 Units 11/10/2024 acetaminophen (TYLENOL) tablet 650 mg 2 11/06/2024 HYDROmorphone (PF) injection 0.5 mg 3 11/0911/06/2024 lactated Ringer's infusion 1 11/09/2024 ondansetron (PF) (ZOFRAN) injection 4 mg 3 11/09/2024 11/06/2024 ondansetron ODT (ZOFRAN-ODT) disintegrating tablet 4 mg 2 11/09/2024 11/07/2024 oxyCODONE (ROXICODONE) immed iate release tablet 5 mg 4 11/09/2024 11/06/2024 insulin glargine (LANTUS) in jection 40 Units 1 11/08/2024 iopamidoL (ISOVUE-370) 370 m g iodine /mL (76 %) injection 120 mL 1 11/08/2024 lidocaine 4 % patch 1 patch 1 11/08/2024 sodium chloride 0.9 % flush 10 mL 2 025 11/05/2024 vancomycin (VANCOCIN) IVPB 2 ,000 mg in 0.9 % sodium chloride 500 mL - CNR 2 11/08/2024 acetaminophen (TYLENOL) tablet 1,000 mg 2 0 11/06/2024 clindamycin (CLEOCIN) 900 mg /50 mL IVPB 900 mg 1 11/06/2024 dextromethorphan-guaiFENesin (ROBITUSSIN-DM) 10-100 mg/5 mL syrup 10 mL 1 11/06/2024 enoxaparin (LOVENOX) injection 40 mg 2 10/2411/05/2024 fentaNYL (PF) (SUBLIMAZE) injection 50 mcg 1 11/06/2024 haloperidol lactate (HALDOL) injection 1 mg 1 11/06/2024 HYDROmorphone (DILAUDID) injection 0.5 mg 1 11/06/2024 insulin glargine (LANTUS) in jection 30 Units 1 11/06/2024 insulin lispro injection 10 Units 1 025 lidocaine (XYLOCAINE) 1 % injection 1 11/06 oxyCODONE (ROXICODONE) immed iate release tablet 10 mg 1 11/06/2024 vancomycin (VANCOCIN) IVPB 1 ,500 mg in 0.9 % sodium chloride 500 mL - CNR 1 11/06/2024 cefepime (MAXIPIME) 2 g in s terile water 20 mL IV syringe 1 11/05/2024 cefTRIAXone (ROCEPHIN) 2 g i n sterile water 20 mL IV syringe 1 11/05/2024 dextrose (D50W) 50% injection 12.5 g 1 10/24 dextrose (D50W) 50% injection 25 g 1 2024 dextrose 15 gram/60 mL oral solution 15 g 1 11/05/2024 dextrose 15 gram/60 mL oral solution 30 g 1 11/05/2024 Glucagon HCl (rDNA) injection 1 mg 1 2024 ibuprofen (ADVIL,MOTRIN) tablet 600 mg 1 insulin glargine (LANTUS) in jection 10 Units 1 11/05/2024 insulin lispro injection 2-12 Units 2 11/05 insulin lispro injection 8 Units 1 11/05/19 insulin regular (HumuLIN R) injection 5 Units 1 11/05/2024 iopamidoL (ISOVUE-370) 370 m g iodine /mL (76 %) injection 100 mL 1 11/05/2024 sodium chloride 0.9 % bolus 1,000 mL 2 10/24 sodium chloride 0.9 % infusion 1 11/05/2024 Lab Orders Without Results Count Last Ordered [...] 11/06/2024 documented in this encounter Care Teams Sports Management Intern Relationship Specialty Start Date End Date Brandie Lopez MD [address] [place] [id number] PCP - General Internal Medicine 10/13/18 documented as of this encounter
--- OUTSIDE RECORDS SUMMARY | 2024-11-13 18:01 | XMS_ITS | Encounter Summary ---
Author Organization [facility] Address [address] [place] [address] Care Team Providers Care Fast Food Cook Name Role Phone Brandie Lopez MD Primary Care Provider [phone] Reason for Visit * Auth/Cert (Routine) Specialty Diagnoses / Procedures Referred By Contac t Referred To Contact Diagnoses Hyperglycemia Abscess of back Cellulitis of back except buttock Procedures OR HOSPITAL IP/OBS CARE INITIAL MODERATE LEVEL PER DAY . Ramón Arroyo MD [address] [place] [address] [phone] Referral ID Status Reason Start Date Expiration Date Visits Re quested Visits Authorized [id number] 1 1 Encounter Details Date Type Department Care Team (Late st Contact Info) Description 11/06/2024 9:36 AM EST Anesthesia Event [address] [phone] Varun Alonso MD [address] [place] [id number] Marcia Tony CRNA [address] [place] [id number] Anesthesia Record Procedure Summary Procedure Name Responsible Anesthesiologist Anesthesia Start Time Anesthesia Stop Time INCISION DRAINAGE ABSCESS, excisional debridment, skin and subcutaneous fat Varun lAonso MD 11/06/24 0936 11/06/24 1021 Events Date Time Event Comment 11/06/2024 0927 0931 Andres Vancomycin 2g i nfusing from holding 0936 An Start 0936 In Room 0939 An Start Data The patient wa s reevaluated immediately before moderate or deep sedation use and before anesthesia induction. 0943 Anesthesia Ready 0951 Proc Start 0956 Andres Suction in plac e under drapes to evacuate oxygen 1010 an stop data 1012 Proc Fin 1016 Out of Room 1021 Handoff to RN I completed my handoff to the receiving nurse during which we: 1. Identified the patient 2. Identified the responsible provider 3. Reviewed the pertinent medical history 4. Discussed the surgical course 5. Reviewed intra-op anesthesia management and issues during anesthesia 6. Set expectations for post-procedure period 7. Allowed opportunity for questions and acknowledgement of understanding. 1021 An Stop Meds Name Total fentaNYL 0.05 mg/mL 100 mcg midazolam 1 mg/mL 2 mg dexmedeTOMIDine (PRECEDEX) 200 mcg/50 mL infusion 16 mcg metoclopramide (REGLAN) injection 10 mg lactated Ringer's infusion 100 mL * Agents Name O2 N2O Air Sevoflurane Inspired Sevoflurane * Blood No blood administrations on file. Lines, Drains, and Airways Type Details Placement Removal Wound Incision; N; Back; L eft, Upper 11/06/24953 by Peripheral IV Placement Date: 11/05/24; Placement Time: 2006; Catheter Size: 20 G; Orientation: Anterior, Distal, Left, Upper; Location: Antecubital; Removal Date: 11/08/24; Removal Time: 2016; Removal Reason: Site change 11/05/242006 by Darrel Viera RN 11/08/242016 by Consuelo Ogden RN documented in this encounter Social History [...] as of this encounter Progress Notes * Marcia Tony CRNA - 11/06/2024 10:21 AM EST Patient: Mark Yen Procedure Summary Date: 11/06/24 Room / Location: [facility] OR 02 / [facility] OR Anesthesia Start: 0936 Anesthesia Stop: 1021 Procedure: INCISION DRAINAGE ABSCESS, excisional debridment, skin and subcutaneous fat Diagnosis: Abscess of back Surgeons: Dilshad Isaacs DO Responsible Provider: Varun Alonso MD Anesthesia Type: MAC ASA Status: 3 Anesthesia Plan: MAC Last Vitals: Vitals Value Taken Time BP 135/66 11/06/24 1021 Temp 98.6 11/06/24 1021 Pulse 88 11/06/24 1021 Resp 16 11/06/24 1021 SpO2 97 11/06/24 1021 Pain Score: 0 - No pain Anesthesia Post Evaluation Patient location during evaluation: PACU Patient participation: complete - patient participated Level of consciousness: awake and alert Pain score: 0 Pain management: adequate Airway patency: patent Anesthetic complications: no Cardiovascular status: acceptable Respiratory status: acceptable Hydration status: acceptable Nausea: No Vomiting: No There were no known notable events for this encounter. * Varun Alonso MD - 11/06/2024 9:24 AM EST 44 y.o. male scheduled for I&D of back abscess with excisional debridement [] Ht Readings from Last 1 Encounters: 11/05/24 1.727 m (68 ) Wt Readings from Last 1 Encounters: 11/05/24 122 kg (270 lb) Body mass index is 41.05 kg/m??. Past Medical History: Diagnosis Date Allergic rhinitis 01/05/2016 DX:Allergic rhinitis Anxiety 08/09/2016 DX:Anxiety Asthma 01/05/2016 DX:Asthma Chronic hepatitis B (CMS/HCC) 08/18/2018 DX:Chronic hepatitis B (HCC) Diabetes mellitus (CMS/HCC) Fatty liver 12/06/2016 DX:Fatty liver GERD (gastroesophageal reflux disease) 12/06/2016 DX:GERD (gastroesophageal reflux disease) Helicobacter pylori infection 07/11/2018 DX:Helicobacter pylori infection Hyperlipidemia 12/06/2016 DX:Hyperlipidemia Morbid obesity with BMI of 40.0-44.9, adult ([facility]/HCC) 12/06/2016 DX:Morbid obesity with BMI of 40.0-44.9, adult ([facility]) Obstructive sleep apnea 12/06/2016 DX:Obstructive sleep apnea [...] No Drug use: No Visit Vitals BP 104/77 (BP Location: Left arm, Patient Position: Lying) Pulse 82 Temp 36.5 ??C (97.7 ??F) Resp 17 Ht 1.727 m (68 ) Wt 122 kg (270 lb) SpO2 99% BMI 41.05 kg/m?? Smoking Status Never BSA 2.32 m?? Available cardiac studies reviewed: CT Chest w Contrast Result Date: 11/05/2024 [...] LABS: Lab Results Component Value Date WBC 11.7 (H) 11/06/2024 HGB 13.3 (L) 11/06/2024 HCT 39.8 (L) 11/06/2024 MCV 88.8 11/06/2024 PLT 184 11/06/2024 Lab Results Component Value Date GLUCOSE 222 (H) 11/06/2024 CALCIUM 8.5 11/06/2024 NA 135 11/06/2024 K 4.4 11/06/2024 CO2 27 11/06/2024 CL 100 11/06/2024 BUN 20 11/06/2024 CREATININE 0.69 (L) 11/06/2024 No results found for: INR , PROTIME No results found for: PTT Denies cardiac, pulm, neuro, hepatic or renal s/sx. Patient meets ASA guidelines for NPO status. > 4 mets without anginal symptoms. Relevant labs, vitals, imaging, cardiac and pulmonary studies as well as HPI, Meds, Allergies, ROS,PMH, PSH, SH, and FH reviewed. Relevant Problems Pulmonary (+) Asthma (+) Obstructive sleep apnea GI (+) Chronic hepatitis B (CMS/HCC) (+) Fatty liver (+) GERD (gastroesophageal reflux disease) Clinical information reviewed: Tobacco Allergies Meds Problems Med Hx Surg Hx Fam Hx Soc Hx Anesthesia Plan ASA 3 Anesthesia Plan: MAC Anesthesia Considerations MAC Anesthetic plan and risks discussed with patient. Anesthesia Evaluation Airway Mallampati: III Thyromental distance: > 3 finger breadths Neck ROM: limitedincreased risk of difficult airway Dental - normal exam Pulmonary (+) asthma, sleep apnea, decreased breath sounds PE comment: Cough Cardiovascular - normal exam Neuro/Psych GI/Hepatic/Renal (+) GERD, hepatitis, liver disease Comments: Hep B Fatty Liver Endo/Other (+) diabetes mellitus poorly controlled Abdominal PONV RISK SCORE: 2 Vitals: 11/05/24 1759 11/06/24 0144 BP: 137/82 104/77 BP Location: Left arm Patient Position: Lying Pulse: 89 82 Resp: 18 17 Temp: 36.5 ??C (97.7 ??F) SpO2: 97% 99% Weight: 122 kg (270 lb) Height: 1.727 m (68 ) SpO2 Readings from Last 1 Encounters: 11/06/24 99% WBC Date Value Ref Range Status 11/06/2024 11.7 (H) 4.8 - 10.8 K/mcL Final RBC Date Value Ref Range Status 11/06/2024 4.50 4.50 - 5.50 M/mcL Final Hemoglobin Date Value Ref Range Status 11/06/2024 13.3 (L) 13.5 - 17.5 g/dL Final Hematocrit Date Value Ref Range Status 11/06/2024 39.8 (L) 42.0 - 54.0 % Final Platelets Date Value Ref Range Status 11/06/2024 184 130 - 400 K/mcL Final MCV Date Value Ref Range Status 11/06/2024 88.8 79.0 - 98.0 FL Final No Known Allergies STOP BANG: No data recorded NPO Status: No data recorded documented in this encounter Plan of Treatment Upcoming Encounters Date Type Department Care Team (Late st Contact Info) Description 11/27/2024 3:45 PM EST Office Visit General Surgery - [place] [address] [facility] [address] [place] [phone] Dilshad sIaacs, DO 175 [facility] [address] [place] [address] 12/05/2024 10:00 AM EST Hospital Encounter [facility] [address] [place] [phone] Aurelio Riggins MD 175 [facility] [address] [place] [address] 12/25/2024 9:15 AM EST Office Visit Gastroenterology - [place] 175 [facility] [address] [facility] [address] [place] [phone] Aurelio Riggins MD [address] [place] [address] [place] [address] documented as of this encounter Visit Diagnoses Not on filedocumented in this encounter Administered Medications Inactive Administered Medications - up to 3 most recent administrations Medication Order MAR Action Action Date Dose Rate Site dexmedeTOMIDine (PRECEDEX) infusion 200 mcg in 0.9 % sodium chloride 50 mL (4 mcg/mL) - CNR intravenous, As needed, Starting on Tue11/06/24 at 0945, Anesthesia Intraprocedure Given 11/06/2024 9:45 AM EST 8 mcg Given 11/06/2024 9:37 AM EST 8 mcg fentaNYL (PF) (SUBLIMAZE) injection intravenous, As needed, Starting on Tue11/06/24 at 0955, Anesthesia Intraprocedure Given 11/06/2024 9:55 AM EST 5 0 mcg Given 11/06/2024 9:40 AM EST 50 mcg lactated Ringer's infusion intravenous, Continuous PRN, Starting on Tue11/06/24 at 0944, Anesthesia Intraprocedure Restarted 11/06/2024 10:10 AM EST New Bag 11/06/2024 9:44 AM EST 75 mL/hr metoclopramide (REGLAN) injection intravenous, As needed, Starting on Tue11/06/24 at 0934, Anesthesia Intraprocedure Given 11/06/2024 9:34 AM EST 1 0 mg midazolam (VERSED) injection intravenous, As needed, Starting on Tue11/06/24 at 0933, Anesthesia Intraprocedure Given 11/06/2024 9:44 AM EST 1 mg Given 11/06/2024 9:33 AM EST 1 mg documented in this encounter Care Teams Fast Food Cook Relationship Specialty Start Date End Date Brandie Lopez MD [address] [place] [phone] PCP - General Internal Medicine 10/13/18 documented as of this encounter
--- OUTSIDE RECORDS SUMMARY | 2024-11-13 18:01 | XMS_ITS | Clinical Summary ---
Author Organization [facility] Address [address] [place] [address] Phone Care Team Providers Care Separator Tender Name Role Phone Brandie Lopez MD Primary Care Provider [phone] Allergies No known active allergies Medications Medication Sig Dispensed Refills Start Date End Date Status metFORMIN (GLUCOPHAGE) 1,000 mg tablet Take 1 tablet (1,000 mg total) by mouth 2 (two) times a day with meals. 10/02/2024 Active lidocaine 4 % patch Apply 1 patch topically 1 (one) time each day for 7 days. 7 each 11/12/2024 5 Active nystatin (MYCOSTATIN) 100,000 unit/mL suspension Swish and swallow 5 mL (500,000 Units total) 4 (four) times a day for 26 doses. 130 mL 11/11/2024 5 Active doxycycline (VIBRAMYCIN) 100 mg capsule Take 1 capsule (100 mg total) by mouth 2 (two) times a day for 7 days. Take with at least 8 ounces (large glass) of water, do not lie down for 30 minutes after 14 each 11/11/2024 5 Active insulin glargine (LANTUS SoloStar) 100 unit/mL (3 mL) injection pen Inject 40 Units under the skin at bedtime. 15 mL 11/11/2024 5 Active HYDROmorphone (DILAUDID) 2 mg tablet Take 1 tablet (2 mg total) by mouth every 4 (four) hours if needed for severe pain for up to 5 days. Max Daily Amount: 12 mg 10 tablet 11/11/2024 Active levoFLOXacin (LEVAQUIN) 750 mg tablet Take 1 tablet (750 mg total) by mouth 1 (one) time each day for 7 doses. 7 each 11/12/2024 Active oxyCODONE-acetam inophen (PERCOCET) 5-325 mg per tablet Take 1 tablet by mouth See administration instructions. Take 1 tablet 30 minutes prior to planned wound vac/ dressing change 12 tablet 11/13/2024 Active amoxicillin (AMOXIL) 500 mg tablet Please take 2 tabs by mouth twice daily for 2 wks. 07/17/2024 Discontinue d(Therapy completed) esomeprazole (NexIUM) [address] capsule 20 mg 4 times daily. TAKE 2 CAPS IN AM BEFORE BREAKFAST AND 2 CAPS BEFORE DINNER 08/21/2015 5 Discontinue d(Therapy completed) fluticasone propionate (FLONASE) 50 mcg/actuation nasal spray INSTILL 2 SQUIRT TWICE DAILY 12/06/2016 5 Discontinue d(Therapy completed) Active Problems Problem Noted Date Diagnosed Date Hyperglycemia 11/05/2024 Morbid obesity with BMI of 40.0-44.9, adult 07/24 Bloating 10/16/2018 Epigastric pain 10/16/2018 Chronic hepatitis B 08/18/2018 Bacterial infection due to H. pylori 07/11/2018 Fatty liver 12/06/2016 GERD (gastroesophageal reflux disease) 7 Hyperlipidemia 12/06/2016 Obstructive sleep apnea 12/06/2016 Anxiety 08/09/2016 Allergic rhinitis 01/05/2016 Asthma 01/05/2016 Resolved Problems Problem Noted Date Diagnosed Date Resolved Date Abscess of back 11/05/2024 11/11/2024 Encounters Date Type Department Care Team Description 11/13/2024 Telephone General Surgery - [place] 175 [facility] [address] [place] [address] Hamlet Garvey MD pain (Pain while changing wound vac) 11/09/2024 10:47 AM EST Anesthesia Event [facility] Main OR [address] [place] [address] Hamlet Dunaway MD Dickman, Christy L, PARTS LISTER 11/09/2024 10:35 AM EST - 11/09/2024 12:05 PM EST Surgery [facility] Main OR [address] [place] [address] Dilshad Isaacs, DO DEBRIDEMENT EXPLORATION BACK WOUND 11/06/2024 9:36 AM EST Anesthesia Event [facility] OR [address] [place] [phone] Varun Alonso MD Hard, Shannon, PARTS LISTER 11/06/2024 9:24 AM EST - 11/06/2024 10:54 AM EST Surgery [facility] Main OR [address] [place] [address] Dilshad Isaacs, DO INCISION DRAINAGE ABSCESS, excisional debridment, skin and subcutaneous fat 11/05/2024 7:30 PM EST - 11/11/2024 12:23 PM EST Hospital Encounter [facility] Medical Surgical Unit [address] [place] [phone] Ramón Arroyo MD Zipagan, James T, MD Cellulitis of back except buttock (Primary Dx); Hyperglycemia; Abscess of back Discharge Disposition: Home-Health Care [facility] [place] [place] from Last 3 Months Surgical History Surgery Date Site/Laterality Comments CHOLECYSTECTOMY Medical History Medical History Date Comments Chronic hepatitis B (CMS/HCC) 08/18/2018 DX :Chronic hepatitis B (HCC) Allergic rhinitis 01/05/2016 DX:Allergic rh initis Anxiety 08/09/2016 DX:Anxiety Asthma 01/05/2016 DX:Asthma Fatty liver 12/06/2016 DX:Fatty liver GERD (gastroesophageal reflux disease) 12/06/2016 DX:GERD (gastroesophageal reflux disease) Helicobacter pylori infection 07/11/2018 DX :Helicobacter pylori infection Hyperlipidemia 12/06/2016 DX:Hyperlipidemi a Morbid obesity with BMI of 4 0.0-44.9, adult (CMS/HCC) 12/06/2016 DX:Morbid obesity with BMI o f 40.0-44.9, adult ([facility]) Obstructive sleep apnea 12/06/2016 DX:Obstr uctive sleep apnea Diabetes mellitus (CMS/HCC) Family History Medical History Relation Name Comments No Known Problems Father No Known Problems Mother Relation Name Status Comments Father Mother Social History Tobacco Use Types Packs/Day Years [...] file Not on file Not on file Obstetrics History Last Filed Vital Signs Vital Sign Reading [...] Mass Index 41.06 11/06/2024 12:38 PM EST Plan of Treatment Upcoming Encounters Date Type Department Care Team (Late st Contact Info) Description 11/27/2024 3:45 PM EST Office Visit General Surgery [facility] [address] [phone] Dilshad Isaacs, 175 [facility] [address] [place] [address] 12/05/2024 10:00 AM EST Hospital Encounter [facility] Endoscopy [address] [place] [phone] Aurelio Riggins MD [address] [address] 12/25/2024 9:15 AM EST Office Visit Gastroenterology [facility] [address] [phone] Aurelio Riggins MD 175 [facility] [place] [address] [place] [address] Health Maintenance Due Date Last Done Comments Pneumococcal Vaccine: Pediatrics (0 to 5 Years) and At-Risk Patients (6 to 64 Years) (1 of 2 - PCV) 1987 Diabetes: Annual Foot Exam 1991 Diabetes: Annual Retina Eye Exam 1991 DTaP,Tdap,and Td Vaccines (1 - Tdap) 2000 Hepatitis A Vaccines (1 of 2 - Risk 2-dose series) 2000 Hepatitis B Vaccines (1 of 3 - 19+ 3-dose series) 2000 Cholesterol Screening (Lipid Panel) 09/26/2022 Depression Screening 09/26/2022 HIV Screening 09/26/2022 Hepatitis C Screening 09/26/2022 Social Influencers of Health Screening 09/26/2022 COVID-19 Vaccine ( season) 2024 Influenza Vaccine (#1) 2024 Diabetes: Annual Urine Albumin-Creatinine Ratio (uACR) 11/06/2024 Diabetes: Blood Sugar Control Test (HGBA1C) 05/06/2025 11/06/2024 Diabetes: Annual GFR (Glomerular Filtration Rate) 11/11/2025 11/11/2024, 11/10/2024, 11/07/2024, Additional history exists HIB Vaccines Aged Out No longer eligi ble based on patient's age to complete this topic HPV Vaccines Aged Out No longer eligi ble based on patient's age to complete this topic IPV Vaccines Aged Out No longer eligi ble based on patient's age to complete this topic MMR Vaccines Aged Out No longer eligi ble based on patient's age to complete this topic Meningococcal ACWY Vaccine Aged Out N o longer eligible based on patient's age to complete this topic RSV Immunization Patients Under 20 months Aged Out No longer eligible based on patient's age to complete this topic Varicella Vaccines Aged Out No longer eligible based on patient's age to complete this topic Procedures Procedure Name Priority Date/Time Associated Diagnosis Comments POCT GLUCOSE BLOOD Routine 11/11/2024 10 :59 AM EST POCT GLUCOSE BLOOD Routine 11/11/2024 8: 08 AM EST COMPREHENSIVE METABOLIC PANEL Routine 11/11/2024 6:49 AM EST LAVENDER - EDTA Routine 11/11/2024 6:45 AM EST EXTRA TUBES Routine 11/11/2024 6:45 AM EST POCT GLUCOSE [...] ECG 12-LEAD Routine 11/10/2024 1:59 AM EST BASIC METABOLIC PANEL Add-On 11/10/2024 1:46 AM EST B-TYPE NATRIURETIC PEPTIDE Routine 11/10/2024 1:46 AM EST MAGNESIUM Routine 11/10/2024 1:46 AM EST TROPONIN I HIGH SENSITIVITY Routine 11/10/2024 1:46 AM EST CBC WITH AUTO [...] Routine 11/08/2024 8: [address] NECK SOFT TISSUE W CONTRAST STAT 11/08/2024 5:[address] CHEST W CONTRAST STAT 11/08/2024 5 :34 PM EST POCT GLUCOSE BLOOD Routine 11/08/2024 [...] AUTO DIFFERENTIAL Routine 11/07/2024 5:20 AM EST PHOSPHORUS Routine 11/07/2024 5:20 AM EST MAGNESIUM Routine 11/07/2024 5:20 AM EST BASIC METABOLIC PANEL Routine 11/07/2024 5:20 AM EST CBC AND DIFFERENTIAL Routine 11/07/2024 5:20 AM EST POCT GLUCOSE [...] AUTO DIFFERENTIAL Routine 11/06/2024 5:55 AM EST HEMOGLOBIN A1C Routine 11/06/2024 5:55 AM EST COMPREHENSIVE METABOLIC PANEL Routine 11/06/2024 5:55 AM EST CBC AND DIFFERENTIAL Routine 11/06/2024 5:[address] CHEST W CONTRAST STAT 11/05/2024 1 1:25 PM EST POCT GLUCOSE BLOOD Routine 11/05/2024 11 :17 PM EST CULTURE BLOOD STAT 11/05/2024 6:38 PM EST BETA HYDROXYBUTYRATE Add-On 11/05/2024 6:28 PM EST CBC WITH AUTO DIFFERENTIAL STAT 11/05/2024 6:28 PM EST LACTATE STAT 11/05/2024 6:28 PM EST BASIC METABOLIC PANEL STAT 11/05/2024 6:28 PM EST CBC AND DIFFERENTIAL STAT 11/05/2024 6:28 PM EST CULTURE BLOOD STAT 11/05/2024 6:28 PM EST from Last 3 Months Results * (ABNORMAL) POCT Glucose, blood (11/11/2024 10:59 AM EST) Only the most recent of29 resultswithin the time period is included. [facility] Glucose POCT 253(H) 70 - 100 mg/dL 11/11/2024 11:03 AM EST [facility] Blood Capillary blood specimen / Unknown 11/11/2024 10:59 AM EST 11/11/2024 11:04 AM EST Jai Fuller MD LAB POINT OF CARE TE ST DOCKED DEVICE UNSOLICITED RESULTS [facility] [address] [place] [address], * (ABNORMAL) Comprehensive metabolic panel (11/11/2024 6:49 AM EST) Only the most recent of2 resultswithin the time period is included. [facility] Sodium 134 133 - 145 mmol/L LAB CHEMISTRY METHOD 11/11/2024 8:09 AM [facility] Potassium 4.1 3.5 - 5.5 mmol/L LAB CHEMISTRY METHOD 11/11/2024 8:09 AM [facility] Chloride 101 96 - 110 mmol/L LAB CHEMISTRY METHOD 11/11/2024 8:09 AM [facility] CO2 27 21 - 32 mmol/L LAB CHEMISTRY METHOD 11/11/2024 8:09 AM [facility] Anion Gap 6 3 - 11 LAB CHEMISTRY METHOD 11/11/2024 8:09 AM [facility] Glucose 244(H) 70 - 100 mg/dL LAB CHEMISTRY METHOD 11/11/2024 8:09 AM [facility] BUN 10 5 - 25 mg/dL LAB CHEMISTRY METHOD 11/11/2024 8:09 AM [facility] Creatinine 0.62(L) 0.70 - 1.30 mg/dL LAB CHEMISTRY METHOD 11/11/2024 8:09 AM [facility] eGFR 122 >=60 mL/min/1. 73m2 LAB CHEMISTRY METHOD 11/11/2024 8:09 AM [facility] Comment:Calculation based on the??Chronic Kidney Disease Epidemiology Collaboration (CKD-EPI) equation refit??without adjustment for race. BUN/Creatinine Ratio 16.1 LAB CHEMISTRY METHOD 11/11/2024 8:09 AM [facility] Calcium 8.5 8.5 - 10.5 mg/dL LAB CHEMISTRY METHOD 11/11/2024 8:09 AM [facility] AST (SGOT) 18 10 - 42 unit/L LAB CHEMISTRY METHOD 11/11/2024 8:09 AM [facility] ALT (SGPT) 60 10 - 60 unit/L LAB CHEMISTRY METHOD 11/11/2024 8:09 AM [facility] Alkaline Phosphatase 103 42 - 121 unit/L LAB CHEMISTRY METHOD 11/11/2024 8:09 AM EST [facility] Total Protein 6.0 6.0 - 8.0 g/dL LAB CHEMISTRY METHOD 11/11/2024 8:09 AM [facility] Albumin 2.7(L) 3.2 - 5.0 g/dL LAB CHEMISTRY METHOD 11/11/2024 8:09 AM [facility] Total Bilirubin 0.3 0.0 - 1.4 mg/dL LAB CHEMISTRY METHOD 11/11/2024 8:09 AM [facility] Blood Venous blood specimen / Unknown Venipuncture / Unknown 11/11/2024 6:49 AM EST 11/11/2024 7:12 AM EST Chrissy BARCLAY LAB BLOOD ORDERABLES Performing Organization Address City/[facility]/ZIP Co de Phone Number [facility] [address] [place] [address], * Lavender tube (11/11/2024 6:45 AM EST) Pathologist [facility] Extra Tube Hold for add-ons. 11/11/2024 9:01 AM EST [facility] Comment:Auto resulted. Blood Venous blood specimen / Unknown Venipuncture / Unknown 11/11/2024 6:45 AM EST 11/11/2024 7:13 AM EST Jai Fuller MD LAB BLOOD ORDERABLES [facility] [address] [place] [address], [place] [phone] * ECG 12 lead (11/10/2024 1:59 AM EST) Ventricular Rate ECG 83 BPM GEMUSE Atrial Rate 83 BPM GEMUSE P-R Interval 138 ms GEMUSE QRS Duration 82 ms GEMUSE Q-T Interval 358 ms GEMUSE QTc 420 ms GEMUSE P Wave Neeses 35 degrees GEMUSE R Neeses 16 degrees GEMUSE T Neeses 6 degrees GEMUSE ECG Interpretation Normal sinus rhythm When compared with ECG of 08-AUG-2015 21:25, Vent. rate has increased BY ??37 BPM Confirmed by ANDREI BARBOSA ([id number]) on 11/11/2024 12:20:28 AM GEMUSE 11/10/2024 1:59 AM EST 11/11/2024 12:20 AM EST Chrissy BARCLAY ECG ORDERABLES Performing Organization Address [facility] Co de Phone Number GEMUSE * Troponin I high sensitivity (11/10/2024 1:46 AM EST) [facility] High Sensitivity Troponin I 6 <=79 ng/L LAB CHEMISTRY METHOD 11/10/2024 2:28 AM EST [facility] Blood Venous blood specimen / Unknown Venipuncture / Unknown 11/10/2024 1:46 AM EST 11/10/2024 1:59 AM EST Narrative [facility] - 11/10/2024 2:28 AM EST High levels of biotin in samples may falsely decrease hsTroponin values. ??Use caution when interpreting hsTroponin results in patients taking biotin who exhibit renal impairment (eGFR <60) or in patients taking more than 20 mg/day of biotin. Chrissy BARCLAY LAB BLOOD ORDERABLES Performing Organization Address City/[facility]/ZIP Co de Phone Number [facility] [address] [place] [address], * B-type natriuretic peptide (11/10/2024 1:46 AM EST) [facility] BNP 6 <=100 pcg/mL LAB CHEMISTRY METHOD 11/10/2024 2:50 AM EST [facility] Blood Venous blood specimen / Unknown Venipuncture / Unknown 11/10/2024 1:46 AM EST 11/10/2024 1:59 AM EST Chrissy BARCLAY LAB BLOOD ORDERABLES Performing Organization Address [facility]/ZIP Co de Phone Number [facility] [address] [place] [address], [place] [phone] * (ABNORMAL) Magnesium (11/10/2024 1:46 AM EST) Only the most recent of2 resultswithin the time period is included. [facility] Magnesium 1.8(L) 1.9 - 2.6 mg/dL LAB CHEMISTRY METHOD 11/10/2024 2:21 AM [facility] Blood Venous blood specimen / Unknown Venipuncture / Unknown 11/10/2024 1:46 AM EST 11/10/2024 1:59 AM EST Chrissy BARCLAY LAB BLOOD ORDERABLES Performing Organization Address [facility] Co de Phone Number [facility] [address] [place] [address], [place] [phone] * (ABNORMAL) Basic metabolic panel (11/10/2024 1:46 AM EST) Only the most recent of3 resultswithin the time period is included. [facility] Sodium 135 133 - 145 mmol/L LAB CHEMISTRY METHOD 11/10/2024 3:35 PM [facility] Potassium 4.0 3.5 - 5.5 mmol/L LAB CHEMISTRY METHOD 11/10/2024 3:35 PM [facility] Chloride 103 96 - 110 mmol/L LAB CHEMISTRY METHOD 11/10/2024 3:35 PM [facility] CO2 22 21 - 32 mmol/L LAB CHEMISTRY METHOD 11/10/2024 3:35 PM [facility] Anion Gap 10 3 - 11 LAB CHEMISTRY METHOD 11/10/2024 3:35 PM [facility] Glucose 251(H) 70 - 100 mg/dL LAB CHEMISTRY METHOD 11/10/2024 3:35 PM EST [facility] BUN 13 5 - 25 mg/dL LAB CHEMISTRY METHOD 11/10/2024 3:35 PM [facility] Creatinine 0.69(L) 0.70 - 1.30 mg/dL LAB CHEMISTRY METHOD 11/10/2024 3:35 PM [facility] eGFR 118 >=60 mL/min/1. 73m2 LAB CHEMISTRY METHOD 11/10/2024 3:35 PM EST [facility] Comment:Calculation based on the??Chronic Kidney Disease Epidemiology Collaboration (CKD-EPI) equation refit??without adjustment for race. BUN/Creatinine Ratio 18.8 LAB CHEMISTRY METHOD 11/10/2024 3:35 PM [facility] Calcium 8.4(L) 8.5 - 10.5 mg/dL LAB CHEMISTRY METHOD 11/10/2024 3:35 PM [facility] Blood Venous blood specimen / Unknown Venipuncture / Unknown 11/10/2024 1:46 AM EST 11/10/2024 1:59 AM EST Jai Fuller MD LAB BLOOD ORDERABLES [facility] [address] [place] [address], * (ABNORMAL) CBC auto differential (11/10/2024 1:45 AM EST) Only the most recent of4 resultswithin the time period is included. WBC 6.8 4.8 - 10.8 K/mcL LAB HEMETOLOGY METHOD 11/10/2024 2:12 AM EST [facility] RBC 4.10(L) 4.50 - 5.50 M/mcL LAB HEMETOLOGY METHOD 11/10/2024 2:12 AM EST [facility] Hemoglobin 12.1(L) 13.5 - 17.5 g/dL LAB HEMETOLOGY METHOD 11/10/2024 2:12 AM [facility] Hematocrit 36.0(L) 42.0 - 54.0 % LAB HEMETOLOGY METHOD 11/10/2024 2:12 AM [facility] MCV 88.9 79.0 - 98.0 FL LAB HEMETOLOGY METHOD 11/10/2024 2:12 AM [facility] MCH 29.9 27.0 - 32.0 pcg LAB HEMETOLOGY METHOD 11/10/2024 2:12 AM [facility] MCHC 33.6 32.0 - 37.0 g/dL LAB HEMETOLOGY METHOD 11/10/2024 2:12 AM [facility] RDW 12.1 11.0 - 15.0 % LAB HEMETOLOGY METHOD 11/10/2024 2:12 AM [facility] Platelets 192 130 - 400 K/mcL LAB HEMETOLOGY METHOD 11/10/2024 2:12 AM [facility] MPV 9.3 7.0 - 11.0 FL LAB HEMETOLOGY METHOD 11/10/2024 2:12 AM [facility] NRBC 0.0 <1.0 % LAB HEMETOLOGY METHOD 11/10/2024 2:12 AM [facility] NRBC Absolute 0.00 <0.10 K/mcL LAB HEMETOLOGY METHOD 11/10/2024 2:12 AM [facility] Neutrophils Relative 60.6 % LAB HEMETOLOGY METHOD 11/10/2024 2:12 AM [facility] Lymphocytes Relative 28.3 % LAB HEMETOLOGY METHOD 11/10/2024 2:12 AM [facility] Monocytes Relative 9.4 % LAB HEMETOLOGY METHOD 11/10/2024 2:12 AM [facility] Eosinophils Relative 0.9 % LAB HEMETOLOGY METHOD 11/10/2024 2:12 AM EST [facility] Basophils Relative 0.1 % LAB HEMETOLOGY METHOD 11/10/2024 2:12 AM [facility] Immature Granulocytes Relative 0.7 % LAB HEMETOLOGY METHOD 11/10/2024 2:12 AM EST [facility] Neutrophils Absolute 4.14 1.50 - 7.00 K/mcL LAB HEMETOLOGY METHOD 11/10/2024 2:12 AM EST [facility] Lymphocytes Absolute 1.93 1.00 - 5.00 K/mcL LAB HEMETOLOGY METHOD 11/10/2024 2:12 AM [facility] Monocytes Absolute 0.64 0.20 - 1.00 K/mcL LAB HEMETOLOGY METHOD 11/10/2024 2:12 AM [facility] Eosinophils Absolute 0.06 0.00 - 0.50 K/mcL LAB HEMETOLOGY METHOD 11/10/2024 2:12 AM EST [facility] Basophils Absolute 0.01 0.00 - 0.20 K/mcL LAB HEMETOLOGY METHOD 11/10/2024 2:12 AM [facility] Immature Granulocytes Absolute 0.05(H) 0.00 - 0.03 K/mcL LAB HEMETOLOGY METHOD 11/10/2024 2:12 AM [facility] Blood Venous blood specimen / Unknown Venipuncture / Unknown 11/10/2024 1:45 AM EST 11/10/2024 1:59 AM EST Chrissy BARCLAY LAB BLOOD ORDERABLES [facility] [address] [place] [address], * Vancomycin, trough Please draw after 1600 but before the 10pm dose is hung (11/09/2024 9:06 PM EST) Only the most recent of2 resultswithin the time period is included. Vancomycin Trough 16.3 10.0 - 20.0 mcg/mL LAB CHEMISTRY METHOD 11/09/2024 10:04 PM EST [facility] Blood Venous blood specimen / Unknown Venipuncture / Unknown 11/09/2024 9:06 PM EST 11/09/2024 9:28 PM EST Jai Fuller MD LAB BLOOD ORDERABLES [facility] [address] [place] [address], * CT Chest w Contrast (11/08/2024 5:34 PM EST) Only the most recent of2 resultswithin the time period is included. Anatomical Region Laterality Modality Body Computed Tomogra [...] 18:13:[address] PROCEDURES * CT Neck Soft Tissue w Contrast [...] 18:02:[address] PROCEDURES * Phosphorus (11/07/2024 5:20 AM EST) Phosphorus 3.0 2.5 - 4.5 mg/dL LAB CHEMISTRY METHOD 11/07/2024 7:50 AM EST [facility] Blood Venous blood specimen / Unknown Venipuncture / Unknown 11/07/2024 5:20 AM EST 11/07/2024 6:47 AM EST Elvia BARCLAY LAB BLOOD ORDERABLES Performing Organization Address [facility]/ZIP Co de Phone Number [facility] [address] [place] [address], [place] [phone] * (ABNORMAL) Hemoglobin A1c (11/06/2024 5:55 AM EST) Hemoglobin A1C >14.8(H) <6.5 % LAB CHEMISTRY METHOD 11/06/2024 2:51 PM EST [facility] Mean Bld Glu Estim. LAB CHEMISTRY METHOD 11/06/2024 2:51 PM EST [facility] Comment:Unable to calculate due to HgB A1C being outside of the reportable range Blood Venous blood specimen / Unknown Venipuncture / Unknown 11/06/2024 5:55 AM EST 11/06/2024 6:02 AM EST Christi BARCLAY LAB BLOOD ORDERABLES Performing Organization Address [facility]/ZIP Co de Phone Number [facility] [address] [place] [address], [place] [phone] * Blood Culture, Peripheral Draw #1 (11/05/2024 6:38 PM EST) Only the most recent of2 resultswithin the time period is included. Culture, Blood No growth at 5 days LAB MICROBIOLOGY METHOD 11/10/2024 7:01 PM EST [facility] Blood Venous blood specimen / Unknown Venipuncture / Unknown 11/05/2024 6:38 PM EST 11/05/2024 6:46 PM EST Ramón Arroyo MD LAB MICROBIOLOGY - G ENERAL ORDERABLES [facility] [address] [place] [address], [place] [phone] * (ABNORMAL) Beta hydroxybutyrate (11/05/2024 6:28 PM EST) Pathologist [facility] Beta-Hydroxyb utyrate 12.0(H) 0.2 - 2.8 mg/dL LAB CHEMISTRY METHOD 11/05/2024 8:41 PM EST [facility] Blood Venous blood specimen / Unknown Venipuncture / Unknown 11/05/2024 6:28 PM EST 11/05/2024 6:40 PM EST Herb BARCLAY LAB BLOOD ORDERABLES Performing Organization Address City/[facility]/ZIP Co de Phone Number [facility] [address] [place] [address], [place] [phone] * Lactate (11/05/2024 6:28 PM EST) Pathologist [facility] Lactate 1.4 0.4 - 2.0 mmol/L LAB CHEMISTRY METHOD 11/05/2024 7:11 PM EST [facility] Blood Venous blood specimen / Unknown Venipuncture / Unknown 11/05/2024 6:28 PM EST 11/05/2024 6:38 PM EST Ramón Arroyo MD LAB BLOOD ORDERABLES [facility] [address] [place] [address], from Last 3 Months Advance Directives Documents on File Type Date Recorded 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 Care Proxy * Full Code - Default (Latest Code Status on File) Date Activated Date Inactivated Comments 11/05/2024 9:59 PM 11/11/2024 2:28 PM This is orde r is used when code status has not been discussed with the patient, or code status is otherwise unknown/unconfirmed To update the patient's code status, place a code status order. Do not modify or discontinue any currently active code status orders. Care Teams Separator Tender Relationship Specialty Start Date End Date Brandie Lopez MD [address] [place] [id number] PCP - General Internal Medicine 10/13/18
--- OUTSIDE RECORDS SUMMARY | 2024-11-13 18:02 | XMS_ITS | Encounter Summary ---
Author Organization [facility] Address [address] [place] [address] Care Team Providers Care Advanced Solutions Architect Name Role Phone Brandie Lopez MD Primary Care Provider [phone] Reason for Visit * Reason Comments Abscess Abscess on back of l eft shoulder for past 2 weeks, fevers x 2 days * Auth/Cert (Routine) Specialty Diagnoses / Procedures Referred By Sonu garcia Referred To Contact Diagnoses Hyperglycemia Abscess of back Cellulitis of back except buttock Procedures [facility] IP/OBS CARE INITIAL MODERATE LEVEL PER DAY . Ramón Arroyo MD [address] [place] [address] [address] Referral ID Status Reason Start Date Expiration Date Visits Re quested Visits Authorized [id number] 1 1 Encounter Details Date Type Department Care Team (Late st Contact Info) Description 11/06/2024 9:24 AM EST - 11/06/2024 10:54 AM EST Surgery [facility] Main OR [address] [place] [address] Dilshad Isaacs, DO [address] [address] INCISION DRAINAGE ABSCESS, excisional debridment, skin and subcutaneous fat Surgery Details Date/Time Status Location OR Service Patient Class Case Class Case Type Trauma Case? 11/06/2024 9:24 AM Posted [facility] OR OR 02 General Inpatient Panel 1 Procedure LRB Anes Op Region Wound Class Comments INCISION DRAINAGE ABSCESS, excisional debridment, skin and subcutaneous fat N/A general Class IV/ D irty or Infected Surgeon Surgeon Role Service Panel Dilshad Isaacs, DO Primary General 1 documented in this encounter [...] Sign Reading Time Taken Comments Blood Pressure 124/69 11/06/2024 10:50 AM EST Pulse 86 11/06/2024 10:50 AM EST Temperature 37.1 ??C (98.7 ??F) 11/06/2024 10:[address] Respiratory Rate 24 11/06/2024 10:50 AM EST Oxygen Saturation 88% 11/06/2024 10:50 AM EST Inhaled Oxygen Concentration - - Weight 122 kg (270 lb) 11/05/2024 5:59 PM EST Height 172.7 cm (5' 8 ) 11/05/2024 5:59 PM EST Body Mass Index 41.06 11/06/2024 12:38 PM [...] Disposition Code Departure Means Destination Home-Health Care [facility] [place] documented in this encounter Progress Notes * [...] a 44 y.o. male : 1980 MR#: [id number] SUBJECTIVE Follow-up: Cellulitis/abscess involving left upper back [...] Probably with obesity hypoventilation. 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 VNA and wound [...] EST GENERAL SURGERY PROGRESS NOTE Patient: Mark Yne : 1980 (44 y.o. male) Admit Date: 11/05/2024 Location: [facility]/533-1 Dictating Physician: DENY Ricardo Attending: Jai Fuller MD Primary Care Provider: Branide Lopez MD Subjective: Encounter Date & Time: [...] Health RN Discipline following for SNF placement Saturation Diver Informed Choice Informed Choice Given? Yes Transportation Transportation at discharge Family (Pt reported family can transport home once ready) ICC met with pt at bedside. Demographics confirmed. Pt reported he has support from family if needed for dressing changes and was not open to VNA referrals at this time. [facility] [place] * Jai Fuller MD - 11/08/2024 2:21 PM EST Images from the original note were not included. CHAN PROGRESS NOTE Date: 11/08/2024 Author: Jai Fuller MD Patient ID: Mark Yen is a 44 y.o. male : 1980 MR#: [id number] SUBJECTIVE Reason for follow-up: Cellulitis/abscess involving left [...] Probably with obesity hypoventilation. 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 [facility] PROGRESS NOTE Date: 11/07/2024 Author: Jai Fuller MD Patient ID: Mark Yen is a 44 y.o. male : 1980 MR#: [id number] SUBJECTIVE Reason for follow-up: Cellulitis/abscess involving left [...] Probably with obesity hypoventilation. 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 [facility] PROGRESS NOTE Date: 11/06/2024 Author: Jai Fuller MD Patient ID: Mark Yen is a 44 y.o. male : 1980 MR#: [id number] SUBJECTIVE Events noted Taken to the OR [...] Pulse: 81 81 84 93 Resp: 12 20 Temp: 36.4 ??C (97.5 ??F) [...] Probably with obesity hypoventilation. 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 Ramón Arroyo MD [facility] Hospitalist, 7am-7pm Available thru tiger text After [...] Morbid obesity with BMI of 40.0-44.9, adult ([facility]) 12/06/2016 DX:Morbid obesity with BMI of 40.0-44.9, adult ([facility]) Obstructive sleep apnea 12/06/2016 DX:Obstructive sleep apnea [...] Procedure Abnormality Status --------- ------ CBC auto differential[[id number]] Abnormal Final result Please view results for [...] PHYSICAL Please contact author [DENY Cortez] via [employer]. Patient: Mark Yen Admission Date/Time: 11/05/2024 7:30 PM : 1980 [44 y.o.] Patient's PCP: Brandie Lopez MD Attending Provider: Ramón Arroyo MD CHIEF COMPLAINT Skin infection HISTORY OF PRESENT ILLNESS This is a 44-year-old male past medical history significant for eir-yiancoc-denbhglay diabetes mellitus, GERD, amongst others, who presents [...] admission, onward) Start Ordered 11/05/242223 Adult diet [facility]; General, Diabetic; Regular; 75 gm carb/Meal Diet effective now Question Answer Comment Location [facility] Diet Type (req) General Diet Type (req) Diabetic General Diet Regular Diabetic 75 gm carb/Meal 11/05/24 2224 [x] Medication reconciliation Health Care proxy with Phone number: Brother Alfredo [phone] Case discussed with Associated attestation - Ramón Arroyo MD - 11/05/2024 11:33 PM EST I have personally seen and examined the patient with the resident/PA/SHIRT FOLDING MACHINE OPERATOR and gregory elements of all parts of the encounter were performed by me. Patient was reassessed on more than one occasion when required. I reviewed the interval history, interpreted all available radiographic, laboratory and physiological data at the time of service. I agree with the assessment and plan as documented by the resident/PA/SHIRT FOLDING MACHINE OPERATOR with additions. 44-year-old male being admitted to [...] than 50% of the timespent in direct [id number] care/counseling/coordination with medical staff services coordinator, consultants, and reviewingpatient chart. Ramnó Arroyo MD [facility] Hospitalist, 7am-7pm Available thru tiger text After 7pm, please tiger text cross coverage 11/05/2024 11:33 PM EST documented in this encounter Procedure Notes * DENY Franco - 11/10/2024 6:34 AM EST GENERAL SURGERY POST-OPERATIVE PROGRESS NOTE Patient: Mark Yen : 1980 (44 y.o. male) Admit Date: 11/05/2024 Location: [facility]- Dictating Physician: DENY Franco Attending: Jai Fuller [...] DM diet - OK to dc from [place] standpoint - VNA set up for discharge [...] WOUND (L) OPERATIVE NOTE Date: 11/09/2024 Location: [facility] OR Name: Mark Yen, : 1980, Diagnosis Pre-op Diagnosis Necrotizing soft tissue infection left upper back Post-op Diagnosis same Procedures * DEBRIDEMENT EXPLORATION BACK WOUND 86604 Wound vac placement Additional Procedures Indications: Mark Yen is an 44 y.o. male who is having surgery for a take back for wound debridement and wound back placement for NSTI of left upper back. Surgeon(s) & Matrix Plater(s) * Dilshad Isaacs DO - Primary Anesthesia: Monitor Anesthesia Care ASA: III Estimated Blood Loss: Minimal Drains: Negative pressure Wound Vac Specimen: none Procedure Details: Patient was preoperatively consented on the [facility] surgical floor. He was then brought [...] subcutaneous fat OPERATIVE NOTE Date: 11/06/2024 Location: [facility] OR Name: Mark Yen, : 1980, Diagnosis Pre-op Diagnosis * Abscess of back [L02.212] Post-op Diagnosis * Abscess of back [L02.212] Procedures * INCISION DRAINAGE ABSCESS, excisional debridment, skin and subcutaneous fat, <20cm2 Additional Procedures Indications: Mark Yen is an 44 y.o. male who is having surgery for * No pre-op diagnosis entered *. Surgeon(s) & Matrix Plater(s) * Dilshad Isaacs DO - Primary Anesthesia: Monitor Anesthesia Care ASA: III Estimated Blood Loss: Minimal Drains: none Specimen: deep wound culture left upper back Specimens ID Source Type Tests Collected By Collected At Frozen? Priority Lab ID A Back, Upper Swab CULTURE WOUND DEEP Dilshad Isaacs DO 11/06/24 1003 [id number] Description: upper left back abscess Procedure Details: [...] (44 y.o. male) Admit Date: 11/05/2024 Location: [facility] MAIN OR [place] Room/M* Dictating Physician: DENY Gee Attending: Jai Fuller MD Primary Care Provider: Brandie Lopez MD [facility] Encounter Date & Time: 11/06/24 Service: General Surgery Chief Complaint: back abscess Source: Patient History of Present Illness: Mr. Mark Yen is a very pleasant 44 y.o. male with past medical history including NIDDM, GERD, anxious, asthma, obesity, amongst others who presents to [facility] Emergency Department with complaints of left [...] DX:Morbid obesity with BMI of 40.0-44.9, adult ([facility]) Obstructive sleep apnea 12/06/2016 DX:Obstructive sleep apnea [...] Exam: Temp: 36.5 ??C (97.7 ??F) (11/05 6371) Heart Rate: 82 (11/06 143) Resp: 17 [...] PMH including NIDDM, obesity who presents to [facility] ED with complaints of left back [...] NPO IVF DVTp- boots Medical management per [facility] The patient was seen both independently and/or [...] PM EST Office Visit General Surgery - [place] [address] [facility] [address] [place] [phone] Dilshad Isaacs DO 175 [facility] [address] [place] [address] 12/05/2024 10:00 AM EST Hospital Encounter [facility] Endoscopy [address] [place] [phone] Aurelio Riggins MD 175 [facility] [address] [place] [address] 12/25/2024 9:15 AM EST Office Visit Gastroenterology - [place] 175 [facility] 175 [facility] [address] [place] [phone] Aurelio Riggins MD 175 [facility] [address] [place] [address] Pending Results Name Type Priority Associated Diagnoses [...] BLOOD Routine 11/09/2024 11 :33 AM EST POCT GLUCOSE BLOOD Routine 11/09/2024 7: 56 [...] - 100 mg/dL 11/11/2024 11:03 AM EST [facility] Blood Capillary blood specimen / Unknown 11/11/2024 10:59 AM EST 11/11/2024 11:04 AM EST Jai Fuller MD LAB POINT OF CARE TE ST DOCKED DEVICE UNSOLICITED RESULTS Performing Organization Address [facility]/ZIP Co de Phone Number [facility] [address] [place] [address], [place] [phone] * (ABNORMAL) POCT Glucose, blood (11/11/2024 8:08 AM EST) Glucose POCT 259(H) 70 - 100 mg/dL 11/11/2024 8:08 AM EST [facility] Blood Capillary blood specimen / Unknown 11/11/2024 8:08 AM EST 11/11/2024 8:09 AM EST Jai Fuller MD LAB POINT OF CARE TE ST DOCKED DEVICE UNSOLICITED RESULTS Performing Organization Address City/[facility]/ZIP Co de Phone Number [facility] [address] [place] [address], [place] [phone] * (ABNORMAL) Comprehensive metabolic panel (11/11/2024 6:49 AM EST) Sodium 134 133 - 145 mmol/L LAB CHEMISTRY METHOD 11/11/2024 8:09 AM EST [facility] Potassium 4.1 3.5 - 5.5 mmol/L LAB CHEMISTRY METHOD 11/11/2024 8:09 AM [facility] Chloride 101 96 - 110 mmol/L LAB CHEMISTRY METHOD 11/11/2024 8:09 AM [facility] CO2 27 21 - 32 mmol/L LAB CHEMISTRY METHOD 11/11/2024 8:09 AM [facility] Anion Gap 6 3 - 11 LAB CHEMISTRY METHOD 11/11/2024 8:09 AM [facility] Glucose 244(H) 70 - 100 mg/dL LAB CHEMISTRY METHOD 11/11/2024 8:09 AM [facility] BUN 10 5 - 25 mg/dL LAB CHEMISTRY METHOD 11/11/2024 8:09 AM [facility] Creatinine 0.62(L) 0.70 - 1.30 mg/dL LAB CHEMISTRY METHOD 11/11/2024 8:09 AM [facility] eGFR 122 >=60 mL/min/1. 73m2 LAB CHEMISTRY METHOD 11/11/2024 8:09 AM [facility] Comment:Calculation based on the??Chronic Kidney Disease Epidemiology Collaboration (CKD-EPI) equation refit??without adjustment for race. BUN/Creatinine Ratio 16.1 LAB CHEMISTRY METHOD 11/11/2024 8:09 AM [facility] Calcium 8.5 8.5 - 10.5 mg/dL LAB CHEMISTRY METHOD 11/11/2024 8:09 AM [facility] AST (SGOT) 18 10 - 42 unit/L LAB CHEMISTRY METHOD 11/11/2024 8:09 AM [facility] ALT (SGPT) 60 10 - 60 unit/L LAB CHEMISTRY METHOD 11/11/2024 8:09 AM [facility] Alkaline Phosphatase 103 42 - 121 unit/L LAB CHEMISTRY METHOD 11/11/2024 8:09 AM [facility] Total Protein 6.0 6.0 - 8.0 g/dL LAB CHEMISTRY METHOD 11/11/2024 8:09 AM EST [facility] Albumin 2.7(L) 3.2 - 5.0 g/dL LAB CHEMISTRY METHOD 11/11/2024 8:09 AM EST [facility] Total Bilirubin 0.3 0.0 - 1.4 mg/dL LAB CHEMISTRY METHOD 11/11/2024 8:09 AM EST [facility] Blood Venous blood specimen / Unknown Venipuncture / Unknown 11/11/2024 6:49 AM EST 11/11/2024 7:12 AM EST Chrissy BARCLAY LAB BLOOD ORDERABLES [facility] [address] [place] [address], [place] [phone] * Lavender tube (11/11/2024 6:45 AM EST) Extra Tube Hold for add-ons. 11/11/2024 9:01 AM EST [facility] Comment:Auto resulted. Blood Venous blood specimen / Unknown Venipuncture / Unknown 11/11/2024 6:45 AM EST 11/11/2024 7:13 AM EST Jai Fuller MD LAB BLOOD ORDERABLES [facility] [address] [place] [address], [place] [phone] * (ABNORMAL) POCT Glucose, blood (11/11/2024 5:08 AM EST) Glucose POCT 250(H) 70 - 100 mg/dL 11/11/2024 5:09 AM [facility] Blood Capillary blood specimen / Unknown 11/11/2024 5:08 AM EST 11/11/2024 5:10 AM EST Jai Fuller MD LAB POINT OF CARE TE ST DOCKED DEVICE UNSOLICITED RESULTS Performing Organization Address [facility]/ZIP Co de Phone Number [facility] [address] [place] [address], [place] [phone] * (ABNORMAL) POCT Glucose, blood (11/11/2024 12:12 AM EST) Glucose POCT 305(H) 70 - 100 mg/dL 11/11/2024 12:13 AM EST [facility] Blood Capillary blood specimen / Unknown 11/11/2024 12:12 AM EST 11/11/2024 12:14 AM EST Jai Fuller MD LAB POINT OF CARE TE ST DOCKED DEVICE UNSOLICITED RESULTS Performing Organization Address [facility]/ZIP Co de Phone Number [facility] [address] [place] [address], [place] [phone] * (ABNORMAL) POCT Glucose, blood (11/10/2024 10:26 PM EST) Glucose POCT 324(H) 70 - 100 mg/dL 11/10/2024 10:27 PM EST [facility] Blood Capillary blood specimen / Unknown 11/10/2024 10:26 PM EST 11/10/2024 10:28 PM EST Jai Fuller MD LAB POINT OF CARE TE ST DOCKED DEVICE UNSOLICITED RESULTS Performing Organization Address City/[facility]/ZIP Co de Phone Number [facility] [address] [place] [address], [place] [phone] * (ABNORMAL) POCT Glucose, blood (11/10/2024 8:03 PM EST) Glucose POCT 252(H) 70 - 100 mg/dL 11/10/2024 8:04 PM EST [facility] Blood Capillary blood specimen / Unknown 11/10/2024 8:03 PM EST 11/10/2024 8:05 PM EST Jai Fuller MD LAB POINT OF CARE TE ST DOCKED DEVICE UNSOLICITED RESULTS Performing Organization Address [facility]/ZIP Co de Phone Number [facility] [address] [place] [address], [place] [phone] * (ABNORMAL) POCT Glucose, blood (11/10/2024 4:01 PM EST) Glucose POCT 317(H) 70 - 100 mg/dL 11/10/2024 4:02 PM EST [facility] Blood Capillary blood specimen / Unknown 11/10/2024 4:01 PM EST 11/10/2024 4:03 PM EST Jai Fuller MD LAB POINT OF CARE TE ST DOCKED DEVICE UNSOLICITED RESULTS Performing Organization Address City/[facility]/ZIP Co de Phone Number [facility] [address] [place] [address], [place] [phone] * (ABNORMAL) POCT Glucose, blood (11/10/2024 11:12 AM EST) Glucose POCT 370(H) 70 - 100 mg/dL 11/10/2024 11:13 AM EST [facility] Blood Capillary blood specimen / Unknown 11/10/2024 11:12 AM EST 11/10/2024 11:14 AM EST Jai Fuller MD LAB POINT OF CARE TE ST DOCKED DEVICE UNSOLICITED RESULTS Performing Organization Address City/[facility]/ZIP Co de Phone Number [facility] [address] [place] [address], [place] [phone] * (ABNORMAL) POCT Glucose, blood (11/10/2024 9:15 AM EST) Glucose POCT 299(H) 70 - 100 mg/dL 11/10/2024 9:16 AM EST [facility] Blood Capillary blood specimen / Unknown 11/10/2024 9:15 AM EST 11/10/2024 9:17 AM EST Jai Fuller MD LAB POINT OF CARE TE ST DOCKED DEVICE UNSOLICITED RESULTS Performing Organization Address City/[facility]/ZIP Co de Phone Number [facility] [address] [place] [address], [place] [phone] * (ABNORMAL) POCT Glucose, blood (11/10/2024 2:38 AM EST) Glucose POCT 222(H) 70 - 100 mg/dL 11/10/2024 2:39 AM EST [facility] Blood Capillary blood specimen / Unknown 11/10/2024 2:38 AM EST 11/10/2024 2:40 AM EST Jai Fuller MD LAB POINT OF CARE TE ST DOCKED DEVICE UNSOLICITED RESULTS Performing Organization Address [facility]/ZIP Co de Phone Number [facility] [address] [place] [address], [place] [phone] * ECG 12 lead (11/10/2024 1:59 AM EST) Ventricular Rate ECG 83 BPM GEMUSE Atrial Rate 83 BPM GEMUSE P-R Interval 138 ms GEMUSE QRS Duration 82 ms GEMUSE Q-T Interval 358 ms GEMUSE QTc 420 ms GEMUSE P Wave [place] 35 degrees GEMUSE R [place] 16 degrees GEMUSE T [place] 6 degrees GEMUSE ECG Interpretation Normal sinus [...] mmol/L LAB CHEMISTRY METHOD 11/10/2024 3:35 PM [facility] Potassium 4.0 3.5 - 5.5 mmol/L LAB CHEMISTRY METHOD 11/10/2024 3:35 PM [facility] Chloride 103 96 - 110 mmol/L LAB CHEMISTRY METHOD 11/10/2024 3:35 PM [facility] CO2 22 21 - 32 mmol/L LAB CHEMISTRY METHOD 11/10/2024 3:35 PM [facility] Anion Gap 10 3 - 11 LAB CHEMISTRY METHOD 11/10/2024 3:35 PM [facility] Glucose 251(H) 70 - 100 mg/dL LAB CHEMISTRY METHOD 11/10/2024 3:35 PM [facility] BUN 13 5 - 25 mg/dL LAB CHEMISTRY METHOD 11/10/2024 3:35 PM [facility] Creatinine 0.69(L) 0.70 - 1.30 mg/dL LAB CHEMISTRY METHOD 11/10/2024 3:35 PM [facility] eGFR 118 >=60 mL/min/1. 73m2 LAB CHEMISTRY METHOD 11/10/2024 3:35 PM [facility] Comment:Calculation based on the??Chronic Kidney Disease Epidemiology Collaboration (CKD-EPI) equation refit??without adjustment for race. BUN/Creatinine Ratio 18.8 LAB CHEMISTRY METHOD 11/10/2024 3:35 PM [facility] Calcium 8.4(L) 8.5 - 10.5 mg/dL LAB CHEMISTRY METHOD 11/10/2024 3:35 PM [facility] Blood Venous blood specimen / Unknown Venipuncture / Unknown 11/10/2024 1:46 AM EST 11/10/2024 1:59 AM EST Jai Fuller MD LAB BLOOD ORDERABLES Performing Organization Address [facility]/ZIP Co de Phone Number [facility] [address] [place] [address], [place] [phone] * B-type natriuretic peptide (11/10/2024 1:46 AM EST) [facility] BNP 6 <=100 pcg/mL LAB CHEMISTRY METHOD 11/10/2024 2:50 AM EST [facility] Blood Venous blood specimen / Unknown Venipuncture / Unknown 11/10/2024 1:46 AM EST 11/10/2024 1:59 AM EST Chrissy BARCLAY LAB BLOOD ORDERABLES Performing Organization Address [facility] de Phone Number [facility] [address] [place] [address], [place] [phone] * (ABNORMAL) Magnesium (11/10/2024 1:46 AM EST) [facility] Magnesium 1.8(L) 1.9 - 2.6 mg/dL LAB CHEMISTRY METHOD 11/10/2024 2:21 AM EST [facility] Blood Venous blood specimen / Unknown Venipuncture / Unknown 11/10/2024 1:46 AM EST 11/10/2024 1:59 AM EST Chrissy BARCLAY LAB BLOOD ORDERABLES Performing Organization Address [facility] de Phone Number [facility] [address] [place] [address], [place] [phone] * Troponin I high sensitivity (11/10/2024 1:46 AM EST) [facility] High Sensitivity Troponin I 6 <=79 ng/L LAB CHEMISTRY METHOD 11/10/2024 2:28 AM [facility] Blood Venous blood specimen / Unknown Venipuncture / Unknown 11/10/2024 1:46 AM EST 11/10/2024 1:59 AM EST [facility] - 11/10/2024 2:28 AM EST High levels of biotin in samples may falsely decrease hsTroponin values. ??Use caution when interpreting hsTroponin results in patients taking biotin who exhibit renal impairment (eGFR <60) or in patients taking more than 20 mg/day of biotin. Chrissy BARCLAY LAB BLOOD ORDERABLES [facility] [address] [place] [address], * (ABNORMAL) CBC auto differential (11/10/2024 1:45 AM EST) WBC 6.8 4.8 - 10.8 K/mcL LAB HEMETOLOGY METHOD 11/10/2024 2:12 AM [facility] RBC 4.10(L) 4.50 - 5.50 M/mcL LAB HEMETOLOGY METHOD 11/10/2024 2:12 AM [facility] Hemoglobin 12.1(L) 13.5 - 17.5 g/dL LAB HEMETOLOGY METHOD 11/10/2024 2:12 AM [facility] Hematocrit 36.0(L) 42.0 - 54.0 % LAB HEMETOLOGY METHOD 11/10/2024 2:12 AM [facility] MCV 88.9 79.0 - 98.0 FL LAB HEMETOLOGY METHOD 11/10/2024 2:12 AM [facility] MCH 29.9 27.0 - 32.0 pcg LAB HEMETOLOGY METHOD 11/10/2024 2:12 AM EST [facility] MCHC 33.6 32.0 - 37.0 g/dL LAB HEMETOLOGY METHOD 11/10/2024 2:12 AM [facility] RDW 12.1 11.0 - 15.0 % LAB HEMETOLOGY METHOD 11/10/2024 2:12 AM [facility] Platelets 192 130 - 400 K/mcL LAB HEMETOLOGY METHOD 11/10/2024 2:12 AM [facility] MPV 9.3 7.0 - 11.0 FL LAB HEMETOLOGY METHOD 11/10/2024 2:12 AM [facility] NRBC 0.0 <1.0 % LAB HEMETOLOGY METHOD 11/10/2024 2:12 AM [facility] NRBC Absolute 0.00 <0.10 K/mcL LAB HEMETOLOGY METHOD 11/10/2024 2:12 AM [facility] Neutrophils Relative 60.6 % LAB HEMETOLOGY METHOD 11/10/2024 2:12 AM [facility] Lymphocytes Relative 28.3 % LAB HEMETOLOGY METHOD 11/10/2024 2:12 AM [facility] Monocytes Relative 9.4 % LAB HEMETOLOGY METHOD 11/10/2024 2:12 AM [facility] Eosinophils Relative 0.9 % LAB HEMETOLOGY METHOD 11/10/2024 2:12 AM [facility] Basophils Relative 0.1 % LAB HEMETOLOGY METHOD 11/10/2024 2:12 AM [facility] Immature Granulocytes Relative 0.7 % LAB HEMETOLOGY METHOD 11/10/2024 2:12 AM [facility] Neutrophils Absolute 4.14 1.50 - 7.00 K/mcL LAB HEMETOLOGY METHOD 11/10/2024 2:12 AM [facility] Lymphocytes Absolute 1.93 1.00 - 5.00 K/mcL LAB HEMETOLOGY METHOD 11/10/2024 2:12 AM EST [facility] Monocytes Absolute 0.64 0.20 - 1.00 K/[facility] LAB HEMETOLOGY METHOD 11/10/2024 2:12 AM EST [facility] Eosinophils Absolute 0.06 0.00 - 0.50 K/[facility] LAB HEMETOLOGY METHOD 11/10/2024 2:12 AM EST [facility] Basophils Absolute 0.01 0.00 - 0.20 K/[facility] HEMETOLOGY METHOD 11/10/2024 2:12 AM EST [facility] Immature Granulocytes Absolute 0.05(H) 0.00 - 0.03 K/[facility] HEMETOLOGY METHOD 11/10/2024 2:12 AM EST [facility] Blood Venous blood specimen / Unknown Venipuncture / Unknown 11/10/2024 1:45 AM EST 11/10/2024 1:59 AM EST Chrissy BARCLAY LAB BLOOD ORDERABLES [facility] [address] [place] [address], [place] [phone] * Vancomycin, trough Please draw after 1600 but before the 10pm dose is hung (11/09/2024 9:06 PM EST) Pathologist [facility] Vancomycin Trough 16.3 10.0 - 20.0 mcg/mL LAB CHEMISTRY METHOD 11/09/2024 10:04 PM EST [facility] Blood Venous blood specimen / Unknown Venipuncture / Unknown 11/09/2024 9:06 PM EST 11/09/2024 9:28 PM EST Jai Fuller MD LAB BLOOD ORDERABLES [facility] [address] [place] [address], [place] [phone] * (ABNORMAL) POCT Glucose, blood (11/09/2024 8:20 PM EST) Glucose POCT 407(HH) 70 - 100 mg/dL 11/09/2024 8:23 PM EST [facility] POCT Comment RN Notified 11/09/2024 8:23 PM EST [facility] Blood Capillary blood specimen / Unknown 11/09/2024 8:20 PM EST 11/09/2024 8:24 PM EST Jai Fuller MD LAB POINT OF CARE TE ST DOCKED DEVICE UNSOLICITED RESULTS [facility] [address] [place] [address], [place] [phone] * (ABNORMAL) POCT Glucose, blood (11/09/2024 4:29 PM EST) Glucose POCT 413(HH) 70 - 100 mg/dL 11/09/2024 4:29 PM EST [facility] POCT Comment RN Notified 11/09/2024 4:29 PM EST [facility] Blood Capillary blood specimen / Unknown 11/09/2024 4:29 PM EST 11/09/2024 4:30 PM EST Jai Fuller MD LAB POINT OF CARE TE ST DOCKED DEVICE UNSOLICITED RESULTS [facility] [address] [place] [address], [place] [phone] * (ABNORMAL) POCT Glucose, blood (11/09/2024 12:55 PM EST) Glucose POCT 198(H) 70 - 100 mg/dL 11/09/2024 12:55 PM EST [facility] Blood Capillary blood specimen / Unknown 11/09/2024 12:55 PM EST 11/09/2024 12:57 PM EST Jai Fuller MD LAB POINT OF CARE TE ST DOCKED DEVICE UNSOLICITED RESULTS Performing Organization Address [facility]/ZIP Co de Phone Number [facility] [address] [place] [address], [place] [phone] * (ABNORMAL) POCT Glucose, blood (11/09/2024 11:33 AM EST) Glucose POCT 200(H) 70 - 100 mg/dL 11/09/2024 11:34 AM EST [facility] Blood Capillary blood specimen / Unknown 11/09/2024 11:33 AM EST 11/09/2024 11:35 AM EST Jai Fuller MD LAB POINT OF CARE TE ST DOCKED DEVICE UNSOLICITED RESULTS Performing Organization Address [facility]/ZIP Co de Phone Number [facility] [address] [place] [address], [place] [phone] * (ABNORMAL) POCT Glucose, blood (11/09/2024 7:56 AM EST) Glucose POCT 210(H) 70 - 100 mg/dL 11/09/2024 7:57 AM EST [facility] Blood Capillary blood specimen / Unknown 11/09/2024 7:56 AM EST 11/09/2024 7:58 AM EST Jai Fuller MD LAB POINT OF CARE TE ST DOCKED DEVICE UNSOLICITED RESULTS Performing Organization Address City/[facility]/ZIP Co de Phone Number [facility] [address] [place] [address], [place] [phone] * (ABNORMAL) POCT Glucose, blood (11/08/2024 8:39 PM EST) Glucose POCT 308(H) 70 - 100 mg/dL 11/08/2024 8:39 PM EST [facility] Blood Capillary blood specimen / Unknown 11/08/2024 8:39 PM EST 11/08/2024 8:41 PM EST Jai Fuller MD LAB POINT OF CARE TE ST DOCKED DEVICE UNSOLICITED RESULTS [facility] [address] [place] [address], * CT Neck Soft Tissue w Contrast [...] - 100 mg/dL 11/08/2024 4:31 PM EST [facility] Blood Capillary blood specimen / Unknown 11/08/2024 4:30 PM EST 11/08/2024 4:32 PM EST Jai Fuller MD LAB POINT OF CARE TE ST DOCKED DEVICE UNSOLICITED RESULTS [facility] [address] [place] [address], [place] [phone] * (ABNORMAL) POCT Glucose, blood (11/08/2024 11:18 AM EST) Glucose POCT 288(H) 70 - 100 mg/dL 11/08/2024 11:18 AM EST [facility] Blood Capillary blood specimen / Unknown 11/08/2024 11:18 AM EST 11/08/2024 11:19 AM EST Jai Fuller MD LAB POINT OF CARE TE ST DOCKED DEVICE UNSOLICITED RESULTS [facility] [address] [place] [address], [place] [phone] * (ABNORMAL) POCT Glucose, blood (11/08/2024 7:55 AM EST) Glucose POCT 219(H) 70 - 100 mg/dL 11/08/2024 7:56 AM EST [facility] Blood Capillary blood specimen / Unknown 11/08/2024 7:55 AM EST 11/08/2024 7:57 AM EST aJi Fuller MD LAB POINT OF CARE TE ST DOCKED DEVICE UNSOLICITED RESULTS Performing Organization Address [facility]/ZIP Co de Phone Number [facility] [address] [place] [address], [place] [phone] * Vancomycin, trough Please draw after 0700 but before the 0800 dose is hung (11/08/2024 7:04 AM EST) [facility] Signature Vancomycin Trough 11.7 10.0 - 20.0 mcg/mL LAB CHEMISTRY METHOD 11/08/2024 7:49 AM EST [facility] Blood Venous blood specimen / Unknown Venipuncture / Unknown 11/08/2024 7:04 AM EST 11/08/2024 7:14 AM EST Marcia BARCLAY LAB BLOOD ORDERABLES Performing Organization Address [facility]/ZIP Co de Phone Number [facility] [address] [place] [address], [place] [phone] * (ABNORMAL) POCT Glucose, blood (11/07/2024 8:34 PM EST) [facility] Signature Glucose POCT 284(H) 70 - 100 mg/dL 11/07/2024 8:35 PM EST [facility] Blood Capillary blood specimen / Unknown 11/07/2024 8:34 PM EST 11/07/2024 8:36 PM EST Jai Fuller MD LAB POINT OF CARE TE ST DOCKED DEVICE UNSOLICITED RESULTS Performing Organization Address [facility]/ZIP Co de Phone Number [facility] [address] [place] [address], [place] [phone] * (ABNORMAL) POCT Glucose, blood (11/07/2024 3:42 PM EST) Glucose POCT 303(H) 70 - 100 mg/dL 11/07/2024 3:50 PM EST [facility] Blood Capillary blood specimen / Unknown 11/07/2024 3:42 PM EST 11/07/2024 3:51 PM EST Jai Fuller MD LAB POINT OF CARE TE ST DOCKED DEVICE UNSOLICITED RESULTS Performing Organization Address City/[facility]/ZIP Co de Phone Number [facility] [address] [place] [address], [place] [phone] * (ABNORMAL) POCT Glucose, blood (11/07/2024 11:11 AM EST) Glucose POCT 336(H) 70 - 100 mg/dL 11/07/2024 11:21 AM EST [facility] Blood Capillary blood specimen / Unknown 11/07/2024 11:11 AM EST 11/07/2024 11:22 AM EST Jai Fuller MD LAB POINT OF CARE TE ST DOCKED DEVICE UNSOLICITED RESULTS Performing Organization Address City/[facility]/ZIP Co de Phone Number [facility] [address] [place] [address], [place] [phone] * (ABNORMAL) POCT Glucose, blood (11/07/2024 8:09 AM EST) Glucose POCT 267(H) 70 - 100 mg/dL 11/07/2024 8:18 AM EST [facility] Blood Capillary blood specimen / Unknown 11/07/2024 8:09 AM EST 11/07/2024 8:20 AM EST Jai Fuller MD LAB POINT OF CARE TE ST DOCKED DEVICE UNSOLICITED RESULTS Performing Organization Address City/[facility]/ZIP Co de Phone Number [facility] [address] [place] [address], [place] [phone] * (ABNORMAL) CBC auto differential (11/07/2024 5:20 AM EST) [facility] WBC 7.9 4.8 - 10.8 K/mcL LAB HEMETOLOGY METHOD 11/07/2024 7:19 AM [facility] RBC 4.20(L) 4.50 - 5.50 M/mcL LAB HEMETOLOGY METHOD 11/07/2024 7:19 AM [facility] Hemoglobin 12.6(L) 13.5 - 17.5 g/dL LAB HEMETOLOGY METHOD 11/07/2024 7:19 AM [facility] Hematocrit 38.8(L) 42.0 - 54.0 % LAB HEMETOLOGY METHOD 11/07/2024 7:19 AM [facility] MCV 91.5 79.0 - 98.0 FL LAB HEMETOLOGY METHOD 11/07/2024 7:19 AM [facility] MCH 29.7 27.0 - 32.0 pcg LAB HEMETOLOGY METHOD 11/07/2024 7:19 AM [facility] MCHC 32.5 32.0 - 37.0 g/dL LAB HEMETOLOGY METHOD 11/07/2024 7:19 AM [facility] RDW 12.5 11.0 - 15.0 % LAB HEMETOLOGY METHOD 11/07/2024 7:19 AM [facility] Platelets 165 130 - 400 K/mcL LAB HEMETOLOGY METHOD 11/07/2024 7:19 AM [facility] MPV 9.4 7.0 - 11.0 FL LAB HEMETOLOGY METHOD 11/07/2024 7:19 AM [facility] NRBC 0.0 <1.0 % LAB HEMETOLOGY METHOD 11/07/2024 7:19 AM [facility] NRBC Absolute 0.00 <0.10 K/mcL LAB HEMETOLOGY METHOD 11/07/2024 7:19 AM [facility] Neutrophils Relative 69.7 % LAB HEMETOLOGY METHOD 11/07/2024 7:19 AM [facility] Lymphocytes Relative 22.8 % LAB HEMETOLOGY METHOD 11/07/2024 7:19 AM [facility] Monocytes Relative 6.6 % LAB HEMETOLOGY METHOD 11/07/2024 7:19 AM [facility] Eosinophils Relative 0.4 % LAB HEMETOLOGY METHOD 11/07/2024 7:19 AM [facility] Basophils Relative 0.0 % LAB HEMETOLOGY METHOD 11/07/2024 7:19 AM [facility] Immature Granulocytes Relative 0.5 % LAB HEMETOLOGY METHOD 11/07/2024 7:19 AM [facility] Neutrophils Absolute 5.52 1.50 - 7.00 K/mcL LAB HEMETOLOGY METHOD 11/07/2024 7:19 AM [facility] Lymphocytes Absolute 1.80 1.00 - 5.00 K/mcL LAB HEMETOLOGY METHOD 11/07/2024 7:19 AM [facility] Monocytes Absolute 0.52 0.20 - 1.00 K/mcL LAB HEMETOLOGY METHOD 11/07/2024 7:19 AM [facility] Eosinophils Absolute 0.03 0.00 - 0.50 K/mcL LAB HEMETOLOGY METHOD 11/07/2024 7:19 AM [facility] Basophils Absolute 0.00 0.00 - 0.20 K/mcL LAB HEMETOLOGY METHOD 11/07/2024 7:19 AM [facility] Immature Granulocytes Absolute 0.04(H) 0.00 - 0.03 K/mcL LAB HEMETOLOGY METHOD 11/07/2024 7:19 AM [facility] Blood Venous blood specimen / Unknown Venipuncture / Unknown 11/07/2024 5:20 AM EST 11/07/2024 6:47 AM EST Elvia BARCLAY LAB BLOOD ORDERABLES Performing Organization Address City/[facility]/ZIP Co de Phone Number [facility] [address] [place] [address], [place] [phone] * Phosphorus (11/07/2024 5:20 AM EST) Phosphorus 3.0 2.5 - 4.5 mg/dL LAB CHEMISTRY METHOD 11/07/2024 7:50 AM EST [facility] Blood Venous blood specimen / Unknown Venipuncture / Unknown 11/07/2024 5:20 AM EST 11/07/2024 6:47 AM EST Elvia BARCLAY LAB BLOOD ORDERABLES Performing Organization Address [facility] Co de Phone Number [facility] [address] [place] [address], * Magnesium (11/07/2024 5:20 AM EST) Magnesium 1.9 1.9 - 2.6 mg/dL LAB CHEMISTRY METHOD 11/07/2024 7:50 AM EST [facility] Blood Venous blood specimen / Unknown Venipuncture / Unknown 11/07/2024 5:20 AM EST 11/07/2024 6:47 AM EST Elvia BARCLAY LAB BLOOD ORDERABLES Performing Organization Address City/[facility]/ZIP Co de Phone Number [facility] [address] [place] [address], [place] [phone] * (ABNORMAL) Basic metabolic panel (11/07/2024 5:20 AM EST) Sodium 135 133 - 145 mmol/L LAB CHEMISTRY METHOD 11/07/2024 7:50 AM EST [facility] Potassium 3.7 3.5 - 5.5 mmol/L LAB CHEMISTRY METHOD 11/07/2024 7:50 AM [facility] Chloride 103 96 - 110 mmol/L LAB CHEMISTRY METHOD 11/07/2024 7:50 AM [facility] CO2 26 21 - 32 mmol/L LAB CHEMISTRY METHOD 11/07/2024 7:50 AM [facility] Anion Gap 6 3 - 11 LAB CHEMISTRY METHOD 11/07/2024 7:50 AM [facility] Glucose 225(H) 70 - 100 mg/dL LAB CHEMISTRY METHOD 11/07/2024 7:50 AM [facility] BUN 17 5 - 25 mg/dL LAB CHEMISTRY METHOD 11/07/2024 7:50 AM [facility] Creatinine 0.57(L) 0.70 - 1.30 mg/dL LAB CHEMISTRY METHOD 11/07/2024 7:50 AM [facility] eGFR 125 >=60 mL/min/1. 73m2 LAB CHEMISTRY METHOD 11/07/2024 7:50 AM [facility] Comment:Calculation based on the??Chronic Kidney Disease Epidemiology Collaboration (CKD-EPI) equation refit??without adjustment for race. BUN/Creatinine Ratio 29.8 LAB CHEMISTRY METHOD 11/07/2024 7:50 AM [facility] Calcium 8.3(L) 8.5 - 10.5 mg/dL LAB CHEMISTRY METHOD 11/07/2024 7:50 AM [facility] Blood Venous blood specimen / Unknown Venipuncture / Unknown 11/07/2024 5:20 AM EST 11/07/2024 6:47 AM EST Elvia BARCLAY LAB BLOOD ORDERABLES [facility] [address] [place] [address], * (ABNORMAL) POCT Glucose, blood (11/07/2024 12:16 AM EST) Glucose POCT 398(H) 70 - 100 mg/dL 11/07/2024 12:17 AM EST [facility] Blood Capillary blood specimen / Unknown 11/07/2024 12:16 AM EST 11/07/2024 12:18 AM EST Jai Fuller MD LAB POINT OF CARE TE ST DOCKED DEVICE UNSOLICITED RESULTS [facility] [address] [place] [address], [place] [phone] * (ABNORMAL) POCT Glucose, blood (11/06/2024 8:26 PM EST) Glucose POCT 558(HH) 70 - 100 mg/dL 11/06/2024 8:27 PM EST [facility] POCT Comment RN Notified 11/06/2024 8:27 PM EST [facility] Blood Capillary blood specimen / Unknown 11/06/2024 8:26 PM EST 11/06/2024 8:28 PM EST Jai Fuller MD LAB POINT OF CARE TE ST DOCKED DEVICE UNSOLICITED RESULTS [facility] [address] [place] [address], [place] [phone] * (ABNORMAL) POCT Glucose, blood (11/06/2024 3:54 PM EST) Glucose POCT 445(HH) 70 - 100 mg/dL 11/06/2024 3:55 PM EST [facility] POCT Comment RN Notified 11/06/2024 3:55 PM EST [facility] Blood Capillary blood specimen / Unknown 11/06/2024 3:54 PM EST 11/06/2024 3:55 PM EST Jai Fuller MD LAB POINT OF CARE TE ST DOCKED DEVICE UNSOLICITED RESULTS Performing Organization Address [facility]/ZIP Co de Phone Number [facility] [address] [place] [address], [place] [phone] * (ABNORMAL) POCT Glucose, blood (11/06/2024 10:32 AM EST) Glucose POCT 267(H) 70 - 100 mg/dL 11/06/2024 10:32 AM EST [facility] Blood Capillary blood specimen / Unknown 11/06/2024 10:32 AM EST 11/06/2024 10:33 AM EST Jai Fuller MD LAB POINT OF CARE TE ST DOCKED DEVICE UNSOLICITED RESULTS Performing Organization Address [facility]/ZIP Co de Phone Number [facility] [address] [place] [address], [place] [phone] * (ABNORMAL) POCT Glucose, blood (11/06/2024 7:46 AM EST) Glucose POCT 222(H) 70 - 100 mg/dL 11/06/2024 7:47 AM EST [facility] Blood Capillary blood specimen / Unknown 11/06/2024 7:46 AM EST 11/06/2024 7:48 AM EST Jai Fuller MD LAB POINT OF CARE TE ST DOCKED DEVICE UNSOLICITED RESULTS Performing Organization Address [facility]/ZIP Co de Phone Number [facility] [address] [place] [address], [place] [phone] * (ABNORMAL) CBC auto differential (11/06/2024 5:55 AM EST) WBC 11.7(H) 4.8 - 10.8 K/[facility] LAB HEMETOLOGY METHOD 11/06/2024 6:40 AM [facility] RBC 4.50 4.50 - 5.50 M/mcL LAB HEMETOLOGY METHOD 11/06/2024 6:40 AM [facility] Hemoglobin 13.3(L) 13.5 - 17.5 g/dL LAB HEMETOLOGY METHOD 11/06/2024 6:40 AM [facility] Hematocrit 39.8(L) 42.0 - 54.0 % LAB HEMETOLOGY METHOD 11/06/2024 6:40 AM [facility] MCV 88.8 79.0 - 98.0 FL LAB HEMETOLOGY METHOD 11/06/2024 6:40 AM [facility] MCH 29.7 27.0 - 32.0 pcg LAB HEMETOLOGY METHOD 11/06/2024 6:40 AM [facility] MCHC 33.4 32.0 - 37.0 g/dL LAB HEMETOLOGY METHOD 11/06/2024 6:40 AM [facility] RDW 12.4 11.0 - 15.0 % LAB HEMETOLOGY METHOD 11/06/2024 6:40 AM [facility] Platelets 184 130 - 400 K/mcL LAB HEMETOLOGY METHOD 11/06/2024 6:40 AM [facility] MPV 9.1 7.0 - 11.0 FL LAB HEMETOLOGY METHOD 11/06/2024 6:40 AM [facility] NRBC 0.0 <1.0 % LAB HEMETOLOGY METHOD 11/06/2024 6:40 AM [facility] NRBC Absolute 0.00 <0.10 K/mcL LAB HEMETOLOGY METHOD 11/06/2024 6:40 AM [facility] Neutrophils Relative 74.8 % LAB HEMETOLOGY METHOD 11/06/2024 6:40 AM [facility] Lymphocytes Relative 17.1 % LAB HEMETOLOGY METHOD 11/06/2024 6:40 AM [facility] Monocytes Relative 7.2 % LAB HEMETOLOGY METHOD 11/06/2024 6:40 AM [facility] Eosinophils Relative 0.1 % LAB HEMETOLOGY METHOD 11/06/2024 6:40 AM [facility] Basophils Relative 0.1 % LAB HEMETOLOGY METHOD 11/06/2024 6:40 AM [facility] Immature Granulocytes Relative 0.7 % LAB HEMETOLOGY METHOD 11/06/2024 6:40 AM [facility] Neutrophils Absolute 8.79(H) 1.50 - 7.00 K/mcL LAB HEMETOLOGY METHOD 11/06/2024 6:40 AM [facility] Lymphocytes Absolute 2.01 1.00 - 5.00 K/mcL LAB HEMETOLOGY METHOD 11/06/2024 6:40 AM [facility] Monocytes Absolute 0.84 0.20 - 1.00 K/mcL LAB HEMETOLOGY METHOD 11/06/2024 6:40 AM [facility] Eosinophils Absolute 0.01 0.00 - 0.50 K/mcL LAB HEMETOLOGY METHOD 11/06/2024 6:40 AM [facility] Basophils Absolute 0.01 0.00 - 0.20 K/mcL LAB HEMETOLOGY METHOD 11/06/2024 6:40 AM [facility] Immature Granulocytes Absolute 0.08(H) 0.00 - 0.03 K/mcL LAB HEMETOLOGY METHOD 11/06/2024 6:40 AM [facility] Blood Venous blood specimen / Unknown Venipuncture / Unknown 11/06/2024 5:55 AM EST 11/06/2024 6:02 AM EST Christi BARCLAY LAB BLOOD ORDERABLES Performing Organization Address City/[facility]/ZIP Co de Phone Number [facility] [address] [place] [address], * (ABNORMAL) Hemoglobin A1c (11/06/2024 5:55 AM EST) Pathologist [facility] Hemoglobin A1C >14.8(H) <6.5 % LAB CHEMISTRY METHOD 11/06/2024 2:51 PM EST [facility] Mean Bld Glu Estim. LAB CHEMISTRY METHOD 11/06/2024 2:51 PM EST [facility] Comment:Unable to calculate due to HgB A1C being outside of the reportable range Blood Venous blood specimen / Unknown Venipuncture / Unknown 11/06/2024 5:55 AM EST 11/06/2024 6:02 AM EST Christi BARCLAY LAB BLOOD ORDERABLES Performing Organization Address [facility]/ZIP Co de Phone Number [facility] [address] [place] [address], * (ABNORMAL) Comprehensive metabolic panel (11/06/2024 5:55 AM EST) [facility] Sodium 135 133 - 145 mmol/L LAB CHEMISTRY METHOD 11/06/2024 6:26 AM EST [facility] Potassium 4.4 3.5 - 5.5 mmol/L LAB CHEMISTRY METHOD 11/06/2024 6:26 AM [facility] Chloride 100 96 - 110 mmol/L LAB CHEMISTRY METHOD 11/06/2024 6:26 AM [facility] CO2 27 21 - 32 mmol/L LAB CHEMISTRY METHOD 11/06/2024 6:26 AM [facility] Anion Gap 8 3 - 11 LAB CHEMISTRY METHOD 11/06/2024 6:26 AM [facility] Glucose 252(H) 70 - 100 mg/dL LAB CHEMISTRY METHOD 11/06/2024 6:26 AM [facility] BUN 20 5 - 25 mg/dL LAB CHEMISTRY METHOD 11/06/2024 6:26 AM [facility] Creatinine 0.69(L) 0.70 - 1.30 mg/dL LAB CHEMISTRY METHOD 11/06/2024 6:26 AM [facility] eGFR 118 >=60 mL/min/1. 73m2 LAB CHEMISTRY METHOD 11/06/2024 6:26 AM [facility] Comment:Calculation based on the??Chronic Kidney Disease Epidemiology Collaboration (CKD-EPI) equation refit??without adjustment for race. BUN/Creatinine Ratio 29.0 LAB CHEMISTRY METHOD 11/06/2024 6:26 AM [facility] Calcium 8.5 8.5 - 10.5 mg/dL LAB CHEMISTRY METHOD 11/06/2024 6:26 AM [facility] AST (SGOT) 6(L) 10 - 42 unit/L LAB CHEMISTRY METHOD 11/06/2024 6:26 AM [facility] ALT (SGPT) 36 10 - 60 unit/L LAB CHEMISTRY METHOD 11/06/2024 6:26 AM [facility] Alkaline Phosphatase 82 42 - 121 unit/L LAB CHEMISTRY METHOD 11/06/2024 6:26 AM [facility] Total Protein 5.7(L) 6.0 - 8.0 g/dL LAB CHEMISTRY METHOD 11/06/2024 6:26 AM [facility] Albumin 2.8(L) 3.2 - 5.0 g/dL LAB CHEMISTRY METHOD 11/06/2024 6:26 AM [facility] Total Bilirubin 0.4 0.0 - 1.4 mg/dL LAB CHEMISTRY METHOD 11/06/2024 6:26 AM [facility] Blood Venous blood specimen / Unknown Venipuncture / Unknown 11/06/2024 5:55 AM EST 11/06/2024 6:01 AM EST Christi BARCLAY LAB BLOOD ORDERABLES [facility] [address] [place] [address], * CT Chest w Contrast (11/05/2024 11:25 [...] by: Oswaldo Isaacs MD on 11/05/2024 23:56:[address] PROCEDURES * (ABNORMAL) POCT Glucose, blood (11/05/2024 11:17 PM EST) Glucose POCT 421(HH) 70 - 100 mg/dL 11/05/2024 11:20 PM EST [facility] Blood Capillary blood specimen / Unknown 11/05/2024 11:17 PM EST 11/05/2024 11:22 PM EST Ramón Arroyo MD LAB POINT OF CARE TE ST DOCKED DEVICE UNSOLICITED RESULTS [facility] [address] [place] [address], * Blood Culture, Peripheral Draw #1 (11/05/2024 6:38 PM EST) Culture, Blood No growth at 5 days LAB MICROBIOLOGY METHOD 11/10/2024 7:01 PM EST [facility] Blood Venous blood specimen / Unknown Venipuncture / Unknown 11/05/2024 6:38 PM EST 11/05/2024 6:46 PM EST Ramón Arroyo MD LAB MICROBIOLOGY - G ENERAL ORDERABLES [facility] [address] [place] [address], [place] [phone] * (ABNORMAL) Beta hydroxybutyrate (11/05/2024 6:28 PM EST) Beta-Hydroxyb utyrate 12.0(H) 0.2 - 2.8 mg/dL LAB CHEMISTRY METHOD 11/05/2024 8:41 PM EST [facility] Blood Venous blood specimen / Unknown Venipuncture / Unknown 11/05/2024 6:28 PM EST 11/05/2024 6:40 PM EST Herb BARCLAY LAB BLOOD ORDERABLES Performing Organization Address [facility]/ZIP Co de Phone Number [facility] [address] [place] [address], * (ABNORMAL) CBC auto differential (11/05/2024 6:28 PM EST) Pathologist [facility] WBC 13.8(H) 4.8 - 10.8 K/mcL LAB HEMETOLOGY METHOD 11/05/2024 6:49 PM EST [facility] RBC 5.00 4.50 - 5.50 M/mcL LAB HEMETOLOGY METHOD 11/05/2024 6:49 PM EST [facility] Hemoglobin 14.8 13.5 - 17.5 g/dL LAB HEMETOLOGY METHOD 11/05/2024 6:49 PM EST [facility] Hematocrit 43.0 42.0 - 54.0 % LAB HEMETOLOGY METHOD 11/05/2024 6:49 PM EST [facility] MCV 86.5 79.0 - 98.0 FL LAB HEMETOLOGY METHOD 11/05/2024 6:49 PM [facility] MCH 29.8 27.0 - 32.0 pcg LAB HEMETOLOGY METHOD 11/05/2024 6:49 PM [facility] MCHC 34.4 32.0 - 37.0 g/dL LAB HEMETOLOGY METHOD 11/05/2024 6:49 PM [facility] RDW 12.3 11.0 - 15.0 % LAB HEMETOLOGY METHOD 11/05/2024 6:49 PM [facility] Platelets 231 130 - 400 K/mcL LAB HEMETOLOGY METHOD 11/05/2024 6:49 PM [facility] MPV 9.5 7.0 - 11.0 FL LAB HEMETOLOGY METHOD 11/05/2024 6:49 PM [facility] NRBC 0.0 <1.0 % LAB HEMETOLOGY METHOD 11/05/2024 6:49 PM [facility] NRBC Absolute 0.00 <0.10 K/mcL LAB HEMETOLOGY METHOD 11/05/2024 6:49 PM [facility] Neutrophils Relative 90.5 % LAB HEMETOLOGY METHOD 11/05/2024 6:49 PM [facility] Lymphocytes Relative 4.5 % LAB HEMETOLOGY METHOD 11/05/2024 6:49 PM [facility] Monocytes Relative 4.4 % LAB HEMETOLOGY METHOD 11/05/2024 6:49 PM [facility] Eosinophils Relative 0.0 % LAB HEMETOLOGY METHOD 11/05/2024 6:49 PM [facility] Basophils Relative 0.1 % LAB HEMETOLOGY METHOD 11/05/2024 6:49 PM [facility] Immature Granulocytes Relative 0.5 % LAB HEMETOLOGY METHOD 11/05/2024 6:49 PM [facility] Neutrophils Absolute 12.48(H) 1.50 - 7.00 K/mcL LAB HEMETOLOGY METHOD 11/05/2024 6:49 PM EST [facility] Lymphocytes Absolute 0.62(L) 1.00 - 5.00 K/mcL LAB HEMETOLOGY METHOD 11/05/2024 6:49 PM EST [facility] Monocytes Absolute 0.60 0.20 - 1.00 K/mcL LAB HEMETOLOGY METHOD 11/05/2024 6:49 PM EST [facility] Eosinophils Absolute 0.00 0.00 - 0.50 K/[facility] LAB HEMETOLOGY METHOD 11/05/2024 6:49 PM EST [facility] Basophils Absolute 0.01 0.00 - 0.20 K/mcL LAB HEMETOLOGY METHOD 11/05/2024 6:49 PM [facility] Immature Granulocytes Absolute 0.07(H) 0.00 - 0.03 K/mcL LAB HEMETOLOGY METHOD 11/05/2024 6:49 PM EST [facility] Blood Venous blood specimen / Unknown Venipuncture / Unknown 11/05/2024 6:28 PM EST 11/05/2024 6:40 PM EST Ramón Arroyo MD LAB BLOOD ORDERABLES [facility] [address] [place] [address], * Blood Culture, Peripheral Draw #2 (11/05/2024 6:28 PM EST) Culture, Blood No growth at 5 days LAB MICROBIOLOGY METHOD 11/10/2024 7:01 PM EST [facility] Blood Venous blood specimen / Unknown Venipuncture / Unknown 11/05/2024 6:28 PM EST 11/05/2024 6:38 PM EST Ramón Arroyo MD LAB MICROBIOLOGY - G ENERAL ORDERABLES Performing Organization Address City/[facility]/ZIP Co de Phone Number [facility] [address] [place] [address], [place] [phone] * Lactate (11/05/2024 6:28 PM EST) [facility] Lactate 1.4 0.4 - 2.0 mmol/L LAB CHEMISTRY METHOD 11/05/2024 7:11 PM EST [facility] Blood Venous blood specimen / Unknown Venipuncture / Unknown 11/05/2024 6:28 PM EST 11/05/2024 6:38 PM EST Ramón Arroyo MD LAB BLOOD ORDERABLES Performing Organization Address [facility]/ZIP Co de Phone Number [facility] [address] [place] [address], [place] [phone] * (ABNORMAL) Basic metabolic panel (11/05/2024 6:28 PM EST) [facility] Sodium 123(L) 133 - 145 mmol/L LAB CHEMISTRY METHOD 11/05/2024 7:17 PM [facility] Potassium 5.0 3.5 - 5.5 mmol/L LAB CHEMISTRY METHOD 11/05/2024 7:17 PM [facility] Chloride 91(L) 96 - 110 mmol/L LAB CHEMISTRY METHOD 11/05/2024 7:17 PM [facility] CO2 24 21 - 32 mmol/L LAB CHEMISTRY METHOD 11/05/2024 7:17 PM [facility] Anion Gap 8 3 - 11 LAB CHEMISTRY METHOD 11/05/2024 7:17 PM [facility] Glucose 780(HH) 70 - 100 mg/dL LAB CHEMISTRY METHOD 11/05/2024 7:17 PM [facility] BUN 30(H) 5 - 25 mg/dL LAB CHEMISTRY METHOD 11/05/2024 7:17 PM EST [facility] Creatinine 1.09 0.70 - 1.30 mg/dL LAB CHEMISTRY METHOD 11/05/2024 7:17 PM EST [facility] eGFR 86 >=60 mL/min/1. 73m2 LAB CHEMISTRY METHOD 11/05/2024 7:17 PM EST [facility] Comment:Calculation based on the??Chronic Kidney Disease Epidemiology Collaboration (CKD-EPI) equation refit??without adjustment for race. BUN/Creatinine Ratio 27.5 LAB CHEMISTRY METHOD 11/05/2024 7:17 PM EST [facility] Calcium 9.3 8.5 - 10.5 mg/dL LAB CHEMISTRY METHOD 11/05/2024 7:17 PM EST [facility] Blood Venous blood specimen / Unknown Venipuncture / Unknown 11/05/2024 6:28 PM EST 11/05/2024 6:40 PM EST Ramón Arroyo MD LAB BLOOD ORDERABLES [facility] [address] [place] [address], documented in this encounter Visit Diagnoses Diagnosis [...] Units Le ft Upper Arm (Back) lidocaine (XYLOCAINE) 1 % injection As needed, Starting on Tue11/06/24 at 0959, Intraprocedure Given 11/06/2024 9:59 AM EST 60 mL lidocaine 4 % patch 1 patch 1 patch, Topical, Administer over 12 Hours, Daily, First dose on Tue11/08/24 at 1015, Apply to LEFT trapezius. Patch Applied 11/11/2024 8:22 AM EST 1 patch O ther Patch Applied 11/10/2024 10:25 AM EST 1 patch Other Patch Applied 11/09/2024 9:56 AM EST 1 patch Other metFORMIN (GLUCOPHAGE) tablet 1,000 mg 1,000 mg, [...] Montoya RN) 0020 (Given - Provider: Yvette Collins, JERRI) doxycycline (MONODOX) capsule 100 mg (COMPLETED) 100 [...] RN - Reason: Other - Comment: OR today)1032 (DEC Hold - Provider: Automatic Transfer Provider - Reason: Patient not available)103 (DEC Unhold - Provider: Automatic Transfer Provider)2034 (Given - Provider: Yvette Collins RN) 102 (Given - Provider: Rajesh Montoya, JERRI - Comment: advised that abd is prefered admin site. patient refused and insisted on arms only)2138 (Given - Provider: Yvette Collins RN) 820 (Given - Provider: Rajesh Montoya, JERRI - Comment: ADVISED PATIENT THAT REX IS PERFERED SITE) insulin glargine (LANTUS) injection 40 Units (CANCELED) 40 Units, subcutaneous, Nightly, First dose (after last modification) on Tue11/08/24 at 2100, Notify provider: -If patient is currently or will become NPO -If TPN was or will be interrupted or discontinued -For approval to hold long acting insulin 103 (DEC Hold - Provider: Automatic Transfer Provider [...] Renata Lyons RN)1245 (Stopped - Provider: Renata Lyons, JERRI) PRN [...] mg/dL*, Starting on Tue11/05/24 at 2224 1032 (DEC Hold - Provider: Automatic Transfer Provider - Reason: Patient not available)1039 ([facility] Unhold - Provider: Automatic Transfer Provider) dextrose 15 gram/60 mL oral solution 15 g 15 g, oral, Every 15 min PRN, low blood sugar, hypoglycemia *Patient conscious AND able to drink and swallow safely*, Starting on Tue11/05/24 at 2224 1032 ([facility] Hold - Provider: Automatic Transfer Provider - Reason: Patient not available)1039 ([facility] Unhold - Provider: Automatic Transfer Provider) dextrose 15 gram/60 mL oral solution 30 g 30 g, oral, Every 15 min PRN, low blood sugar, hypoglycemia *Patient conscious AND able to drink and swallow safely*, Starting on Tue11/05/24 at 2224 1032 ([facility] Hold - Provider: Automatic Transfer Provider - Reason: Patient not available)1039 ([facility] Unhold - Provider: Automatic Transfer Provider) Glucagon HCl (rDNA) injection 1 mg 1 mg, intramuscular, Once as needed, low blood sugar, severe hypoglycemia, Starting on Tue11/05/24 at 2224, For 1 dose 1032 ([facility] Hold - Provider: Automatic Transfer Provider - Reason: Patient not available)1039 ([facility] Unhold - Provider: Automatic Transfer Provider) HYDROmorphone [...] RN) 0520 (Given - Provider: Yvette Collins RN) [...] provider if no further options ordered. 1032 ([facility] Hold - Provider: Automatic Transfer Provider - [...] Transfer Provider)1428 (Given - Provider: Court Lara RN)2032 (Given - Provider: Yvette Collins, RN) 05 (Given - Provider: Yvette Collins, RN) Linked [...] 24 hr tablet 5 mg 1 11/10/2024 HYDROmorphone (DILAUDID) tablet 4 mg 1 10/24 insulin glargine (LANTUS) in jection 50 Units 1 11/10/2024 insulin lispro injection 4 Units 1 11/10/19 25 magnesium sulfate 2 gram/50 mL (4 %) IVPB 2 g 2 11/10/2024 metFORMIN (GLUCOPHAGE) tablet 1,000 mg 1 morphine 2 mg/mL injection 2 mg 1 nystatin (MYCOSTATIN) 100,00 0 unit/mL suspension 500,000 Units 1 11/10/2024 acetaminophen (TYLENOL) tablet 650 mg 2 11/06/2024 HYDROmorphone (PF) injection 0.5 mg 3 11/0911/06/2024 lactated Ringer's infusion 1 11/09/2024 lidocaine-EPINEPHrine (XYLOC TUSHAR W/EPI) 1 %-1:100,000 injection [...] insulin lispro injection 10 Units 1 025 oxyCODONE (ROXICODONE) immed iate release tablet 10 [...] 11/06/2024 documented in this encounter Care Teams Advanced Solutions Architect Relationship Specialty Start Date End Date Brandie Lopez MD [address] [place] [address] PCP - General Internal Medicine 10/13/18 documented as of this encounter
== END 2024-11-13 17:10 | disposition home or self-care (01) ==
LOC: HO.HUSH 16:47
PROVIDERS: Visit Provider Nurse Practitioner Family
DX: N47.1 Phimosis (principal); N20.0 Calculus of kidney
CPT/HCPCS: 99213

== ENCOUNTER 2025-01-17 15:52 | Emergency (ER) | payer OTHER, SELFPAY ==
--- NOTE | ~2025-01-17 | XR_ITS ---
CLINICAL HISTORY: chest pain 1 month Two views of the chest. COMPARISON: XR chest dated 08/21/24 at 22:48 EDT FINDINGS: Normal heart and mediastinal contours. No consolidation. No pleural effusion or pneumothorax. No fracture identified. IMPRESSION: 1. No consolidation. This document has been electronically signed by: Neal Salvador MD on 01/17/2025 16:39:18
--- NOTE | 2025-01-17 15:55 | ECG_ITS ---
Test Reason : CHEST PAIN Blood Pressure : */* mmHG Vent. Rate : 86 BPM Atrial Rate : 86 BPM P-R Int : 144 ms QRS Dur : 82 ms QT Int : 364 ms P-R-T Axes : 50 23 23 degrees QTcB Int : 435 ms Normal sinus rhythm Possible Inferior infarct , age undetermined Possible Anterior infarct (cited on or before 21-Aug-2024) Abnormal ECG When compared with ECG of 21-Aug-2024 21:23, No significant change was found Referred By: Generic ED Physician Electronically Signed By: RAISA SWARTZ MD
--- NOTE | 2025-01-17 16:09 | ED.GENADULT ---
HPI - General Adult General Chief complaint: General Medical Stated complaint: cp Related Data Home Medications ?Medication ?Instructions ?Recorded ?Confirmed metformin 500 mg tablet 1,000 mg PO BID 11/13/24 Previous Rx's ?Medication ?Instructions ?Recorded clotrimazole-betamethasone 1 1 appl topical BID 4 weeks #45 11/13/24 %-0.05 % topical cream grams Allergies Allergy/AdvReac Type Severity Reaction Status Date / Time No Known Allergies Allergy Verified 01/17/25 16:11 [No Known Allergies*] [facility] Past Medical History Medical History Elevated hemoglobin A1c Pre-diabetes Allergic rhinitis Non-alcoholic fatty liver disease Obesity Obstructive sleep apnea Anxiety GERD (gastroesophageal reflux disease) Social History Social History Advance Directives: No Advance Directives Information Provided: No Do you have a plan to hurt others: No Plan Physical Exam ED Vital Signs: BMI result Body Mass Index 40.3 Course Course Course Narrative: This is a rapid medical exam performed by Andreia Simpson NP: Additional HPI, ROS, PE not included below will be deferred to primary provider. Patient is a 44-year-old male presenting with one month of sharp left sided chest pain, upper back pain, dyspnea. Feeling worse past few days. Plan: EKG, labs, CXR Medical Decision Making Lab Data 01/17/25 16:20 01/17/25 16:20 Labs: Lab Results 01/17/25 Range/Units 16:20 WBC 8.9 (4.8-10.8) X10*3/uL RBC 5.18 (4.60-5.80) X10*6/uL Hgb 15.5 (14.0-18.0) g/dl Hct 42.6 (42.0-52.0) % MCV 82.2 (80.0-98.0) fL MCH 29.9 (27.0-33.0) pg MCHC 36.4 H (31.0-36.0) g/dl RDW 12.5 (11.0-16.0) % Plt Count 207 (160-400) X10*3/uL MPV 9.4 (9.4-12.4) fL Immature Gran % (Auto) 0.3 (0.0-0.4) % Neut % (Auto) 84.4 H (45-73) % Lymph % (Auto) 13.3 L (20-40) % Mercer % (Auto) 1.8 L (2-11) % Eos % (Auto) 0.0 (0-4) % Baso % (Auto) 0.2 (0-2) % Lymph # (Auto) 1.2 (1.2-4.9) X10*3/uL Mercer # (Auto) 0.2 (0.1-1.2) X10*3/uL Eos # (Auto) 0.0 (0.0-0.4) X10*3/uL Baso # (Auto) 0.0 (0.0-0.2) X10*3/uL Abs Immat Gran (auto) 0.03 (0.00-0.03) X10*3/uL Absolute Neuts (auto) 7.5 (2.0-8.3) x10*3/uL Absolute Nucleated RBC 0.000 (0.0-0.012) X10*3/uL Nucleated RBC % (auto) 0.0 (0.0-0.2) /100WBC PT 11.5 (10.9-12.4) SEC INR 1.0 (0.9-1.1) Sodium 138 (135-145) mmol/L Potassium 4.3 (3.3-5.1) mmol/L Chloride 103 (96-108) mmol/L Carbon Dioxide 24 (22-29) mmol/L Anion Gap 15 (12-20) BUN 17 H (9-16) mg/dL Creatinine 0.85 (0.5-1.4) mg/dL Estim Creat Clear Calc 141.2 Estimated GFR > 60 Random Glucose 311 H (60-115) mg/dL Calcium 9.8 (8.4-10.2) mg/dL Magnesium 1.6 (1.6-2.6) mg/dL Total Bilirubin 0.4 (0.0-1.0) mg/dL AST 43 H (5-37) U/L ALT 78 H (0-40) U/L Alkaline Phosphatase 60 (39-117) U/L Troponin I High Sens < 2.7 (<3.5-35.0) ng/L B-Natriuretic Peptide 25 (<100) pg/mL Total Protein 7.0 (6.5-8.0) g/dL Albumin 4.5 (3.5-5.0) g/dL Discharge Plan Discharge Clinical Impression: Chest pain Patient Disposition: Left W/O Completing Treatment Prescriptions: No Action metformin 500 mg tablet 1,000 mg PO BID clotrimazole-betamethasone 1-0.05 % cream 1 appl topical BID 28 Days Qty: 45 1RF Rx Instructions: Apply thin coat 2 times per day Discharge Date/Time: 01/17/25 21:27
[2025-01-17 16:10] VITALS: BP 164/84; PULSE 89; RESP 18; TEMP 36; O2SAT 96; BMI 40.3
[2025-01-17 16:24] LABS: MANUAL DIFF FLAG NO
[2025-01-17 16:26] LABS: Basophils Percent Auto 0.2 % (0-2); Hematocrit 42.6 % (42.0-52.0); Hemoglobin 15.5 g/dl (14.0-18.0); Imm Gran Abs Auto 0.03 X10*3/uL (0.00-0.03); Imm Gran Pct Auto 0.3 % (0.0-0.4); Lymphocytes Absolute Auto 1.2 X10*3/uL (1.2-4.9); Lymphocytes Percent Auto 13.3 % (20-40); Mean Corpuscular HGB Conc 36.4 g/dl (31.0-36.0); Mean Corpuscular Hemoglobin 29.9 pg (27.0-33.0); Mean Corpuscular Volume 82.2 fL (80.0-98.0); Mean Platelet Volume 9.4 fL (9.4-12.4); Monocytes Absolute Auto 0.2 X10*3/uL (0.1-1.2); Monocytes Percent Auto 1.8 % (2-11); Neutrophils Absolute Auto 7.5 x10*3/uL (2.0-8.3); Neutrophils Percent Auto 84.4 % (45-73); Platelet Count 207 X10*3/uL (160-400); Red Blood Count 5.18 X10*6/uL (4.60-5.80); Red Cell Distribution Width 12.5 % (11.0-16.0); White Blood Count 8.9 X10*3/uL (4.8-10.8)
[2025-01-17 16:33] LABS: Prothrombin Time 11.5 SEC (10.9-12.4)
[2025-01-17 16:43] LABS: Alanine Aminotransferase 78 U/L (0-40); Albumin Level 4.5 g/dL (3.5-5.0); Alkaline Phosphatase 60 U/L (39-117); Anion Gap 15 (12-20); Aspartate Amino Transferase 43 U/L (5-37); Bilirubin Total 0.4 mg/dL (0.0-1.0); Blood Urea Nitrogen 17 mg/dL (9-16); Calcium 9.8 mg/dL (8.4-10.2); Carbon Dioxide 24 mmol/L (22-29); Chloride 103 mmol/L (96-108); Creatinine Clr Calc Pharmacy 141.2; Estimated Glomerular Filt Rate > 60; Glucose Random 311 mg/dL (60-115); Magnesium 1.6 mg/dL (1.6-2.6); Potassium 4.3 mmol/L (3.3-5.1); Sodium 138 mmol/L (135-145)
[2025-01-17 16:49] LABS: B Type Natriuretic Peptide 25 pg/mL (<100)
[2025-01-17 16:53] LABS: Troponin-I High Sensitivity < 2.7 ng/L (<3.5-35.0)
== END 2025-01-17 21:27 | disposition left against medical advice (07) ==
PROVIDERS: Registered Nurse Emergency; Emergency Provider Emergency Medicine; PCP Internal Medicine
DX: R07.9 Chest pain, unspecified (principal); R06.00 Dyspnea, unspecified; E11.9 Type 2 diabetes mellitus without complications; E66.9 Obesity, unspecified; Z68.41 Body mass index [BMI] 40.0-44.9, adult; Z79.84 Long term (current) use of oral hypoglycemic drugs; Z79.899 Other long term (current) drug therapy
CPT/HCPCS: 36415; 71046; 80053; 83735; 83880; 84484; 85025; 85610; 93005; 99283

== ENCOUNTER → 2025-01-17 15:55 | Outpatient (BNV) | payer OTHER, SELFPAY | PROVIDERS: Emergency Provider Emergency Medicine; PCP Internal Medicine; Visit Provider Internal Medicine Cardiovascular Disease | DX: R94.31 Abnormal electrocardiogram [ECG] [EKG] (principal); R07.9 Chest pain, unspecified | CPT/HCPCS: 93010 ==

== ENCOUNTER → 2025-01-17 16:11 | Outpatient (BNV) | payer OTHER, SELFPAY | PROVIDERS: Visit Provider Radiology Diagnostic Radiology | DX: R07.9 Chest pain, unspecified (principal) | CPT/HCPCS: 71046 ==

== ENCOUNTER 2025-10-22 13:43 | Outpatient (REF) | payer OTHER, SELFPAY ==
--- OUTSIDE RECORDS SUMMARY | 2025-10-22 17:34 | XMS_ITS | Clinical Summary ---
Author Organization [facility] Prior to 03/23/25 Address [address] [place] [address] Care Team Providers Care Bottling Attendant Name Role Phone Unavailable Primary Care Provider Unavailabl e Social History Tobacco Use Types Packs/Day Years Used Date Smoking Tobacco: Never Assessed Sex and Gender Information Value Date Recorded Sex Assigned at Not on file Gender Identity Not on file Sexual Orientation Not on file Plan of Treatment Not on file
--- OUTSIDE RECORDS SUMMARY | 2025-10-22 17:34 | XMS_ITS | Clinical Summary ---
Author Organization [facility] Address [address] [place] [address] Phone Care Team Providers Care Wheel And Pinion Inspector Name Role Phone Brandie Lopez MD Primary Care Provider [phone] Allergies No known active allergies Medications metFORMIN (GLUCOPHAGE) 1,000 mg tablet Take 1 tablet (1,000 mg total) by mouth 2 (two) times a day with meals. 4 Active insulin glargine (LANTUS SoloStar) 100 unit/mL (3 mL) injection pen Inject 40 Units under the skin at bedtime. 15 mL 5 Active Additional Information Patient taking differently: 40-45 Unitssubcutaneous2 times daily, Reported on 05/22/2025 oxyCODONE-acet aminophen (PERCOCET) 5-325 mg per tablet Take 1 tablet by mouth See administration instructions. Take 1 tablet 30 minutes prior to planned wound vac/ dressing change 12 tablet 5 Active Additional Information Patient not taking.Reported on 11/19/2024 esomeprazole (NexIUM) [address] capsule Take 1 capsule (40 mg total) by mouth 1 (one) time each day before breakfast. Do not open capsule. Active clotrimazole-b etamethasone (LOTRISONE) 1-0.05 % cream APPLY 1 APPLICATION TOPICALLY 2 TIMES A DAY FOR 4 WEEKS APPLY THIN COAT 2 TIMES PER DAY 5 Active amoxicillin (AMOXIL) 500 mg capsule Take 1 capsule (500 mg total) by mouth every 12 (twelve) hours. Active insulin lispro 100 unit/mL injection Inject under the skin 3 (three) times a day before meals. -Administer within 15 minutes of a meal Active bacitracin/ren ymyxin B sulfate (POLYSPORIN OPHT) Administer into the left ear 2 (two) times a day. Active Active Problems Problem Noted Date Diagnosed Date [...] Encounters Date Type Department Care Team Description 08/27/2025 6:53 AM EST Anesthesia Event [facility] [address] [place] [address] Julia Wiggins CRNA 08/21/2025 Telephone Gastroenterology [facility] 175 [facility] [address] [address] Charo Carr MD 07/31/2025 Telephone Gastroenterology [facility] 175 [facility] [address] [address] Charo Carr MD from Last 3 Months Surgical History Surgery Date Site/Laterality Comments CHOLECYSTECTOMY Medical History Medical History Date Comments Chronic hepatitis B (CMS/HCC V24, CMS/HCC V28) 08/18/2018 DX:Chronic hepatitis B (HCC) Allergic rhinitis 01/05/2016 DX:Allergic rh initis Anxiety 08/09/2016 DX:Anxiety Asthma 01/05/2016 DX:Asthma Fatty liver 12/06/2016 DX:Fatty liver GERD (gastroesophageal reflux disease) 12/06/2016 DX:GERD (gastroesophageal reflux disease) Helicobacter pylori infection 07/11/2018 DX :Helicobacter pylori infection Hyperlipidemia 12/06/2016 DX:Hyperlipidemi a Morbid obesity with BMI of 4 0.0-44.9, adult ([facility] V24, [facility] V28) 12/06/2016 DX:Morbid obesity wit h BMI of 40.0-44.9, adult ([facility]) Obstructive sleep apnea 12/06/2016 DX:Obstr uctive sleep apnea Diabetes mellitus ([facility] V 24, [facility] V28) Family History Medical History Relation Name Comments No Known Problems Father No Known Problems Mother Relation Name Status Comments Father Mother Social History Tobacco Use Types Packs/Day Years Used Date Smoking Tobacco: Never Smokeless Tobacco: Never Alcohol Use Standard Drinks/Week Comments No 0 (1 standard drink = 0.6 oz pur e alcohol) Interpersonal Safety Answer Date Record ed Physical Abuse Unrecognized value 11/06/2024 Verbal Abuse Unrecognized value 11/06/2024 Sex and Gender Information Value Date Recorded Sex Assigned at Male 11/05/2024 7:38 PM EST Legal Sex Male 3:55 AM EST Gender Identity Male 11/05/2024 7:38 PM EST Sexual Orientation Straight 11/05/2024 7: 38 PM EST Last Filed Vital Signs Vital Sign Reading Time Taken Comments Blood Pressure 141/88 11/19/2024 1:16 PM EST Pulse 109 11/19/2024 1:16 PM EST Temperature 36.1 C (97 F) 11/19/2024 1:16 PM EST Respiratory Rate 17 11/11/2024 8:12 AM EST Oxygen Saturation 99% 11/11/2024 8:12 AM EST Inhaled Oxygen Concentration - - Weight 129 kg (285 lb) 05/22/2025 10:00 AM EDT Height 172.7 cm (5' 8 ) 05/22/2025 10:00 AM EDT Body Mass Index 43.33 05/22/2025 10:00 AM EDT Plan of Treatment Upcoming Encounters Date Type Department Care Team (Late st Contact Info) Description 11/05/2025 8:30 AM EST Appointment [facility] [address] [place] [address] Aurelio Riggins MD [address] [facility] [address] [place] [address] Health Maintenance Due Date Last Done Comments Diabetes: Annual Foot Exam 1991 Diabetes: Annual Retina Eye Exam 1991 DTaP,Tdap,and Td Vaccines (1 - Tdap) 2000 Hepatitis A Vaccines (1 of 2 - Risk 2-dose series) 2000 Hepatitis B Vaccines (1 of 3 - 19+ 3-dose series) 2000 Pneumococcal Vaccine: Pediatrics (0 to 5 Years) and At-Risk Patients (6 to 49 Years) (1 of 2 - PCV) 2000 HPV Vaccines (1 - 3-dose SCDM series) 2008 Cholesterol Screening (Lipid Panel) 09/26/2022 HIV Screening 09/26/2022 Hepatitis C Screening 09/26/2022 Social Influencers of Health Screening 09/26/2022 Depression Screening 10/24/2024 Diabetes: Annual Urine Albumin-Creatinine Ratio (uACR) 11/06/2024 Diabetes: Blood Sugar Control Test (HGBA1C) 05/06/2025 11/06/2024 COVID-19 Vaccine ( season) 2025 Influenza Vaccine (#1) 2025 Diabetes: Annual GFR (Glomerular Filtration Rate) 11/11/2025 11/11/2024, 11/10/2024, 11/07/2024, Additional history exists RSV Immunization Adult Patients (1 - 1-dose 75+ series) 2056 HIB Vaccines Aged Out No longer eligi [...] patient's age to complete this topic Meningococcal B Vaccine Aged Out No l onger eligible based on patient's age to complete this topic RSV Immunization Patients Under 20 months Aged Out No longer eligible based on patient's age to complete this topic Varicella Vaccines Aged Out No longer eligible based on patient's age to complete this topic Goals Goal Patient Goal Type Associated Problems Recent Progress Patient-Stated? Author Autogenerat ed Goal Care Plan Autogenerated Problem No Yuniel Mckeon Procedures Procedure Name Priority Date/Time Associated Diagnosis Comments COMPREHENSIVE METABOLIC PANEL Routine 11/11/2024 6:49 AM EST HEMOGLOBIN A1C Routine 11/06/2024 5:55 AM EST from Last 3 Months or Most Recently Relevant to Health Maintenance Results * (ABNORMAL) Comprehensive metabolic panel (11/11/2024 6:49 AM EST) Sodium 134 133 - 145 mmol/L LAB CHEMISTRY METHOD 11/11/2024 8:09 AM [facility] Potassium 4.1 3.5 - 5.5 mmol/L LAB CHEMISTRY METHOD 11/11/2024 8:09 AM [facility] Chloride 101 96 - 110 mmol/L LAB CHEMISTRY METHOD 11/11/2024 8:09 AM [facility] CO2 27 21 - 32 mmol/L LAB CHEMISTRY METHOD 11/11/2024 8:09 AM [facility] Anion Gap 6 3 - 11 LAB CHEMISTRY METHOD 11/11/2024 8:09 AM [facility] Glucose 244(H) 70 - 100 mg/dL LAB CHEMISTRY METHOD 11/11/2024 8:09 AM [facility] BUN 10 5 - 25 mg/dL LAB CHEMISTRY METHOD 11/11/2024 8:09 AM [facility] Creatinine 0.62(L) 0.70 - 1.30 mg/dL LAB CHEMISTRY METHOD 11/11/2024 8:09 AM [facility] eGFR 122 >=60 mL/min/1. 73m2 LAB CHEMISTRY METHOD 11/11/2024 8:09 AM [facility] Comment:Calculation based on the Chronic Kidney Disease Epidemiology Collaboration (CKD-EPI) equation refit without adjustment for race. BUN/Creatinine Ratio 16.1 LAB CHEMISTRY METHOD 11/11/2024 8:09 AM [facility] Calcium 8.5 8.5 - 10.5 mg/dL LAB CHEMISTRY METHOD 11/11/2024 8:09 AM [facility] AST (SGOT) 18 10 - 42 unit/L LAB CHEMISTRY METHOD 11/11/2024 8:09 AM [facility] ALT (SGPT) 60 10 - 60 unit/L LAB CHEMISTRY METHOD 11/11/2024 8:09 AM [facility] Alkaline Phosphatase 103 42 - 121 unit/L LAB CHEMISTRY METHOD 11/11/2024 8:09 AM [facility] Total Protein 6.0 6.0 - 8.0 g/dL LAB CHEMISTRY METHOD 11/11/2024 8:09 AM [facility] Albumin 2.7(L) 3.2 - 5.0 g/dL LAB CHEMISTRY METHOD 11/11/2024 8:09 AM [facility] Total Bilirubin 0.3 0.0 - 1.4 mg/dL LAB CHEMISTRY METHOD 11/11/2024 8:09 AM [facility] Blood Venous blood specimen / Unknown Venipuncture / Unknown 11/11/2024 6:49 AM EST 11/11/2024 7:12 AM EST us Chrissy BARCLAY LAB BLOOD ORDERABLES Final Re sult [facility] [address] [place] [address], * (ABNORMAL) Hemoglobin A1c (11/06/2024 5:55 AM EST) Hemoglobin A1C >14.8(H) <6.5 % LAB CHEMISTRY METHOD 11/06/2024 2:51 PM [facility] Mean Bld Glu Estim. LAB CHEMISTRY METHOD 11/06/2024 2:51 PM [facility] Comment:Unable to calculate due to HgB A1C being outside of the reportable range Blood Venous blood specimen / Unknown Venipuncture / Unknown 11/06/2024 5:55 AM EST 11/06/2024 6:02 AM EST us Christi BARCLAY LAB BLOOD ORDERABLES Final Resu lt [facility] ([facility]) [facility] [address] [place] [address], from Last 3 Months or Most Recently Relevant to Health Maintenance Additional Health Concerns Active Problems Noted Date Diagnosed Date Autogenerated Problem 09/12/2025 Insurance [facility] MEDICAID ADVANTAGE Advance Directives Documents on File Type Date Recorded Patient Demolitionist Expl anation Advance Directives and Living Will 11/12/2024 8:59 AM Advance Directives and Living Will 11/09/2024 2:20 PM Alfredo Yen Health Care Proxy * Full Code - Default [...] currently active code status orders. Care Teams Wheel And Pinion Inspector Relationship Specialty Start Date End Date Brandie Lopez MD [address] [place] [address] PCP - General Internal Medicine 10/13/18
--- OUTSIDE RECORDS SUMMARY | 2025-10-22 17:34 | XMS_ITS | Encounter Summary ---
Author Organization [facility] Address [address] [place] [address] Phone Care Team Providers Care Newscast Producer Name Role Phone Pcp, Unknown Primary Care Provider Unavailabl e Encounter Details Date Type Department Care Team (Late st Contact Info) Description 2025 Procedure [facility] Scan - [facility] [address] [place] [address] Social History Tobacco Use Types Packs/Day Years Used Date Smoking Tobacco: Never Assessed Education Answer Date Recorded Are you interested in more education? Not on margaux e 2025 Are you concerned about learning? Not on file 2025 No 2025 No 2025 Food Answer Date Recorded Within the past 6 months we worried whether our food would run out before we got money to buy more. Never True 2025 Within the past 6 months the food we bought just didn't last and we didn't have enough money to get more. Never True Residential Stability Answer Date Recor ded What is your housing situation today? I have kimberly sing 2025 How many times have you move d in the past 12 months? Zero (I did not move) 2025 Paying for Meds Answer Date Recorded Do you have trouble paying for medicines? No 2025 Paying Utility Bills Answer Date Record ed Do you have trouble paying your heating or elect ricity bill? No 2025 Transportation Answer Date Recorded Has the lack of transportati on kept you from medical appointments or from getting medications? No 2025 Digital Access Answer Date Recorded No 2025 Yes 2025 Do you have reliable internet access at home? Ye s 2025 Do you have a device (e.g., phone, tablet, computer) with a working camera? Yes 2025 Intimate Partner Violence Answer Date R ecorded Are you denied basic needs s uch as food, clothing, or medical care? No 2025 In the past 12 months have y ou been in a relationship with a person who hurts, threatens, or tries to control you? No 2025 Are you denied basic needs s uch as food, clothing, or medical care? No 2025 In the past 12 months have y ou been in a relationship with a person who hurts, threatens, or tries to control you? No 2025 Sex and Gender Information Value Date Recorded Sex Assigned at Not on file Legal Sex Male 7:33 PM EST Gender Identity Choose not to disclose 7:27 PM EST Sexual Orientation Choose not to disclose 2024 7:27 PM EST documented as of this encounter Plan of Treatment Not on file documented as of this encounter Visit Diagnoses Not on filedocumented in this encounter Care Teams Newscast Producer Relationship Specialty Start Date End Date Pcp, Unknown PCP - General 09/20/25 documented as of this encounter Additional Source Comments The information contained in this document represents components of the legal health record. It is not the complete legal health record.[facility]
--- OUTSIDE RECORDS SUMMARY | 2025-10-22 17:34 | XMS_ITS | Data Portability ---
Author Organization [place] - [facility], Allergy Address [address] [address] Care Team Providers Care Associate Director Of Nursing Name Role Phone AMIRA DOMINGUEZ Primary Care Provider [phone] Assessment Encounter Date Assessment Date Assessment LastModified by Organization Details LastModified Time 08/03/2024 08/03/2024 43-year-old male presents for follow-up [...] may consider trial of Atrovent nasal spray. [email or web address] Not available 08/03/2024 14:42:45 11/08/2024 11/08/2024 44-year-old [...] is interested in proceeding with CT sinus. [email or web address] Not available 11/08/2024 14:13:44 05/23/2025 05/23/2025 44-year-old male presents for evaluation of left ear infection. Exam today consistent with fungal otitis externa. Prescription for clotrimazole drops was sent to the pharmacy. Advised to continue with dry ear precautions on the left while treating for active ear infection. He will follow-up in 1 month for reevaluation, or sooner with concerns. May consider ear culture for persistent symptoms. yony Not available 05/23/2025 10:00:01 07/19/2025 07/19/2025 44-year-old male presents for follow up of left sided otitis externa. The infection has resolved. Bilateral tympanic membranes are intact with well aerated middle ear spaces. Audiometric testing was offered today, but patient would like to schedule audiometric testing for future date. He will follow-up for audiometric testing at his earliest convenience. Otherwise he will follow-up sooner with any new concerns. [email or web address] Not available 07/19/2025 13:53:02 Plan of Treatment Reminders Order Date Submit Date Provider Last Modified By Organization Details Last Modified Time Details Appointments None recorded. Lab None recorded. Referral neurologis t referral 2024 025 [facility], [address] [facility], [place], [address], 10:47:11 Procedures allergy testing, skin prick (PROC) 2023 024 [email or web address] Not available 14:50:45 intraderma l allergy skin testing (PROC) 2023 [email or web address] Not available 14:50:53 pulmonary function test procedure (PROC) 2023 [email or web address] Not available 14:51:00 pulse oximetry (PROC) 2023 [email or web address] Not available 14:51:07 Surgeries None recorded. Imaging None recorded. Medication Orders clotrimazo le 1 % topical solution 2024 025 [facility] #[id number], [address] [place], [address], 5 13:40:28 amoxicilli n 875 mg-potassi um clavulanat e 125 mg tablet 2024 025 [facility] #1972, [address] [place], [address], 13:40:29 Patient TargetsNo targets recorded. Patient Instructions Encounter Date Encounter Id Patient Instructions Last Modified By Organization Details Last Modified Time 08/16/2024 [id number] Nursing Documentation for Allergy Testing: Ordering Provider Dr. Perez Weight:lbs:265 kg: PFT Yes With Bronchodilator no approval needed to proceed with allergy testing? No ok'd testing History of Asthma:No Asthma Meds: Last used: Asthma exacerbated by: Chance that : N/A Fear of needles: No Regular medications reviewed in Computer: Yes Medication allergies: NKDA Antihistamine use: Yes Medications used:claritin Food Allergies:no Any foods make your mouth feeling itchy: No If yes: History of severe reaction where had to go to ER? No If yes details: Type of heat in home: Forced Air Pets: No If yes: Smoker: Never If former smoker-how much / day for how long When quit years ago Smoking now-how much /day for how long Occupation/Social History: Symptoms having: Congestion If other: Frequency Year Round Spirometry Contraindications: Heart attack in the last 3 months: No Major surgery in last 3 months: No Detached retina(serious eye issues) in last 2 months: No Hospitilization in last month: No Proceed with PFT Yes approval needed: No Nursing Notes: Pt tolerated test well Yes Benadryl cream to test sites No Patient became syncopal-placed in supine position No Large reactions to MQT, reschedule IDT for a different date No Other: Written by: CARLOS Johnson Not available 08/16/2024 15:37:07 Reason for Referral Neurologist Referral for Amina lee Referring Physician: Brian Motta, Otolaryngology, Encounter Date: 11/08/2024 Results Created Date Observation Date Name Description Value Unit Range Abnormal Flag Note LastModifiedBy Organization Detail LastModifiedTime 08/16/20 24 dale metry testi ng* No observ ation record ed. [email or web address] Not Available 07/25 11:21:55 Result Notes None recorded. Problems Name Problem SNOMED Code Status Onset Date Resolution Date Notes Provider Name and Address Organization Details Recorded Time Gastroeso phageal reflux disease 503538824 Active 2014 Laryngeal reflux; Note: Date Diagnosed : 11/29/2014 3:05 PM (530.81) Not Available [facility] 4 03:00:14 Otalgia of left ear 3589408203 Active 2019 Otalgia, left ear; Note: Date Diagnosed : 07/04/2020 2:28 PM (H92.02) Not Available [facility] 4 03:00:12 Gastroeso phageal reflux disease without esophagit is 266356798 Active 2019 Gastro-es ophageal reflux disease without esophagit is; Note: Date Diagnosed : 07/04/2020 2:33 PM (K21.9) Not Available [facility] 4 03:00:15 Sensorine ural hearing loss 16796591 Active 2020 Sensorine ural hearing loss, unilatera l, left ear, with unrestric cruz hearing on the contralat eral side; Note: Date Diagnosed : 05/26/2021 12:06 PM (H90.42) Not Available [facility] 4 03:00:13 Acute sialoaden itis 906248035 Active 2021 Acute sialoaden itis; Note: Date Diagnosed : 07/16/2022 2:45 PM (K11.21) Not Available Counts include 234 beds at the [facility] 4 03:00:14 Furuncle 237215300 Active 2022 Furuncle, unspecifi ed; Note: Date Diagnosed : 01/13/2023 9:42 AM (L02.92) Not Available Counts include 234 beds at the [facility] 4 03:00:14 Acute pharyngit is 692667501 Active 2022 Acute pharyngit is, unspecifi ed; Note: Date Diagnosed : 05/26/2023 4:00 PM (J02.9) Not Available Counts include 234 beds at the [facility] 03:00:15 Hemoptysi s 25365435 Active 2022 Hemoptysi s; Note: Date Diagnosed : 05/26/2023 4:00 PM (R04.2) Not Available Counts include 234 beds at the [facility] 4 03:00:12 Headache 12485198 Active 2023 Headache, unspecifi ed; Note: Date Diagnosed : 10/28/2023 10:18 AM (R51.9) Not Available Counts include 234 beds at the [facility] 4 03:00:14 Cough 69290443 Active 2023 Cough; Note: Date Diagnosed : 07/04/2020 2:33 PM (R05) ; Start Date : 0 Cough, unspecifi ed; Note: Date Diagnosed : 10/28/2023 10:18 AM (R05.9) Not Available Counts include 234 beds at the [facility] 4 03:00:12 Otitis externa of left ear 49248276891 83935 Active 2023 YULIA HARMON MD [address] [place] [address],[place] [address], [place], [address] , [place] - [facility] 4 14:00:19 Otorrhea 92424386 Active 2023 BRIAN MOTTA PA-C [address] [place] [address],[place] [address], [place], [address] , [place] - [facility] [place] 4 14:08:28 Otitis externa 9785645 Active 2023 BRIAN MOTTA PA-C [address], [place], [address] , [place] - [facility] [place] 4 14:13:28 Otitis externa 9782865 Active 2023 Parminder alvarez [place] - [facility] [place] 4 15:58:44 Candidal otitis externa 19471037 Active 2023 BRIAN MOTTA PA-C [address], [place], [address] , [place] - [facility] [place] 5 10:00:21 Posterior rhinorrhe a 22824186 Active 2023 BRIAN MOTTA PA-C [address], [place], [place], [address] , [place] - [facility] [place] 4 14:41:39 Seasonal allergic rhinitis 164757619 Active 2023 BRIAN MOTTA PA-C [address], [place], [place], [address] , [place] - [facility] [place] 4 14:41:44 Allergic rhinitis 89632186 Active 2023 [facility], [facility] [address], [place], [place], [address] , [place] - [facility] [place] 4 14:59:31 Allergic rhinitis 73236338 Active 2023 [facility], [facility] [address], [place], [address] , [place] - [facility] [place] 4 15:04:35 Acute sinusitis 79752570 Active 2024 BRIAN MOTTA PA-C [address], [place], [address] , [place] - [facility] [place] 5 13:08:04 Otitis externa of left external auditory canal caused by fungus 57799322208 45593 Active 2024 BRIAN MOTTA PA-C [address] [facility],[place] [address], [place], [address] , [facility] 5 10:00:12 Problem Notes None recorded. Procedures Surgical History Date Name Laterality Status Provider Name and Address Organization Details Recorded Time 5 Telehealth completed BRIAN MOTTA PA-C [address] [facility],[place] [address], [place], [address], [facility] 11/08/2024 13:05:12 Allergy Testing-Full completed CARLOS JOHNSON [address] [facility],[place] [address], [place], [address], [facility] 08/16/2024 15:36:59 Imaging Results None recorded. Procedure Notes None recorded. Medical Equipment None Reported. Allergies Allergen ID Allergen Name Allergen Category Reaction Reaction Severity Criticality Documentation Date Start Date Code Code System Note Provider Name and Address Organization Details Recorded Time 741159 mold extract environme nt Not available Not available Not available 10/03/20252024 82424 8 RxNorm Not Available antonette - External Data Service - prod 5 03:32:42 No known drug allergies Medications Name Sig Start Date Stop Date Status Note LastModified by Organization Details LastModified Time losartan 50 mg tablet TAKE ONE TABLET BY MOUTH EVERY DAY active Not Available Not Available No t Available celecoxib 200 mg capsule TAKE ONE CAPSULE BY MOUTH TWICE A DAY active Not Available Not Available No t Available amoxicill in 500 mg capsule TAKE 1 CAPSULE BY MOUTH THREE TIMES A DAY 05/20 completed Not Available Not Available Not Available metformin 500 mg tablet TAKE 1 TABLET BY MOUTH TWICE A DAY active Not Available Not Available No t Available neomycin- polymyxin -hydrocor t 3.5 mg/mL-10, 000 unit/mL-1 % ear solution PLACE 2 DROPS IN AFFECTED EAR 3 TIMES PER DAY FOR 10 DAYS 04/23 completed Not Available Not Available Not Available nystatin 100,000 unit/mL oral suspensio n SWISH AND SWALLOW 5 ML (500,000 UNITS TOTAL) 4 (FOUR) TIMES A DAY FOR 26 DOSES. active Not Available Not Available No t Available doxycycli ne hyclate 100 mg capsule TAKE 1 CAPSULE ORALLY TWICE A DAY FOR 7 DAYS WITH AT LEAST 8OZ OF WATER, DON'T LIE DOWN FOR 30 MIN 07/19 completed Not Available Not Available Not Available clindamyc in HCl 300 mg capsule TAKE 1 CAPSULE BY MOUTH THREE TIMES A DAY FOR 10 DAYS 04/23 completed Not Available Not Available Not Available azithromy lorena 250 mg tablet TAKE 2 TABLETS BY MOUTH TODAY, THEN TAKE 1 TABLET DAILY FOR 4 DAYS DIRECTED 04/23 completed Not Available Not Available Not Available miconazol e nitrate 2 % topical cream 1 APPLICAT ION TOPICALL Y 2 TIMES A DAY,INST R:TO AFFECTED AREA active Not Available Not Available No t Available clarithro mycin 500 mg tablet TAKE 1 TABLET BY MOUTH TWICE A DAY FOR 14 DAYS 08/16 completed Not Available Not Available Not Available sucralfat e 1 gram tablet 07/04 completed Medicati on ID: [id number] Du ration Value: 30 Reason: () Brand [...] mg tablet 07/04 completed Medicati on ID: [id number] Du ration Value: 14 Reason: () Brand [...] completed Not Available Not Available Not Available oxycodone -acetamin ophen 5 mg-325 mg tablet TAKE 1 TABLET 30 MINUTES PRIOR TO PLANNED WOUND VAC/ DRESSING CHANGE 07/19 completed Not Available Not Available Not Available ofloxacin 0.3 % ear drops APPLY 10 DROPS LEFT EAR 2 TIMES A DAY 10 DAYS 05/20 completed Not Available Not Available Not Available hydromorp bam 2 mg tablet TAKE 1 TABLET BY MOUTH EVERY FOUR HOURS IF NEEDED FOR SEVERE PAIN FOR UP TO 5 DAYS. MAX/DAY: 6 TABLET 07/19 completed Not Available Not Available Not Available pravastat in 10 mg tablet 07/04 completed Medicati on ID: [id number] Du ration Value: 30 Reason: () Brand Name: pravasta tin Send Method: E-Prescr ibed Sub s Allowed: subs OK Speci al Instruct ion: TAKE 1 TABLET DAILY. Donna Shukla Name: pravasta tin Not Available Not Available Not Available tamsulosi n 0.4 mg capsule TAKE 1 CAPSULE BY MOUTH EVERY DAY AT BEDTIME FOR 14 DAYS 08/16 completed Not Available Not Available Not Available pantopraz ole 40 mg tablet,de layed release 07/04 completed Medicati on ID: [id number] Du ration Value: 30 Reason: () Brand Name: pantopra zole Sen d Method: E-Prescr ibed Sub s Allowed: subs OK Speci al Instruct ion: TAKE 1 TABLET BY MOUTH DAILY Me dication GenericN zach: pantopra zole Not Available Not Available Not Available hyoscyami ne sulfate 0.125 mg tablet 07/04 completed Medicati on ID: [id number] Du ration Value: 30 Reason: () Brand Name: hyoscyam ine sulfate Send Method: E-Prescr ibed Sub s Allowed: subs OK Speci al Instruct ion: TAKE 1 TABLET BY MOUTH TWICE A DAY Medi cationGe nericNam e: hyoscyam ine sulfate Not Available Not Available Not Available metformin 1,000 mg tablet TAKE ONE TABLET BY MOUTH TWICE A DAY active Not Available Not Available No t Available clotrimaz ole-betam ethasone 1 %-0.05 % topical cream APPLY 1 APPLICAT ION TOPICALL Y 2 TIMES A DAY FOR 4 WEEKS APPLY THIN COAT 2 TIMES PER DAY active Not Available Not Available No t Available clotrimaz ole 1 % topical solution APPLY 5 DROPS TO THE LEFT EAR TWICE DAILY FOR 2 WEEKS 07/19 completed Not Available Not Available Not Available capsaicin 0.025 % topical cream APPLY 1 APPLICAT ION TOPICALL Y 2 TIMES DAILY. AVOID CONTACT WITH FACE AND EYES-- APPLY TO AFFECTED AREA. active Not Available Not Available No t Available pyridoxin e (vitamin B6) 100 mg tablet 04/23 completed Medicati on ID: [id number] B rand Name: pyridoxi ne (vitamin B6) Send Method: E-Prescr ibed Sub s Allowed: subs OK Speci al Instruct ion: TAKE 1 TABLET BY MOUTH EVERY DAY Medi cationGe nericNam e: pyridoxi ne (vitamin B6) Medi cation ID: [id number] B rand Name: pyridoxi ne (vitamin B6) Send Method: E-Prescr ibed Sub s Allowed: subs OK Speci al Instruct ion: TAKE 1 TABLET BY MOUTH EVERY DAY Medi cationGe nericNam e: pyridoxi ne (vitamin B6) Not Available Not Available Not Available ibuprofen 600 mg tablet TAKE 1 TABLET BY MOUTH THREE TIMES A DAY NEEDED FOR PAIN active Not Available Not Available No t Available levofloxa lorena 750 mg tablet TAKE 1 TABLET (750 MG TOTAL) BY MOUTH 1 (ONE) TIME EACH DAY FOR 7 DOSES. 07/19 completed Not Available Not Available Not Available fluticaso ne propionat e 50 mcg/actua tion nasal spray,marilin pension SPRAY 1 SPRAYS INTO BOTH NOSTRILS 2 TIMES A DAY FOR 30 DAYS NEEDED FOR NASAL CONGESTI ON active Not Available Not Available No t Available amoxicill in 875 mg-potass ium clavulana te 125 mg tablet TAKE 1 TABLET BY MOUTH TWICE A DAY FOR 10 DAYS 07/19 completed Not Available Not Available Not Available tobramyci n 0.3 %-dexamet hasone 0.1 % eye drops,marilin pension Apply 4 drops to the left ear BID x 14 days 08/16 completed Not Available Not Available Not Available insulin lispro (U-100) 100 unit/mL subcutane ous pen PLEASE SEE ATTACHED FOR DETAILED DIRECTIO NS active Not Available Not Available No t Available dutasteri de 0.5 mg capsule TAKE [...] aerosol inhaler 10/28 completed Medicati on ID: [id number] B rand Name: Symbicor t Send Method: E-Prescr ibed Sub s Allowed: subs PAIGE Speci al Instruct ion: INHALE 2 PUFFS EVERY 12 HOURS. USE WITH SPACER, RINSE MOUTH AND THROAT AFTER USE Medi cationGe nericNam e: Symbicor t Not Available Not Available Not Available FreeStyle Lite Strips active Not Available Not Available Not Available Lantus Solostar U-100 Insulin 100 unit/mL (3 mL) subcutane ous pen INJECT 40 UNITS UNDER THE SKIN AT BEDTIME active Not Available Not Available No t Available Victoza 2-Jalen 0.6 mg/0.1 mL (18 mg/3 mL) subcutane ous pen injector INJECT 1.2MG 0.2ML) UNDER THE SKIN ONCE DAILY active Not Available Not Available No t Available Toujeo SoloStar U-300 Insulin 300 unit/mL (1.5 mL) subcutane ous pen TAKE 40 UI IN THE MORNING AND 40 UI AT BEDTIME active Not Available Not Available No t Available albuterol sulfate 90 mcg/actua tion breath activated powder inhaler 10/28 completed Medicati on ID: [id number] B rand Name: ProAir HFA Send Method: E-Prescr ibed Sub s Allowed: subs PAIGE Watersi al Instruct ion: INHALE 2 PUFFS BY MOUTH EVERY 6 HORUS NEEDED FOR WHEEZING OR SHORTNES S OF BREATH M edicatio nGeneric Name: ProAir HFA Medi cation ID: [id number] B rand Name: ProAir HFA Send Method: E-Prescr ibed Sub s Allowed: subs PAIGE Watersi al Instruct ion: INHALE 2 PUFFS BY MOUTH EVERY 6 HORUS NEEDED FOR WHEEZING OR SHORTNES S OF BREATH M edicatio nGeneric Name: ProAir HFA Not Available Not Available Not Available Lidocaine Pain Relief 4 % topical patch PUT ONE PATCH ON CHEST/AN D OR BACK AT BEDTIME. REMOVE IN AM. DO NOT LEAVE PATCH ON MORE THAN 12 HOURS AT A TIME. active Not Available Not Available No t Available albuterol sulf 90 mcg/actua tion breath activated powder inhaler,s ensor 10/28 completed Medicati on ID: [id number] B rand Name: ProAir HFA Send Method: E-Prescr ibed Sub s Allowed: subs OK Speci al Instruct ion: INHALE 2 PUFFS BY MOUTH EVERY 6 HORUS NEEDED FOR WHEEZING OR SHORTNES S OF BREATH M alexus Shukla Name: ProAir HFA Not Available Not Available Not Available FreeStyle Ulisses 3 [place] USE INSTRUCT ED active Not Available Not Available No t Available FreeStyle Ulisses 3 Plus Sensor device USE INSTRUCT ED active Not Available Not Available No t Available Ultra-Fin e Pen Needle 31 gauge x 5/16 USE THREE TIMES A DAY active Not Available Not Available No t Available Vitals Date Recorded Body height Body mass index (BMI) Body weight Provider Name and Address Organization Details Last Updated DateTime 05/23/2025 172.72 cm 40.3 kg/m2 882876.98 g Gillian Gan [place] - [facility] 05/23/2025 09:35:45 Date Recorded Body height Provider Name an d Address Organization Details Last Updated DateTime 07/19/2025 172.72 cm RAUL KENYATTA [place] - [facility] 07/19/2025 13:38:13 Date Recorded Body height Body mass index (BMI) Body weight Provider Name and Address Organization Details Last Updated DateTime 08/03/2024 172.72 cm 41.1 kg/m2 153446.94 g Gillian Gan [place] - [facility] 08/03/2024 13:47:09 Date Recorded Body height Body mass index (BMI) Body weight Heart rate Oxygen saturation Systolic And Diastolic Provider Name and Address Organization Details Last Updated DateTime 172.72 cm 40.3 kg/m2 619470. 98 g 88 /min 97 % 123/72 mm[Hg] [facility] [address], [address] [facility] 14:55:36 Social History None recorded. Functional Status None recorded. Mental Status None recorded. Family History Nothing Reported. Medical History Condition Response Allergies/Hayfever Y Anxiety Y Sleep Disorder Y GERD/Reflux Y Stroke Y Hypertension Y Depression Y Asthma Y Past Encounters Encounter ID Performer Location Encounter Start Date Encounter Closed Date Diagnosis/Indication Diagnosis SNOMED-CT Code Diagnosis ICD10 Code Diagnosis IMO Codes Diagnosis Note [id number] YULIA HARMON MD [facility] [address] [address] 04/23/2024 13:42:14 04/23/2024 14:04:06 Otitis externa of left ear 3601526398 002481 H60.92 [id number] BRIAN MOTTA PA-C [facility] [address] [address] 05/11/2024 13:51:30 05/11/2024 14:13:12 Otalgia of left ear 1893420129 H92.02 Otitis externa 4995780 H 60.312 [id number] PARMINDER FELIZ PA-C [facility] [address] [address] 05/28/2024 15:47:01 05/28/2024 16:42:46 Otitis externa 0808992 H60.92 Headache 09964841 R51.9 [id number] BRIAN MOTTA PA-C [facility] [address] [address] 08/03/2024 13:38:37 08/03/2024 14:13:30 Headache 91986214 R51.9 Otitis externa 7727624 H 60.312 Posterior rhinorrhea 758 32695 R09.82 Seasonal a llergic rhinitis 985581417 J30.2 [id number] [facility] [address] [place] [address] 08/16/2024 14:41:47 08/16/2024 15:42:58 Allergic rhinitis 28441685 J30.9 [id number] BRIAN MOTTA PA-C [facility] [address] [address] 11/08/2024 13:10:00 11/08/2024 15:31:14 Headache 17893386 R51.9 Acute sinusitis 97473089 J01.80 [id number] BRIAN MOTTA PA-C [facility] [address] [place] [address] 05/23/2025 09:28:15 05/23/2025 10:58:34 Candidal otitis externa 33344771 B37.84 [id number] BRIAN MOTTA PA-C [facility] [address] [place] [address] 07/19/2025 13:34:16 07/19/2025 13:53:56 Candidal otitis externa 51425944 B37.84 [id number] Health Concerns Section Related Observation LastModified by Organization Detai ls LastModified Time None Recorded Concern Status LastModified by Organization Details LastModified Time None Recorded Advance Directives Directive None Recorded Payers Insurance Date Sequence Insurance Name Policy Number Policy Limon Covered Member ID Limon Member ID Guarantor Name 05/23/2025 1 [place] [facility] Rutemom Ivelisseko [id number] Ruvim Raalysenko 09/30/[address] [facility] (MEDICAID HMO) [id number] Ruvim Raalysenko [id number] Ruvim Nicholasnko 05/23/2025 1 [facility] (MEDICAID REPLACEMENT - [facility]) [id number] Ruvim Nicholasnko [id number] Ruvim Raalysenko 05/23/[address] [facility] (MEDICAID HMO) [id number] Ruvim Rakhubenko [id number] Ruvim Raumairubenko Notes Date Note Type Note Provider Name and Address Organization Details Recorded Time 08/03/2024 text/html ROS as noted in the HPI 43-year-old male presents for follow-up of otitis externa. Culture positive for [place]. He was started on clotrimazole. Otologic symptoms [...] and postnasal drip. LOUIS CLAYTON MD [address] [facility],[address], [address], [facility] - [facility] [place] 08/03/2024 15:29:21 11/08/2024 text/html ROS as noted in the [facility] 44-year-old male presents for review of allergy [...] earlier this week. LOUIS CLAYTON MD 100 [facility],[address], [address], [facility] [place] 11/08/2024 15:30:48 05/23/2025 text/html ROS as noted in the [facility] 44-year-old male presents for evaluation of left-sided ear pain and itching. Symptoms have been present for the past month. He was treated with topical eardrops for an ear infection by his PCP a month ago without any improvement. He does not recall the name of the prescription. Denies otorrhea or changes in his hearing. He was last treated for fungal otitis externa with positive culture back in July. Symptoms resolved with clotrimazole drops. JUSTIN PEREZ MD [facility] [place],[address], [address], [facility] 05/23/2025 11:25:06 07/19/2025 text/html ROS as noted in the [facility] 44-year-old male presents for follow up of left-sided ear pain and itching. Was prescribed Clotrimazole drops for left fungal OE. Symptoms resolved. Recently returned from a flight 3 days ago and notes ear pain, but denies otorrhea or changes in his hearing. Reports chronic tinnitus, mostly on the left. History of left sided SNHL. MRI brain/IAC 07/16/21 was without evidence of retrocochlear pathology. LOUIS CLAYTON MD [address] [place] [address],[place] [address], [place], [id number], [facility] - [facility] 07/20/2025 15:10:42
--- OUTSIDE RECORDS SUMMARY | 2025-10-22 17:34 | XMS_ITS | Encounter Summary ---
Author Organization [facility] Address [address] [place] [address] Phone Care Team Providers Care Perforator Name Role Phone Pcp, Unknown Primary Care Provider Unavailabl e Encounter Details Date Type Department Care Team (Late st Contact Info) Description 2025 Procedure Pass [facility], [facility] Scan - [facility] [address] [place] [address] Social History Tobacco Use Types Packs/Day Years [...] on filedocumented in this encounter Care Teams Perforator Relationship Specialty Start Date End Date Pcp, Unknown PCP - General 09/20/25 documented as of this encounter Additional Source Comments The information contained in this document represents components of the legal health record. It is not the complete legal health record.[facility]
--- OUTSIDE RECORDS SUMMARY | 2025-10-22 17:34 | XMS_ITS | Clinical Summary ---
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 or focal lesions. Adrenal Glands: No nodules. Kidneys/Ureters: No contusion, laceration, or subcapsular hematoma. Noinjury to the vascular structures or collecting systems. No stones orhydronephrosis. Bowel: No bowel wall thickening or dilatation. Normal appendix. Mesentery, Omentum, and Peritoneum: No pneumoperitoneum, hemoperitoneum,or mesenteric hematoma. No ascites. Pelvic Organs/Bladder: No significant abnormality. Lymph Nodes: No lymphadenopathy. Musculoskeletal: No acute pelvic fracture. No significant soft tissuehematoma. Mild subchondral sclerosis of the bilateral femoral heads mayrepresent avascular necrosis. Small fat-containing left inguinal hernia. THORACIC AND LUMBAR SPINE: Alignment and Curvature: No traumatic malalignment. Vertebrae: No acute fracture. Disc Spaces: Normal. Soft Tissues: No paravertebral hematoma. IMPRESSION: 1. No acute intracranial findings. 2. No acute fracture or traumatic malalignment of the cervical spine. 3. No acute traumatic injury to the chest, abdomen, or pelvis. 4. No acute fracture or traumatic malalignment of the thoracic or lumbarspine. Neftali Hartmann MD IMG CT HEAD/NECK Final Res ult * Ethanol, Blood (2025 8:10 PM EST) Ethanol <10 Negative; <11 mg/dL 2025 8:44 PM EST [facility] Blood (Blood) Venipuncture / Unknown 2025 8:10 PM EST 2025 8:14 PM EST Neftali Hartmann MD LAB BLOOD BKR ORDERABLES F inal Result [facility] [address] [place] [address] from Last 3 Months Insurance [employer] HEALTHY PARTNERSHIP A[employer] HE[employer]Y PARTNERSHIP ACO A[employer] HE[employer] PARTNERSHIP ACO ACO ACO Member Subscriber Plan / Payer (Ef fective 2025-Present) Name:Mark Yen Relation to Subscriber:Self Name:Mark Yen Payer ID:Not on file Type:Medicaid Address: [address] INSURANCE Care Teams 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 It is not the complete legal health record.Formerly [facility]
--- OUTSIDE RECORDS SUMMARY | 2025-10-22 17:34 | XMS_ITS | Encounter Summary ---
Author Organization [facility] Address [address] [place] [address] Phone Care Team Providers Care Auto Painter Name Role Phone Pcp, Unknown Primary Care Provider Unavailabl e Encounter Details Date Type Department Care Team (Late st Contact Info) Description 2025 Procedure Pass [facility] [place], [place] Scan - [facility] [address] [place] [address] Social History Tobacco Use Types Packs/Day Years [...] on filedocumented in this encounter Care Teams Auto Painter Relationship Specialty Start Date End Date Pcp, Unknown PCP - General 09/20/25 documented as of this encounter Additional Source Comments The information contained in this document represents components of the legal health record. It is not the complete legal health record.[facility]
--- OUTSIDE RECORDS SUMMARY | 2025-10-22 17:34 | XMS_ITS | Encounter Summary ---
Author Organization [facility] Address [address] [place] [address] Phone Care Team Providers Care Home Health Care Provider Name Role Phone Pcp, Unknown Primary Care Provider Unavailabl e Encounter Details Date Type Department Care Team (Late st Contact Info) Description 2025 Procedure Pass [facility], [place] Scan - [facility] [address] [place] [address] Social History Tobacco Use Types Packs/Day Years [...] on filedocumented in this encounter Care Teams Home Health Care Provider Relationship Specialty Start Date End Date Pcp, Unknown PCP - General 09/20/25 documented as of this encounter Additional Source Comments The information contained in this document represents components of the legal health record. It is not the complete legal health record.[facility]
== END 2025-10-22 13:44 | disposition home or self-care (01) ==
LOC: HO.LAB 13:43
PROVIDERS: Visit Provider Nurse Practitioner Family
DX: E11.9 Type 2 diabetes mellitus without complications (principal); R39.9 Unspecified symptoms and signs involving the genitourinary system
CPT/HCPCS: 36415; 51798; 81003; 83036; 87086

== ENCOUNTER 2025-10-22 13:46 | Outpatient (AMB) | payer OTHER, SELFPAY ==
--- NOTE | 2025-10-22 14:05 | AM.OFFVISNUR ---
Intake Visit Reasons: UA Allergies No Known Allergies (No Known Allergies*) Allergy (Verified 01/17/25 16:11) Office Procedures Post Void Residual Post Residual Void Details: Patient came into office reporting that he has a UTI after multiple calls to patient went straight to voicemail. Patient shown that calls all go to voicemail as patient was very upset office did not call him back. Explained that office did call multiple times as documented and shown. Let patient know that office will be happy to help with his concerns, however he does need to also book a follow up appt with Kristen RAGLAND as he missed prior appt. Patient booked follow up appt. Patient reporting that he has an infection. Attempted to clarify with patient symptoms, only kept repeating infection and peeing a lot. UA run and reviewed with Kristen RAGLAND: explain to patient that there is no indication of infection, glucose is high and to drink plenty of water. Explained this all to patient. Patient then stated that he needed a cream or medication for his infection, he knows about the high blood sugar from blood test done by other provider. Explained that there is not a cream that would help or medication as it is not a UTI. Patient stated then that he has burning, frequency, urgency and his penis is too painful. In room examined patient penis, unable to retract foreskin to see glans. Inquired about when patient was able to not pull foreskin back to clean and urinate, patient reporting 3-4 days. Let patient know that this can be discussed with Kristen as well, reviewed with Kristen- can refill cream for phimosis, have patient get A1C done today as well as prior to follow up with her in office and do bladder scan. Bladder scanned patient for 118mls, let him know cream refilled and to do A1C today. Kristen RAGLAND aware of retained amount and no action needed for this amount at this time. Patient also aware of plan at this time, patient is agreeable. Post Void Residual (PVR): [id number] Void Residual by ultrasound Assessment & Plan Assessment & Plan Orders: Orders AMB Post Void Residual by ultrasound Today R39.9 - Unspecified symptoms and signs involving the genitourinary system Coding CPT Codes Post Residual Void - PVR CPT Code: 73280-[id number] Void Residual by ultrasound ([id number])
== END 2025-10-22 14:19 | disposition home or self-care (01) ==
LOC: HO.HUSH 13:46
PROVIDERS: PCP Internal Medicine; Visit Provider Nurse Practitioner Family
DX: R39.9 Unspecified symptoms and signs involving the genitourinary system (principal)